=== PATIENT | male | born 1980 | race Caucasian/White ===

== ENCOUNTER 2018-12-12 17:10 | Inpatient (IN) | payer MEDICARE, MEDICAID ==
[2018-12-12] MEDS ORDERED: Lactated Ringers 1,000 ML IV ONE (17:35)
[2018-12-12] MEDS ORDERED: Sodium Chloride 0.9% 10 ML Syringe FLUSH PRN (17:35)
[2018-12-12] MEDS ORDERED: Levofloxacin/Dextrose 5%-Water 750 MG in Premix Bag 1 BAG IV ONE (17:55)
--- NOTE | 2018-12-12 18:02 | EDM.PDOC ---
ED HPI GENERAL MEDICAL PROBLEM - General Chief Complaint: Genitourinary Problem Stated Complaint: FEVER/URINARY PROBLEMS Time Seen by Provider: 12/12/18 17:23 Source of Information: Reports: Patient History Limitations: Reports: Physical Impairment - History of Present Illness INITIAL COMMENTS - FREE TEXT/NARRATIVE: 38-year-old male is brought in by his able case workers. He has a history of cerebral palsy. Currently has a suprapubic urinary catheter that they catheterized him 5 times a day with. Patient is new to able. reportedly the patient was diagnosed with urinary tract infection recently. He is currently on Keflex and ciprofloxacin for this. Just started on ciprofloxacin recently. Was found to have kidney stone. This was all diagnosed at [facility]. Reportedly has not been doing well. He has had fevers. No vomiting, cough or diarrhea. Patient answers questions appropriately. States that he is not feel well. records obtained from the [facility] showed that he had a noncontrast CT which read as 2 tiny nonobstructing left renal parenchymal calculi. No evidence of ureteral calculus given with the limitations of the exam. There is extensive artifact from the call lumbar surgical change. Soft tissue thickening calcifications. The urinary bladder that could be related to prior percutaneous catheter placement in this location. Small amount of air within the urinary bladder that could be related to instrumentation, but correlate with any clinical concern for infection. UA done at [facility] on 12-11 shows 51-200 of white blood cells per high-powered field and few bacteria. Urine culture is growing out greater than 100,000 colony-forming units per mL of Pseudomonas. Treatments CONTACT CENTER TEAM LEAD: Reports: Acetaminophen, NSAIDS - Related Data Allergies Allergy/AdvReac Type Severity Reaction Status Date / Time hydrocodone Allergy Vomiting Verified 12/12/18 19:39 Sulfa (Sulfonamide Allergy Other Verified 12/12/18 19:39 Antibiotics) Home Meds: Home Meds Acetaminophen [Tylenol] 325 mg PO Q4H PRN 12/12/18 [History] Amoxicillin 2,000 mg PO DAILY PRN 12/12/18 [History] Ascorbate Calcium [Vitamin C] 500 mg PO BID 12/12/18 [History] Baclofen 10 mg PO TID PRN 12/12/18 [History] Bifidobacter. Bifidum/B.Longum [Florajen Bifidoblend] 460 mg PO BID 12/12/18 [ History] Calcium Carb/Magnesium Hydrox [PA-Acid DS] 1 each PO Q4HR PRN 12/12/18 [History] Cephalexin [Keflex] 500 mg PO TID 12/12/18 [History] Cholecalciferol (Vitamin D3) [Vitamin D3] 1,000 units PO DAILY 12/12/18 [History ] Ciprofloxacin [Ciprofloxacin HCl] 500 mg PO BID 12/12/18 [History] Cranberry Fruit Extract [Cranberry] 425 mg PO BID 12/12/18 [History] Hydrocortisone [Proctocream-Hc] 30 gm RC BID PRN 12/12/18 [History] Ibuprofen 400 mg PO Q4HR PRN 12/12/18 [History] Methenamine Hippurate 1 gm PO BID 12/12/18 [History] Multivitamins [Tab-A-Berta] 1 each PO DAILY 12/12/18 [History] Mupirocin Cream [Bactroban Crm] 1 applic TOP BID 12/12/18 [History] OXcarbazepine [Oxcarbazepine] 150 mg PO BID 12/12/18 [History] OXcarbazepine [Oxcarbazepine] 300 mg PO BID 12/12/18 [History] Ondansetron [Zofran] 4 mg PO Q4H PRN 12/12/18 [History] Polyethylene Glycol [Polyox Wsr-301] 17 gm MC DAILY 12/12/18 [History] Potassium Citrate [Potassium Citrate ER] 30 meq PO BID 12/12/18 [History] Sennosides/Docusate Sodium [Senna Laxative Tablet] 2 each PO DAILY 12/12/18 [ History] Zinc Oxide 1 applic TOP ASDIRECTED 12/12/18 [History] Past Medical History Genitourinary History: Reports: Neurogenic Bladder Other Musculoskeletal History: Spastic Quadraplegia. Pt has CP. Neurological History: Reports: Cerebral Palsy, Seizure - Infectious Disease History Infectious Disease History: Reports: None - Past Surgical History Other GI Surgeries/Procedures: Pt has baclofen pump to LLQ. Male Surgical History: Reports: Suprapubic Catheter Placement Social & Family History - Tobacco Use Smoking Status *Q: Never Smoker - Caffeine Use Caffeine Use: Reports: None - Recreational Drug Use Recreational Drug Use: No ED ROS GENERAL - Review of Systems Review Of Systems: See Below Constitutional: Reports: Fever Respiratory: Denies: Cough GI/Abdominal: Denies: Abdominal Pain, Diarrhea, Vomiting : Reports: Other (catheterize 5 times a day with the suprapubic catheter.) ED EXAM, RENAL/ - Physical Exam Exam: See Below Exam Limited By: Physical Impairment (paient has cp) General Appearance: Alert, WD/WN, No Apparent Distress, Thin Ears: Normal External Exam Nose: Normal Inspection Throat/Mouth: Normal Inspection, Normal Voice, No Airway Compromise, Other (dry mucus membranes) Respiratory/Chest: No Respiratory Distress, Lungs Clear, Normal Breath Sounds, Chest Non-Tender Cardiovascular: Normal Peripheral Pulses, No Murmur, Tachycardia GI/Abdominal: Normal Bowel Sounds, Soft, Non-Tender, Other (stoma in the umbilicus) Neurological: Alert Psychiatric: Normal Affect, Normal Mood Skin Exam: Warm, Dry, Normal Color Course - Vital Signs Last Recorded V/S: Last Vital Signs Temp 99.1 F 12/12/18 17:18 Pulse 117 H 12/12/18 17:18 Resp 18 12/12/18 17:18 BP 123/87 12/12/18 17:18 Pulse Ox 98 12/12/18 17:18 - Orders/Labs/Meds Orders: Active Orders 24 hr Category Date Time Status Patient Status [ADT] Routine ADT 12/12/18 20:50 Active Peripheral IV Care [RC] . DIRECTED Care 12/12/18 17:35 Active Chest 1V Frontal [CR] Stat Exams 12/12/18 17:55 Taken CULTURE BLOOD [BC] Stat Lab 12/12/18 17:43 Received CULTURE BLOOD [BC] Stat Lab 12/12/18 17:50 Received CULTURE URINE [RM] Stat Lab 12/12/18 17:55 Received METH-RESIST S.AUR,MRSA BY PCR [MOLEC] Routine Lab 12/11/18 21:20 Ordered Sodium Chloride 0.9% [Saline Flush] Med 12/12/18 17:35 Active 10 ml FLUSH ASDIRECTED PRN Blood Culture x2 Reflex Set [OM.PC] Stat Oth 12/12/18 17:35 Ordered Peripheral IV Insertion Adult [OM.PC] Routine Oth 12/12/18 17:35 Ordered Medication Orders Sodium Chloride (Saline Flush) 10 ml FLUSH ASDIRECTED PRN PRN Reason: Keep Vein Open Last Admin: 12/12/18 18:08 Dose: 10 ml Labs: Laboratory Tests 12/12/18 12/12/18 12/12/18 Range/Units 17:43 17:43 17:43 WBC 22.44 H (4.23-9.07) K/mm3 RBC 4.73 (4.63-6.08) M/mm3 Hgb 14.6 (13.7-17.5) gm/L Hct 44.6 (40.1-51.0) % MCV 94.3 H (79.0-92.2) fl MCH 30.9 (25.7-32.2) pg MCHC 32.7 (32.2-35.5) g/dl RDW Std Deviation 51.5 H (35.1-43.9) fL Plt Count 180 (163-337) K/mm3 MPV 9.2 L (9.4-12.3) fl Neutrophils % (Manual) 83 H (40-60) % Band Neutrophils % 1 (0-10) % Lymphocytes % (Manual) 13 L (20-40) % Atypical Lymphs % 0 % Monocytes % (Manual) 3 (2-10) % Eosinophils % (Manual) 0 L (0.8-7.0) % Basophils % (Manual) 0 L (0.2-1.2) Platelet Estimate Adequate RBC Morph Comment Normal Sodium 135 L (136-145) mEq/L Potassium 3.9 (3.5-5.1) mEq/L Chloride 98 (98-107) mEq/L Carbon Dioxide 29 (21-32) mEq/L Anion Gap 11.9 (5-15) BUN 26 H (7-18) mg/dL Creatinine 0.7 (0.7-1.3) mg/dL Est Cr Clr Drug Dosing 83.17 mL/min Estimated GFR (MDRD) > 60 (>60) mL/min BUN/Creatinine Ratio 37.1 H (14-18) Glucose 101 (74-106) mg/dL Lactic Acid 1.3 (0.4-2.0) mmol/L Calcium 9.3 (8.5-10.1) mg/dL Total Bilirubin 0.7 (0.2-1.0) mg/dL AST 75 H (15-37) U/L ALT 101 H (16-63) U/L Alkaline Phosphatase 93 (46-116) U/L C-Reactive Protein 49.4 H* (<1.0) mg/dL Total Protein 6.9 (6.4-8.2) g/dl Albumin 3.2 L (3.4-5.0) g/dl Globulin 3.7 gm/dL Albumin/Globulin Ratio 0.9 L (1-2) Urine Color (Yellow) Urine Appearance (Clear) Urine pH (5.0-8.0) Ur Specific [place] (1.005-1.030) Urine Protein (Negative) Urine Glucose (UA) (Negative) Urine Ketones (Negative) Urine Occult Blood (Negative) Urine Nitrite (Negative) Urine Bilirubin (Negative) Urine Urobilinogen (0.2-1.0) Ur Leukocyte Esterase (Negative) Urine RBC (0-5) /hpf Urine WBC (0-5) /hpf Ur Squamous Epith Cells (0-5) /hpf Urine Bacteria (FEW) /hpf Urine Mucus (FEW) /hpf 12/12/18 Range/Units 17:55 WBC (4.23-9.07) K/mm3 RBC (4.63-6.08) M/mm3 Hgb (13.7-17.5) gm/L Hct (40.1-51.0) % MCV (79.0-92.2) fl MCH (25.7-32.2) pg MCHC (32.2-35.5) g/dl RDW Std Deviation (35.1-43.9) fL Plt Count (163-337) K/mm3 MPV (9.4-12.3) fl Neutrophils % (Manual) (40-60) % Band Neutrophils % (0-10) % Lymphocytes % (Manual) (20-40) % Atypical Lymphs % % Monocytes % (Manual) (2-10) % Eosinophils % (Manual) (0.8-7.0) % Basophils % (Manual) (0.2-1.2) Platelet Estimate RBC Morph Comment Sodium (136-145) mEq/L Potassium (3.5-5.1) mEq/L Chloride (98-107) mEq/L Carbon Dioxide (21-32) mEq/L Anion Gap (5-15) BUN (7-18) mg/dL Creatinine (0.7-1.3) mg/dL Est Cr Clr Drug Dosing mL/min Estimated GFR (MDRD) (>60) mL/min BUN/Creatinine Ratio (14-18) Glucose (74-106) mg/dL Lactic Acid (0.4-2.0) mmol/L Calcium (8.5-10.1) mg/dL Total Bilirubin (0.2-1.0) mg/dL AST (15-37) U/L ALT (16-63) U/L Alkaline Phosphatase (46-116) U/L C-Reactive Protein (<1.0) mg/dL Total Protein (6.4-8.2) g/dl Albumin (3.4-5.0) g/dl Globulin gm/dL Albumin/Globulin Ratio (1-2) Urine Color Dark yellow (Yellow) Urine Appearance Slt cloudy H (Clear) Urine pH 7.5 (5.0-8.0) Ur Specific [place] 1.020 (1.005-1.030) Urine Protein 3+ H (Negative) Urine Glucose (UA) Negative (Negative) Urine Ketones Negative (Negative) Urine Occult Blood Negative (Negative) Urine Nitrite Negative (Negative) Urine Bilirubin Negative (Negative) Urine Urobilinogen 4.0 H (0.2-1.0) Ur Leukocyte Esterase 1+ H (Negative) Urine RBC 5-10 H (0-5) /hpf Urine WBC 50-75 H (0-5) /hpf Ur Squamous Epith Cells 0-5 (0-5) /hpf Urine Bacteria Moderate H (FEW) /hpf Urine Mucus Few (FEW) /hpf Meds: Medications Generic Name Dose Route Start Last Admin Trade Name Freq PRN Reason Stop Dose Admin Sodium Chloride 10 ml 12/12/18 17:35 12/12/18 18:08 Saline Flush FLUSH 10 ml ASDIRECTED PRN Administration Keep Vein Open Discontinued Medications Generic Name Dose Route Start Last Admin Trade Name Freq PRN Reason Stop Dose Admin Lactated Ringer's 1,000 mls @ 999 mls/hr 12/12/18 17:35 12/12/18 18:05 Ringers, Lactated IV 12/12/18 18:35 999 mls/hr .BOLUS ONE Administration Levofloxacin/Dextrose 750 mg/ 150 mls @ 100 mls/hr 12/12/18 17:55 12/12/18 18 :06 Premix IV 12/12/18 19:24 100 mls/hr ONETIME ONE Administration Lactated Ringer's 500 mls @ 999 mls/hr 12/12/18 19:15 12/12/18 20:10 Ringers, Lactated IV 12/12/18 19:45 999 mls/hr .BOLUS ONE Administration - Re-Assessments/Exams Free Text/Narrative Re-Assessment/Exam: 12/12/18 19:[address] Palmer who agrees to the admission. Plan to admit to [facility] for suspected urosepsis. He has received 750 of Levaquin to cover against Pseudomonas. REcieved 1.5L of LR. Blood pressures have remained stable. Urine and blood cultures are pending. Departure - Departure Time of Disposition: 21:43 Disposition: Admitted As Inpatient 66 Condition: Fair Clinical Impression: UTI, Urinary tract infectious disease, Sepsis - Discharge Information *PRESCRIPTION DRUG MONITORING PROGRAM REVIEWED*: No *COPY OF PRESCRIPTION DRUG MONITORING REPORT IN PATIENT NOLVIA: No Referrals: Denver Diamond MD [Primary Care Provider] - Forms: ED Department Discharge Additional Instructions: admitted to Dr. Palmer for suspected urosepsis. - My Orders Last 24 Hours: My Active Orders 12/12/18 17:35 Peripheral IV Care [RC] . DIRECTED Sodium Chloride 0.9% [Saline Flush] 10 ml FLUSH ASDIRECTED PRN Blood Culture x2 Reflex Set [OM.PC] Stat Peripheral IV Insertion Adult [OM.PC] Routine 12/12/18 17:43 CULTURE BLOOD [BC] Stat 12/12/18 17:50 CULTURE BLOOD [BC] Stat 12/12/18 17:55 Chest 1V Frontal [CR] Stat CULTURE URINE [RM] Stat 12/12/18 20:50 Patient Status [ADT] Routine - Assessment/Plan Last 24 Hours: My Active Orders 12/12/18 17:35 Peripheral IV Care [RC] . DIRECTED Sodium Chloride 0.9% [Saline Flush] 10 ml FLUSH ASDIRECTED PRN Blood Culture x2 Reflex Set [OM.PC] Stat Peripheral IV Insertion Adult [OM.PC] Routine 12/12/18 17:43 CULTURE BLOOD [BC] Stat 12/12/18 17:50 CULTURE BLOOD [BC] Stat 12/12/18 17:55 Chest 1V Frontal [CR] Stat CULTURE URINE [RM] Stat 12/12/18 20:50 Patient Status [ADT] Routine
[2018-12-12] MEDS ORDERED: Lactated Ringers 500 ML IV ONE (19:15)
[2018-12-12] MEDS ORDERED: Meropenem 1 GM SDV IVPUSH SCH (21:45)
[2018-12-12] MEDS ORDERED: Ondansetron 4 MG/2 ML SDV IVPUSH PRN (21:52)
[2018-12-12] MEDS ORDERED: Acetaminophen Soln 160 MG/5 ML UD Cup PO PRN (21:53)
[2018-12-12] MEDS ORDERED: Ibuprofen Susp 100 MG/5 ML 5 ML UD Cup PO PRN (21:54)
[2018-12-12] MEDS ORDERED: Lactated Ringers 1,000 ML ONE (21:57)
[2018-12-12] MEDS ORDERED: Lactated Ringers 250 ML IV ONE (22:00)
[2018-12-12] MEDS ORDERED: Meropenem 1 GM in Sodium Chloride 0.9% 100 ML IV SCH (22:00)
[2018-12-12] MEDS ORDERED: Lactated Ringers 1,000 ML IV SCH (22:00)
[2018-12-12] MEDS ORDERED: Ondansetron 4 MG Tab.DIS PO PRN (22:28)
[2018-12-12] MEDS ORDERED: Baclofen 10 MG Tab PO PRN (22:28)
[2018-12-12] MEDS ORDERED: Acetaminophen 325 MG Tab PO PRN (22:28)
[2018-12-12] MEDS ORDERED: Meropenem Premix 500 MG in Premix Bag 1 BAG IV ONE ×2 (22:30→23:00)
--- NOTE | 2018-12-13 06:49 | PCM.HP ---
H&P History of Present Illness - General Date of Service: 12/13/18 Admit Problem/Dx: Admission Diagnosis/Problem Admission Diagnosis/Problem Urosepsis Source of Information: Patient, Old Records, Provider, RN, RN Notes Reviewed History Limitations: Reports: Physical Impairment - History of Present Illness Initial Comments - Free Text/Narative: Edilson Rodrigues is a 38 yo male with a history of cerebral palsy who presented to our ED in the evening of 12/12/18 with problems. His reportedly a new patient able and his caseworkers brought him in. He does have a suprapubic urinary catheter and the catheterized him 5 times a day. His reportedly recently diagnosed with urinary tract infection at [facility] and started on Keflex. He was then changed to Cipro. His reported to have 2 small kidney stones as well. Since that time he has not been doing well and has had fevers. Denies any vomiting, cough, or diarrhea. C/S done at [place] on 12/11/18 shows urine growing out greater than 100,000 CFU's of Pseudomonas. In the ED temperature was 99.1 Fahrenheit. Pulse 117. Respirations 18. Blood pressure 123/87. Pulse ox 98%. Labs are obtained showing a WBC of 22.44. Hemoglobin 14.6. Hematocrit 44.6. He is macrocytic. Platelets are 280,000. Neutrophils are elevated at 83%. There is 1% band neutrophils. Sodium is 135. Potassium 3.9. Chloride 98. Carbon dioxide 29. Anion gap is 11.9. BUN is 26. Creatinine 0.7. EGFR greater than 60. Glucose is 101. Lactic acid 1.3. Calcium 9.3. Bilirubin 0.7. AST 75, ALT 101, alkaline phosphatase 93. CRP is very high at 49.4. Protein is 6.9. Albumin 3.2. UA is noted to be dark yellow and cloudy with 3+ protein, 4.0 urobilinogen, 1+ leuk esterase, 50-75 WBCs, and moderate bacteria. He's given 1.5 L fluid bolus and started on 750 mg Levaquin. Blood cultures have been obtained. He carries a history of neurogenic bladder, spastic quadriplegia, cerebral palsy , seizures he does have a baclofen pump in his left lower quadrant and a suprapubic catheter. He was never a smoker. His PCP is Dr. Diamond. He is a full code. He subsequently admitted to the medical floor for UTI/urosepsis. - Related Data Allergies/Adverse Reactions: Allergies Allergy/AdvReac Type Severity Reaction Status Date / Time hydrocodone Allergy Vomiting Verified 12/12/18 22:23 Sulfa (Sulfonamide Allergy Other Verified 12/12/18 22:23 Antibiotics) Home Medications: Home Meds Acetaminophen [Tylenol] 325 mg PO Q4H PRN 12/12/18 [History] Amoxicillin 2,000 mg PO DAILY PRN 12/12/18 [History] Ascorbate Calcium [Vitamin C] 500 mg PO BID 12/12/18 [History] Baclofen 10 mg PO TID PRN 12/12/18 [History] Bifidobacter. Bifidum/B.Longum [Florajen Bifidoblend] 1 tab PO BID 12/12/18 [ History] Calcium Carb/Magnesium Hydrox [[place]-Acid DS] 1 each PO Q4HR PRN 12/12/18 [History] Cephalexin [Keflex] 500 mg PO TID 12/12/18 [History] Cholecalciferol (Vitamin D3) [Vitamin D3] 1,000 units PO DAILY 12/12/18 [History ] Ciprofloxacin [Ciprofloxacin HCl] 500 mg PO BID 12/12/18 [History] Cranberry Fruit Extract [Cranberry] 425 mg PO BID 12/12/18 [History] Hydrocortisone [Proctocream-Hc] 30 gm RC BID PRN 12/12/18 [History] Ibuprofen 400 mg PO Q4HR PRN 12/12/18 [History] Ketoconazole [Ketoconazole 2%] 1 applic TOP ASDIRECTED 12/12/18 [History] Methenamine Hippurate 1 gm PO BID 12/12/18 [History] Multivitamins [Tab-A-Berta] 1 each PO DAILY 12/12/18 [History] Mupirocin Cream [Bactroban Crm] 1 applic TOP BID 12/12/18 [History] OXcarbazepine [Oxcarbazepine] 150 mg PO BID 12/12/18 [History] OXcarbazepine [Oxcarbazepine] 300 mg PO BID 12/12/18 [History] Ondansetron [Zofran] 4 mg PO Q4H PRN 12/12/18 [History] Polyethylene Glycol [Polyox Wsr-301] 17 gm MC DAILY 12/12/18 [History] Potassium Citrate [Potassium Citrate ER] 30 meq PO BID 12/12/18 [History] Rectal Syringe [Enema Syringe] 1 each MC ASDIRECTED 12/12/18 [History] Sennosides/Docusate Sodium [Senna Laxative Tablet] 2 each PO QPM 12/12/18 [ History] Zinc Oxide 1 applic TOP ASDIRECTED 12/12/18 [History] Carboxymethylcellulose Sodium [Lubricant Eye Drop] 2 drop OP PRN 12/13/18 [ History] Hydrophilic Ointment [Aquaphilic Ointment] 0 gm TOP ASDIRECTED 12/13/18 [History ] Non-Formulary Medication [NF Drug] 0 each PRN 12/13/18 [History] Non-Formulary Medication [NF Drug] 25 mg TOP Q6H PRN 12/13/18 [History] guaiFENesin/D-Methorphan Hb/Pe [Gnp Tussin Cf Max M-S Cold Liq] 10 ml PO PRN [History] Past Medical History Respiratory History: Reports: Pneumonia, Recurrent Gastrointestinal History: Reports: Bowel Obstruction Genitourinary History: Reports: Neurogenic Bladder, Renal Calculus Other Musculoskeletal History: Spastic Quadraplegia, cerebral palsy, botox injections at extremities. Neurological History: Reports: Cerebral Palsy, Seizure Other Neuro History: Seizure disorder Dermatologic History: Reports: Decubitus Ulcer Other Dermatologic History: Sore on scrotum in November 2018, on abx for it. - Infectious Disease History Infectious Disease History: Reports: None - Past Surgical History Other GI Surgeries/Procedures: Pt has baclofen pump to LLQ. Male Surgical History: Reports: Renal Calculus, Suprapubic Catheter Placement Other Male Surgeries/Procedures: Mitrofanoff procedure, insertion point for the catheter at umbilicus November of 2012. Social & Family History - Family History Family Medical History: Noncontributory - Tobacco Use Smoking Status *Q: Unknown Ever Smoked - Caffeine Use Caffeine Use: Reports: None - Recreational Drug Use Recreational Drug Use: No H&P Review of Systems - Review of Systems: Review Of Systems: See Below General: Reports: Fever, Weakness. Denies: Chills, Malaise, Fatigue HEENT: Reports: No Symptoms. Denies: Headaches, Sore Throat Pulmonary: Denies: Shortness of Breath, Wheezing, Cough, Sputum Cardiovascular: Reports: No Symptoms. Denies: Chest Pain, Palpitations, Edema Gastrointestinal: Reports: No Symptoms. Denies: Abdominal Pain, Constipation, Diarrhea, Nausea, Vomiting Genitourinary: Reports: No Symptoms, Other (Suprapubic catheter which is catheterized 5 times a day.). Denies: Pain Musculoskeletal: Reports: No Symptoms Skin: Reports: No Symptoms Psychiatric: Reports: No Symptoms. Denies: Confusion Neurological: Reports: Pre-Existing Deficit, Difficulty Walking, Weakness, Gait Disturbance Hematologic/Lymphatic: Reports: No Symptoms Immunologic: Reports: No Symptoms Exam - Exam Exam: See Below - Vital Signs Vital Signs: Last Vital Signs Temp 97.9 F 12/13/18 04:12 Pulse 76 12/13/18 04:12 Resp 14 12/13/18 04:12 BP 112/75 12/13/18 04:12 Pulse Ox 97 12/13/18 04:12 Weight: 103 lb 14.4 oz - Exam Quality Assessment: Urinary Catheter (Chronic ), DVT Prophylaxis General: Alert, Oriented, Cooperative. No: Mild Distress HEENT: Conjunctiva Clear, EACs Clear, EOMI, Hearing Intact, Mucosa Moist & [place] , Nares Patent, Posterior Pharynx Clear, PERRLA Neck: Supple, Trachea Midline Lungs: Clear to Auscultation, Normal Respiratory Effort Cardiovascular: Regular Rate, Regular Rhythm GI/Abdominal Exam: Normal Bowel Sounds, Soft, Non-Tender, No Distention, No Abnormal Bruit, Other (Stoma in umbilicus ) (Male) Exam: Deferred Rectal (Males) Exam: Deferred Back Exam: Normal Inspection, Decreased Range of Motion Extremities: Normal Inspection, Non-Tender, No Pedal Edema, Normal Capillary Refill, Limited Range of Motion Peripheral Pulses: 2+: Radial (L), Radial (R), Dorsalis Pedis (L), Dorsalis Pedis (R) Skin: Warm, Dry, Intact Neuro Extensive - Mental Status: Alert, Oriented x3 - Patient Data Lab Results Last 24 hrs: Laboratory Results - last 24 hr 12/12/18 12/12/18 12/12/18 Range/Units 17:43 17:43 17:43 WBC 22.44 H (4.23-9.07) K/mm3 RBC 4.73 (4.63-6.08) M/mm3 Hgb 14.6 (13.7-17.5) gm/L Hct 44.6 (40.1-51.0) % MCV 94.3 H (79.0-92.2) fl MCH 30.9 (25.7-32.2) pg MCHC 32.7 (32.2-35.5) g/dl RDW Std Deviation 51.5 H (35.1-43.9) fL Plt Count 180 (163-337) K/mm3 MPV 9.2 L (9.4-12.3) fl Neutrophils % (Manual) 83 H (40-60) % Band Neutrophils % 1 (0-10) % Lymphocytes % (Manual) 13 L (20-40) % Atypical Lymphs % 0 % Monocytes % (Manual) 3 (2-10) % Eosinophils % (Manual) 0 L (0.8-7.0) % Basophils % (Manual) 0 L (0.2-1.2) Platelet Estimate Adequate RBC Morph Comment Normal Sodium 135 L (136-145) mEq/L Potassium 3.9 (3.5-5.1) mEq/L Chloride 98 (98-107) mEq/L Carbon Dioxide 29 (21-32) mEq/L Anion Gap 11.9 (5-15) BUN 26 H (7-18) mg/dL Creatinine 0.7 (0.7-1.3) mg/dL Est Cr Clr Drug Dosing 83.17 mL/min Estimated GFR (MDRD) > 60 (>60) mL/min BUN/Creatinine Ratio 37.1 H (14-18) Glucose 101 (74-106) mg/dL Lactic Acid 1.3 (0.4-2.0) mmol/L Calcium 9.3 (8.5-10.1) mg/dL Total Bilirubin 0.7 (0.2-1.0) mg/dL AST 75 H (15-37) U/L ALT 101 H (16-63) U/L Alkaline Phosphatase 93 (46-116) U/L C-Reactive Protein 49.4 H* (<1.0) mg/dL Total Protein 6.9 (6.4-8.2) g/dl Albumin 3.2 L (3.4-5.0) g/dl Globulin 3.7 gm/dL Albumin/Globulin Ratio 0.9 L (1-2) Urine Color (Yellow) Urine Appearance (Clear) Urine pH (5.0-8.0) Ur Specific [place] (1.005-1.030) Urine Protein (Negative) Urine Glucose (UA) (Negative) Urine Ketones (Negative) Urine Occult Blood (Negative) Urine Nitrite (Negative) Urine Bilirubin (Negative) Urine Urobilinogen (0.2-1.0) Ur Leukocyte Esterase (Negative) Urine RBC (0-5) /hpf Urine WBC (0-5) /hpf Ur Squamous Epith Cells (0-5) /hpf Urine Bacteria (FEW) /hpf Urine Mucus (FEW) /hpf MRSA (PCR) 12/12/18 12/12/18 12/13/18 Range/Units 17:55 21:18 05:35 WBC (4.23-9.07) K/mm3 RBC (4.63-6.08) M/mm3 Hgb (13.7-17.5) gm/L Hct (40.1-51.0) % MCV (79.0-92.2) fl MCH (25.7-32.2) pg MCHC (32.2-35.5) g/dl RDW Std Deviation (35.1-43.9) fL Plt Count (163-337) K/mm3 MPV (9.4-12.3) fl Neutrophils % (Manual) (40-60) % Band Neutrophils % (0-10) % Lymphocytes % (Manual) (20-40) % Atypical Lymphs % % Monocytes % (Manual) (2-10) % Eosinophils % (Manual) (0.8-7.0) % Basophils % (Manual) (0.2-1.2) Platelet Estimate RBC Morph Comment Sodium (136-145) mEq/L Potassium (3.5-5.1) mEq/L Chloride (98-107) mEq/L Carbon Dioxide (21-32) mEq/L Anion Gap (5-15) BUN (7-18) mg/dL Creatinine (0.7-1.3) mg/dL Est Cr Clr Drug Dosing mL/min Estimated GFR (MDRD) (>60) mL/min BUN/Creatinine Ratio (14-18) Glucose (74-106) mg/dL Lactic Acid 0.8 (0.4-2.0) mmol/L Calcium (8.5-10.1) mg/dL Total Bilirubin (0.2-1.0) mg/dL AST (15-37) U/L ALT (16-63) U/L Alkaline Phosphatase (46-116) U/L C-Reactive Protein (<1.0) mg/dL Total Protein (6.4-8.2) g/dl Albumin (3.4-5.0) g/dl Globulin gm/dL Albumin/Globulin Ratio (1-2) Urine Color Dark yellow (Yellow) Urine Appearance Slt cloudy H (Clear) Urine pH 7.5 (5.0-8.0) Ur Specific [place] 1.020 (1.005-1.030) Urine Protein 3+ H (Negative) Urine Glucose (UA) Negative (Negative) Urine Ketones Negative (Negative) Urine Occult Blood Negative (Negative) Urine Nitrite Negative (Negative) Urine Bilirubin Negative (Negative) Urine Urobilinogen 4.0 H (0.2-1.0) Ur Leukocyte Esterase 1+ H (Negative) Urine RBC 5-10 H (0-5) /hpf Urine WBC 50-75 H (0-5) /hpf Ur Squamous Epith Cells 0-5 (0-5) /hpf Urine Bacteria Moderate H (FEW) /hpf Urine Mucus Few (FEW) /hpf MRSA (PCR) Negative Result Diagrams: 12/13/18 05:35 12/13/18 05:35 - Problem List (1) Sepsis SNOMED Code(s): 56768333 ICD Code: A41.9 - SEPSIS, UNSPECIFIED ORGANISM Status: Acute Priority: High Current Visit: Yes Qualifiers: Sepsis type: Pseudomonas Qualified Code(s): A41.52 - Sepsis due to Pseudomonas (2) UTI, Urinary tract infectious disease SNOMED Code(s): 82864541 ICD Code: N39.0 - URINARY TRACT INFECTION, SITE NOT SPECIFIED Status: Acute Priority: High Current Visit: Yes (3) Neurogenic bladder SNOMED Code(s): 697265264 ICD Code: N31.9 - NEUROMUSCULAR DYSFUNCTION OF BLADDER, UNSPECIFIED Status : Chronic Priority: Medium Current Visit: No (4) Spastic quadriplegia SNOMED Code(s): 940955408 ICD Code: G82.50 - QUADRIPLEGIA, UNSPECIFIED Status: Chronic Priority: Medium Current Visit: No (5) Cerebral palsy SNOMED Code(s): 743297044 ICD Code: G80.9 - CEREBRAL PALSY, UNSPECIFIED Status: Chronic Current Visit: No Qualifiers: Cerebral palsy type: spastic quadriplegic Qualified Code(s): G80.0 - Spastic quadriplegic cerebral palsy (6) History of seizures SNOMED Code(s): 876828314 ICD Code: Z87.898 - PERSONAL HISTORY OF OTHER SPECIFIED CONDITIONS Status: Chronic Priority: Medium Current Visit: Yes (7) Presence of suprapubic catheter SNOMED Code(s): 950718030, 581874957 ICD Code: Z93.59 - OTHER CYSTOSTOMY STATUS Status: Chronic Priority: Medium Current Visit: Yes Problem List Initiated/Reviewed/Updated: Yes Orders Last 24hrs: Active Orders 24 hr Category Date Time Status Patient Status [ADT] Routine ADT 12/12/18 20:50 Active Bedrest [RC] QSHIFT Care 12/12/18 21:51 Active Pureed Diet [DIET] Diet 12/13/18 Breakfast Active Chest 1V Frontal [CR] Stat Exams 12/12/18 17:55 Taken CULTURE BLOOD [BC] Stat Lab 12/12/18 17:43 Received CULTURE BLOOD [BC] Stat Lab 12/12/18 17:50 Received CULTURE URINE [RM] Stat Lab 12/12/18 17:55 Received Acetaminophen [Tylenol] Med 12/12/18 22:28 Active 325 mg PO Q4H PRN Baclofen [Lioresal] Med 12/12/18 22:28 Active 10 mg PO TID PRN Ibuprofen [Motrin 100 MG/5 ML Susp] Med 12/12/18 21:54 Active 600 mg PO Q6H PRN Lactated Ringers [Ringers, Lactated] 1,000 ml Med 12/12/18 22:00 Active IV ASDIRECTED Meropenem [Merrem] 1 gm Med 12/13/18 08:00 Active Sodium Chloride 0.9% [Normal Saline] 100 ml IV Q8H OXcarbazepine [Trileptal] Med 12/13/18 09:00 Active 450 mg PO BID Ondansetron [Zofran ODT] Med 12/12/18 22:28 Active 4 mg PO Q4H PRN Ondansetron [Zofran] Med 12/12/18 21:52 Active 4 mg IVPUSH Q6H PRN Sodium Chloride 0.9% [Saline Flush] Med 12/12/18 17:35 Active 10 ml FLUSH ASDIRECTED PRN Blood Culture x2 Reflex Set [OM.PC] Stat Oth 12/12/18 17:35 Ordered Peripheral IV Insertion Adult [OM.PC] Routine Oth 12/12/18 17:35 Ordered Code Status [Resuscitation Status] Routine Resus Stat 12/12/18 21:50 Ordered Medication Orders Acetaminophen (Tylenol) 325 mg PO Q4H PRN PRN Reason: Fever Baclofen (Lioresal) 10 mg PO TID PRN PRN Reason: Muscle Spasm Lactated Ringer's (Ringers, Lactated) 1,000 mls @ 75 mls/hr IV ASDIRECTED MERRICK Meropenem 1 gm/ Sodium (Chloride) 100 mls @ 200 mls/hr IV Q8H MERRICK Ibuprofen (Motrin 100 Mg/5 Ml Susp) 600 mg PO Q6H PRN PRN Reason: Pain/Fever Ondansetron HCl (Zofran) 4 mg IVPUSH Q6H PRN PRN Reason: Nausea/Vomiting Ondansetron HCl (Zofran Odt) 4 mg PO Q4H PRN PRN Reason: Nausea/Vomiting Oxcarbazepine (Trileptal) 450 mg PO BID MERRICK Sodium Chloride (Saline Flush) 10 ml FLUSH ASDIRECTED PRN PRN Reason: Keep Vein Open Last Admin: 12/12/18 18:08 Dose: 10 ml Assessment/Plan Comment:: I/P: Acute: Sepsis 2/2 UTI -Failed outpatient treatment -Fever, Tachycardia, Leukocytosis, Known UTI -UA at [facility] on 12/11/18: 51-200 WBC, 3-10 RBC, Few bacteria -UC at [facility] on 11/1218: >100,000 CFU/mL Pseudomonas species -Risk factors: Suprapubic catheter with 5 times a day catheterization, bedridden 2/2 CP -Has been taking keflex and cipro for UTI -UA here in ED 12/12/18: 3+ protein, 4.0 urobilinogen, 1+ leukocyte esterase, 5-10 RBC, 50-75WBC, Moderate bacteria -Lactic acid 1.3-->0.8 -WBC 22.44-->15.24 -CRP 49.4-->26.4 -Blood cultures pending -Urine cultures pending -750mg Levaquin given in ED -> Discontinue -1.5L fluid bolus in ED -meropenem started on floor -IV fluids as ordered -CT scan abdomen/pelvis from [place] on 11/29/18: * 1. 2 tiny nonobstructing left renal parenchymal calculi * 2. No evidence of ureteral calculus given the limitations of this examination. There is extensive artifact from thoracolumbar surgical changes. * 3. Soft tissue thickening and calcification superior to the ed to prior percutaneous catheter placement in this location. * 4. Small amount of air within the urinary bladder that could be related to instrumentation, but correlate with any clinical concern for infection. -Tylenol for fevers Nonobstructing renal calculi -CT scan as above -PCP to follow Chronic: Neurogenic Bladder Spastic quadriplegia Cerebral palsy Hx/o seizures Baclofen pump in LLQ Suprapubic catheter in place Plan: Admit to medical floor Other orders as indicated above Home medications as ordered Routine AM labs Catheterize as directed Spiritual care consult Dietary consult VTE prophylaxis: VTE score 1 - nothing indicated Code status: Full code; PCP: Dr. Diamond
--- NOTE | 2018-12-13 07:23 | CR ---
Chest: Portable view of the chest was obtained. Comparison: No prior chest imaging. Heart size and mediastinum are normal. Lungs are clear. Spinal fixation rods are present. Bony structures are grossly intact. Impression: 1. Spinal fixation rods. Nothing acute is appreciated on portable chest x-ray. Diagnostic code #1
[2018-12-13] MEDS ORDERED: Meropenem 1 GM in Sodium Chloride 0.9% 100 ML IV SCH (08:00)
[2018-12-13] MEDS: Meropenem Premix 500 MG in Premix Bag 1 BAG IV SCH ×2 (08:23→14:12)
[2018-12-13] MEDS: OXcarbazepine 150 MG Tab PO SCH ×2 (08:24→22:02)
[2018-12-13] MEDS ORDERED: OXcarbazepine 300 MG Tab PO SCH (09:00)
[2018-12-13] MEDS ORDERED: Ibuprofen 600 MG Tab PO PRN (09:23)
[2018-12-13] MEDS ORDERED: Hydrocortisone 1% Crm 30 GM Tube TOP PRN (13:44)
[2018-12-13] MEDS: Mupirocin Oint 22 GM Tube TOP SCH ×2 (14:12→22:03)
--- NOTE | 2018-12-13 15:25 | PCM.SN ---
- Free Text/Narrative Note: Urine sensitivity results were received from [facility]. Pseudomonas sensitive to ciprofloxacin and meropenem. Meropenem will be DC'd and patient will be kept on Levaquin 750 mg daily.
[2018-12-13] MEDS ORDERED: Levofloxacin/Dextrose 5%-Water 750 MG in Premix Bag 1 BAG IV SCH (18:00)
[2018-12-14] MEDS: OXcarbazepine 150 MG Tab PO SCH ×2 (08:34→21:30)
[2018-12-14] MEDS: Mupirocin Oint 22 GM Tube TOP SCH ×2 (08:34→21:29)
--- NOTE | 2018-12-14 09:56 | PCM.PN ---
- General Info Date of Service: 12/14/18 Admission Dx/Problem (Free Text): Admission Diagnosis/Problem Admission Diagnosis/Problem Urosepsis Subjective Update: December 14, 2018 Patient was afebrile overnight and generally doing better. Patient blood pressure is normal and pulse has come down below 100. He continues currently on IV fluids. Pseudomonas growing out of his urine is sensitive to Levaquin and was switched back to Levaquin last night. Meropenem was stopped. Functional Status: Reports: Pain Controlled - Review of Systems General: Reports: No Symptoms. Denies: Fever HEENT: Reports: No Symptoms Pulmonary: Reports: No Symptoms Cardiovascular: Reports: No Symptoms. Denies: Chest Pain, Dyspnea on Exertion Gastrointestinal: Reports: No Symptoms. Denies: Abdominal Pain - Patient Data Vitals - Most Recent: Last Vital Signs Temp 98.4 F 12/14/18 07:36 Pulse 93 12/14/18 07:36 Resp 22 H 12/14/18 07:36 BP 139/78 12/14/18 07:36 Pulse Ox 100 12/14/18 07:36 Weight - Most Recent: 104 lb I&O - Last 24 Hours: Intake & Output 12/13/18 12/14/18 12/14/18 22:59 06:59 14:59 Intake Total 1380 150 Output Total 250 1100 Balance 1130 -950 Lab Results Last 24 Hours: Laboratory Results - last 24 hr 12/14/18 12/14/18 Range/Units 05:30 05:30 WBC 9.68 H (4.23-9.07) K/mm3 RBC 4.46 L (4.63-6.08) M/mm3 Hgb 13.8 (13.7-17.5) gm/L Hct 42.0 (40.1-51.0) % MCV 94.2 H (79.0-92.2) fl MCH 30.9 (25.7-32.2) pg MCHC 32.9 (32.2-35.5) g/dl RDW Std Deviation 49.2 H (35.1-43.9) fL Plt Count 147 L (163-337) K/mm3 MPV 10.0 (9.4-12.3) fl Neut % (Auto) 82.2 H (34.0-67.9) % Lymph % (Auto) 11.6 L (21.8-53.1) % [place] % (Auto) 5.1 L (5.3-12.2) % Eos % (Auto) 0.8 (0.8-7.0) Baso % (Auto) 0.0 L (0.1-1.2) % Neut # (Auto) 7.96 H (1.78-5.38) K/mm3 Lymph # (Auto) 1.12 L (1.32-3.57) K/mm3 [place] # (Auto) 0.49 (0.30-0.82) K/mm3 Eos # (Auto) 0.08 (0.04-0.54) K/mm3 Baso # (Auto) 0.00 L (0.01-0.08) K/mm3 Sodium 138 (136-145) mEq/L Potassium 3.7 (3.5-5.1) mEq/L Chloride 104 (98-107) mEq/L Carbon Dioxide 25 (21-32) mEq/L Anion Gap 12.7 (5-15) BUN 12 (7-18) mg/dL Creatinine 0.5 L (0.7-1.3) mg/dL Est Cr Clr Drug Dosing 133.53 mL/min Estimated GFR (MDRD) > 60 (>60) mL/min BUN/Creatinine Ratio 24.0 H (14-18) Glucose 84 (74-106) mg/dL Calcium 9.0 (8.5-10.1) mg/dL Magnesium 1.8 (1.8-2.4) mg/dl C-Reactive Protein 17.6 H* (<1.0) mg/dL Norbert Results Last 24 Hours: Microbiology 12/12/18 17:43 Aerobic Blood Culture - Preliminary Blood - Venous NO GROWTH AFTER 1 DAY Anaerobic Blood Culture - Preliminary NO GROWTH AFTER 1 DAY 12/12/18 17:50 Aerobic Blood Culture - Preliminary Blood - Venous - Lab Draw NO GROWTH AFTER 1 DAY Anaerobic Blood Culture - Preliminary NO GROWTH AFTER 1 DAY 12/12/18 17:55 Urine Culture - Preliminary Urine, Catheterized NO GROWTH AFTER 1 DAY Med Orders - Current: Current Medications Acetaminophen (Tylenol) 325 mg PO Q4H PRN PRN Reason: Fever Baclofen (Lioresal) 10 mg PO TID PRN PRN Reason: Muscle Spasm Hydrocortisone (Hydrocortisone 1% Crm) 0 gm TOP BID PRN PRN Reason: Itching Levofloxacin/Dextrose 750 mg/ (Premix) 150 mls @ 100 mls/hr IV Q24H [facility] Last Admin: 12/13/18 17:15 Dose: 100 mls/hr Ibuprofen (Motrin) 600 mg PO Q6H PRN PRN Reason: Pain/Fever Last Admin: 12/13/18 14:35 Dose: 600 mg Mupirocin (Bactroban Oint) 0 gm TOP BID [facility] Stop: 12/16/18 21:30 Last Admin: 12/14/18 08:34 Dose: 1 applic Ondansetron HCl (Zofran) 4 mg IVPUSH Q6H PRN PRN Reason: Nausea/Vomiting Ondansetron HCl (Zofran Odt) 4 mg PO Q4H PRN PRN Reason: Nausea/Vomiting Oxcarbazepine (Trileptal) 450 mg PO BID [facility] Last Admin: 12/14/18 08:34 Dose: 450 mg Sodium Chloride (Saline Flush) 10 ml FLUSH ASDIRECTED PRN PRN Reason: Keep Vein Open Last Admin: 12/12/18 18:08 Dose: 10 ml Discontinued Medications Acetaminophen (Tylenol Solution) 650 mg PO Q6H PRN PRN Reason: Pain/Fever Lactated Ringer's (Ringers, Lactated) 1,000 mls @ 999 mls/hr IV .BOLUS ONE Stop: 12/12/18 18:35 Last Admin: 12/12/18 18:05 Dose: 999 mls/hr Levofloxacin/Dextrose 750 mg/ (Premix) 150 mls @ 100 mls/hr IV ONETIME ONE Stop: 12/12/18 19:24 Last Admin: 12/12/18 18:06 Dose: 100 mls/hr Lactated Ringer's (Ringers, Lactated) 500 mls @ 999 mls/hr IV .BOLUS ONE Stop: 12/12/18 19:45 Last Admin: 12/12/18 20:10 Dose: 999 mls/hr Lactated Ringer's (Ringers, Lactated) 250 mls @ 999 mls/hr IV ONETIME ONE Stop: 12/12/18 22:15 Last Admin: 12/12/18 22:10 Dose: 999 mls/hr Lactated Ringer's (Ringers, Lactated) 1,000 mls @ 75 mls/hr IV ASDIRECTED [facility] Last Admin: 12/13/18 09:53 Dose: 75 mls/hr Vancomycin HCl 1 gm/ Sodium (Chloride) 250 mls @ 250 mls/hr IV ONETIME ONE Stop: 12/12/18 23:59 Lactated Ringer's (Ringers, Lactated) Confirm Administered Dose 1,000 mls @ as directed .ROUTE .STK-MED ONE Stop: 12/12/18 21:58 Last Admin: 12/12/18 22:28 Dose: Not Given Meropenem/Sodium Chloride 500 (mg/ Premix) 50 mls @ 200 mls/hr IV ONETIME ONE Stop: 12/12/18 22:44 Last Admin: 12/12/18 22:36 Dose: 200 mls/hr Meropenem/Sodium Chloride 500 (mg/ Premix) 50 mls @ 200 mls/hr IV ONETIME ONE Stop: 12/12/18 23:14 Last Admin: 12/12/18 22:37 Dose: 200 mls/hr Meropenem 1 gm/ Sodium (Chloride) 100 mls @ 200 mls/hr IV Q8H [facility] Meropenem/Sodium Chloride 500 (mg/ Premix) 50 mls @ 100 mls/hr IV Q6H [facility] Last Admin: 12/13/18 14:12 Dose: 100 mls/hr Ibuprofen (Motrin 100 Mg/5 Ml Susp) 600 mg PO Q6H PRN PRN Reason: Pain/Fever Vancomycin HCl (Pharmacy To Dose - Vancomycin) 1 dose .XX ASDIRECTED [facility] - Exam General: Alert, Oriented HEENT: Pupils Equal Neck: Supple Lungs: Clear to Auscultation, Normal Respiratory Effort Cardiovascular: Regular Rate, Regular Rhythm GI/Abdominal Exam: Normal Bowel Sounds, Soft, Non-Tender, No Distention Extremities: Normal Inspection, Normal Range of Motion, Non-Tender, No Pedal Edema Skin: Warm, Dry, Intact Psy/Mental Status: Alert - Problem List & Annotations (1) Sepsis SNOMED Code(s): 65975191 Code(s): A41.9 - SEPSIS, UNSPECIFIED ORGANISM Status: Acute Priority: High Current Visit: Yes Qualifiers: Sepsis type: Pseudomonas Qualified Code(s): A41.52 - Sepsis due to Pseudomonas (2) UTI, Urinary tract infectious disease SNOMED Code(s): 21291558 Code(s): N39.0 - URINARY TRACT INFECTION, SITE NOT SPECIFIED Status: Acute Priority: High Current Visit: Yes (3) Presence of suprapubic catheter SNOMED Code(s): 992613770, 360336079 Code(s): Z93.59 - OTHER CYSTOSTOMY STATUS Status: Chronic Priority: Medium Current Visit: Yes - Problem List Review Problem List Initiated/Reviewed/Updated: Yes - My Orders Last 24 Hours: My Active Orders 12/13/18 09:00 OXcarbazepine [Trileptal] 450 mg PO BID 12/13/18 09:23 Ibuprofen [Motrin] 600 mg PO Q6H PRN 12/13/18 10:39 Urinary Catheter Assessment [RC] 12/13/18 10:45 Insert Urinary Catheter [OM.PC] Q24H 12/13/18 18:00 Levofloxacin/Dextrose 5%-Water [Levaquin in D5W 750 MG/150 ML] 750 mg Premix Bag 1 bag IV Q24H - Plan Plan:: I/P: Acute: Sepsis 2/2 UTI - sepsis resolving -Failed outpatient treatment -Fever, Tachycardia, Leukocytosis, Known UTI -UA at [facility] on 12/11/18: 51-200 WBC, 3-10 RBC, Few bacteria -UC at [facility] on 11/1218: >100,000 CFU/mL Pseudomonas species -Risk factors: Suprapubic catheter with 5 times a day catheterization, bedridden 2/2 CP -Has been taking keflex and cipro for UTI -UA here in ED 12/12/18: 3+ protein, 4.0 urobilinogen, 1+ leukocyte esterase, 5-10 RBC, 50-75WBC, Moderate bacteria -Lactic acid 1.3-->0.8 -WBC 22.44-->15.24-->9.7 -CRP 49.4-->26.4-->17.6 -Blood cultures pending -Urine cultures from [place] demonstrate pseudomonas aeruginosa sensitive to Levaquin -750mg Levaquin continued daily -1.5L fluid bolus in ED -meropenem DC'd due to sensitivities -IV fluids DC -CT scan abdomen/pelvis from [facility] on 11/29/18: * 1. 2 tiny nonobstructing left renal parenchymal calculi * 2. No evidence of ureteral calculus given the limitations of this examination. There is extensive artifact from thoracolumbar surgical changes. * 3. Soft tissue thickening and calcification superior to the ed to prior percutaneous catheter placement in this location. * 4. Small amount of air within the urinary bladder that could be related to instrumentation, but correlate with any clinical concern for infection. -Tylenol for fevers Nonobstructing renal calculi -CT scan as above -PCP to follow Chronic: Neurogenic Bladder Spastic quadriplegia Cerebral palsy Hx/o seizures Baclofen pump in LLQ Suprapubic catheter in place Plan: Admit to medical floor Other orders as indicated above Home medications as ordered Routine AM labs Catheterize as directed Spiritual care consult Dietary consult VTE prophylaxis: VTE score 1 - nothing indicated Code status: Full code; PCP: Dr. Diamond
[2018-12-14] MEDS: Levofloxacin 750 MG Tab PO SCH (18:47)
[2018-12-15] MEDS: Mupirocin Oint 22 GM Tube TOP SCH (09:26)
[2018-12-15] MEDS: OXcarbazepine 150 MG Tab PO SCH (09:26)
--- NOTE | 2018-12-15 11:28 | PCM.DCSUM1 ---
Discharge Summary - Hospital Course HPI Initial Comments: Edilson Rodrigues is a 38 yo male with a history of cerebral palsy who presented to our ED in the evening of 12/12/18 with problems. His reportedly a new patient able and his caseworkers brought him in. He does have a suprapubic urinary catheter and the catheterized him 5 times a day. His reportedly recently diagnosed with urinary tract infection at [facility] and started on Keflex. He was then changed to Cipro. His reported to have 2 small kidney stones as well. Since that time he has not been doing well and has had fevers. Denies any vomiting, cough, or diarrhea. C/S done at [facility] on 12/11/18 shows urine growing out greater than 100,000 CFU's of Pseudomonas. In the ED temperature was 99.1 Fahrenheit. Pulse 117. Respirations 18. Blood pressure 123/87. Pulse ox 98%. Labs are obtained showing a WBC of 22.44. Hemoglobin 14.6. Hematocrit 44.6. He is macrocytic. Platelets are 280,000. Neutrophils are elevated at 83%. There is 1% band neutrophils. Sodium is 135. Potassium 3.9. Chloride 98. Carbon dioxide 29. Anion gap is 11.9. BUN is 26. Creatinine 0.7. EGFR greater than 60. Glucose is 101. Lactic acid 1.3. Calcium 9.3. Bilirubin 0.7. AST 75, ALT 101, alkaline phosphatase 93. CRP is very high at 49.4. Protein is 6.9. Albumin 3.2. UA is noted to be dark yellow and cloudy with 3+ protein, 4.0 urobilinogen, 1+ leuk esterase, 50-75 WBCs, and moderate bacteria. He's given 1.5 L fluid bolus and started on 750 mg Levaquin. Blood cultures have been obtained. He carries a history of neurogenic bladder, spastic quadriplegia, cerebral palsy , seizures he does have a baclofen pump in his left lower quadrant and a suprapubic catheter. He was never a smoker. His PCP is Dr. Diamond. He is a full code. He subsequently admitted to the medical floor for UTI/urosepsis. Brief History: Patient was initially put on meropenem with the levofloxacin. Cultures results did come back with pseudomonas aeruginosa sensitive to ciprofloxacin, so patient was left on levofloxacin and meropenem was stopped. Patient did very well throughout hospitalization and there were no complications. Diagnosis: Stroke: No - Discharge Data Discharge Date: 12/15/18 Discharge Disposition: DC/Tfer to Other 70 Condition: Good - Discharge Diagnosis/Problem(s) (1) Sepsis SNOMED Code(s): 64640787 ICD Code: A41.9 - SEPSIS, UNSPECIFIED ORGANISM Status: Acute Priority: High Current Visit: Yes Qualifiers: Sepsis type: Pseudomonas Qualified Code(s): A41.52 - Sepsis due to Pseudomonas (2) UTI, Urinary tract infectious disease SNOMED Code(s): 76704887 ICD Code: N39.0 - URINARY TRACT INFECTION, SITE NOT SPECIFIED Status: Acute Priority: High Current Visit: Yes (3) Presence of suprapubic catheter SNOMED Code(s): 362157129, 679409106 ICD Code: Z93.59 - OTHER CYSTOSTOMY STATUS Status: Chronic Priority: Medium Current Visit: Yes - Patient Summary/Data Consults: Consultations 12/13/18 07:41 Consult to Case Management/Jailer [CONS] Routine Consult to Senior Portfolio Analyst [CONS] Routine Consult to Spiritual Care [CONS] Routine - Patient Instructions Diet: Usual Diet as Tolerated Activity: As Tolerated Driving: Do Not Drive Showering/Bathing: May Shower Other/Special Instructions: Follow up with Dr. Diamond next week. - Discharge Plan *PRESCRIPTION DRUG MONITORING PROGRAM REVIEWED*: No *COPY OF PRESCRIPTION DRUG MONITORING REPORT IN PATIENT NOLVIA: No Prescriptions/Med Rec: levoFLOXacin [Levaquin] 750 mg PO Q24H #5 tablet Home Medications: Home Meds Acetaminophen [Tylenol] 325 mg PO Q4H PRN 12/12/18 [History] Amoxicillin 2,000 mg PO DAILY PRN 12/12/18 [History] Ascorbate Calcium [Vitamin C] 500 mg PO BID 12/12/18 [History] Baclofen 10 mg PO TID PRN 12/12/18 [History] Bifidobacter. Bifidum/B.Longum [Florajen Bifidoblend] 1 tab PO BID 12/12/18 [ History] Calcium Carb/Magnesium Hydrox [HI-Acid DS] 1 each PO Q4HR PRN 12/12/18 [History] Cholecalciferol (Vitamin D3) [Vitamin D3] 1,000 units PO DAILY 12/12/18 [History ] Cranberry Fruit Extract [Cranberry] 425 mg PO BID 12/12/18 [History] Hydrocortisone [Proctozone-Hc] 30 gm RC BID PRN 12/12/18 [History] Ketoconazole [Nizoral 2% Shampoo] 1 applic TOP ASDIRECTED 12/12/18 [History] Methenamine Hippurate 1 gm PO BID 12/12/18 [History] Multivitamins [Tab-A-Berta] 1 each PO DAILY 12/12/18 [History] Mupirocin Cream [Bactroban Crm] 1 applic TOP BID 12/12/18 [History] OXcarbazepine [Oxcarbazepine] 150 mg PO BID 12/12/18 [History] OXcarbazepine [Oxcarbazepine] 300 mg PO BID 12/12/18 [History] Ondansetron [Zofran] 4 mg PO Q4H PRN 12/12/18 [History] Polyethylene Glycol [Polyox Wsr-301] 17 gm MC DAILY 12/12/18 [History] Potassium Citrate [Potassium Citrate ER] 30 meq PO BID 12/12/18 [History] Rectal Syringe [Enema Syringe] 1 each MC ASDIRECTED 12/12/18 [History] Sennosides/Docusate Sodium [Senna Laxative Tablet] 2 each PO QPM 12/12/18 [ History] Zinc Oxide 1 applic TOP ASDIRECTED 12/12/18 [History] Carboxymethylcellulose Sodium [Lubricant Eye Drop] 2 drop OP PRN 12/13/18 [ History] Hydrophilic Ointment [Aquaphilic Ointment] 0 gm TOP ASDIRECTED 12/13/18 [History ] Non-Formulary Medication [NF Drug] 0 each PRN 12/13/18 [History] Non-Formulary Medication [NF Drug] 25 mg TOP Q6H PRN 12/13/18 [History] guaiFENesin/D-Methorphan Hb/Pe [Gnp Tussin Cf Max M-S Cold Liq] 10 ml PO PRN [History] levoFLOXacin [Levaquin] 750 mg PO Q24H #5 tablet 12/15/18 [Rx] Oxygen Therapy Mode: Room Air Patient Handouts: Urosepsis Forms: ED Department Discharge Referrals: Denvre Diamond MD [Primary Care Provider] - - Discharge Summary/Plan Comment DC Time >30 min.: Yes Discharge Summary/Plan Comment: Patient be discharged on 5 more days of levofloxacin 750 mg daily. He will follow-up with his primary care provider next week. - General Info Date of Service: 12/15/18 Admission Dx/Problem (Free Text: Admission Diagnosis/Problem Admission Diagnosis/Problem Urosepsis Subjective Update: December 14, 2018 Patient was afebrile overnight and generally doing better. Patient blood pressure is normal and pulse has come down below 100. He continues currently on IV fluids. Pseudomonas growing out of his urine is sensitive to Levaquin and was switched back to Levaquin last night. Meropenem was stopped. December 15, 2018 Patient continues to be afebrile and tolerating medication well. Patient is ready for discharge. Functional Status: Reports: Pain Controlled - Review of Systems General: Reports: No Symptoms. Denies: Fever HEENT: Reports: No Symptoms Pulmonary: Reports: No Symptoms. Denies: Shortness of Breath, Cough Cardiovascular: Reports: No Symptoms. Denies: Chest Pain - Patient Data Vitals - Most Recent: Last Vital Signs Temp 99.3 F 12/15/18 08:19 Pulse 100 12/15/18 08:19 Resp 14 12/15/18 08:19 BP 157/99 H 12/15/18 08:19 Pulse Ox 95 12/15/18 08:19 Weight - Most Recent: 104 lb 14.4 oz I&O - Last 24 hours: Intake & Output 12/14/18 12/15/18 12/15/18 22:59 06:59 14:59 Intake Total 870 300 300 Output Total 1200 525 Balance -330 -225 300 Lab Results - Last 24 hrs: Laboratory Results - last 24 hr 12/15/18 12/15/18 Range/Units 04:48 04:48 WBC 9.05 (4.23-9.07) K/mm3 RBC 4.54 L (4.63-6.08) M/mm3 Hgb 14.1 (13.7-17.5) gm/L Hct 42.6 (40.1-51.0) % MCV 93.8 H (79.0-92.2) fl MCH 31.1 (25.7-32.2) pg MCHC 33.1 (32.2-35.5) g/dl RDW Std Deviation 49.4 H (35.1-43.9) fL Plt Count 183 (163-337) K/mm3 MPV 9.7 (9.4-12.3) fl Neut % (Auto) 74.1 H (34.0-67.9) % Lymph % (Auto) 16.1 L (21.8-53.1) % [place] % (Auto) 8.0 (5.3-12.2) % Eos % (Auto) 1.1 (0.8-7.0) Baso % (Auto) 0.1 (0.1-1.2) % Neut # (Auto) 6.71 H (1.78-5.38) K/mm3 Lymph # (Auto) 1.46 (1.32-3.57) K/mm3 [place] # (Auto) 0.72 (0.30-0.82) K/mm3 Eos # (Auto) 0.10 (0.04-0.54) K/mm3 Baso # (Auto) 0.01 (0.01-0.08) K/mm3 Sodium 140 (136-145) mEq/L Potassium 3.7 (3.5-5.1) mEq/L Chloride 103 (98-107) mEq/L Carbon Dioxide 28 (21-32) mEq/L Anion Gap 12.7 (5-15) BUN 15 (7-18) mg/dL Creatinine 0.5 L (0.7-1.3) mg/dL Est Cr Clr Drug Dosing 133.66 mL/min Estimated GFR (MDRD) > 60 (>60) mL/min BUN/Creatinine Ratio 30.0 H (14-18) Glucose 92 (74-106) mg/dL Calcium 9.7 (8.5-10.1) mg/dL Magnesium 2.0 (1.8-2.4) mg/dl C-Reactive Protein 9.4 H* (<1.0) mg/dL ROBERT Results - Last 24 hrs: Microbiology 12/12/18 17:43 Aerobic Blood Culture - Preliminary Blood - Venous NO GROWTH AFTER 2 DAYS Anaerobic Blood Culture - Preliminary NO GROWTH AFTER 2 DAYS 12/12/18 17:50 Aerobic Blood Culture - Preliminary Blood - Venous - Lab Draw NO GROWTH AFTER 2 DAYS Anaerobic Blood Culture - Preliminary NO GROWTH AFTER 2 DAYS 12/12/18 17:55 Urine Culture - Final Urine, Catheterized NO GROWTH AFTER 2 DAYS Med Orders - Current: Current Medications Acetaminophen (Tylenol) 325 mg PO Q4H PRN PRN Reason: Fever Baclofen (Lioresal) 10 mg PO TID PRN PRN Reason: Muscle Spasm Hydrocortisone (Hydrocortisone 1% Crm) 0 gm TOP BID PRN PRN Reason: Itching Ibuprofen (Motrin) 600 mg PO Q6H PRN PRN Reason: Pain/Fever Last Admin: 12/13/18 14:35 Dose: 600 mg Levofloxacin (Levaquin) 750 mg PO Q24H [facility] Last Admin: 12/14/18 18:47 Dose: 750 mg Mupirocin (Bactroban Oint) 0 gm TOP BID [facility] Stop: 12/16/18 21:30 Last Admin: 12/15/18 09:26 Dose: 1 applic Ondansetron HCl (Zofran) 4 mg IVPUSH Q6H PRN PRN Reason: Nausea/Vomiting Ondansetron HCl (Zofran Odt) 4 mg PO Q4H PRN PRN Reason: Nausea/Vomiting Oxcarbazepine (Trileptal) 450 mg PO BID [facility] Last Admin: 12/15/18 09:26 Dose: 450 mg Sodium Chloride (Saline Flush) 10 ml FLUSH ASDIRECTED PRN PRN Reason: Keep Vein Open Last Admin: 12/12/18 18:08 Dose: 10 ml Discontinued Medications Acetaminophen (Tylenol Solution) 650 mg PO Q6H PRN PRN Reason: Pain/Fever Lactated Ringer's (Ringers, Lactated) 1,000 mls @ 999 mls/hr IV .BOLUS ONE Stop: 12/12/18 18:35 Last Admin: 12/12/18 18:05 Dose: 999 mls/hr Levofloxacin/Dextrose 750 mg/ (Premix) 150 mls @ 100 mls/hr IV ONETIME ONE Stop: 12/12/18 19:24 Last Admin: 12/12/18 18:06 Dose: 100 mls/hr Lactated Ringer's (Ringers, Lactated) 500 mls @ 999 mls/hr IV .BOLUS ONE Stop: 12/12/18 19:45 Last Admin: 12/12/18 20:10 Dose: 999 mls/hr Lactated Ringer's (Ringers, Lactated) 250 mls @ 999 mls/hr IV ONETIME ONE Stop: 12/12/18 22:15 Last Admin: 12/12/18 22:10 Dose: 999 mls/hr Lactated Ringer's (Ringers, Lactated) 1,000 mls @ 75 mls/hr IV ASDIRECTED [facility] Last Admin: 12/13/18 09:53 Dose: 75 mls/hr Vancomycin HCl 1 gm/ Sodium (Chloride) 250 mls @ 250 mls/hr IV ONETIME ONE Stop: 12/12/18 23:59 Lactated Ringer's (Ringers, Lactated) Confirm Administered Dose 1,000 mls @ as directed .ROUTE .STK-MED ONE Stop: 12/12/18 21:58 Last Admin: 12/12/18 22:28 Dose: Not Given Meropenem/Sodium Chloride 500 (mg/ Premix) 50 mls @ 200 mls/hr IV ONETIME ONE Stop: 12/12/18 22:44 Last Admin: 12/12/18 22:36 Dose: 200 mls/hr Meropenem/Sodium Chloride 500 (mg/ Premix) 50 mls @ 200 mls/hr IV ONETIME ONE Stop: 12/12/18 23:14 Last Admin: 12/12/18 22:37 Dose: 200 mls/hr Meropenem 1 gm/ Sodium (Chloride) 100 mls @ 200 mls/hr IV Q8H [facility] Meropenem/Sodium Chloride 500 (mg/ Premix) 50 mls @ 100 mls/hr IV Q6H [facility] Last Admin: 12/13/18 14:12 Dose: 100 mls/hr Levofloxacin/Dextrose 750 mg/ (Premix) 150 mls @ 100 mls/hr IV Q24H [facility] Last Admin: 12/13/18 17:15 Dose: 100 mls/hr Ibuprofen (Motrin 100 Mg/5 Ml Susp) 600 mg PO Q6H PRN PRN Reason: Pain/Fever Vancomycin HCl (Pharmacy To Dose - Vancomycin) 1 dose .XX ASDIRECTED [facility] - Exam Quality Assessment: Denies: Supplemental Oxygen General: Reports: Alert, Oriented HEENT: Reports: Pupils Equal, Pupils Reactive Neck: Reports: Supple Lungs: Reports: Clear to Auscultation, Normal Respiratory Effort Cardiovascular: Reports: Regular Rate, Regular Rhythm GI/Abdominal Exam: Normal Bowel Sounds, Soft, Non-Tender, No Distention Back Exam: Reports: Normal Inspection Extremities: Normal Inspection, Normal Range of Motion, Non-Tender, No Pedal Edema Skin: Reports: Warm, Dry, Intact Neurological: Reports: No New Focal Deficit Psy/Mental Status: Reports: Alert, Normal Affect, Normal Mood
[2018-12-15] MEDS: Levofloxacin 750 MG Tab PO SCH (13:20)
== END 2018-12-15 14:20 | disposition other institution (70) | DRG 698 ==
LOC: JD.ED 17:10 → JD.MS 20:50
PROVIDERS: ADMIT Family Medicine; ATTEND Family Medicine
DX: T83.518A Infection and inflammatory reaction due to other urinary catheter, initial encounter (principal); A41.9 Sepsis, unspecified organism; A41.52 Sepsis due to Pseudomonas; G80.9 Cerebral palsy, unspecified; G82.50 Quadriplegia, unspecified; N20.0 Calculus of kidney; Z96.0 Presence of urogenital implants; N39.0 Urinary tract infection, site not specified; N31.9 Neuromuscular dysfunction of bladder, unspecified; Z88.5 Allergy status to narcotic agent; Z88.2 Allergy status to sulfonamides; Z79.899 Other long term (current) drug therapy; R56.9 Unspecified convulsions; Z87.442 Personal history of urinary calculi; Y83.9 Surgical procedure, unspecified as the cause of abnormal reaction of the patient, or of later complication, without mention of misadventure at the time of the procedure
CPT/HCPCS: 36415; 71045; 80053; 81001; 83605; 85007; 85027; 86140; 87040 ×2; 87086; 96361; 96365; 96366; 99284; J1956; J7120 ×2; 51701; 80048; 83735; 85025; 87641; 99283; A9270-GY; J2185

== ENCOUNTER 2019-03-22 09:28 | Inpatient (IN) | payer MEDICARE, MEDICAID ==
[2019-03-22] MEDS ORDERED: Sodium Chloride 0.9% 1,000 ML IV SCH (11:15)
[2019-03-22] MEDS ORDERED: Ondansetron 4 MG/2 ML SDV IVPUSH ONE (11:55)
[2019-03-22] MEDS ORDERED: HYDROmorphone 0.5 MG/0.5 ML Syringe IVPUSH ONE (11:55)
--- NOTE | 2019-03-22 13:51 | EDM.PDOC ---
ED HPI GENERAL MEDICAL PROBLEM - General Chief Complaint: Gastrointestinal Problem Stated Complaint: ABD PAIN Time Seen by Provider: 03/22/19 09:57 Source of Information: Reports: Patient, RN Notes Reviewed, Other (Able nurse) - History of Present Illness INITIAL COMMENTS - FREE TEXT/NARRATIVE: 38-year-old male has been brought to the ED with abdominal pain that started yesterday. He does have fairly severe cerebral palsy. He requires total care and does have his bladder catheterized 6 times a day. Yesterday and today there is been less urine than usual when catheterized. He did not eat and drink as much yesterday afternoon and evening. The drink some breakfast this morning but also not as much his usual. Been having some nonspecific abdominal pain. He did have a fairly good BM yesterday afternoon and then also had a smaller BM about 3 AM this morning. There's been no vomiting. He has not been running fever. To the best of our knowledge she still does have his appendix and gallbladder. Abdominal Pain Score (Numeric/FACES): 10 - Related Data Allergies Allergy/AdvReac Type Severity Reaction Status Date / Time Sulfa (Sulfonamide Allergy Other Verified 03/22/19 09:54 Antibiotics) hydrocodone AdvReac Vomiting Verified 03/22/19 09:54 Home Meds: Home Meds Acetaminophen [Tylenol] 325 mg PO Q4H PRN 12/12/18 [History] Ascorbate Calcium [Vitamin C] 500 mg PO BID 12/12/18 [History] Cholecalciferol (Vitamin D3) [Vitamin D3] 1,000 units PO DAILY 12/12/18 [History ] Cranberry Fruit Extract [Cranberry] 425 mg PO BID 12/12/18 [History] Hydrocortisone [Proctozone-Hc] 30 gm RC BID PRN 12/12/18 [History] Ketoconazole [Nizoral 2% Shampoo] 1 applic TOP ASDIRECTED PRN 12/12/18 [History] Methenamine Hippurate 1 gm PO BID 12/12/18 [History] Multivitamins [Tab-A-Berta] 1 each PO DAILY 12/12/18 [History] Mupirocin Cream [Bactroban Crm] 1 applic TOP BID 12/12/18 [History] OXcarbazepine [Oxcarbazepine] 150 mg PO BID 12/12/18 [History] OXcarbazepine [Oxcarbazepine] 300 mg PO BID 12/12/18 [History] Ondansetron [Zofran] 4 mg PO Q4H PRN 12/12/18 [History] Polyethylene Glycol [Polyox Wsr-301] 17 gm MC DAILY 12/12/18 [History] Potassium Citrate [Potassium Citrate ER] 30 meq PO BID 12/12/18 [History] Rectal Syringe [Enema Syringe] 1 each MC ASDIRECTED 12/12/18 [History] Sennosides/Docusate Sodium [Senna Laxative Tablet] 2 each PO QPM 12/12/18 [ History] Zinc Oxide 1 applic TOP ASDIRECTED 12/12/18 [History] Carboxymethylcellulose Sodium [Lubricant Eye Drop] 2 drop OP BID PRN 12/13/18 [ History] Non-Formulary Medication [NF Drug] 1 applic PO BID PRN 12/13/18 [History] Non-Formulary Medication [NF Drug] 25 mg TOP Q6H PRN 12/13/18 [History] guaiFENesin/D-Methorphan Hb/Pe [Gnp Tussin Cf Max M-S Cold Liq] 10 ml PO Q4HR PRN 12/13/18 [History] Lactobacillus Acidophilus [Acidophilus] 1 tab PO BID 03/22/19 [History] Past Medical History Respiratory History: Reports: Pneumonia, Recurrent Gastrointestinal History: Reports: Bowel Obstruction Genitourinary History: Reports: Neurogenic Bladder, Renal Calculus, Other (See Below) Other Genitourinary History: chronic cath Other Musculoskeletal History: Spastic Quadraplegia, cerebral palsy, botox injections at extremities. Neurological History: Reports: Cerebral Palsy, Seizure Other Neuro History: Seizure disorder Dermatologic History: Reports: Decubitus Ulcer Other Dermatologic History: Sore on scrotum in November 2018, on abx for it. - Infectious Disease History Infectious Disease History: Reports: None - Past Surgical History Other GI Surgeries/Procedures: Pt has baclofen pump to LLQ. Male Surgical History: Reports: Renal Calculus, Suprapubic Catheter Placement Other Male Surgeries/Procedures: Mitrofanoff procedure, insertion point for the catheter at umbilicus November of 2012. Social & Family History - Family History Family Medical History: Noncontributory - Tobacco Use Smoking Status *Q: Never Smoker Second Hand Smoke Exposure: No - Caffeine Use Caffeine Use: Reports: None - Recreational Drug Use Recreational Drug Use: No ED ROS GENERAL - Review of Systems Review Of Systems: See Below Constitutional: Denies: Fever HEENT: Reports: No Symptoms Respiratory: Denies: Shortness of Breath Cardiovascular: Denies: Chest Pain GI/Abdominal: Reports: Abdominal Pain, Decreased Appetite. Denies: Constipation , Diarrhea, Hematochezia, Melena Skin: Reports: No Symptoms (No acute symptoms) Neurological: Reports: No Symptoms (No acute symptoms) ED EXAM, GI/ABD - Physical Exam Exam: See Below Exam Limited By: Other (Patient unable to verbalize so there is challenge to completely understand how he is feeling) General Appearance: Alert, Other (He does make good eye contact) Eyes: Bilateral: Normal Appearance Throat/Mouth: Other Head: Atraumatic (Oral mucosa is moist) Neck: Supple Respiratory/Chest: No Respiratory Distress, Lungs Clear, Normal Breath Sounds Cardiovascular: Tachycardia GI/Abdominal Exam: Distended, Tender (There is mild distention). No: Guarding ( mild diffuse tenderness) Extremities: Other (Muscle wasting, contractures of upper and lower extremities) Skin Exam: Warm, Dry, Normal Color Course - Vital Signs Last Recorded V/S: Last Vital Signs Temp 100.1 F 03/22/19 15:25 Pulse 120 H 03/22/19 09:52 Resp 15 03/22/19 09:52 BP 144/104 H 03/22/19 09:52 Pulse Ox 96 03/22/19 09:52 - Orders/Labs/Meds Orders: Active Orders 24 hr Category Date Time Status Patient Status [ADT] Routine ADT 03/22/19 15:49 Active Abdomen 2V AP Flat Upright [CR] Stat Exams 03/22/19 11:57 Taken CULTURE URINE [RM] Stat Lab 03/22/19 14:05 Received Sodium Chloride 0.9% [Normal Saline] 1,000 ml Med 03/22/19 11:15 Active IV ONETIME Medication Orders Sodium Chloride (Normal Saline) 1,000 mls @ 999 mls/hr IV ONETIME MERRICK Last Admin: 03/22/19 11:21 Dose: 999 mls/hr Labs: Laboratory Tests 03/22/19 03/22/19 03/22/19 Range/Units 11:10 11:10 11:10 WBC 17.43 H (4.23-9.07) K/mm3 RBC 5.64 (4.63-6.08) M/mm3 Hgb 17.6 H D (13.7-17.5) gm/dl Hct 52.8 H (40.1-51.0) % MCV 93.6 H (79.0-92.2) fl MCH 31.2 (25.7-32.2) pg MCHC 33.3 (32.2-35.5) g/dl RDW Std Deviation 48.0 H (35.1-43.9) fL Plt Count 255 (163-337) K/mm3 MPV 9.1 L (9.4-12.3) fl Neut % (Auto) 83.9 H (34.0-67.9) % Lymph % (Auto) 4.8 L (21.8-53.1) % [place] % (Auto) 10.6 (5.3-12.2) % Eos % (Auto) 0.2 L (0.8-7.0) Baso % (Auto) 0.1 (0.1-1.2) % Neut # (Auto) 14.63 H (1.78-5.38) K/mm3 Lymph # (Auto) 0.83 L (1.32-3.57) K/mm3 [place] # (Auto) 1.85 H (0.30-0.82) K/mm3 Eos # (Auto) 0.04 (0.04-0.54) K/mm3 Baso # (Auto) 0.01 (0.01-0.08) K/mm3 Manual Slide Review Abnormal smear Sodium 138 (136-145) mEq/L Potassium 5.3 H D (3.5-5.1) mEq/L Chloride 102 (98-107) mEq/L Carbon Dioxide 30 (21-32) mEq/L Anion Gap 11.3 (5-15) BUN 28 H (7-18) mg/dL Creatinine 1.5 H (0.7-1.3) mg/dL Est Cr Clr Drug Dosing 42.15 mL/min Estimated GFR (MDRD) 52 (>60) mL/min BUN/Creatinine Ratio 18.7 H (14-18) Glucose 108 H (74-106) mg/dL Calcium 9.6 (8.5-10.1) mg/dL Total Bilirubin 0.8 (0.2-1.0) mg/dL AST 18 (15-37) U/L ALT 34 (16-63) U/L Alkaline Phosphatase 94 (46-116) U/L C-Reactive Protein 19.8 H* (<1.0) mg/dL Total Protein 7.6 (6.4-8.2) g/dl Albumin 3.8 (3.4-5.0) g/dl Globulin 3.8 gm/dL Albumin/Globulin Ratio 1.0 (1-2) Urine Color (Yellow) Urine Appearance (Clear) Urine pH (5.0-8.0) Ur Specific [place] (1.005-1.030) Urine Protein (Negative) Urine Glucose (UA) (Negative) Urine Ketones (Negative) Urine Occult Blood (Negative) Urine Nitrite (Negative) Urine Bilirubin (Negative) Urine Urobilinogen (0.2-1.0) Ur Leukocyte Esterase (Negative) Urine RBC (0-5) /hpf Urine WBC (0-5) /hpf Ur Epithelial Cells (0-5) /hpf Urine Bacteria (FEW) /hpf Urine Mucus (FEW) /hpf 03/22/19 Range/Units 14:05 WBC (4.23-9.07) K/mm3 RBC (4.63-6.08) M/mm3 Hgb (13.7-17.5) gm/dl Hct (40.1-51.0) % MCV (79.0-92.2) fl MCH (25.7-32.2) pg MCHC (32.2-35.5) g/dl RDW Std Deviation (35.1-43.9) fL Plt Count (163-337) K/mm3 MPV (9.4-12.3) fl Neut % (Auto) (34.0-67.9) % Lymph % (Auto) (21.8-53.1) % [place] % (Auto) (5.3-12.2) % Eos % (Auto) (0.8-7.0) Baso % (Auto) (0.1-1.2) % Neut # (Auto) (1.78-5.38) K/mm3 Lymph # (Auto) (1.32-3.57) K/mm3 [place] # (Auto) (0.30-0.82) K/mm3 Eos # (Auto) (0.04-0.54) K/mm3 Baso # (Auto) (0.01-0.08) K/mm3 Manual Slide Review Sodium (136-145) mEq/L Potassium (3.5-5.1) mEq/L Chloride (98-107) mEq/L Carbon Dioxide (21-32) mEq/L Anion Gap (5-15) BUN (7-18) mg/dL Creatinine (0.7-1.3) mg/dL Est Cr Clr Drug Dosing mL/min Estimated GFR (MDRD) (>60) mL/min BUN/Creatinine Ratio (14-18) Glucose (74-106) mg/dL Calcium (8.5-10.1) mg/dL Total Bilirubin (0.2-1.0) mg/dL AST (15-37) U/L ALT (16-63) U/L Alkaline Phosphatase (46-116) U/L C-Reactive Protein (<1.0) mg/dL Total Protein (6.4-8.2) g/dl Albumin (3.4-5.0) g/dl Globulin gm/dL Albumin/Globulin Ratio (1-2) Urine Color Yellow (Yellow) Urine Appearance Cloudy H (Clear) Urine pH 7.0 (5.0-8.0) Ur Specific [place] 1.020 (1.005-1.030) Urine Protein 3+ H (Negative) Urine Glucose (UA) Negative (Negative) Urine Ketones Negative (Negative) Urine Occult Blood 3+ H (Negative) Urine Nitrite Negative (Negative) Urine Bilirubin 1+ H (Negative) Urine Urobilinogen 0.2 (0.2-1.0) Ur Leukocyte Esterase 1+ H (Negative) Urine RBC 30-40 H (0-5) /hpf Urine WBC 75-100 H (0-5) /hpf Ur Epithelial Cells 0-5 (0-5) /hpf Urine Bacteria Moderate H (FEW) /hpf Urine Mucus Few (FEW) /hpf Meds: Medications Generic Name Dose Route Start Last Admin Trade Name Freq PRN Reason Stop Dose Admin Sodium Chloride 1,000 mls @ 999 mls/hr 03/22/19 11:15 03/22/19 11:21 Normal Saline IV 999 mls/hr ONETIME MERRICK Administration Discontinued Medications Generic Name Dose Route Start Last Admin Trade Name Zak PRN Reason Stop Dose Admin Acetaminophen 650 mg 03/22/19 15:21 03/22/19 15:25 Tylenol PO 03/22/19 15:22 650 mg NOW ONE Administration Hydromorphone HCl 0.25 mg 03/22/19 11:55 03/22/19 12:03 Dilaudid IVPUSH 03/22/19 11:56 0.25 mg ONETIME ONE Administration Ceftriaxone Sodium 1 gm/ 100 mls @ 200 mls/hr 03/22/19 14:36 03/22/19 14:45 Sodium Chloride IV 03/22/19 15:05 200 mls/hr ONETIME ONE Administration Ondansetron HCl 4 mg 03/22/19 11:55 03/22/19 12:03 Zofran IVPUSH 03/22/19 11:56 4 mg ONETIME ONE Administration - Re-Assessments/Exams Free Text/Narrative Re-Assessment/Exam: 03/22/19 13:51 [facility] staff did have concern about decreased urine output last evening and this morning wondering if there was something wrong with the catheter they were using. However when we did a bladder scan there was less than 100 ml in the bladder shortly after arrival to ED. White blood count did come back elevated at 17,430 CO2 30 anion gap 11.3 128 creatinine 1.5. We did check a flat plate and lateral decub of his abdomen which does show generous gas in the abdomen, mostly: No free air or any evidence for obstruction. He does have hearing 10 type rods in his back so checking a CT is not really a good option at this time. I did put a request in for C reactive protein, will see what that shows. We'll also plan to check a catheter urine 03/22/19 15:40. UA does come back positive for UTI. I had ordered a urine culture and Rocephin 1 g IV. His initial IV had infiltrated and second IV was obtained. I'm informed that after receiving about half of the 1 g dose Rocephin the 2nd IV infiltrated. Nurse guest service representative has been called in to get a better working IV. I am also informed he now has a temp of over 100. He likely does have early pyelonephritis. Have ordered a blood culture and serum lactate. He did not need septic criteria at time of initial evaluation. Patient will be admitted for further treatment, observation status. 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): G80.0 - Spastic quadriplegic cerebral palsy - Discharge Information Referrals: Denver Diamond MD [Primary Care Provider] - Forms: ED Department Discharge ED Communication - Discussed Case With (1) Discussed Case With (1): Admitting Provider (Discussed with Dr Arteaga, decision to admit at about15;45) - My Orders Last 24 Hours: My Active Orders 03/22/19 11:15 Sodium Chloride 0.9% [Normal Saline] 1,000 ml IV ONETIME 03/22/19 11:57 Abdomen 2V AP Flat Upright [CR] Stat 03/22/19 14:05 CULTURE URINE [RM] Stat 03/22/19 15:49 Patient Status [ADT] Routine - Assessment/Plan Last 24 Hours: My Active Orders 03/22/19 11:15 Sodium Chloride 0.9% [Normal Saline] 1,000 ml IV ONETIME 03/22/19 11:57 Abdomen 2V AP Flat Upright [CR] Stat 03/22/19 14:05 CULTURE URINE [RM] Stat 03/22/19 15:49 Patient Status [ADT] Routine
[2019-03-22] MEDS ORDERED: cefTRIAXone 1 GM in Sodium Chloride 0.9% 100 ML IV ONE (14:36)
[2019-03-22] MEDS ORDERED: Acetaminophen 325 MG Tab PO ONE (15:21)
[2019-03-22] MEDS ORDERED: Ondansetron 4 MG Tab.DIS PO PRN (15:50)
[2019-03-22] MEDS ORDERED: Non-Formulary Medication 1 Each (Acetaminophen [Tylenol] 325 MG) PO PRN (15:50)
[2019-03-22] MEDS ORDERED: KETOCONAZOLE TOP PRN (15:50)
[2019-03-22] MEDS ORDERED: D METHORPHAN HB PO PRN (15:50)
[2019-03-22] MEDS ORDERED: [UNRECOGNIZED DRUG - OTHER] TOP PRN (15:50)
[2019-03-22] MEDS ORDERED: GUAIFENESIN PO PRN (15:50)
[2019-03-22] MEDS ORDERED: Non-Formulary Medication 1 Each (Non-Formulary Medication [Nf Drug] 1 APPLIC) PO PRN (15:50)
[2019-03-22] MEDS ORDERED: [UNRECOGNIZED DRUG - OTHER] PO PRN (15:50)
[2019-03-22] MEDS ORDERED: Carboxymethylcellulose Sodium 1% Ophth Gel 15 ML Bottle EYERT PRN (15:50)
[2019-03-22] MEDS ORDERED: Hydrocortisone 1% Crm 30 GM Tube TOP PRN (15:50)
[2019-03-22] MEDS ORDERED: Promethazine 6.25 MG in Sodium Chloride 0.9% 50 ML IV PRN (15:51)
[2019-03-22] MEDS ORDERED: Bisacodyl 5 MG Tab PO PRN (15:51)
[2019-03-22] MEDS ORDERED: Ondansetron 4 MG/2 ML SDV IV PRN (15:51)
[2019-03-22] MEDS ORDERED: Temazepam 7.5 MG Cap PO PRN (15:51)
[2019-03-22] MEDS ORDERED: Docusate Sodium 100 MG Cap PO PRN (15:51)
[2019-03-22] MEDS ORDERED: Albuterol/Ipratropium 3.0-0.5 MG/3 ML Neb Soln NEB PRN (15:51)
[2019-03-22] MEDS ORDERED: HYDROmorphone 0.5 MG/0.5 ML Syringe IVPUSH PRN (15:51)
[2019-03-22] MEDS ORDERED: Polyethylene Glycol 3350 Powder 17 GM Packet PO PRN (15:51)
--- NOTE | 2019-03-22 15:57 | PCM.SN ---
- Free Text/Narrative Note: Called to assist with IV start. 22 gauge IV inserted in right upper arm x1 attempt, per standard technique, transparent dressing applied, flushes well with 10 ml saline, connected to infusion pump per ЮЛИЯ Balbuena. Tolerated procedure well.
[2019-03-22] MEDS ORDERED: [UNRECOGNIZED DRUG - OTHER] MC SCH (16:00)
[2019-03-22] MEDS ORDERED: Lactulose Soln 10 GM/15 ML 30 ML UD Cup PO ONE (16:06)
[2019-03-22] MEDS: Lactated Ringers 1,000 ML IV SCH (17:36)
[2019-03-22] MEDS: Bisacodyl 10 MG Supp RECTAL SCH (18:25)
[2019-03-22] MEDS: Acetaminophen 325 MG Tab PO PRN (18:26)
[2019-03-22] MEDS ORDERED: Magnesium Hydroxide 400 MG/5 ML Susp 30 ML Cup PO PRN (19:44)
[2019-03-22] MEDS ORDERED: [UNRECOGNIZED DRUG - OTHER] TOP PRN (19:44)
[2019-03-22] MEDS ORDERED: Baclofen 10 MG Tab PO PRN (19:44)
[2019-03-22] MEDS ORDERED: MYLANTA PO PRN (19:44)
[2019-03-22] MEDS ORDERED: [UNRECOGNIZED DRUG - OTHER] PO PRN (19:44)
[2019-03-22] MEDS: Levofloxacin/Dextrose 5%-Water 750 MG in Premix Bag 1 BAG IV SCH (19:44)
[2019-03-22] MEDS ORDERED: PROMETHAZINE HCL 25 MG TOP PRN (19:44)
[2019-03-22] MEDS ORDERED: [UNRECOGNIZED DRUG - OTHER] TOP SCH (19:45)
--- NOTE | 2019-03-22 20:52 | PCM.HP.2 ---
H&P History of Present Illness - General Date of Service: 03/22/19 Admit Problem/Dx: Admission Diagnosis/Problem Admission Diagnosis/Problem Urinary tract infection Source of Information: Patient, Provider, RN Notes Reviewed, Other (caregiver) History Limitations: Reports: Language Barrier, Physical Impairment, Other ( Intellectual Disability) - History of Present Illness Initial Comments - Free Text/Narative: This is a 38 yo white male with past medical hx/o Recurrent PNA, Bowel Obstruction, Neurogenic Bladder, Hx/o Renal Stone, Severe Quadraplegia, Cerebral Palsy, Seizure Disorder, Decubitus Ulcer and Intellectual Disability who comes in with complaints of abdominal pain that started yesterday. His symptom is associated with oliguria. He carries a hx/o neurogenic bladder with frequent suprapubic catheterization. His last bowel movement was yesterday afternoon. However he is known to have recurrent bowel obstruction. No reports of nausea, vomiting, fever or chills. His initial work up in ED shows remarkable CBC. His chemistry is significant for K of 5.3, BUN of 28, Cr of 1.5, BS of 108, and CRP of 19.8. His UA shows pyuria and hematuria. His abdominal x-ray reveals scattered gas within small bowel and colon with some stool. Patient is tachycardic and diaphoretic at the time of my examination. He is coming in primarily for treatment of sepsis 2/2 catheter associated urinary tract infection. Abdominal Pain Score (Numeric/FACES): 5 - Related Data Allergies/Adverse Reactions: Allergies Allergy/AdvReac Type Severity Reaction Status Date / Time Sulfa (Sulfonamide Allergy Other Verified 03/22/19 20:42 Antibiotics) hydrocodone AdvReac Vomiting Verified 03/22/19 20:42 Home Medications: Home Meds Acetaminophen [Tylenol] 325 - 650 mg PO Q4H PRN 12/12/18 [History] Ascorbate Calcium [Vitamin C] 500 mg PO BID 12/12/18 [History] Cholecalciferol (Vitamin D3) [Vitamin D3] 1,000 units PO DAILY 12/12/18 [History ] Cranberry Fruit Extract [Cranberry] 425 mg PO BID 12/12/18 [History] Hydrocortisone [Proctozone-Hc] 1 applic RECTAL BID PRN 12/12/18 [History] Ketoconazole [Nizoral 2% Shampoo] 1 applic TOP ASDIRECTED 12/12/18 [History] Methenamine Hippurate 1 gm PO BID 12/12/18 [History] Multivitamins [Tab-A-Berta] 1 tab PO DAILY 12/12/18 [History] OXcarbazepine [Oxcarbazepine] 150 mg PO BID 12/12/18 [History] OXcarbazepine [Oxcarbazepine] 300 mg PO BID 12/12/18 [History] Ondansetron [Zofran] 4 mg PO Q4H PRN 12/12/18 [History] Polyethylene Glycol [Polyox Wsr-301] 17 gm PO DAILY 12/12/18 [History] Potassium Citrate [Potassium Citrate ER] 30 meq PO BID 12/12/18 [History] Zinc Oxide 1 applic TOP BID 12/12/18 [History] Carboxymethylcellulose Sodium [Lubricant Eye Drop] 2 drop EYERT BID PRN [History] guaiFENesin/D-Methorphan Hb/Pe [Gnp Tussin Cf Max M-S Cold Liq] 10 ml PO Q4HR PRN 12/13/18 [History] Aquaphilac Ointment 1 applic TOP ASDIRECTED PRN 03/22/19 [History] Ascorbate Calcium [Vitamin C] 500 mg PO BID 03/22/19 [History] Baclofen 10 mg PO TID PRN 03/22/19 [History] Cepamax D Lip 1 applic TOP ASDIRECTED 03/22/19 [History] Lactobacillus Acidophilus [Acidophilus] 1 cap PO BID 03/22/19 [History] Magnesium Hydroxide [Milk of Magnesia] 2 - 4 tbsp PO DAILY PRN 03/22/19 [History ] Mylanta 2 - 4 tsp PO Q2H PRN 03/22/19 [History] Promethazine HCl [Phenergan] 25 mg TOP Q6H PRN 03/22/19 [History] Sennosides [Senna] 17.2 mg PO BEDTIME 03/22/19 [History] Past Medical History Respiratory History: Reports: Pneumonia, Recurrent Gastrointestinal History: Reports: Bowel Obstruction, Chronic Constipation Genitourinary History: Reports: Neurogenic Bladder, Renal Calculus, Other (See Below) Other Genitourinary History: chronic cath Other Musculoskeletal History: Spastic Quadraplegia, cerebral palsy, botox injections at extremities. Neurological History: Reports: Cerebral Palsy, Seizure Other Neuro History: Seizure disorder Dermatologic History: Reports: Decubitus Ulcer Other Dermatologic History: Sore on scrotum in November 2018. Ulcer to coccyx healed about end of January 2019. - Infectious Disease History Infectious Disease History: Reports: None - Past Surgical History Other GI Surgeries/Procedures: Pt has baclofen pump to LLQ. Male Surgical History: Reports: Renal Calculus, Suprapubic Catheter Placement Other Male Surgeries/Procedures: Mitrofanoff procedure, insertion point for the catheter at umbilicus November of 2012. Social & Family History - Family History Family Medical History: Noncontributory - Tobacco Use Smoking Status *Q: Never Smoker Second Hand Smoke Exposure: No - Caffeine Use Caffeine Use: Reports: None - Recreational Drug Use Recreational Drug Use: No H&P Review of Systems - Review of Systems: Review Of Systems: ROS reveals no pertinent complaints other than HPI. Exam - Exam Exam: See Below - Vital Signs Vital Signs: Last Vital Signs Temp 38.1 C 03/22/19 18:26 Pulse 124 H 03/22/19 18:05 Resp 20 03/22/19 17:04 BP 137/90 03/22/19 18:05 Pulse Ox 96 03/22/19 18:05 Weight: 44.361 kg - Exam General: Alert, Cooperative, Mild Distress HEENT: Conjunctiva Clear, Hearing Intact, Mucosa Moist & [place], Nares Patent, Normal Nasal Septum, Pupils Equal, Pupils Reactive, Other (poor dentition) Neck: Supple Lungs: Normal Respiratory Effort, Decreased Breath Sounds Cardiovascular: Regular Rhythm, Tachycardia GI/Abdominal Exam: Normal Bowel Sounds, Soft, No Organomegaly, No Abnormal Bruit , Tender (lower abdomen), Other (protuberant) (Male) Exam: Other (supra-pubic catheter) Rectal (Males) Exam: Deferred Back Exam: Normal Inspection, Decreased Range of Motion Extremities: Non-Tender, Normal Capillary Refill, Limited Range of Motion, Other (noted contractures on all extremities) Peripheral Pulses: 2+: Dorsalis Pedis (L), Dorsalis Pedis (R) Skin: Warm, Dry, Intact Neuro Extensive - Mental Status: Alert (baseline intellectual disability), Slow Response to Commands, Other Neuro Extensive - Motor, Sensory, Reflexes: CN II-XII Intact, Abnormal Gait, Other (not appropraite wth flaccid b/l lower extremity) Psychiatric: Alert, Normal Mood. No: Normal Affect Physical Exam Comments:: Severe Quadraplegia - Patient Data Lab Results Last 24 hrs: Laboratory Results - last 24 hr 03/22/19 03/22/19 03/22/19 Range/Units 11:10 11:10 11:10 WBC 17.43 H (4.23-9.07) K/mm3 RBC 5.64 (4.63-6.08) M/mm3 Hgb 17.6 H D (13.7-17.5) gm/dl Hct 52.8 H (40.1-51.0) % MCV 93.6 H (79.0-92.2) fl MCH 31.2 (25.7-32.2) pg MCHC 33.3 (32.2-35.5) g/dl RDW Std Deviation 48.0 H (35.1-43.9) fL Plt Count 255 (163-337) K/mm3 MPV 9.1 L (9.4-12.3) fl Neut % (Auto) 83.9 H (34.0-67.9) % Lymph % (Auto) 4.8 L (21.8-53.1) % [place] % (Auto) 10.6 (5.3-12.2) % Eos % (Auto) 0.2 L (0.8-7.0) Baso % (Auto) 0.1 (0.1-1.2) % Neut # (Auto) 14.63 H (1.78-5.38) K/mm3 Lymph # (Auto) 0.83 L (1.32-3.57) K/mm3 [place] # (Auto) 1.85 H (0.30-0.82) K/mm3 Eos # (Auto) 0.04 (0.04-0.54) K/mm3 Baso # (Auto) 0.01 (0.01-0.08) K/mm3 Manual Slide Review Abnormal smear Sodium 138 (136-145) mEq/L Potassium 5.3 H D (3.5-5.1) mEq/L Chloride 102 (98-107) mEq/L Carbon Dioxide 30 (21-32) mEq/L Anion Gap 11.3 (5-15) BUN 28 H (7-18) mg/dL Creatinine 1.5 H (0.7-1.3) mg/dL Est Cr Clr Drug Dosing 42.15 mL/min Estimated GFR (MDRD) 52 (>60) mL/min BUN/Creatinine Ratio 18.7 H (14-18) Glucose 108 H (74-106) mg/dL Lactic Acid (0.4-2.0) mmol/L Calcium 9.6 (8.5-10.1) mg/dL Total Bilirubin 0.8 (0.2-1.0) mg/dL AST 18 (15-37) U/L ALT 34 (16-63) U/L Alkaline Phosphatase 94 (46-116) U/L C-Reactive Protein 19.8 H* (<1.0) mg/dL Total Protein 7.6 (6.4-8.2) g/dl Albumin 3.8 (3.4-5.0) g/dl Globulin 3.8 gm/dL Albumin/Globulin Ratio 1.0 (1-2) Urine Color (Yellow) Urine Appearance (Clear) Urine pH (5.0-8.0) Ur Specific [place] (1.005-1.030) Urine Protein (Negative) Urine Glucose (UA) (Negative) Urine Ketones (Negative) Urine Occult Blood (Negative) Urine Nitrite (Negative) Urine Bilirubin (Negative) Urine Urobilinogen (0.2-1.0) Ur Leukocyte Esterase (Negative) Urine RBC (0-5) /hpf Urine WBC (0-5) /hpf Ur Epithelial Cells (0-5) /hpf Urine Bacteria (FEW) /hpf Urine Mucus (FEW) /hpf MRSA (PCR) 03/22/19 03/22/19 03/22/19 Range/Units 14:05 16:40 17:51 WBC (4.23-9.07) K/mm3 RBC (4.63-6.08) M/mm3 Hgb (13.7-17.5) gm/dl Hct (40.1-51.0) % MCV (79.0-92.2) fl MCH (25.7-32.2) pg MCHC (32.2-35.5) g/dl RDW Std Deviation (35.1-43.9) fL Plt Count (163-337) K/mm3 MPV (9.4-12.3) fl Neut % (Auto) (34.0-67.9) % Lymph % (Auto) (21.8-53.1) % [place] % (Auto) (5.3-12.2) % Eos % (Auto) (0.8-7.0) Baso % (Auto) (0.1-1.2) % Neut # (Auto) (1.78-5.38) K/mm3 Lymph # (Auto) (1.32-3.57) K/mm3 [place] # (Auto) (0.30-0.82) K/mm3 Eos # (Auto) (0.04-0.54) K/mm3 Baso # (Auto) (0.01-0.08) K/mm3 Manual Slide Review Sodium (136-145) mEq/L Potassium (3.5-5.1) mEq/L Chloride (98-107) mEq/L Carbon Dioxide (21-32) mEq/L Anion Gap (5-15) BUN (7-18) mg/dL Creatinine (0.7-1.3) mg/dL Est Cr Clr Drug Dosing mL/min Estimated GFR (MDRD) (>60) mL/min BUN/Creatinine Ratio (14-18) Glucose (74-106) mg/dL Lactic Acid 1.8 (0.4-2.0) mmol/L Calcium (8.5-10.1) mg/dL Total Bilirubin (0.2-1.0) mg/dL AST (15-37) U/L ALT (16-63) U/L Alkaline Phosphatase (46-116) U/L C-Reactive Protein (<1.0) mg/dL Total Protein (6.4-8.2) g/dl Albumin (3.4-5.0) g/dl Globulin gm/dL Albumin/Globulin Ratio (1-2) Urine Color Yellow (Yellow) Urine Appearance Cloudy H (Clear) Urine pH 7.0 (5.0-8.0) Ur Specific [place] 1.020 (1.005-1.030) Urine Protein 3+ H (Negative) Urine Glucose (UA) Negative (Negative) Urine Ketones Negative (Negative) Urine Occult Blood 3+ H (Negative) Urine Nitrite Negative (Negative) Urine Bilirubin 1+ H (Negative) Urine Urobilinogen 0.2 (0.2-1.0) Ur Leukocyte Esterase 1+ H (Negative) Urine RBC 30-40 H (0-5) /hpf Urine WBC 75-100 H (0-5) /hpf Ur Epithelial Cells 0-5 (0-5) /hpf Urine Bacteria Moderate H (FEW) /hpf Urine Mucus Few (FEW) /hpf MRSA (PCR) Negative Result Diagrams: 03/23/19 06:45 03/23/19 19:19 Problem List Initiated/Reviewed/Updated: Yes Orders Last 24hrs: Active Orders 24 hr Category Date Time Status Patient Status [ADT] Routine ADT 03/22/19 20:21 Active Antiembolic Devices [RC] BID Care 03/22/19 15:55 Active Cardiac Monitoring [RC] CONTINUOUS Care 03/22/19 15:52 Active Height and Weight [RC] 04 Care 03/22/19 15:51 Active Intake and Output [RC] 04,16 Care 03/22/19 15:52 Active Oxygen Therapy [RC] PRN Care 03/22/19 15:52 Active RT Aerosol Therapy [RC] ASDIRECTED Care 03/22/19 15:55 Active Up With Assistance [RC] BID Care 03/22/19 15:51 Active Up ad Elizabeth [RC] BID Care 03/22/19 15:51 Active Urinary Catheter Assessment [RC] Q4HR Care 03/22/19 21:00 Active VTE/DVT Education [RC] QSHIFT Care 03/22/19 15:52 Active Vital Signs [RC] Q4HR Care 03/22/19 15:52 Active Consult to Case Management/Veterinarian Helper [CONS] Cons 03/22/19 15:51 Active Routine Consult to [place] Flat Grinder [CONS] Routine Cons 03/22/19 15:51 Active Consult to Spiritual Care [CONS] Routine Cons 03/22/19 15:51 Active Regular Diet [DIET] Diet 03/22/19 Dinner Active Abdomen 2V AP Flat Upright [CR] Stat Exams 03/22/19 11:57 Taken BASIC METABOLIC PANEL,BMP [CHEM] AM Lab 03/23/19 05:11 Ordered BASIC METABOLIC PANEL,BMP [CHEM] AM Lab 03/24/19 05:11 Ordered BASIC METABOLIC PANEL,BMP [CHEM] AM Lab 03/25/19 05:11 Ordered BASIC METABOLIC PANEL,BMP [CHEM] AM Lab 03/26/19 05:11 Ordered BASIC METABOLIC PANEL,BMP [CHEM] AM Lab 03/27/19 05:11 Ordered C-REACTIVE PROTEIN [CHEM] AM Lab 03/23/19 05:11 Ordered C-REACTIVE PROTEIN [CHEM] AM Lab 03/24/19 05:11 Ordered C-REACTIVE PROTEIN [CHEM] AM Lab 03/25/19 05:11 Ordered C-REACTIVE PROTEIN [CHEM] AM Lab 03/26/19 05:11 Ordered C-REACTIVE PROTEIN [CHEM] AM Lab 03/27/19 05:11 Ordered CBC WITH AUTO DIFF [HEME] AM Lab 03/23/19 05:11 Ordered CBC WITH AUTO DIFF [HEME] AM Lab 03/24/19 05:11 Ordered CBC WITH AUTO DIFF [HEME] AM Lab 03/25/19 05:11 Ordered CBC WITH AUTO DIFF [HEME] AM Lab 03/26/19 05:11 Ordered CBC WITH AUTO DIFF [HEME] AM Lab 03/27/19 05:11 Ordered CULTURE BLOOD [BC] Stat Lab 03/22/19 16:25 Received CULTURE BLOOD [BC] Stat Lab 03/22/19 16:33 Received CULTURE URINE [RM] Stat Lab 03/22/19 14:05 Received LACTATE SEPSIS W/ REFLEX [CHEM] Q4H Lab 03/22/19 21:07 Ordered LACTATE SEPSIS W/ REFLEX [CHEM] Q4H Lab 03/23/19 01:07 Ordered LACTATE SEPSIS W/ REFLEX [CHEM] Q4H Lab 03/23/19 05:07 Ordered MAGNESIUM [CHEM] AM Lab 03/23/19 05:11 Ordered MAGNESIUM [CHEM] AM Lab 03/24/19 05:11 Ordered MAGNESIUM [CHEM] AM Lab 03/25/19 05:11 Ordered MAGNESIUM [CHEM] AM Lab 03/26/19 05:11 Ordered MAGNESIUM [CHEM] AM Lab 03/27/19 05:11 Ordered PROCALCITONIN [REF] Stat Lab 03/22/19 17:07 Ordered VANCOMYCIN TROUGH [CHEM] Timed Lab 03/25/19 16:30 Ordered Acetaminophen [Tylenol] Med 03/22/19 15:51 Active 650 mg PO Q4H PRN Albuterol/Ipratropium [DuoNeb 3.0-0.5 MG/3 ML] Med 03/22/19 15:51 Active 3 ml NEB Q4H PRN Antacid Gas Relief Med 03/22/19 19:44 Pending 1 tab PO Q4H PRN Aquaphilac Ointment Med 03/22/19 19:44 Ordered 1 applic TOP ASDIRECTED PRN Ascorbate Calcium [Vitamin C] Med 03/22/19 21:00 Ordered 500 mg PO BID Baclofen [Baclofen] Med 03/22/19 19:44 Ordered 10 mg PO TID PRN Bisacodyl [Dulcolax] Med 03/22/19 16:15 Active 10 mg RECTAL DAILY Bisacodyl [Dulcolax] Med 03/22/19 15:51 Active 5 mg PO DAILY PRN Carboxymethylcellulose Sodium Med 03/22/19 15:50 Ordered 2 drop OP BID PRN Cepamax D Lip Med 03/22/19 19:45 Ordered 1 applic TOP ASDIRECTED Cholecalciferol (Vitamin D3) [Vitamin D3] Med 03/23/19 09:00 Ordered 1,000 units PO DAILY Cranberry Fruit Extract [Cranberry] Med 03/22/19 21:00 Ordered 425 mg PO BID Docusate Sodium [Colace] Med 03/22/19 15:51 Active 100 mg PO BID PRN Docusate Sodium/Sennosides [Senna Plus] Med 03/22/19 15:51 Active 1 tab PO BID PRN HYDROmorphone [Dilaudid] Med 03/22/19 15:51 Active 0.25 mg IVPUSH Q2H PRN Hydrocortisone Med 03/22/19 15:50 Ordered 30 gm RC BID PRN Ketoconazole Med 03/22/19 15:50 Ordered 1 applic TOP ASDIRECTED PRN Lactated Ringers [Ringers, Lactated] 1,000 ml Med 03/22/19 16:15 Active IV ASDIRECTED Lactobacillus Acidophilus [Acidophilus] Med 03/22/19 21:00 Ordered 1 tab PO BID Lactulose [Cephulac] Med 03/23/19 09:00 Active 20 gm PO DAILY Levofloxacin/Dextrose 5%-Water [Levaquin in D5W 750 MG/ Med 03/22/19 17:30 Active 150 ML] 750 mg Premix Bag 1 bag IV Q48H Magnesium Hydroxide [Milk of Magnesia] Med 03/22/19 19:44 Ordered 2 - 4 tbsp PO DAILY PRN Methenamine Hippurate Med 03/22/19 21:00 Ordered 1 gm PO BID Multivitamins Med 03/23/19 09:00 Ordered 1 each PO DAILY Mupirocin Cream Med 03/22/19 21:00 Pending 1 applic TOP BID Mylanta Med 03/22/19 19:44 Ordered 2 - 4 tsp PO Q2H PRN Non-Formulary Medication [NF Drug] Med 03/22/19 15:50 Pending 1 applic PO BID PRN Non-Formulary Medication [NF Drug] Med 03/22/19 15:50 Pending 25 mg TOP Q6H PRN OXcarbazepine [Oxcarbazepine] Med 03/22/19 21:00 Ordered 150 mg PO BID OXcarbazepine [Oxcarbazepine] Med 03/22/19 21:00 Ordered 300 mg PO BID Ondansetron Med 03/22/19 15:50 Ordered 4 mg PO Q4H PRN Ondansetron [Zofran] Med 03/22/19 15:51 Active 4 mg IV Q6H PRN Pharmacy to Dose - Vancomycin Med 03/22/19 16:15 Pending 1 dose .XX ASDIRECTED Polyethylene Glycol 3350 [MiraLAX] Med 03/22/19 15:51 Active 17 gm PO DAILY PRN Polyethylene Glycol [Polyox Wsr-301] Med 03/23/19 09:00 Ordered 17 gm MC DAILY Potassium Citrate [Potassium Citrate ER] Med 03/22/19 21:00 Ordered 30 meq PO BID Promethazine HCl [Phenergan] Med 03/22/19 19:44 Ordered 25 mg TOP Q6H PRN Promethazine [Phenergan] 6.25 mg Med 03/22/19 15:51 Active Sodium Chloride 0.9% [Normal Saline] 50 ml IV Q6H Rectal Syringe [Enema Syringe] Med 03/22/19 16:00 Pending 1 each MC ASDIRECTED Saccharomyces Boulardii [Florastor] Med 03/22/19 21:00 Active 250 mg PO BID Sennosides [Senna] Med 03/22/19 21:00 Ordered 17.2 mg PO BEDTIME Sodium Chloride 0.9% [Normal Saline] 1,000 ml Med 03/22/19 11:15 Active IV ONETIME Temazepam [Restoril] Med 03/22/19 15:51 Active 7.5 mg PO BEDTIME PRN Vancomycin 0.75 gm Med 03/22/19 17:00 Active Sodium Chloride 0.9% [Normal Saline] 250 ml IV Q24H Zinc Oxide [Zinc Oxide] Med 03/22/19 21:00 Ordered 1 applic TOP BID cefTRIAXone [Rocephin] 1 gm Med 03/23/19 14:30 Active Sodium Chloride 0.9% [Normal Saline] 100 ml IV Q24H guaiFENesin/D-Methorphan Hb/Pe [Gnp Tussin Cf Max M-S Med 03/22/19 15:50 Ordered Cold Liq] 10 ml PO Q4HR PRN Blood Culture x2 Reflex Set [OM.PC] Stat Oth 03/22/19 16:00 Ordered Seizure Precautions [OM.PC] Routine Oth 03/22/19 17:06 Ordered Sequential Compression Device [OM.PC] Per Unit Routine Oth 03/22/19 15:53 Ordered Resuscitation Status Routine Resus Stat 03/22/19 20:15 Ordered Medication Orders Acetaminophen (Tylenol) 650 mg PO Q4H PRN PRN Reason: Pain (Mild 1-3)/fever Last Admin: 03/22/19 18:26 Dose: 650 mg Albuterol/Ipratropium (Duoneb 3.0-0.5 Mg/3 Ml) 3 ml NEB Q4H PRN PRN Reason: Shortness Of Breath/wheezing Bisacodyl (Dulcolax) 5 mg PO DAILY PRN PRN Reason: Constipation Bisacodyl (Dulcolax) 10 mg RECTAL DAILY MERRICK Stop: 03/24/19 09:01 Last Admin: 03/22/19 18:25 Dose: 10 mg Docusate Sodium (Colace) 100 mg PO BID PRN PRN Reason: Constipation Hydromorphone HCl (Dilaudid) 0.25 mg IVPUSH Q2H PRN PRN Reason: Pain (severe 7-10) Sodium Chloride (Normal Saline) 1,000 mls @ 999 mls/hr IV ONETIME MERRICK Last Admin: 03/22/19 11:21 Dose: 999 mls/hr Promethazine HCl 6.25 mg/ (Sodium Chloride) 50.25 mls @ 100 mls/hr IV Q6H PRN PRN Reason: Nausea/Vomiting Lactated Ringer's (Ringers, Lactated) 1,000 mls @ 50 mls/hr IV ASDIRECTED MERRICK Last Admin: 03/22/19 17:36 Dose: 50 mls/hr Vancomycin HCl 0.75 gm/ Sodium (Chloride) 250 mls @ 250 mls/hr IV Q24H MERRICK Last Admin: 03/22/19 17:41 Dose: 250 mls/hr Ceftriaxone Sodium 1 gm/ (Sodium Chloride) 100 mls @ 200 mls/hr IV Q24H MERRICK Levofloxacin/Dextrose 750 mg/ (Premix) 150 mls @ 100 mls/hr IV Q48H MERRICK Last Admin: 03/22/19 19:44 Dose: 100 mls/hr Lactulose (Cephulac) 20 gm PO DAILY MERRICK Stop: 03/23/19 09:01 Non-Formulary Medication (Carboxymethylcellulose Sodium) 2 drop OP BID PRN PRN Reason: Dry Eyes Non-Formulary Medication (Cholecalciferol (Vitamin D3) [Vitamin D3]) 1,000 units PO DAILY MERRICK Non-Formulary Medication (Cranberry Fruit Extract [Cranberry]) 425 mg PO BID MERRICK Non-Formulary Medication (Guaifenesin/D-Methorphan Hb/Pe [Gnp Tussin Cf Max M-S Cold Liq]) 10 ml PO Q4HR PRN PRN Reason: cough Non-Formulary Medication (Hydrocortisone) 30 gm RC BID PRN PRN Reason: Itching Non-Formulary Medication (Ketoconazole) 1 applic TOP ASDIRECTED PRN PRN Reason: Other Non-Formulary Medication (Lactobacillus Acidophilus [Acidophilus]) 1 tab PO BID MERRICK Non-Formulary Medication (Methenamine Hippurate) 1 gm PO BID MERRICK Non-Formulary Medication (Multivitamins) 1 each PO DAILY MERRICK Non-Formulary Medication (Mupirocin Cream) 1 applic TOP BID MERRICK Non-Formulary Medication (Non-Formulary Medication [Nf Drug]) 25 mg TOP Q6H PRN PRN Reason: Nausea Non-Formulary Medication (Non-Formulary Medication [Nf Drug]) 1 applic PO BID PRN PRN Reason: Dryness Non-Formulary Medication (Ondansetron) 4 mg PO Q4H PRN PRN Reason: Nausea/Vomiting Non-Formulary Medication (Oxcarbazepine [Oxcarbazepine]) 300 mg PO BID MERRICK Non-Formulary Medication (Oxcarbazepine [Oxcarbazepine]) 150 mg PO BID MERRICK Non-Formulary Medication (Polyethylene Glycol [Polyox Wsr-301]) 17 gm MC DAILY MERRICK Non-Formulary Medication (Potassium Citrate [Potassium Citrate Er]) 30 meq PO BID MERRICK Non-Formulary Medication (Rectal Syringe [Enema Syringe]) 1 each MC ASDIRECTED [facility] Non-Formulary Medication (Antacid Gas Relief) 1 tab PO Q4H PRN PRN Reason: Gas Non-Formulary Medication (Aquaphilac Ointment) 1 applic TOP ASDIRECTED PRN PRN Reason: dry skin Non-Formulary Medication (Ascorbate Calcium [Vitamin C]) 500 mg PO BID MERRICK Non-Formulary Medication (Baclofen [Baclofen]) 10 mg PO TID PRN PRN Reason: Muscle Spasm Non-Formulary Medication (Cepamax D Lip) 1 applic TOP ASDIRECTED [facility] Non-Formulary Medication (Magnesium Hydroxide [Milk Of Magnesia]) 2 - 4 tbsp PO DAILY PRN PRN Reason: Constipation Non-Formulary Medication (Mylanta) 2 - 4 tsp PO Q2H PRN PRN Reason: upset stomach Non-Formulary Medication (Promethazine Hcl [Phenergan]) 25 mg TOP Q6H PRN PRN Reason: Nausea/Vomiting Non-Formulary Medication (Sennosides [Senna]) 17.2 mg PO BEDTIME MERRICK Non-Formulary Medication (Zinc Oxide [Zinc Oxide]) 1 applic TOP BID [facility] Ondansetron HCl (Zofran) 4 mg IV Q6H PRN PRN Reason: Nausea/Vomiting Polyethylene Glycol (Miralax) 17 gm PO DAILY PRN PRN Reason: Constipation Saccharomyces Boulardii (Florastor) 250 mg PO BID MERRICK Senna/Docusate Sodium (Senna Plus) 1 tab PO BID PRN PRN Reason: Constipation Temazepam (Restoril) 7.5 mg PO BEDTIME PRN PRN Reason: Sleep Vancomycin HCl (Pharmacy To Dose - Vancomycin) 1 dose .XX ASDIRECTED [facility] Assessment/Plan Comment:: Assessment: Acute: Sepsis - Meets criteria: WBC of 17.43, CRP of 19.8, HR of 120s - Serial LA; reflex sepsis - Source UTI - Sepsis treatment CAUTI - Has chronic urinary retention with intermittent catheterization - UA is strongly suggestive of UTI: Pyuria and Hematuria - Received IV Rocephin in ED - IV Levaquin and Vancomycin Constipation - Risk factors: Polypharmacy and Bed-bound - Abdominal x-ray shows scattered gas within small bowel and colon with some stool - Bowel prep w/ rectal suppository Leukocytosis - WBC of 17K - 2/2 above - Treat underlying cause Erythrocytosis - Hgb of 17.6 with - Baseline is 13-14 - Likely hemo-concentration - Will monitor Hyperkalemia - K of 5.3 - Has oral supplement plus in GLADIS - Hold supplement for now GLADIS - Likely 2/2 Volume Depletion/Dehydration - Cr if 1.5; baseline of 13-14 - IV hydrations and monitor Is/Os Chronic: Recurrent PNA, Bowel Obstruction, Neurogenic Bladder, hx/o Renal Stone , Severe Quadraplegia, Cerebral Palsy, Seizure Disorder, Decubitus Ulcer and Intellectual Disability Plan: Admit to [facility] with Tele Routine AM Labs Resume Home Meds Sepsis treatment Regular Diet Aspiration/Fall and Seizure Precautions DVT/GI Prophylaxis SW/CM for d/c planning Code status: full Additional orders as above Prognosis seriously ill-guarded
[2019-03-22] MEDS ORDERED: hydrALAZINE 20 MG/ML SDV IVPUSH PRN (20:59)
[2019-03-22] MEDS ORDERED: MUPIROCIN TOP SCH (21:00)
[2019-03-22] MEDS ORDERED: CRANBERRY FRUIT EXTRACT 425 MG PO SCH (21:00)
[2019-03-22] MEDS ORDERED: OXCARBAZEPINE 300 MG PO SCH (21:00)
[2019-03-22] MEDS ORDERED: Non-Formulary Medication 1 Each (Ascorbate Calcium [Vitamin C] 500 MG) PO SCH ×2 (21:00)
[2019-03-22] MEDS ORDERED: SENNOSIDES 17.2 MG PO SCH (21:00)
[2019-03-22] MEDS ORDERED: LACTOBACILLUS ACIDOPHILUS PO SCH (21:00)
[2019-03-22] MEDS ORDERED: ZINC OXIDE TOP SCH (21:00)
[2019-03-22] MEDS ORDERED: OXCARBAZEPINE 150 MG PO SCH (21:00)
[2019-03-22] MEDS ORDERED: METHENAMINE HIPPURATE 1 GM PO SCH (21:00)
[2019-03-22] MEDS: Metoprolol Tartrate 5 MG/5 ML SDV IVPUSH PRN (21:35)
[2019-03-22] MEDS: Saccharomyces Boulardii (Probiotic) 250 MG Cap PO SCH (21:42)
[2019-03-22] MEDS: OXcarbazepine 300 MG Tab PO SCH (22:12)
[2019-03-22] MEDS: CRANBERRY FRUIT EXTRACT 425 MG PO SCH (22:12)
[2019-03-22] MEDS: OXcarbazepine 150 MG Tab PO SCH (22:12)
[2019-03-22] MEDS: METHENAMINE HIPPURATE 1 GM PO SCH (22:12)
[2019-03-22] MEDS: ZINC OXIDE 20% TOP SCH (22:13)
[2019-03-22] MEDS: Sennosides 8.6 MG Tab PO SCH (22:13)
[2019-03-22] MEDS: ASCORBIC ACID 500 MG PO SCH (22:13)
[2019-03-22] MEDS: Metoclopramide 10 MG/2 ML SDV IVPUSH SCH (23:48)
[2019-03-22] MEDS ORDERED: LORazepam 2 MG/ML SDV IVPUSH PRN (23:54)
[2019-03-23] MEDS: Heparin Sodium 5,000 Units/ML Vial SUBCUT SCH ×4 (00:12→22:07)
[2019-03-23] MEDS: Metoprolol Tartrate 5 MG/5 ML SDV IVPUSH PRN ×2 (01:59→06:08)
[2019-03-23] MEDS: Metoclopramide 10 MG/2 ML SDV IVPUSH SCH ×4 (05:20→22:10)
[2019-03-23] MEDS: Acetaminophen 325 MG Tab PO PRN ×2 (06:09→20:41)
--- NOTE | 2019-03-23 07:22 | PCM.PN ---
- General Info Date of Service: 03/23/19 Admission Dx/Problem (Free Text): Admission Diagnosis/Problem Admission Diagnosis/Problem Urinary tract infection Subjective Update: Follow up Functional Status: Reports: Pain Controlled, Tolerating Diet, Urinating. Denies : New Symptoms - Review of Systems General: Denies: Fever, Chills HEENT: Reports: No Symptoms Pulmonary: Denies: Shortness of Breath Cardiovascular: Denies: Chest Pain, Dyspnea on Exertion, Lightheadedness Gastrointestinal: Denies: Abdominal Pain, Nausea, Vomiting Genitourinary: Reports: Retention Musculoskeletal: Reports: No Symptoms Skin: Reports: No Symptoms Neurological: Reports: Difficulty Walking, Weakness, Gait Disturbance Psychiatric: Reports: Confusion (baseline intellctual disability). Denies: Depression, Anxiety, Agitation, Hallucinations Systems Review Comment:: His labs are much worse than last night. His renal function is worse this morning. His has been tachycardic overnight. - Patient Data Vitals - Most Recent: Last Vital Signs Temp 37.4 C 03/23/19 06:09 Pulse 120 H 03/23/19 06:08 Resp 18 03/22/19 21:32 BP 118/67 03/23/19 06:08 Pulse Ox 97 03/23/19 02:08 Weight - Most Recent: 44.361 kg I&O - Last 24 Hours: Intake & Output 03/22/19 03/23/19 03/23/19 22:59 06:59 14:59 Output Total 75 Balance -75 Lab Results Last 24 Hours: Laboratory Results - last 24 hr 03/22/19 03/22/19 03/22/19 Range/Units 11:10 11:10 11:10 WBC 17.43 H (4.23-9.07) K/mm3 RBC 5.64 (4.63-6.08) M/mm3 Hgb 17.6 H D (13.7-17.5) gm/dl Hct 52.8 H (40.1-51.0) % MCV 93.6 H (79.0-92.2) fl MCH 31.2 (25.7-32.2) pg MCHC 33.3 (32.2-35.5) g/dl RDW Std Deviation 48.0 H (35.1-43.9) fL Plt Count 255 (163-337) K/mm3 MPV 9.1 L (9.4-12.3) fl Neut % (Auto) 83.9 H (34.0-67.9) % Lymph % (Auto) 4.8 L (21.8-53.1) % [place] % (Auto) 10.6 (5.3-12.2) % Eos % (Auto) 0.2 L (0.8-7.0) Baso % (Auto) 0.1 (0.1-1.2) % Neut # (Auto) 14.63 H (1.78-5.38) K/mm3 Lymph # (Auto) 0.83 L (1.32-3.57) K/mm3 [place] # (Auto) 1.85 H (0.30-0.82) K/mm3 Eos # (Auto) 0.04 (0.04-0.54) K/mm3 Baso # (Auto) 0.01 (0.01-0.08) K/mm3 Manual Slide Review Abnormal smear Sodium 138 (136-145) mEq/L Potassium 5.3 H D (3.5-5.1) mEq/L Chloride 102 (98-107) mEq/L Carbon Dioxide 30 (21-32) mEq/L Anion Gap 11.3 (5-15) BUN 28 H (7-18) mg/dL Creatinine 1.5 H (0.7-1.3) mg/dL Est Cr Clr Drug Dosing 42.15 mL/min Estimated GFR (MDRD) 52 (>60) mL/min BUN/Creatinine Ratio 18.7 H (14-18) Glucose 108 H (74-106) mg/dL Lactic Acid (0.4-2.0) mmol/L Calcium 9.6 (8.5-10.1) mg/dL Total Bilirubin 0.8 (0.2-1.0) mg/dL AST 18 (15-37) U/L ALT 34 (16-63) U/L Alkaline Phosphatase 94 (46-116) U/L C-Reactive Protein 19.8 H* (<1.0) mg/dL Total Protein 7.6 (6.4-8.2) g/dl Albumin 3.8 (3.4-5.0) g/dl Globulin 3.8 gm/dL Albumin/Globulin Ratio 1.0 (1-2) Urine Color (Yellow) Urine Appearance (Clear) Urine pH (5.0-8.0) Ur Specific [place] (1.005-1.030) Urine Protein (Negative) Urine Glucose (UA) (Negative) Urine Ketones (Negative) Urine Occult Blood (Negative) Urine Nitrite (Negative) Urine Bilirubin (Negative) Urine Urobilinogen (0.2-1.0) Ur Leukocyte Esterase (Negative) Urine RBC (0-5) /hpf Urine WBC (0-5) /hpf Ur Epithelial Cells (0-5) /hpf Urine Bacteria (FEW) /hpf Urine Mucus (FEW) /hpf MRSA (PCR) 03/22/19 03/22/19 03/22/19 Range/Units 14:05 16:40 17:51 WBC (4.23-9.07) K/mm3 RBC (4.63-6.08) M/mm3 Hgb (13.7-17.5) gm/dl Hct (40.1-51.0) % MCV (79.0-92.2) fl MCH (25.7-32.2) pg MCHC (32.2-35.5) g/dl RDW Std Deviation (35.1-43.9) fL Plt Count (163-337) K/mm3 MPV (9.4-12.3) fl Neut % (Auto) (34.0-67.9) % Lymph % (Auto) (21.8-53.1) % [place] % (Auto) (5.3-12.2) % Eos % (Auto) (0.8-7.0) Baso % (Auto) (0.1-1.2) % Neut # (Auto) (1.78-5.38) K/mm3 Lymph # (Auto) (1.32-3.57) K/mm3 [place] # (Auto) (0.30-0.82) K/mm3 Eos # (Auto) (0.04-0.54) K/mm3 Baso # (Auto) (0.01-0.08) K/mm3 Manual Slide Review Sodium (136-145) mEq/L Potassium (3.5-5.1) mEq/L Chloride (98-107) mEq/L Carbon Dioxide (21-32) mEq/L Anion Gap (5-15) BUN (7-18) mg/dL Creatinine (0.7-1.3) mg/dL Est Cr Clr Drug Dosing mL/min Estimated GFR (MDRD) (>60) mL/min BUN/Creatinine Ratio (14-18) Glucose (74-106) mg/dL Lactic Acid 1.8 (0.4-2.0) mmol/L Calcium (8.5-10.1) mg/dL Total Bilirubin (0.2-1.0) mg/dL AST (15-37) U/L ALT (16-63) U/L Alkaline Phosphatase (46-116) U/L C-Reactive Protein (<1.0) mg/dL Total Protein (6.4-8.2) g/dl Albumin (3.4-5.0) g/dl Globulin gm/dL Albumin/Globulin Ratio (1-2) Urine Color Yellow (Yellow) Urine Appearance Cloudy H (Clear) Urine pH 7.0 (5.0-8.0) Ur Specific [place] 1.020 (1.005-1.030) Urine Protein 3+ H (Negative) Urine Glucose (UA) Negative (Negative) Urine Ketones Negative (Negative) Urine Occult Blood 3+ H (Negative) Urine Nitrite Negative (Negative) Urine Bilirubin 1+ H (Negative) Urine Urobilinogen 0.2 (0.2-1.0) Ur Leukocyte Esterase 1+ H (Negative) Urine RBC 30-40 H (0-5) /hpf Urine WBC 75-100 H (0-5) /hpf Ur Epithelial Cells 0-5 (0-5) /hpf Urine Bacteria Moderate H (FEW) /hpf Urine Mucus Few (FEW) /hpf MRSA (PCR) Negative 03/22/19 03/23/19 03/23/19 Range/Units 21:10 01:09 06:45 WBC 19.41 H (4.23-9.07) K/mm3 RBC 4.60 L (4.63-6.08) M/mm3 Hgb 14.4 D (13.7-17.5) gm/dl Hct 43.6 (40.1-51.0) % MCV 94.8 H (79.0-92.2) fl MCH 31.3 (25.7-32.2) pg MCHC 33.0 (32.2-35.5) g/dl RDW Std Deviation 48.0 H (35.1-43.9) fL Plt Count 193 (163-337) K/mm3 MPV 9.3 L (9.4-12.3) fl Neut % (Auto) 86.0 H (34.0-67.9) % Lymph % (Auto) 4.5 L (21.8-53.1) % [place] % (Auto) 9.1 (5.3-12.2) % Eos % (Auto) 0 L (0.8-7.0) Baso % (Auto) 0.1 (0.1-1.2) % Neut # (Auto) 16.69 H (1.78-5.38) K/mm3 Lymph # (Auto) 0.88 L (1.32-3.57) K/mm3 [place] # (Auto) 1.77 H (0.30-0.82) K/mm3 Eos # (Auto) 0.00 L (0.04-0.54) K/mm3 Baso # (Auto) 0.02 (0.01-0.08) K/mm3 Manual Slide Review Sodium (136-145) mEq/L Potassium (3.5-5.1) mEq/L Chloride (98-107) mEq/L Carbon Dioxide (21-32) mEq/L Anion Gap (5-15) BUN (7-18) mg/dL Creatinine (0.7-1.3) mg/dL Est Cr Clr Drug Dosing mL/min Estimated GFR (MDRD) (>60) mL/min BUN/Creatinine Ratio (14-18) Glucose (74-106) mg/dL Lactic Acid 2.3 H 1.0 (0.4-2.0) mmol/L Calcium (8.5-10.1) mg/dL Total Bilirubin (0.2-1.0) mg/dL AST (15-37) U/L ALT (16-63) U/L Alkaline Phosphatase (46-116) U/L C-Reactive Protein (<1.0) mg/dL Total Protein (6.4-8.2) g/dl Albumin (3.4-5.0) g/dl Globulin gm/dL Albumin/Globulin Ratio (1-2) Urine Color (Yellow) Urine Appearance (Clear) Urine pH (5.0-8.0) Ur Specific [place] (1.005-1.030) Urine Protein (Negative) Urine Glucose (UA) (Negative) Urine Ketones (Negative) Urine Occult Blood (Negative) Urine Nitrite (Negative) Urine Bilirubin (Negative) Urine Urobilinogen (0.2-1.0) Ur Leukocyte Esterase (Negative) Urine RBC (0-5) /hpf Urine WBC (0-5) /hpf Ur Epithelial Cells (0-5) /hpf Urine Bacteria (FEW) /hpf Urine Mucus (FEW) /hpf MRSA (PCR) Med Orders - Current: Current Medications Acetaminophen (Tylenol) 650 mg PO Q4H PRN PRN Reason: Pain (Mild 1-3)/fever Last Admin: 03/23/19 06:09 Dose: 650 mg Albuterol/Ipratropium (Duoneb 3.0-0.5 Mg/3 Ml) 3 ml NEB Q4H PRN PRN Reason: Shortness Of Breath/wheezing Ascorbic Acid (Vitamin C) 500 mg PO BID [facility] Last Admin: 03/22/19 22:13 Dose: 500 mg Bisacodyl (Dulcolax) 5 mg PO DAILY PRN PRN Reason: Constipation Bisacodyl (Dulcolax) 10 mg RECTAL DAILY [facility] Stop: 03/24/19 09:01 Last Admin: 03/22/19 18:25 Dose: 10 mg Docusate Sodium (Colace) 100 mg PO BID PRN PRN Reason: Constipation Heparin Sodium (Porcine) (Heparin Sodium) 5,000 units SUBCUT Q8HR [facility] Last Admin: 03/23/19 05:20 Dose: 5,000 units Hydralazine HCl (Apresoline) 20 mg IVPUSH Q4H PRN PRN Reason: Hypertension Hydromorphone HCl (Dilaudid) 0.25 mg IVPUSH Q2H PRN PRN Reason: Pain (severe 7-10) Sodium Chloride (Normal Saline) 1,000 mls @ 999 mls/hr IV ONETIME [facility] Last Admin: 03/22/19 11:21 Dose: 999 mls/hr Promethazine HCl 6.25 mg/ (Sodium Chloride) 50.25 mls @ 100 mls/hr IV Q6H PRN PRN Reason: Nausea/Vomiting Lactated Ringer's (Ringers, Lactated) 1,000 mls @ 50 mls/hr IV ASDIRECTED [facility] Last Admin: 03/22/19 17:36 Dose: 50 mls/hr Vancomycin HCl 0.75 gm/ Sodium (Chloride) 250 mls @ 250 mls/hr IV Q24H [facility] Last Admin: 03/22/19 17:41 Dose: 250 mls/hr Ceftriaxone Sodium 1 gm/ (Sodium Chloride) 100 mls @ 200 mls/hr IV Q24H [facility] Levofloxacin/Dextrose 750 mg/ (Premix) 150 mls @ 100 mls/hr IV Q48H [facility] Last Admin: 03/22/19 19:44 Dose: 100 mls/hr Lactulose (Cephulac) 20 gm PO DAILY [facility] Stop: 03/23/19 09:01 Lorazepam (Ativan) 0.5 mg IVPUSH Q4H PRN PRN Reason: Anxiety Last Admin: 03/23/19 00:03 Dose: 0.5 mg Metoclopramide HCl (Reglan) 10 mg IVPUSH Q6H [facility] Last Admin: 03/23/19 05:20 Dose: 10 mg Metoprolol Tartrate (Lopressor) 5 mg IVPUSH Q4H PRN PRN Reason: Tachycardia Last Admin: 03/23/19 06:08 Dose: 5 mg Metoprolol Tartrate (Lopressor) 25 mg PO Q12H [facility] Multi-Ingred Cream/Lotion/Oil/Oint (Zinc Oxide) 0 gm TOP BID [facility] Last Admin: 03/22/19 22:13 Dose: 1 applic Non-Formulary Medication (Carboxymethylcellulose Sodium) 2 drop OP BID PRN PRN Reason: Dry Eyes Non-Formulary Medication (Cholecalciferol (Vitamin D3) [Vitamin D3]) 1,000 units PO DAILY [facility] Non-Formulary Medication (Guaifenesin/D-Methorphan Hb/Pe [Gnp Tussin Cf Max M-S Cold Liq]) 10 ml PO Q4HR PRN PRN Reason: cough Non-Formulary Medication (Hydrocortisone) 30 gm RC BID PRN PRN Reason: Itching Non-Formulary Medication (Ketoconazole) 1 applic TOP ASDIRECTED PRN PRN Reason: Other Non-Formulary Medication (Multivitamins) 1 each PO DAILY [facility] Non-Formulary Medication (Mupirocin Cream) 1 applic TOP BID [facility] Non-Formulary Medication (Non-Formulary Medication [Nf Drug]) 25 mg TOP Q6H PRN PRN Reason: Nausea Non-Formulary Medication (Non-Formulary Medication [Nf Drug]) 1 applic PO BID PRN PRN Reason: Dryness Non-Formulary Medication (Ondansetron) 4 mg PO Q4H PRN PRN Reason: Nausea/Vomiting Non-Formulary Medication (Polyethylene Glycol [Polyox Wsr-301]) 17 gm MC DAILY [facility] Non-Formulary Medication (Potassium Citrate [Potassium Citrate Er]) 30 meq PO BID [facility] Non-Formulary Medication (Rectal Syringe [Enema Syringe]) 1 each MC ASDIRECTED [facility] Non-Formulary Medication (Antacid Gas Relief) 1 tab PO Q4H PRN PRN Reason: Gas Non-Formulary Medication (Aquaphilac Ointment) 1 applic TOP ASDIRECTED PRN PRN Reason: dry skin Non-Formulary Medication (Baclofen [Baclofen]) 10 mg PO TID PRN PRN Reason: Muscle Spasm Non-Formulary Medication (Cepamax D Lip) 1 applic TOP ASDIRECTED [facility] Non-Formulary Medication (Magnesium Hydroxide [Milk Of Magnesia]) 2 - 4 tbsp PO DAILY PRN PRN Reason: Constipation Non-Formulary Medication (Mylanta) 2 - 4 tsp PO Q2H PRN PRN Reason: upset stomach Non-Formulary Medication (Promethazine Hcl [Phenergan]) 25 mg TOP Q6H PRN PRN Reason: Nausea/Vomiting Methenamine Hippurate 1 Gm Tab Own Med 1 gm PO BID [facility] Last Admin: 03/22/19 22:12 Dose: 1 gm Cranberry Fruit Extract 425 Mg Cap Own Med 0 mg PO BID [facility] Last Admin: 03/22/19 22:12 Dose: 1 mg Ondansetron HCl (Zofran) 4 mg IV Q6H PRN PRN Reason: Nausea/Vomiting Last Admin: 03/22/19 23:36 Dose: 4 mg Oxcarbazepine (Trileptal) 150 mg PO BID [facility] Last Admin: 03/22/19 22:12 Dose: 150 mg Oxcarbazepine (Trileptal) 300 mg PO BID [facility] Last Admin: 03/22/19 22:12 Dose: 300 mg Polyethylene Glycol (Miralax) 17 gm PO DAILY PRN PRN Reason: Constipation Saccharomyces Boulardii (Florastor) 250 mg PO BID [facility] Last Admin: 03/22/19 21:42 Dose: 250 mg Senna (Senna) 17.2 mg PO BEDTIME [facility] Last Admin: 03/22/19 22:13 Dose: 17.2 mg Senna/Docusate Sodium (Senna Plus) 1 tab PO BID PRN PRN Reason: Constipation Temazepam (Restoril) 7.5 mg PO BEDTIME PRN PRN Reason: Sleep Vancomycin HCl (Pharmacy To Dose - Vancomycin) 1 dose .XX ASDIRECTED [facility] Discontinued Medications Acetaminophen (Tylenol) 650 mg PO NOW ONE Stop: 03/22/19 15:22 Last Admin: 03/22/19 15:25 Dose: 650 mg Hydromorphone HCl (Dilaudid) 0.25 mg IVPUSH ONETIME ONE Stop: 03/22/19 11:56 Last Admin: 03/22/19 12:03 Dose: 0.25 mg Ceftriaxone Sodium 1 gm/ (Sodium Chloride) 100 mls @ 200 mls/hr IV ONETIME ONE Stop: 03/22/19 15:05 Last Admin: 03/22/19 14:45 Dose: 200 mls/hr Ceftriaxone Sodium 1 gm/ (Sodium Chloride) 100 mls @ 200 mls/hr IV Q24H [facility] Vancomycin HCl 500 mg/ Sodium (Chloride) 250 mls @ 166.667 mls/hr IV Q12H [facility] Last Admin: 03/22/19 20:48 Dose: Not Given Vancomycin HCl 0.75 gm/ Sodium (Chloride) 250 mls @ 250 mls/hr IV Q24H [facility] Lactulose (Cephulac) 20 gm PO ONETIME ONE Stop: 03/22/19 16:07 Last Admin: 03/22/19 18:25 Dose: 20 gm Non-Formulary Medication (Acetaminophen [Tylenol]) 325 mg PO Q4H PRN PRN Reason: Fever Non-Formulary Medication (Ascorbate Calcium [Vitamin C]) 500 mg PO BID [facility] Non-Formulary Medication (Lactobacillus Acidophilus [Acidophilus]) 1 tab PO BID [facility] Last Admin: 03/23/19 01:34 Dose: Not Given Ondansetron HCl (Zofran) 4 mg IVPUSH ONETIME ONE Stop: 03/22/19 11:56 Last Admin: 03/22/19 12:03 Dose: 4 mg - Exam General: Alert, Oriented, Cooperative HEENT: Pupils Equal, Pupils Reactive, Other (poor dentition) Neck: Supple Lungs: Normal Respiratory Effort, Decreased Breath Sounds Cardiovascular: Tachycardia GI/Abdominal Exam: Soft, No Abnormal Bruit, Distended, Other (midline surgical scar) (Male) Exam: Other (supra-pubic catheter) Back Exam: Decreased Range of Motion, Other (kyphoscolosis) Extremities: Limited Range of Motion, Other (obvious muscle wasting and atonic) . No: Normal Inspection, Non-Tender Peripheral Pulses: 0: Dorsalis Pedis (L), Dorsalis Pedis (R) Skin: Warm, Dry, Intact, Other (chronic pressure ulcers) Neurological: Other (has baseline quadraplegia). No: Normal Gait Psy/Mental Status: Alert, Normal Affect, Normal Mood - Problem List Review Problem List Initiated/Reviewed/Updated: Yes - My Orders Last 24 Hours: My Active Orders 03/22/19 15:50 Carboxymethylcellulose Sodium 2 drop OP BID PRN Hydrocortisone 30 gm RC BID PRN Ketoconazole 1 applic TOP ASDIRECTED PRN Non-Formulary Medication [NF Drug] 1 applic PO BID PRN Non-Formulary Medication [NF Drug] 25 mg TOP Q6H PRN Ondansetron 4 mg PO Q4H PRN guaiFENesin/D-Methorphan Hb/Pe [Gnp Tussin Cf Max M-S Cold Liq] 10 ml PO Q4HR PRN 03/22/19 15:51 Height and Weight [RC] 04 Up With Assistance [RC] BID Up ad Elizabeth [RC] BID Consult to Case Management/Recovery Engineer [CONS] Routine Consult to Garage Attendant [CONS] Routine Consult to Spiritual Care [CONS] Routine Acetaminophen [Tylenol] 650 mg PO Q4H PRN Albuterol/Ipratropium [DuoNeb 3.0-0.5 MG/3 ML] 3 ml NEB Q4H PRN Bisacodyl [Dulcolax] 5 mg PO DAILY PRN Docusate Sodium [Colace] 100 mg PO BID PRN Docusate Sodium/Sennosides [Senna Plus] 1 tab PO BID PRN HYDROmorphone [Dilaudid] 0.25 mg IVPUSH Q2H PRN Ondansetron [Zofran] 4 mg IV Q6H PRN Polyethylene Glycol 3350 [MiraLAX] 17 gm PO DAILY PRN Promethazine [Phenergan] 6.25 mg Sodium Chloride 0.9% [Normal Saline] 50 ml IV Q6H Temazepam [Restoril] 7.5 mg PO BEDTIME PRN 03/22/19 15:52 Cardiac Monitoring [RC] CONTINUOUS Intake and Output [RC] 04,16 Oxygen Therapy [RC] PRN VTE/DVT Education [RC] QSHIFT Vital Signs [RC] Q4HR 03/22/19 15:53 Sequential Compression Device [OM.PC] Per Unit Routine 03/22/19 15:55 Antiembolic Devices [RC] BID RT Aerosol Therapy [RC] ASDIRECTED 03/22/19 16:00 Rectal Syringe [Enema Syringe] 1 each ASDIRECTED Blood Culture x2 Reflex Set [OM.PC] Stat 03/22/19 16:15 Bisacodyl [Dulcolax] 10 mg RECTAL DAILY Lactated Ringers [Ringers, Lactated] 1,000 ml IV ASDIRECTED Pharmacy to Dose - Vancomycin 1 dose .XX ASDIRECTED 03/22/19 16:25 CULTURE BLOOD [BC] Stat 03/22/19 16:33 CULTURE BLOOD [BC] Stat 03/22/19 17:00 Vancomycin 0.75 gm Sodium Chloride 0.9% [Normal Saline] 250 ml IV Q24H 03/22/19 17:06 Seizure Precautions [OM.PC] Routine 03/22/19 17:30 Levofloxacin/Dextrose 5%-Water [Levaquin in D5W 750 MG/150 ML] 750 mg Premix Bag 1 bag IV Q48H 03/22/19 17:51 PROCALCITONIN [REF] Stat 03/22/19 19:44 Antacid Gas Relief 1 tab PO Q4H PRN Aquaphilac Ointment 1 applic TOP ASDIRECTED PRN Baclofen [Baclofen] 10 mg PO TID PRN Magnesium Hydroxide [Milk of Magnesia] 2 - 4 tbsp PO DAILY PRN Mylanta 2 - 4 tsp PO Q2H PRN Promethazine HCl [Phenergan] 25 mg TOP Q6H PRN 03/22/19 19:45 Cepamax D Lip 1 applic TOP ASDIRECTED 03/22/19 20:15 Resuscitation Status Routine 03/22/19 20:21 Patient Status [ADT] Routine 03/22/19 20:59 Metoprolol Tartrate [Lopressor] 5 mg IVPUSH Q4H PRN hydrALAZINE [Apresoline] 20 mg IVPUSH Q4H PRN 03/22/19 21:00 Urinary Catheter Assessment [RC] Q4HR Mupirocin Cream 1 applic TOP BID Potassium Citrate [Potassium Citrate ER] 30 meq PO BID Saccharomyces Boulardii [Florastor] 250 mg PO BID 03/22/19 21:45 Methenamine Hippurate 1 gm PO BID OXcarbazepine [Trileptal] 150 mg PO BID OXcarbazepine [Trileptal] 300 mg PO BID 03/22/19 22:00 Ascorbic Acid [Vitamin C] 500 mg PO BID Cranberry Fruit Extract [Cranberry] 0 mg PO BID Sennosides [Senna] 17.2 mg PO BEDTIME Zinc Oxide 0 gm TOP BID 03/22/19 23:00 Metoclopramide [Reglan] 10 mg IVPUSH Q6H 03/22/19 23:54 LORazepam [Ativan] 0.5 mg IVPUSH Q4H PRN 03/22/19 Dinner Regular Diet [DIET] 03/23/19 00:00 Heparin Sodium 5,000 units SUBCUT Q8HR 03/23/19 05:07 LACTATE SEPSIS W/ REFLEX [CHEM] Q4H 03/23/19 05:11 BASIC METABOLIC PANEL,BMP [CHEM] AM C-REACTIVE PROTEIN [CHEM] AM MAGNESIUM [CHEM] AM 03/23/19 06:45 CBC WITH AUTO DIFF [HEME] AM 03/23/19 07:21 D-DIMER QUANTITATIVE [COAG] Routine 03/23/19 07:30 Metoprolol Tartrate [Lopressor] 25 mg PO Q12H 03/23/19 09:00 Cholecalciferol (Vitamin D3) [Vitamin D3] 1,000 units PO DAILY Lactulose [Cephulac] 20 gm PO DAILY Multivitamins 1 each PO DAILY Polyethylene Glycol [Polyox Wsr-301] 17 gm MC DAILY 03/23/19 14:30 cefTRIAXone [Rocephin] 1 gm Sodium Chloride 0.9% [Normal Saline] 100 ml IV Q24H 03/24/19 05:11 BASIC METABOLIC PANEL,BMP [CHEM] AM C-REACTIVE PROTEIN [CHEM] AM CBC WITH AUTO DIFF [HEME] AM MAGNESIUM [CHEM] AM 03/24/19 07:00 CBC W/O DIFF,HEMOGRAM [HEME] MOTH@0700 03/25/19 05:11 BASIC METABOLIC PANEL,BMP [CHEM] AM C-REACTIVE PROTEIN [CHEM] AM CBC WITH AUTO DIFF [HEME] AM MAGNESIUM [CHEM] AM 03/26/19 05:11 BASIC METABOLIC PANEL,BMP [CHEM] AM C-REACTIVE PROTEIN [CHEM] AM CBC WITH AUTO DIFF [HEME] AM MAGNESIUM [CHEM] AM 03/27/19 05:11 BASIC METABOLIC PANEL,BMP [CHEM] AM C-REACTIVE PROTEIN [CHEM] AM CBC WITH AUTO DIFF [HEME] AM MAGNESIUM [CHEM] AM 03/27/19 07:00 CBC W/O DIFF,HEMOGRAM [HEME] MOTH@0700 03/31/19 07:00 CBC W/O DIFF,HEMOGRAM [HEME] MOTH@0700 04/03/19 07:00 CBC W/O DIFF,HEMOGRAM [HEME] MOTH@0700 04/07/19 07:00 CBC W/O DIFF,HEMOGRAM [HEME] MOTH@0700 04/10/19 07:00 CBC W/O DIFF,HEMOGRAM [HEME] MOTH@0700 - Plan Plan:: Assessment: Acute: Sepsis - Meets criteria: WBC of 17.43, CRP of 19.8, HR of 120s - Serial LA: 1.8-->2.3-->1.0-->0.8 - Source UTI - Sepsis treatment CAUTI 2/2 GNRs - Has chronic urinary retention with intermittent catheterization - UA is strongly suggestive of UTI: Pyuria and Hematuria - Received IV Rocephin in ED - IV Levaquin and Vancomycin Constipation - Risk factors: Polypharmacy and Bed-bound - Abdominal x-ray shows increased colonic stool - Bowel prep w/ rectal suppository - Had a small bowel Leukocytosis - WBC of 17K-->19K - 2/2 above - Treat underlying cause S/p Erythrocytosis - Hgb of 17.6-->14.4 - Baseline is 13-14 - Likely hemo-concentration - Will monitor Hyperkalemia - K of 5.3-same - Has oral supplement plus in GLADIS - Hold supplement for now GLADIS - Likely 2/2 Volume Depletion/Dehydration - Cr if 1.5-->2.3; baseline of 13-14 - IV hydrations and monitor Is/Os - Bolus 500 ml of crystalloids then repeat level this afternoon Chronic: Recurrent PNA, Bowel Obstruction, Neurogenic Bladder, hx/o Renal Stone , Severe Quadraplegia, Cerebral Palsy, Seizure Disorder, Decubitus Ulcer and Intellectual Disability Plan: Transfer to ICU Routine AM Labs Sepsis treatment Regular Diet Aspiration/Fall and Seizure Precautions DVT/GI Prophylaxis SW/CM for d/c planning Code status: full Additional orders as above Prognosis remains seriously ill-guarded Updated family (mother and siblings) at beside about his diagnoses, labs results , and treatment plan.
[2019-03-23] MEDS ORDERED: Sodium Chloride 0.9% 500 ML IV ONE (08:30)
[2019-03-23] MEDS ORDERED: Lactulose Soln 10 GM/15 ML 30 ML UD Cup PO SCH (09:00)
[2019-03-23] MEDS ORDERED: Non-Formulary Medication 1 Each (Polyethylene Glycol [Polyox Wsr-301] 17 GM) MC SCH (09:00)
[2019-03-23] MEDS: Cholecalciferol (Vitamin D3) 25 MCG Tab PO SCH (09:13)
[2019-03-23] MEDS: Saccharomyces Boulardii (Probiotic) 250 MG Cap PO SCH ×2 (09:14→20:26)
[2019-03-23] MEDS: Metoprolol Tartrate 25 MG Tab PO SCH ×2 (09:14→20:02)
[2019-03-23] MEDS: Multivitamins,Therapeutic Tab PO SCH (09:14)
[2019-03-23] MEDS: Bisacodyl 10 MG Supp RECTAL SCH (09:14)
[2019-03-23] MEDS: CRANBERRY FRUIT EXTRACT 425 MG PO SCH ×2 (09:32→20:26)
[2019-03-23] MEDS: METHENAMINE HIPPURATE 1 GM PO SCH ×2 (09:33→20:28)
[2019-03-23] MEDS: OXcarbazepine 300 MG Tab PO SCH ×2 (09:35→20:29)
[2019-03-23] MEDS: ASCORBIC ACID 500 MG PO SCH ×2 (09:35→20:29)
[2019-03-23] MEDS: OXcarbazepine 150 MG Tab PO SCH ×2 (09:35→20:44)
[2019-03-23] MEDS: ZINC OXIDE 20% TOP SCH ×2 (09:36→20:29)
[2019-03-23] MEDS: Lactated Ringers 1,000 ML IV SCH ×2 (11:29→18:11)
--- NOTE | 2019-03-23 13:46 | CR ---
Abdomen: Supine and decubitus views of the abdomen were obtained. Comparison: No prior abdominal x-ray. Scoliosis and fixation rods are seen. Electrostimulating device is also noted. Scattered gas within small bowel and colon is seen which appears within normal limits. No free air is identified. No discrete soft tissue abnormality is seen. No abnormal calcifications are identified. Impression: 1. Nothing acute is seen on two-view abdominal x-ray. Diagnostic code #2 I agree with preliminary report from [facility], finalized on 03/22/19, 2:06 PM Central Time
[2019-03-23] MEDS ORDERED: cefTRIAXone 1 GM in Sodium Chloride 0.9% 100 ML IV SCH ×3 (14:00→14:30)
[2019-03-23] MEDS: Potassium Chloride 10 MEQ Tab.ER PO SCH (20:27)
[2019-03-23] MEDS: Sennosides 8.6 MG Tab PO SCH (20:43)
[2019-03-24] MEDS: Lactated Ringers 1,000 ML IV SCH ×3 (00:51→16:41)
[2019-03-24] MEDS: Metoclopramide 10 MG/2 ML SDV IVPUSH SCH ×3 (04:47→17:52)
[2019-03-24] MEDS: Heparin Sodium 5,000 Units/ML Vial SUBCUT SCH ×2 (05:53→13:02)
--- NOTE | 2019-03-24 07:47 | PCM.PN ---
- General Info Date of Service: 03/24/19 Admission Dx/Problem (Free Text): Admission Diagnosis/Problem Admission Diagnosis/Problem Urinary tract infection Subjective Update: Follow up Functional Status: Reports: Pain Controlled, Tolerating Diet, Urinating. Denies : New Symptoms - Review of Systems General: Denies: Fever, Chills HEENT: Reports: No Symptoms Pulmonary: Denies: Shortness of Breath Cardiovascular: Denies: Chest Pain, Lightheadedness Gastrointestinal: Denies: Abdominal Pain, Nausea, Vomiting Genitourinary: Reports: Retention Musculoskeletal: Reports: No Symptoms Skin: Reports: No Symptoms Neurological: Reports: Weakness, Gait Disturbance Psychiatric: Denies: Depression, Anxiety, Agitation, Hallucinations - Patient Data Vitals - Most Recent: Last Vital Signs Temp 37.2 C 03/24/19 04:00 Pulse 110 H 03/23/19 20:02 Resp 18 03/24/19 04:00 BP 107/67 03/24/19 04:00 Pulse Ox 99 03/24/19 04:00 Weight - Most Recent: 45.722 kg I&O - Last 24 Hours: Intake & Output 03/23/19 03/24/19 03/24/19 22:59 06:59 14:59 Intake Total 1121 2207 Output Total 200 100 Balance 921 2107 Lab Results Last 24 Hours: Laboratory Results - last 24 hr 03/23/19 03/23/19 03/23/19 Range/Units 06:45 07:30 19:19 WBC (4.23-9.07) K/mm3 RBC (4.63-6.08) M/mm3 Hgb (13.7-17.5) gm/dl Hct (40.1-51.0) % MCV (79.0-92.2) fl MCH (25.7-32.2) pg MCHC (32.2-35.5) g/dl RDW Std Deviation (35.1-43.9) fL Plt Count (163-337) K/mm3 MPV (9.4-12.3) fl Neut % (Auto) (34.0-67.9) % Lymph % (Auto) (21.8-53.1) % [place] % (Auto) (5.3-12.2) % Eos % (Auto) (0.8-7.0) Baso % (Auto) (0.1-1.2) % Neut # (Auto) (1.78-5.38) K/mm3 Lymph # (Auto) (1.32-3.57) K/mm3 [place] # (Auto) (0.30-0.82) K/mm3 Eos # (Auto) (0.04-0.54) K/mm3 Baso # (Auto) (0.01-0.08) K/mm3 Manual Slide Review Abnormal smear D-Dimer, Quantitative 1.96 H (0.19-0.50) mg/L Sodium 142 (136-145) mEq/L Potassium 4.5 (3.5-5.1) mEq/L Chloride 108 H (98-107) mEq/L Carbon Dioxide 27 (21-32) mEq/L Anion Gap 11.5 (5-15) BUN 40 H (7-18) mg/dL Creatinine 2.0 H (0.7-1.3) mg/dL Est Cr Clr Drug Dosing 31.42 mL/min Estimated GFR (MDRD) 38 (>60) mL/min BUN/Creatinine Ratio 20.0 H (14-18) Glucose 121 H (74-106) mg/dL Calcium 8.6 (8.5-10.1) mg/dL Magnesium 2.6 H (1.8-2.4) mg/dl Total Bilirubin 0.3 (0.2-1.0) mg/dL AST 10 L (15-37) U/L ALT 26 (16-63) U/L Alkaline Phosphatase 69 (46-116) U/L C-Reactive Protein (<1.0) mg/dL Total Protein 5.5 L (6.4-8.2) g/dl Albumin 2.4 L (3.4-5.0) g/dl Globulin 3.1 gm/dL Albumin/Globulin Ratio 0.8 L (1-2) 03/24/19 03/24/19 Range/Units 05:27 05:27 WBC 11.65 H (4.23-9.07) K/mm3 RBC 3.97 L (4.63-6.08) M/mm3 Hgb 12.1 L D (13.7-17.5) gm/dl Hct 38.4 L (40.1-51.0) % MCV 96.7 H (79.0-92.2) fl MCH 30.5 (25.7-32.2) pg MCHC 31.5 L (32.2-35.5) g/dl RDW Std Deviation 48.6 H (35.1-43.9) fL Plt Count 148 L (163-337) K/mm3 MPV 9.4 (9.4-12.3) fl Neut % (Auto) 79.7 H (34.0-67.9) % Lymph % (Auto) 10.9 L (21.8-53.1) % [place] % (Auto) 8.6 (5.3-12.2) % Eos % (Auto) 0.5 L (0.8-7.0) Baso % (Auto) 0.1 (0.1-1.2) % Neut # (Auto) 9.29 H (1.78-5.38) K/mm3 Lymph # (Auto) 1.27 L (1.32-3.57) K/mm3 [place] # (Auto) 1.00 H (0.30-0.82) K/mm3 Eos # (Auto) 0.06 (0.04-0.54) K/mm3 Baso # (Auto) 0.01 (0.01-0.08) K/mm3 Manual Slide Review D-Dimer, Quantitative (0.19-0.50) mg/L Sodium 143 (136-145) mEq/L Potassium 4.6 (3.5-5.1) mEq/L Chloride 108 H (98-107) mEq/L Carbon Dioxide 26 (21-32) mEq/L Anion Gap 13.6 (5-15) BUN 36 H (7-18) mg/dL Creatinine 1.5 H (0.7-1.3) mg/dL Est Cr Clr Drug Dosing 43.18 mL/min Estimated GFR (MDRD) 52 (>60) mL/min BUN/Creatinine Ratio 24.0 H (14-18) Glucose 94 (74-106) mg/dL Calcium 8.5 (8.5-10.1) mg/dL Magnesium 2.4 (1.8-2.4) mg/dl Total Bilirubin (0.2-1.0) mg/dL AST (15-37) U/L ALT (16-63) U/L Alkaline Phosphatase (46-116) U/L C-Reactive Protein 35.4 H* (<1.0) mg/dL Total Protein (6.4-8.2) g/dl Albumin (3.4-5.0) g/dl Globulin gm/dL Albumin/Globulin Ratio (1-2) Norbert Results Last 24 Hours: Microbiology 03/22/19 16:25 Aerobic Blood Culture - Preliminary Blood - Venous NO GROWTH AFTER 1 DAY Anaerobic Blood Culture - Preliminary NO GROWTH AFTER 1 DAY 03/22/19 16:33 Aerobic Blood Culture - Preliminary Blood - Venous - Lab Draw NO GROWTH AFTER 1 DAY Anaerobic Blood Culture - Preliminary NO GROWTH AFTER 1 DAY 03/22/19 14:05 Urine Culture - Preliminary Urine, Catheterized Gram Negative Rods Med Orders - Current: Current Medications Acetaminophen (Tylenol) 650 mg PO Q4H PRN PRN Reason: Pain (Mild 1-3)/fever Last Admin: 03/23/19 20:41 Dose: 650 mg Albuterol/Ipratropium (Duoneb 3.0-0.5 Mg/3 Ml) 3 ml NEB Q4H PRN PRN Reason: Shortness Of Breath/wheezing Artificial Tears (Refresh Liquigel 1%) 0 ml EYERT BID PRN PRN Reason: Dry Eyes Ascorbic Acid (Vitamin C) 500 mg PO BID [facility] Last Admin: 03/23/19 20:29 Dose: 500 mg Baclofen (Lioresal) 10 mg PO TID PRN PRN Reason: Muscle Spasm Bisacodyl (Dulcolax) 5 mg PO DAILY PRN PRN Reason: Constipation Bisacodyl (Dulcolax) 10 mg RECTAL DAILY [facility] Stop: 03/24/19 09:01 Last Admin: 03/23/19 09:14 Dose: 10 mg Cholecalciferol (Vitamin D3) 25 mcg PO DAILY [facility] Last Admin: 03/23/19 09:13 Dose: 25 mcg Docusate Sodium (Colace) 100 mg PO BID PRN PRN Reason: Constipation Heparin Sodium (Porcine) (Heparin Sodium) 5,000 units SUBCUT Q8HR [facility] Last Admin: 03/24/19 05:53 Dose: 5,000 units Hydralazine HCl (Apresoline) 20 mg IVPUSH Q4H PRN PRN Reason: Hypertension Hydrocortisone (Hydrocortisone 1% Crm) 0 gm TOP BID PRN PRN Reason: Itching Hydromorphone HCl (Dilaudid) 0.25 mg IVPUSH Q2H PRN PRN Reason: Pain (severe 7-10) Sodium Chloride (Normal Saline) 1,000 mls @ 999 mls/hr IV ONETIME [facility] Last Admin: 03/22/19 11:21 Dose: 999 mls/hr Promethazine HCl 6.25 mg/ (Sodium Chloride) 50.25 mls @ 100 mls/hr IV Q6H PRN PRN Reason: Nausea/Vomiting Lactated Ringer's (Ringers, Lactated) 1,000 mls @ 150 mls/hr IV ASDIRECTED [facility] Last Admin: 03/24/19 07:35 Dose: 150 mls/hr Levofloxacin/Dextrose 750 mg/ (Premix) 150 mls @ 100 mls/hr IV Q48H [facility] Last Admin: 03/22/19 19:44 Dose: 100 mls/hr Vancomycin HCl 0.75 gm/ Sodium (Chloride) 250 mls @ 250 mls/hr IV Q36H [facility] Last Admin: 03/24/19 04:50 Dose: 250 mls/hr Ceftriaxone Sodium 1 gm/ (Sodium Chloride) 100 mls @ 200 mls/hr IV Q24H [facility] Last Admin: 03/23/19 14:15 Dose: 200 mls/hr Lorazepam (Ativan) 0.5 mg IVPUSH Q4H PRN PRN Reason: Anxiety Last Admin: 03/23/19 00:03 Dose: 0.5 mg Magnesium Hydroxide (Milk Of Magnesia) 30 ml PO DAILY PRN PRN Reason: Constipation Metoclopramide HCl (Reglan) 10 mg IVPUSH Q6H [facility] Last Admin: 03/24/19 04:47 Dose: 10 mg Metoprolol Tartrate (Lopressor) 5 mg IVPUSH Q4H PRN PRN Reason: Tachycardia Last Admin: 03/23/19 06:08 Dose: 5 mg Metoprolol Tartrate (Lopressor) 25 mg PO Q12H [facility] Last Admin: 03/23/19 20:02 Dose: 25 mg Multi-Ingred Cream/Lotion/Oil/Oint (Zinc Oxide) 0 gm TOP BID [facility] Last Admin: 03/23/19 20:29 Dose: 1 applic Multivitamins (Thera) 1 each PO DAILY [facility] Last Admin: 03/23/19 09:14 Dose: 1 each Methenamine Hippurate 1 Gm Tab Own Med 1 gm PO BID [facility] Last Admin: 03/23/19 20:28 Dose: 1 gm Cranberry Fruit Extract 425 Mg Cap Own Med 0 mg PO BID [facility] Last Admin: 03/23/19 20:26 Dose: 425 mg Ondansetron HCl (Zofran Odt) 4 mg PO Q4H PRN PRN Reason: Nausea/Vomiting Ondansetron HCl (Zofran) 4 mg IV Q6H PRN PRN Reason: Nausea/Vomiting Last Admin: 03/22/19 23:36 Dose: 4 mg Oxcarbazepine (Trileptal) 150 mg PO BID [facility] Last Admin: 03/23/19 20:44 Dose: 150 mg Oxcarbazepine (Trileptal) 300 mg PO BID [facility] Last Admin: 03/23/19 20:29 Dose: 300 mg Ketoconazole 1 (Applic) 1 each TOP ASDIRECTED PRN PRN Reason: Other Promethazine Hcl [ (Phenergan] 25 Mg) 0 each TOP Q6H PRN PRN Reason: Nausea/Vomiting Polyethylene Glycol (Miralax) 17 gm PO DAILY PRN PRN Reason: Constipation Potassium Chloride (Klor-Con 10) 30 meq PO BID [facility] Last Admin: 03/23/19 20:27 Dose: 30 meq Saccharomyces Boulardii (Florastor) 250 mg PO BID [facility] Last Admin: 03/23/19 20:26 Dose: 250 mg Senna (Senna) 17.2 mg PO BEDTIME [facility] Last Admin: 03/23/19 20:43 Dose: 17.2 mg Senna/Docusate Sodium (Senna Plus) 1 tab PO BID PRN PRN Reason: Constipation Temazepam (Restoril) 7.5 mg PO BEDTIME PRN PRN Reason: Sleep Vancomycin HCl (Pharmacy To Dose - Vancomycin) 1 dose .XX ASDIRECTED [facility] Discontinued Medications Acetaminophen (Tylenol) 650 mg PO NOW ONE Stop: 03/22/19 15:22 Last Admin: 03/22/19 15:25 Dose: 650 mg Hydromorphone HCl (Dilaudid) 0.25 mg IVPUSH ONETIME ONE Stop: 03/22/19 11:56 Last Admin: 03/22/19 12:03 Dose: 0.25 mg Ceftriaxone Sodium 1 gm/ (Sodium Chloride) 100 mls @ 200 mls/hr IV ONETIME ONE Stop: 03/22/19 15:05 Last Admin: 03/22/19 14:45 Dose: 200 mls/hr Ceftriaxone Sodium 1 gm/ (Sodium Chloride) 100 mls @ 200 mls/hr IV Q24H [facility] Vancomycin HCl 500 mg/ Sodium (Chloride) 250 mls @ 166.667 mls/hr IV Q12H [facility] Last Admin: 03/22/19 20:48 Dose: Not Given Vancomycin HCl 0.75 gm/ Sodium (Chloride) 250 mls @ 250 mls/hr IV Q24H MERRICK Vancomycin HCl 0.75 gm/ Sodium (Chloride) 250 mls @ 250 mls/hr IV Q24H [facility] Last Admin: 03/22/19 17:41 Dose: 250 mls/hr Sodium Chloride (Normal Saline) 500 mls @ 999 mls/hr IV .BOLUS ONE Stop: 03/23/19 09:00 Last Admin: 03/23/19 09:27 Dose: 999 mls/hr Lactulose (Cephulac) 20 gm PO ONETIME ONE Stop: 03/22/19 16:07 Last Admin: 03/22/19 18:25 Dose: 20 gm Lactulose (Cephulac) 20 gm PO DAILY MERRICK Stop: 03/23/19 09:01 Last Admin: 03/23/19 09:13 Dose: 20 gm Non-Formulary Medication (Acetaminophen [Tylenol]) 325 mg PO Q4H PRN PRN Reason: Fever Non-Formulary Medication (Ascorbate Calcium [Vitamin C]) 500 mg PO BID [facility] Non-Formulary Medication (Guaifenesin/D-Methorphan Hb/Pe [Gnp Tussin Cf Max M-S Cold Liq]) 10 ml PO Q4HR PRN PRN Reason: cough Non-Formulary Medication (Lactobacillus Acidophilus [Acidophilus]) 1 tab PO BID [facility] Last Admin: 03/23/19 01:34 Dose: Not Given Non-Formulary Medication (Mupirocin Cream) 1 applic TOP BID [facility] Last Admin: 03/23/19 11:39 Dose: Not Given Non-Formulary Medication (Non-Formulary Medication [Nf Drug]) 25 mg TOP Q6H PRN PRN Reason: Nausea Non-Formulary Medication (Non-Formulary Medication [Nf Drug]) 1 applic PO BID PRN PRN Reason: Dryness Non-Formulary Medication (Polyethylene Glycol [Polyox Wsr-301]) 17 gm MC DAILY MRERICK Non-Formulary Medication (Rectal Syringe [Enema Syringe]) 1 each MC ASDIRECTED MERRICK Non-Formulary Medication (Antacid Gas Relief) 1 tab PO Q4H PRN PRN Reason: Gas Non-Formulary Medication (Aquaphilac Ointment) 1 applic TOP ASDIRECTED PRN PRN Reason: dry skin Non-Formulary Medication (Cepamax D Lip) 1 applic TOP ASDIRECTED MERRCIK Non-Formulary Medication (Mylanta) 2 - 4 tsp PO Q2H PRN PRN Reason: upset stomach Ondansetron HCl (Zofran) 4 mg IVPUSH ONETIME ONE Stop: 03/22/19 11:56 Last Admin: 03/22/19 12:03 Dose: 4 mg - Exam General: Alert, Cooperative, No Acute Distress, Other (can answer yes or no question and able to talk) HEENT: Pupils Equal, Pupils Reactive, Other (poor dentition). No: Mucous Membr. Moist/[place]oad [place] Neck: Supple Lungs: Normal Respiratory Effort, Decreased Breath Sounds Cardiovascular: Regular Rate, Regular Rhythm GI/Abdominal Exam: Normal Bowel Sounds, Soft, Non-Tender, No Organomegaly, Other (midline abdominal scar). No: Rigid, Rebound (Male) Exam: Other (supra-pubic catheter) Back Exam: Normal Inspection, Other (kypho-scoliosis) Extremities: Limited Range of Motion, Other (b/l leg atropy and contractures on all extremities). No: Normal Inspection, Redness Peripheral Pulses: 1+: Dorsalis Pedis (L), Dorsalis Pedis (R) Skin: Warm, Intact Neurological: Other (baseline quadreplegia). No: Normal Gait Psy/Mental Status: Alert, Normal Mood. No: Normal Affect - Problem List Review Problem List Initiated/Reviewed/Updated: Yes - My Orders Last 24 Hours: My Active Orders 03/23/19 07:30 Metoprolol Tartrate [Lopressor] 25 mg PO Q12H 03/23/19 09:00 Patient Status [ADT] Routine Cholecalciferol (Vitamin D3) [Vitamin D3] 25 mcg PO DAILY Multivitamins,Therapeutic [Thera] 1 each PO DAILY 03/23/19 14:15 cefTRIAXone [Rocephin] 1 gm Sodium Chloride 0.9% [Normal Saline] 100 ml IV Q24H 03/23/19 21:00 Potassium Chloride [Klor-Con 10] 30 meq PO BID 03/24/19 05:00 Vancomycin 0.75 gm Sodium Chloride 0.9% [Normal Saline] 250 ml IV Q36H 03/25/19 05:11 BASIC METABOLIC PANEL,BMP [CHEM] AM C-REACTIVE PROTEIN [CHEM] AM CBC WITH AUTO DIFF [HEME] AM MAGNESIUM [CHEM] AM 03/26/19 05:11 BASIC METABOLIC PANEL,BMP [CHEM] AM C-REACTIVE PROTEIN [CHEM] AM CBC WITH AUTO DIFF [HEME] AM MAGNESIUM [CHEM] AM 03/27/19 05:11 BASIC METABOLIC PANEL,BMP [CHEM] AM C-REACTIVE PROTEIN [CHEM] AM CBC WITH AUTO DIFF [HEME] AM MAGNESIUM [CHEM] AM 03/27/19 07:00 CBC W/O DIFF,HEMOGRAM [HEME] MOTH@0700 03/31/19 07:00 CBC W/O DIFF,HEMOGRAM [HEME] MOTH@0700 04/03/19 07:00 CBC W/O DIFF,HEMOGRAM [HEME] MOTH@0700 04/07/19 07:00 CBC W/O DIFF,HEMOGRAM [HEME] MOTH@0700 04/10/19 07:00 CBC W/O DIFF,HEMOGRAM [HEME] MOTH@0700 - Plan Plan:: Assessment: Acute: Sepsis, Improved - Meets criteria: WBC of 17.43, CRP of 19.8, HR of 120s - Serial LA: 1.8-->2.3-->1.0-->0.8 - Source UTI - Sepsis treatment CAUTI 2/2 Enterobacter Cloacae - Has chronic urinary retention with intermittent catheterization - UA is strongly suggestive of UTI: Pyuria and Hematuria - Received IV Rocephin in ED - IV Levaquin add for sensitivity GLADIS, Improving - Likely 2/2 Volume Depletion/Dehydration - Cr if 1.5-->2.3-->1.5; baseline of 13-14 - IV hydrations and monitor Is/Os Leukocytosis - WBC of 17K-->19K-->11.65 - 2/2 above - Treat underlying cause Elevated D-Dimer - D-Dimer of 1.96 - CTA no able to perform due to GLADIS - He is high risk for DVT due to immobility and bed-bound status - He has been on Heparin SubQ TID--> will changed to Lovenox 25 mg subQ TID - If renal function is better tomorrow consider CTA Resolved: S/p Constipation - Risk factors: Polypharmacy and Bed-bound - Abdominal x-ray shows increased colonic stool - Bowel prep w/ rectal suppository - Had adequate bowel movement yesterday S/p Erythrocytosis - Hgb of 17.6-->14.4 - Baseline is 13-14 - Likely hemo-concentration - Will monitor S/p Hyperkalemia - K of 5.3-same--> 4.6 - Has oral supplement plus in GLADIS - Hold supplement for now Chronic: Recurrent PNA, Bowel Obstruction, Neurogenic Bladder, Hx/o Renal Stone , Severe Quadriplegia, Cerebral Palsy, Seizure Disorder, Decubitus Ulcer and Intellectual Disability Plan: He is much better clinically this morning Routine AM Labs Sepsis treatment Regular Home Diet Aspiration/Fall and Seizure Precautions DVT/GI Prophylaxis SW/CM for d/c planning Code status: full Additional orders as above Prognosis is guarded Updated mother at beside about his diagnoses, labs results, and treatment plan.
[2019-03-24] MEDS: Metoprolol Tartrate 25 MG Tab PO SCH ×2 (08:35→20:30)
[2019-03-24] MEDS: Cholecalciferol (Vitamin D3) 25 MCG Tab PO SCH (08:36)
[2019-03-24] MEDS: Multivitamins,Therapeutic Tab PO SCH (08:36)
[2019-03-24] MEDS: Saccharomyces Boulardii (Probiotic) 250 MG Cap PO SCH ×2 (08:36→20:30)
[2019-03-24] MEDS ORDERED: POTASSIUM CITRATE 30 MEQ PO SCH (09:00)
[2019-03-24] MEDS: CRANBERRY FRUIT EXTRACT 425 MG PO SCH (09:04)
[2019-03-24] MEDS: Potassium Chloride 10 MEQ Tab.ER PO SCH (09:05)
[2019-03-24] MEDS: Bisacodyl 10 MG Supp RECTAL SCH (09:05)
[2019-03-24] MEDS: OXcarbazepine 300 MG Tab PO SCH ×3 (09:06→20:32)
[2019-03-24] MEDS: METHENAMINE HIPPURATE 1 GM PO SCH (09:07)
[2019-03-24] MEDS: ASCORBIC ACID 500 MG PO SCH (09:09)
[2019-03-24] MEDS: ZINC OXIDE 20% TOP SCH ×2 (09:11→20:32)
[2019-03-24] MEDS ORDERED: OXcarbazepine 150 MG Tab PO SCH (09:15)
[2019-03-24] MEDS: OXcarbazepine 150 MG Tab PO SCH ×2 (09:17→20:30)
[2019-03-24] MEDS: Ascorbic Acid 500 MG Tab PO SCH ×2 (10:57→20:30)
[2019-03-24] MEDS: POTASSIUM CITRATE 10 MEQ PO SCH ×2 (11:51→20:31)
[2019-03-24] MEDS: Acetaminophen 325 MG Tab PO PRN ×2 (13:01→18:04)
[2019-03-24] MEDS ORDERED: Lidocaine 1% 10 ML MDV ONE (16:24)
[2019-03-24] MEDS ORDERED: Lidocaine 1% PF 2 ML SDV INJECT ONE (16:32)
[2019-03-24] MEDS ORDERED: Lidocaine 1% 10 ML MDV INJECT ONE (16:37)
[2019-03-24] MEDS: Levofloxacin/Dextrose 5%-Water 750 MG in Premix Bag 1 BAG IV SCH (17:54)
[2019-03-24] MEDS: Sennosides 8.6 MG Tab PO SCH (20:30)
[2019-03-24] MEDS ORDERED: Enoxaparin 30 MG/0.3 ML Syringe SUBCUT SCH (21:00)
[2019-03-24] MEDS: Enoxaparin 30 MG/0.3 ML Syringe SUBCUT SCH (21:18)
[2019-03-24] MEDS: Meropenem Premix 500 MG in Premix Bag 1 BAG IV SCH (21:19)
[2019-03-25] MEDS: Sodium Chloride 0.9% 1,000 ML IV SCH ×3 (00:24→20:49)
[2019-03-25] MEDS: Meropenem Premix 500 MG in Premix Bag 1 BAG IV SCH ×3 (05:06→20:47)
[2019-03-25] MEDS ORDERED: Iopamidol 755 Mg/ML 100 ML Bottle IVPUSH ONE (07:26)
[2019-03-25] MEDS ORDERED: Sodium Chloride 0.9% 100 ML IV SCH (07:30)
[2019-03-25] MEDS: Metoprolol Tartrate 25 MG Tab PO SCH ×2 (08:16→20:41)
[2019-03-25] MEDS: OXcarbazepine 300 MG Tab PO SCH ×2 (08:19→20:57)
[2019-03-25] MEDS: OXcarbazepine 150 MG Tab PO SCH ×2 (08:19→20:53)
[2019-03-25] MEDS: Ascorbic Acid 500 MG Tab PO SCH ×2 (08:20→20:44)
[2019-03-25] MEDS: Cholecalciferol (Vitamin D3) 25 MCG Tab PO SCH (08:20)
[2019-03-25] MEDS: Multivitamins,Therapeutic Tab PO SCH (08:20)
[2019-03-25] MEDS: Saccharomyces Boulardii (Probiotic) 250 MG Cap PO SCH ×2 (08:20→20:42)
[2019-03-25] MEDS: POTASSIUM CITRATE 10 MEQ PO SCH ×2 (08:23→20:46)
[2019-03-25] MEDS: ZINC OXIDE 20% TOP SCH ×2 (08:24→21:10)
--- NOTE | 2019-03-25 08:45 | CT ---
CT chest Technique: Multiple axial sections through the chest were obtained. Intravenous contrast was utilized. Study performed as a pulmonary angiogram protocol. Comparison: No prior CT chest, previous chest x-ray of 12/12/18. Findings: Small left-sided pleural effusion is noted with trace right sided pleural effusion. Pulmonary arteries are well-opacified. No filling defects are seen to indicate pulmonary embolism. Aorta shows no aneurysm. No mediastinal adenopathy is seen. No axillary adenopathy is identified. Very minimal atelectasis are seen adjacent to the pleural effusions. Lungs otherwise are clear with no acute parenchymal change. Impression: 1. No findings of pulmonary embolism. 2. Small left-sided pleural effusion and trace right-sided pleural effusion. Adjacent atelectasis is seen adjacent to the pleural effusions. 3. No additional abnormality is appreciated on CT study of the chest. Diagnostic code #2
--- NOTE | 2019-03-25 08:45 | CR ---
Abdomen: Abdomen: Supine view of the abdomen was obtained. Comparison: Prior abdominal x-ray of 03/22/19. Scattered gas within small bowel and colon is seen. This does not appear to be obstructive. This may represent increased swallowed gas versus a mild ileus. Spinal fixation rods are seen. Electro-stimulating device is seen. No discrete soft tissue finding is seen within the abdomen. Impression: 1. Slight increased gas within small bowel. Gas also noted within the colon. As mentioned above, this does not appear to be obstructive and either increased swallowed gas or represents a mild ileus. 2. Other findings which are believed to be incidental as noted above. Diagnostic code #2
[2019-03-25] MEDS ORDERED: Magnesium Sulfate/Water 4 GM in Premix Bag 1 BAG IV ONE (09:09)
[2019-03-25] MEDS: Enoxaparin 40 MG/0.4 ML Syringe SUBCUT SCH (11:05)
[2019-03-25] MEDS: Enoxaparin 30 MG/0.3 ML Syringe SUBCUT SCH (17:08)
--- NOTE | 2019-03-25 17:31 | PCM.PN ---
<Adonay Ramos - Last Filed: 03/25/19 17:26> - General Info Date of Service: 03/25/19 - Review of Systems General: Reports: No Symptoms HEENT: Reports: No Symptoms Pulmonary: Reports: No Symptoms Cardiovascular: Reports: No Symptoms Gastrointestinal: Reports: Abdominal Pain Genitourinary: Reports: Retention Musculoskeletal: Reports: Other (Bilateral contractures of all extremities) Skin: Reports: No Symptoms Neurological: Reports: Pre-Existing Deficit Psychiatric: Reports: No Symptoms - Patient Data Vitals - Most Recent: Last Vital Signs Temp 100.7 F H 03/25/19 12:00 Pulse 79 03/25/19 08:16 Resp 20 03/25/19 12:00 BP 132/67 03/25/19 12:00 Pulse Ox 93 L 03/25/19 12:00 Weight - Most Recent: 47.083 kg I&O - Last 24 Hours: Intake & Output 03/25/19 03/25/19 03/25/19 06:59 14:59 22:59 Intake Total 1122 180 400 Output Total 165 550 230 Balance 957 -370 170 Lab Results Last 24 Hours: Laboratory Results - last 24 hr 03/22/19 03/24/19 03/25/19 Range/Units 17:51 21:10 07:37 WBC 8.85 (4.23-9.07) K/mm3 RBC 3.83 L (4.63-6.08) M/mm3 Hgb 11.9 L (13.7-17.5) gm/dl Hct 36.6 L (40.1-51.0) % MCV 95.6 H (79.0-92.2) fl MCH 31.1 (25.7-32.2) pg MCHC 32.5 (32.2-35.5) g/dl RDW Std Deviation 46.6 H (35.1-43.9) fL Plt Count 150 L (163-337) K/mm3 MPV 10.0 (9.4-12.3) fl Neut % (Auto) 77.8 H (34.0-67.9) % Lymph % (Auto) 13.0 L (21.8-53.1) % [place] % (Auto) 8.1 (5.3-12.2) % Eos % (Auto) 0.9 (0.8-7.0) Baso % (Auto) 0.0 L (0.1-1.2) % Neut # (Auto) 6.88 H (1.78-5.38) K/mm3 Lymph # (Auto) 1.15 L (1.32-3.57) K/mm3 [place] # (Auto) 0.72 (0.30-0.82) K/mm3 Eos # (Auto) 0.08 (0.04-0.54) K/mm3 Baso # (Auto) 0.00 L (0.01-0.08) K/mm3 Sodium (136-145) mEq/L Potassium (3.5-5.1) mEq/L Chloride (98-107) mEq/L Carbon Dioxide (21-32) mEq/L Anion Gap (5-15) BUN (7-18) mg/dL Creatinine (0.7-1.3) mg/dL Est Cr Clr Drug Dosing mL/min Estimated GFR (MDRD) (>60) mL/min BUN/Creatinine Ratio (14-18) Glucose (74-106) mg/dL Lactic Acid 1.2 (0.4-2.0) mmol/L Calcium (8.5-10.1) mg/dL Magnesium (1.8-2.4) mg/dl C-Reactive Protein (<1.0) mg/dL Procalcitonin 0.21 H (<0.10) ng/mL 03/25/19 Range/Units 07:37 WBC (4.23-9.07) K/mm3 RBC (4.63-6.08) M/mm3 Hgb (13.7-17.5) gm/dl Hct (40.1-51.0) % MCV (79.0-92.2) fl MCH (25.7-32.2) pg MCHC (32.2-35.5) g/dl RDW Std Deviation (35.1-43.9) fL Plt Count (163-337) K/mm3 MPV (9.4-12.3) fl Neut % (Auto) (34.0-67.9) % Lymph % (Auto) (21.8-53.1) % [place] % (Auto) (5.3-12.2) % Eos % (Auto) (0.8-7.0) Baso % (Auto) (0.1-1.2) % Neut # (Auto) (1.78-5.38) K/mm3 Lymph # (Auto) (1.32-3.57) K/mm3 [place] # (Auto) (0.30-0.82) K/mm3 Eos # (Auto) (0.04-0.54) K/mm3 Baso # (Auto) (0.01-0.08) K/mm3 Sodium 146 H (136-145) mEq/L Potassium 3.6 (3.5-5.1) mEq/L Chloride 110 H (98-107) mEq/L Carbon Dioxide 26 (21-32) mEq/L Anion Gap 13.6 (5-15) BUN 15 (7-18) mg/dL Creatinine 0.7 (0.7-1.3) mg/dL Est Cr Clr Drug Dosing 95.29 mL/min Estimated GFR (MDRD) > 60 (>60) mL/min BUN/Creatinine Ratio 21.4 H (14-18) Glucose 91 (74-106) mg/dL Lactic Acid (0.4-2.0) mmol/L Calcium 8.6 (8.5-10.1) mg/dL Magnesium 1.5 L (1.8-2.4) mg/dl C-Reactive Protein 27.6 H* (<1.0) mg/dL Procalcitonin (<0.10) ng/mL Norbert Results Last 24 Hours: Microbiology 03/22/19 16:25 Aerobic Blood Culture - Preliminary Blood - Venous NO GROWTH AFTER 3 DAYS Anaerobic Blood Culture - Preliminary NO GROWTH AFTER 3 DAYS 03/22/19 16:33 Aerobic Blood Culture - Preliminary Blood - Venous - Lab Draw NO GROWTH AFTER 3 DAYS Anaerobic Blood Culture - Preliminary NO GROWTH AFTER 3 DAYS 03/22/19 14:05 Urine Culture - Final Urine, Catheterized Enterobacter Cloacae Med Orders - Current: Current Medications Acetaminophen (Tylenol) 650 mg PO Q4H PRN PRN Reason: Pain (Mild 1-3)/fever Last Admin: 03/24/19 18:04 Dose: 650 mg Albuterol/Ipratropium (Duoneb 3.0-0.5 Mg/3 Ml) 3 ml NEB Q4H PRN PRN Reason: Shortness Of Breath/wheezing Artificial Tears (Refresh Liquigel 1%) 0 ml EYERT BID PRN PRN Reason: Dry Eyes Ascorbic Acid (Vitamin C) 500 mg PO BID [facility] Last Admin: 03/25/19 08:20 Dose: 500 mg Baclofen (Lioresal) 10 mg PO TID PRN PRN Reason: Muscle Spasm Bisacodyl (Dulcolax) 5 mg PO DAILY PRN PRN Reason: Constipation Cholecalciferol (Vitamin D3) 25 mcg PO DAILY [facility] Last Admin: 03/25/19 08:20 Dose: 25 mcg Docusate Sodium (Colace) 100 mg PO BID PRN PRN Reason: Constipation Enoxaparin Sodium (Lovenox) 40 mg SUBCUT DAILY [facility] Last Admin: 03/25/19 11:05 Dose: 40 mg Hydralazine HCl (Apresoline) 20 mg IVPUSH Q4H PRN PRN Reason: Hypertension Hydrocortisone (Hydrocortisone 1% Crm) 0 gm TOP BID PRN PRN Reason: Itching Hydromorphone HCl (Dilaudid) 0.25 mg IVPUSH Q2H PRN PRN Reason: Pain (severe 7-10) Promethazine HCl 6.25 mg/ (Sodium Chloride) 50.25 mls @ 100 mls/hr IV Q6H PRN PRN Reason: Nausea/Vomiting Meropenem/Sodium Chloride 500 (mg/ Premix) 50 mls @ 100 mls/hr IV Q8H [facility] Last Admin: 03/25/19 13:58 Dose: 100 mls/hr Sodium Chloride (Normal Saline) 1,000 mls @ 100 mls/hr IV ASDIRECTED [facility] Last Admin: 03/25/19 12:07 Dose: 100 mls/hr Sodium Chloride (Normal Saline) 100 mls @ 80 mls/hr IV ASDIRECTED [facility] Last Admin: 03/25/19 08:03 Dose: 80 mls/hr Levofloxacin/Dextrose 750 mg/ (Premix) 150 mls @ 100 mls/hr IV Q24H [facility] Lorazepam (Ativan) 0.5 mg IVPUSH Q4H PRN PRN Reason: Anxiety Last Admin: 03/23/19 00:03 Dose: 0.5 mg Magnesium Hydroxide (Milk Of Magnesia) 30 ml PO DAILY PRN PRN Reason: Constipation Metoprolol Tartrate (Lopressor) 5 mg IVPUSH Q4H PRN PRN Reason: Tachycardia Last Admin: 03/23/19 06:08 Dose: 5 mg Metoprolol Tartrate (Lopressor) 25 mg PO Q12H [facility] Last Admin: 03/25/19 08:16 Dose: 25 mg Multi-Ingred Cream/Lotion/Oil/Oint (Zinc Oxide) 0 gm TOP BID [facility] Last Admin: 03/25/19 08:24 Dose: 1 applic Multivitamins (Thera) 1 each PO DAILY [facility] Last Admin: 03/25/19 08:20 Dose: 1 each Ondansetron HCl (Zofran Odt) 4 mg PO Q4H PRN PRN Reason: Nausea/Vomiting Ondansetron HCl (Zofran) 4 mg IV Q6H PRN PRN Reason: Nausea/Vomiting Last Admin: 03/22/19 23:36 Dose: 4 mg Oxcarbazepine (Trileptal) 150 mg PO BID [facility] Last Admin: 03/25/19 08:19 Dose: 150 mg Oxcarbazepine (Trileptal) 300 mg PO BID [facility] Last Admin: 03/25/19 08:19 Dose: 300 mg Ketoconazole 1 (Applic) 1 each TOP ASDIRECTED PRN PRN Reason: Other Promethazine Hcl [ (Phenergan] 25 Mg) 0 each TOP Q6H PRN PRN Reason: Nausea/Vomiting Potassium Citrate 10meq Pt's Own Medication 0 each PO BID [facility] Last Admin: 03/25/19 08:23 Dose: 30 each Polyethylene Glycol (Miralax) 17 gm PO DAILY PRN PRN Reason: Constipation Saccharomyces Boulardii (Florastor) 250 mg PO BID [facility] Last Admin: 03/25/19 08:20 Dose: 250 mg Senna (Senna) 17.2 mg PO BEDTIME [facility] Last Admin: 03/24/19 20:30 Dose: 17.2 mg Senna/Docusate Sodium (Senna Plus) 1 tab PO BID PRN PRN Reason: Constipation Temazepam (Restoril) 7.5 mg PO BEDTIME PRN PRN Reason: Sleep Discontinued Medications Acetaminophen (Tylenol) 650 mg PO NOW ONE Stop: 03/22/19 15:22 Last Admin: 03/22/19 15:25 Dose: 650 mg Ascorbic Acid (Vitamin C) 500 mg PO BID [facility] Last Admin: 03/24/19 09:09 Dose: 500 mg Bisacodyl (Dulcolax) 10 mg RECTAL DAILY [facility] Stop: 03/24/19 09:01 Last Admin: 03/24/19 09:05 Dose: 10 mg Enoxaparin Sodium (Lovenox) 30 mg SUBCUT Q12H [facility] Last Admin: 03/24/19 21:15 Dose: Not Given Enoxaparin Sodium (Lovenox) 25 mg SUBCUT Q12H [facility] Last Admin: 03/25/19 17:08 Dose: Not Given Heparin Sodium (Porcine) (Heparin Sodium) 5,000 units SUBCUT Q8HR [facility] Last Admin: 03/24/19 13:02 Dose: 5,000 units Hydromorphone HCl (Dilaudid) 0.25 mg IVPUSH ONETIME ONE Stop: 03/22/19 11:56 Last Admin: 03/22/19 12:03 Dose: 0.25 mg Sodium Chloride (Normal Saline) 1,000 mls @ 999 mls/hr IV ONETIME [facility] Last Admin: 03/22/19 11:21 Dose: 999 mls/hr Ceftriaxone Sodium 1 gm/ (Sodium Chloride) 100 mls @ 200 mls/hr IV ONETIME ONE Stop: 03/22/19 15:05 Last Admin: 03/22/19 14:45 Dose: 200 mls/hr Ceftriaxone Sodium 1 gm/ (Sodium Chloride) 100 mls @ 200 mls/hr IV Q24H [facility] Vancomycin HCl 500 mg/ Sodium (Chloride) 250 mls @ 166.667 mls/hr IV Q12H [facility] Last Admin: 03/22/19 20:48 Dose: Not Given Lactated Ringer's (Ringers, Lactated) 1,000 mls @ 150 mls/hr IV ASDIRECTED [facility] Last Admin: 03/24/19 16:41 Dose: 150 mls/hr Vancomycin HCl 0.75 gm/ Sodium (Chloride) 250 mls @ 250 mls/hr IV Q24H [facility] Vancomycin HCl 0.75 gm/ Sodium (Chloride) 250 mls @ 250 mls/hr IV Q24H [facility] Last Admin: 03/22/19 17:41 Dose: 250 mls/hr Levofloxacin/Dextrose 750 mg/ (Premix) 150 mls @ 100 mls/hr IV Q48H [facility] Last Admin: 03/24/19 17:54 Dose: 100 mls/hr Sodium Chloride (Normal Saline) 500 mls @ 999 mls/hr IV .BOLUS ONE Stop: 03/23/19 09:00 Last Admin: 03/23/19 09:27 Dose: 999 mls/hr Vancomycin HCl 0.75 gm/ Sodium (Chloride) 250 mls @ 250 mls/hr IV Q36H [facility] Last Admin: 03/24/19 04:50 Dose: 250 mls/hr Ceftriaxone Sodium 1 gm/ (Sodium Chloride) 100 mls @ 200 mls/hr IV Q24H [facility] Last Admin: 03/23/19 14:15 Dose: 200 mls/hr Magnesium Sulfate 4 gm/ Premix 50 mls @ 12.5 mls/hr IV ONETIME ONE Stop: 03/25/19 13:08 Last Admin: 03/25/19 10:56 Dose: 12.5 mls/hr Iopamidol (Isovue-370 (76%)) 100 ml IVPUSH ONETIME ONE Stop: 03/25/19 07:27 Last Admin: 03/25/19 08:03 Dose: 100 ml Lactulose (Cephulac) 20 gm PO ONETIME ONE Stop: 03/22/19 16:07 Last Admin: 03/22/19 18:25 Dose: 20 gm Lactulose (Cephulac) 20 gm PO DAILY [facility] Stop: 03/23/19 09:01 Last Admin: 03/23/19 09:13 Dose: 20 gm Lidocaine HCl (Xylocaine 1%) Confirm Administered Dose 10 ml .ROUTE .STK-MED ONE Stop: 03/24/19 16:25 Last Admin: 03/24/19 17:54 Dose: 10 ml Lidocaine HCl (Xylocaine-Mpf 1%) 1 ml INJECT ONETIME ONE Stop: 03/24/19 16:33 Last Admin: 03/24/19 20:29 Dose: Not Given Lidocaine HCl (Xylocaine 1%) 10 ml INJECT ONETIME ONE Stop: 03/24/19 16:38 Last Admin: 03/24/19 20:28 Dose: Not Given Metoclopramide HCl (Reglan) 10 mg IVPUSH Q6H [facility] Last Admin: 03/24/19 17:52 Dose: 10 mg Non-Formulary Medication (Acetaminophen [Tylenol]) 325 mg PO Q4H PRN PRN Reason: Fever Non-Formulary Medication (Ascorbate Calcium [Vitamin C]) 500 mg PO BID [facility] Non-Formulary Medication (Guaifenesin/D-Methorphan Hb/Pe [Gnp Tussin Cf Max M-S Cold Liq]) 10 ml PO Q4HR PRN PRN Reason: cough Non-Formulary Medication (Lactobacillus Acidophilus [Acidophilus]) 1 tab PO BID [facility] Last Admin: 03/23/19 01:34 Dose: Not Given Non-Formulary Medication (Mupirocin Cream) 1 applic TOP BID [facility] Last Admin: 03/23/19 11:39 Dose: Not Given Non-Formulary Medication (Non-Formulary Medication [Nf Drug]) 25 mg TOP Q6H PRN PRN Reason: Nausea Non-Formulary Medication (Non-Formulary Medication [Nf Drug]) 1 applic PO BID PRN PRN Reason: Dryness Non-Formulary Medication (Polyethylene Glycol [Polyox Wsr-301]) 17 gm MC DAILY [facility] Non-Formulary Medication (Rectal Syringe [Enema Syringe]) 1 each MC ASDIRECTED [facility] Non-Formulary Medication (Antacid Gas Relief) 1 tab PO Q4H PRN PRN Reason: Gas Non-Formulary Medication (Aquaphilac Ointment) 1 applic TOP ASDIRECTED PRN PRN Reason: dry skin Non-Formulary Medication (Cepamax D Lip) 1 applic TOP ASDIRECTED [facility] Non-Formulary Medication (Mylanta) 2 - 4 tsp PO Q2H PRN PRN Reason: upset stomach Methenamine Hippurate 1 Gm Tab Own Med 1 gm PO BID [facility] Last Admin: 03/24/19 09:07 Dose: Not Given Cranberry Fruit Extract 425 Mg Cap Own Med 0 mg PO BID [facility] Last Admin: 03/24/19 09:04 Dose: 425 mg Potassium Citrate 30meq Pt's Own Medication 0 each PO BID [facility] Last Admin: 03/24/19 20:29 Dose: Not Given Ondansetron HCl (Zofran) 4 mg IVPUSH ONETIME ONE Stop: 03/22/19 11:56 Last Admin: 03/22/19 12:03 Dose: 4 mg Oxcarbazepine (Trileptal) 150 mg PO BID [facility] Last Admin: 03/24/19 09:17 Dose: 150 mg Oxcarbazepine (Trileptal) 300 mg PO BID [facility] Last Admin: 03/24/19 09:06 Dose: 300 mg Oxcarbazepine (Trileptal) 150 mg PO BID [facility] Potassium Chloride (Klor-Con 10) 30 meq PO BID [facility] Last Admin: 03/24/19 09:05 Dose: Not Given Senna (Senna) 17.2 mg PO BEDTIME [facility] Last Admin: 03/23/19 20:43 Dose: 17.2 mg Vancomycin HCl (Pharmacy To Dose - Vancomycin) 1 dose .XX ASDIRECTED [facility] Vancomycin HCl (Pharmacy To Dose - Vancomycin) 0 dose .XX ASDIRECTED PRN PRN Reason: RX TO DOSE VANCOMYCIN - Exam General: Alert HEENT: Pupils Equal, Pupils Reactive, EOMI, Mucous Membr. Moist/[place] Neck: Supple, Trachea Midline, No JVD, No Thyromegaly Lungs: Clear to Auscultation, Normal Respiratory Effort Cardiovascular: Regular Rate, Regular Rhythm GI/Abdominal Exam: Normal Bowel Sounds, Soft, Non-Tender, No Organomegaly (Male) Exam: Other (Suprapubic catheter) Back Exam: Normal Inspection Extremities: No Pedal Edema, Normal Capillary Refill, Limited Range of Motion. No: Normal Range of Motion Skin: Warm, Dry, Intact Neurological: No New Focal Deficit Psy/Mental Status: Normal Mood. No: Normal Affect - Problem List Review Problem List Initiated/Reviewed/Updated: Yes - Plan Plan:: Assessment: Acute: Sepsis, Improved - Meets criteria: WBC of 17.43, CRP of 19.8, HR of 120s - Serial LA: 1.8-->2.3-->1.0-->0.8 - Source UTI - Sepsis treatment CAUTI 2/2 Enterobacter Cloacae - Has chronic urinary retention with intermittent catheterization - UA is strongly suggestive of UTI: Pyuria and Hematuria - Received IV Rocephin in ED - IV Levaquin add for sensitivity -Add meropenem 2/2 sulfa allergy GLADIS, Improving - Likely 2/2 Volume Depletion/Dehydration - Cr if 1.5-->2.3-->1.5; baseline of 13-14 - IV hydrations and monitor Is/Os Leukocytosis - WBC of 17K-->19K-->11.65--> 8.85 - 2/2 above - Treat underlying cause Elevated D-Dimer - D-Dimer of 1.96 - CTA shows no evidence of PE - He is high risk for DVT due to immobility and bed-bound status - He has been on Heparin SubQ TID--> will changed to Lovenox 25 mg subQ TID Resolved: S/p Constipation - Risk factors: Polypharmacy and Bed-bound - Abdominal x-ray shows increased colonic stool - Bowel prep w/ rectal suppository - Had adequate bowel movement yesterday S/p Erythrocytosis - Hgb of 17.6-->14.4 - Baseline is 13-14 - Likely hemo-concentration - Will monitor S/p Hyperkalemia - K of 5.3-same--> 4.6 - Has oral supplement plus in GLADIS - Hold supplement for now Chronic: Recurrent PNA, Bowel Obstruction, Neurogenic Bladder, Hx/o Renal Stone , Severe Quadriplegia, Cerebral Palsy, Seizure Disorder, Decubitus Ulcer and Intellectual Disability Plan: He is much better clinically this morning Routine AM Labs Sepsis treatment Regular Home Diet Aspiration/Fall and Seizure Precautions DVT/GI Prophylaxis SW/CM for d/c planning Code status: full Additional orders as above Prognosis is guarded Updated mother at beside about his diagnoses, labs results, and treatment plan. <Aden Arteaga T - Last Filed: 03/25/19 20:51> - General Info Subjective Update: Follow Up Functional Status: Reports: Pain Controlled, Tolerating Diet, Urinating. Denies : New Symptoms - Review of Systems General: Denies: Fever, Chills Pulmonary: Denies: Shortness of Breath Cardiovascular: Denies: Chest Pain, Dyspnea on Exertion, Lightheadedness Gastrointestinal: Denies: Nausea, Vomiting Genitourinary: Reports: Retention Neurological: Reports: Pre-Existing Deficit, Difficulty Walking, Weakness, Gait Disturbance Psychiatric: Denies: Depression, Anxiety, Agitation, Hallucinations - Patient Data Vitals - Most Recent: Last Vital Signs Temp 37.2 C 03/25/19 16:00 Pulse 79 03/25/19 08:16 Resp 22 H 03/25/19 16:00 BP 120/75 03/25/19 16:00 Pulse Ox 93 L 03/25/19 16:00 I&O - Last 24 Hours: Intake & Output 03/25/19 03/25/19 03/25/19 06:59 14:59 22:59 Intake Total 9188 616 6322 Output Total 165 550 230 Balance 957 -370 1406 Lab Results Last 24 Hours: Laboratory Results - last 24 hr 03/22/19 03/24/19 03/25/19 Range/Units 17:51 21:10 07:37 WBC 8.85 (4.23-9.07) K/mm3 RBC 3.83 L (4.63-6.08) M/mm3 Hgb 11.9 L (13.7-17.5) gm/dl Hct 36.6 L (40.1-51.0) % MCV 95.6 H (79.0-92.2) fl MCH 31.1 (25.7-32.2) pg MCHC 32.5 (32.2-35.5) g/dl RDW Std Deviation 46.6 H (35.1-43.9) fL Plt Count 150 L (163-337) K/mm3 MPV 10.0 (9.4-12.3) fl Neut % (Auto) 77.8 H (34.0-67.9) % Lymph % (Auto) 13.0 L (21.8-53.1) % [place] % (Auto) 8.1 (5.3-12.2) % Eos % (Auto) 0.9 (0.8-7.0) Baso % (Auto) 0.0 L (0.1-1.2) % Neut # (Auto) 6.88 H (1.78-5.38) K/mm3 Lymph # (Auto) 1.15 L (1.32-3.57) K/mm3 [place] # (Auto) 0.72 (0.30-0.82) K/mm3 Eos # (Auto) 0.08 (0.04-0.54) K/mm3 Baso # (Auto) 0.00 L (0.01-0.08) K/mm3 Sodium (136-145) mEq/L Potassium (3.5-5.1) mEq/L Chloride (98-107) mEq/L Carbon Dioxide (21-32) mEq/L Anion Gap (5-15) BUN (7-18) mg/dL Creatinine (0.7-1.3) mg/dL Est Cr Clr Drug Dosing mL/min Estimated GFR (MDRD) (>60) mL/min BUN/Creatinine Ratio (14-18) Glucose (74-106) mg/dL Lactic Acid 1.2 (0.4-2.0) mmol/L Calcium (8.5-10.1) mg/dL Magnesium (1.8-2.4) mg/dl C-Reactive Protein (<1.0) mg/dL Procalcitonin 0.21 H (<0.10) ng/mL 03/25/19 Range/Units 07:37 WBC (4.23-9.07) K/mm3 RBC (4.63-6.08) M/mm3 Hgb (13.7-17.5) gm/dl Hct (40.1-51.0) % MCV (79.0-92.2) fl MCH (25.7-32.2) pg MCHC (32.2-35.5) g/dl RDW Std Deviation (35.1-43.9) fL Plt Count (163-337) K/mm3 MPV (9.4-12.3) fl Neut % (Auto) (34.0-67.9) % Lymph % (Auto) (21.8-53.1) % [place] % (Auto) (5.3-12.2) % Eos % (Auto) (0.8-7.0) Baso % (Auto) (0.1-1.2) % Neut # (Auto) (1.78-5.38) K/mm3 Lymph # (Auto) (1.32-3.57) K/mm3 [place] # (Auto) (0.30-0.82) K/mm3 Eos # (Auto) (0.04-0.54) K/mm3 Baso # (Auto) (0.01-0.08) K/mm3 Sodium 146 H (136-145) mEq/L Potassium 3.6 (3.5-5.1) mEq/L Chloride 110 H (98-107) mEq/L Carbon Dioxide 26 (21-32) mEq/L Anion Gap 13.6 (5-15) BUN 15 (7-18) mg/dL Creatinine 0.7 (0.7-1.3) mg/dL Est Cr Clr Drug Dosing 95.29 mL/min Estimated GFR (MDRD) > 60 (>60) mL/min BUN/Creatinine Ratio 21.4 H (14-18) Glucose 91 (74-106) mg/dL Lactic Acid (0.4-2.0) mmol/L Calcium 8.6 (8.5-10.1) mg/dL Magnesium 1.5 L (1.8-2.4) mg/dl C-Reactive Protein 27.6 H* (<1.0) mg/dL Procalcitonin (<0.10) ng/mL Norbert Results Last 24 Hours: Microbiology 03/22/19 16:25 Aerobic Blood Culture - Preliminary Blood - Venous NO GROWTH AFTER 3 DAYS Anaerobic Blood Culture - Preliminary NO GROWTH AFTER 3 DAYS 03/22/19 16:33 Aerobic Blood Culture - Preliminary Blood - Venous - Lab Draw NO GROWTH AFTER 3 DAYS Anaerobic Blood Culture - Preliminary NO GROWTH AFTER 3 DAYS 03/22/19 14:05 Urine Culture - Final Urine, Catheterized Enterobacter Cloacae Med Orders - Current: Current Medications Acetaminophen (Tylenol) 650 mg PO Q4H PRN PRN Reason: Pain (Mild 1-3)/fever Last Admin: 03/24/19 18:04 Dose: 650 mg Albuterol/Ipratropium (Duoneb 3.0-0.5 Mg/3 Ml) 3 ml NEB Q4H PRN PRN Reason: Shortness Of Breath/wheezing Artificial Tears (Refresh Liquigel 1%) 0 ml EYERT BID PRN PRN Reason: Dry Eyes Ascorbic Acid (Vitamin C) 500 mg PO BID [facility] Last Admin: 03/25/19 08:20 Dose: 500 mg Baclofen (Lioresal) 10 mg PO TID PRN PRN Reason: Muscle Spasm Bisacodyl (Dulcolax) 5 mg PO DAILY PRN PRN Reason: Constipation Cholecalciferol (Vitamin D3) 25 mcg PO DAILY [facility] Last Admin: 03/25/19 08:20 Dose: 25 mcg Docusate Sodium (Colace) 100 mg PO BID PRN PRN Reason: Constipation Enoxaparin Sodium (Lovenox) 40 mg SUBCUT DAILY [facility] Last Admin: 03/25/19 11:05 Dose: 40 mg Hydralazine HCl (Apresoline) 20 mg IVPUSH Q4H PRN PRN Reason: Hypertension Hydrocortisone (Hydrocortisone 1% Crm) 0 gm TOP BID PRN PRN Reason: Itching Hydromorphone HCl (Dilaudid) 0.25 mg IVPUSH Q2H PRN PRN Reason: Pain (severe 7-10) Promethazine HCl 6.25 mg/ (Sodium Chloride) 50.25 mls @ 100 mls/hr IV Q6H PRN PRN Reason: Nausea/Vomiting Meropenem/Sodium Chloride 500 (mg/ Premix) 50 mls @ 100 mls/hr IV Q8H [facility] Last Admin: 03/25/19 13:58 Dose: 100 mls/hr Sodium Chloride (Normal Saline) 1,000 mls @ 100 mls/hr IV ASDIRECTED [facility] Last Admin: 03/25/19 12:07 Dose: 100 mls/hr Sodium Chloride (Normal Saline) 100 mls @ 80 mls/hr IV ASDIRECTED [facility] Last Admin: 03/25/19 08:03 Dose: 80 mls/hr Levofloxacin/Dextrose 750 mg/ (Premix) 150 mls @ 100 mls/hr IV Q24H [facility] Last Admin: 03/25/19 17:46 Dose: 100 mls/hr Lorazepam (Ativan) 0.5 mg IVPUSH Q4H PRN PRN Reason: Anxiety Last Admin: 03/23/19 00:03 Dose: 0.5 mg Magnesium Hydroxide (Milk Of Magnesia) 30 ml PO DAILY PRN PRN Reason: Constipation Metoprolol Tartrate (Lopressor) 5 mg IVPUSH Q4H PRN PRN Reason: Tachycardia Last Admin: 03/23/19 06:08 Dose: 5 mg Metoprolol Tartrate (Lopressor) 25 mg PO Q12H [facility] Last Admin: 03/25/19 08:16 Dose: 25 mg Multi-Ingred Cream/Lotion/Oil/Oint (Zinc Oxide) 0 gm TOP BID [facility] Last Admin: 03/25/19 08:24 Dose: 1 applic Multivitamins (Thera) 1 each PO DAILY [facility] Last Admin: 03/25/19 08:20 Dose: 1 each Ondansetron HCl (Zofran Odt) 4 mg PO Q4H PRN PRN Reason: Nausea/Vomiting Ondansetron HCl (Zofran) 4 mg IV Q6H PRN PRN Reason: Nausea/Vomiting Last Admin: 03/22/19 23:36 Dose: 4 mg Oxcarbazepine (Trileptal) 150 mg PO BID [facility] Last Admin: 03/25/19 08:19 Dose: 150 mg Oxcarbazepine (Trileptal) 300 mg PO BID [facility] Last Admin: 03/25/19 08:19 Dose: 300 mg Ketoconazole 1 (Applic) 1 each TOP ASDIRECTED PRN PRN Reason: Other Promethazine Hcl [ (Phenergan] 25 Mg) 0 each TOP Q6H PRN PRN Reason: Nausea/Vomiting Potassium Citrate 10meq Pt's Own Medication 0 each PO BID [facility] Last Admin: 03/25/19 08:23 Dose: 30 each Polyethylene Glycol (Miralax) 17 gm PO DAILY PRN PRN Reason: Constipation Saccharomyces Boulardii (Florastor) 250 mg PO BID [facility] Last Admin: 03/25/19 08:20 Dose: 250 mg Senna (Senna) 17.2 mg PO BEDTIME [facility] Last Admin: 03/24/19 20:30 Dose: 17.2 mg Senna/Docusate Sodium (Senna Plus) 1 tab PO BID PRN PRN Reason: Constipation Temazepam (Restoril) 7.5 mg PO BEDTIME PRN PRN Reason: Sleep Discontinued Medications Acetaminophen (Tylenol) 650 mg PO NOW ONE Stop: 03/22/19 15:22 Last Admin: 03/22/19 15:25 Dose: 650 mg Ascorbic Acid (Vitamin C) 500 mg PO BID [facility] Last Admin: 03/24/19 09:09 Dose: 500 mg Bisacodyl (Dulcolax) 10 mg RECTAL DAILY [facility] Stop: 03/24/19 09:01 Last Admin: 03/24/19 09:05 Dose: 10 mg Enoxaparin Sodium (Lovenox) 30 mg SUBCUT Q12H [facility] Last Admin: 03/24/19 21:15 Dose: Not Given Enoxaparin Sodium (Lovenox) 25 mg SUBCUT Q12H [facility] Last Admin: 03/25/19 17:08 Dose: Not Given Heparin Sodium (Porcine) (Heparin Sodium) 5,000 units SUBCUT Q8HR [facility] Last Admin: 03/24/19 13:02 Dose: 5,000 units Hydromorphone HCl (Dilaudid) 0.25 mg IVPUSH ONETIME ONE Stop: 03/22/19 11:56 Last Admin: 03/22/19 12:03 Dose: 0.25 mg Sodium Chloride (Normal Saline) 1,000 mls @ 999 mls/hr IV ONETIME [facility] Last Admin: 03/22/19 11:21 Dose: 999 mls/hr Ceftriaxone Sodium 1 gm/ (Sodium Chloride) 100 mls @ 200 mls/hr IV ONETIME ONE Stop: 03/22/19 15:05 Last Admin: 03/22/19 14:45 Dose: 200 mls/hr Ceftriaxone Sodium 1 gm/ (Sodium Chloride) 100 mls @ 200 mls/hr IV Q24H [facility] Vancomycin HCl 500 mg/ Sodium (Chloride) 250 mls @ 166.667 mls/hr IV Q12H [facility] Last Admin: 03/22/19 20:48 Dose: Not Given Lactated Ringer's (Ringers, Lactated) 1,000 mls @ 150 mls/hr IV ASDIRECTED [facility] Last Admin: 03/24/19 16:41 Dose: 150 mls/hr Vancomycin HCl 0.75 gm/ Sodium (Chloride) 250 mls @ 250 mls/hr IV Q24H [facility] Vancomycin HCl 0.75 gm/ Sodium (Chloride) 250 mls @ 250 mls/hr IV Q24H [facility] Last Admin: 03/22/19 17:41 Dose: 250 mls/hr Levofloxacin/Dextrose 750 mg/ (Premix) 150 mls @ 100 mls/hr IV Q48H [facility] Last Admin: 03/24/19 17:54 Dose: 100 mls/hr Sodium Chloride (Normal Saline) 500 mls @ 999 mls/hr IV .BOLUS ONE Stop: 03/23/19 09:00 Last Admin: 03/23/19 09:27 Dose: 999 mls/hr Vancomycin HCl 0.75 gm/ Sodium (Chloride) 250 mls @ 250 mls/hr IV Q36H [facility] Last Admin: 03/24/19 04:50 Dose: 250 mls/hr Ceftriaxone Sodium 1 gm/ (Sodium Chloride) 100 mls @ 200 mls/hr IV Q24H [facility] Last Admin: 03/23/19 14:15 Dose: 200 mls/hr Magnesium Sulfate 4 gm/ Premix 50 mls @ 12.5 mls/hr IV ONETIME ONE Stop: 03/25/19 13:08 Last Admin: 03/25/19 10:56 Dose: 12.5 mls/hr Iopamidol (Isovue-370 (76%)) 100 ml IVPUSH ONETIME ONE Stop: 03/25/19 07:27 Last Admin: 03/25/19 08:03 Dose: 100 ml Lactulose (Cephulac) 20 gm PO ONETIME ONE Stop: 03/22/19 16:07 Last Admin: 03/22/19 18:25 Dose: 20 gm Lactulose (Cephulac) 20 gm PO DAILY [facility] Stop: 03/23/19 09:01 Last Admin: 03/23/19 09:13 Dose: 20 gm Lidocaine HCl (Xylocaine 1%) Confirm Administered Dose 10 ml .ROUTE .STK-MED ONE Stop: 03/24/19 16:25 Last Admin: 03/24/19 17:54 Dose: 10 ml Lidocaine HCl (Xylocaine-Mpf 1%) 1 ml INJECT ONETIME ONE Stop: 03/24/19 16:33 Last Admin: 03/24/19 20:29 Dose: Not Given Lidocaine HCl (Xylocaine 1%) 10 ml INJECT ONETIME ONE Stop: 03/24/19 16:38 Last Admin: 03/24/19 20:28 Dose: Not Given Metoclopramide HCl (Reglan) 10 mg IVPUSH Q6H [facility] Last Admin: 03/24/19 17:52 Dose: 10 mg Non-Formulary Medication (Acetaminophen [Tylenol]) 325 mg PO Q4H PRN PRN Reason: Fever Non-Formulary Medication (Ascorbate Calcium [Vitamin C]) 500 mg PO BID [facility] Non-Formulary Medication (Guaifenesin/D-Methorphan Hb/Pe [Gnp Tussin Cf Max M-S Cold Liq]) 10 ml PO Q4HR PRN PRN Reason: cough Non-Formulary Medication (Lactobacillus Acidophilus [Acidophilus]) 1 tab PO BID [facility] Last Admin: 03/23/19 01:34 Dose: Not Given Non-Formulary Medication (Mupirocin Cream) 1 applic TOP BID [facility] Last Admin: 03/23/19 11:39 Dose: Not Given Non-Formulary Medication (Non-Formulary Medication [Nf Drug]) 25 mg TOP Q6H PRN PRN Reason: Nausea Non-Formulary Medication (Non-Formulary Medication [Nf Drug]) 1 applic PO BID PRN PRN Reason: Dryness Non-Formulary Medication (Polyethylene Glycol [Polyox [id number]]) 17 gm MC DAILY [facility] Non-Formulary Medication (Rectal Syringe [Enema Syringe]) 1 each MC ASDIRECTED [facility] Non-Formulary Medication (Antacid Gas Relief) 1 tab PO Q4H PRN PRN Reason: Gas Non-Formulary Medication (Aquaphilac Ointment) 1 applic TOP ASDIRECTED PRN PRN Reason: dry skin Non-Formulary Medication (Cepamax D Lip) 1 applic TOP ASDIRECTED [facility] Non-Formulary Medication (Mylanta) 2 - 4 tsp PO Q2H PRN PRN Reason: upset stomach Methenamine Hippurate 1 Gm Tab Own Med 1 gm PO BID [facility] Last Admin: 03/24/19 09:07 Dose: Not Given Cranberry Fruit Extract 425 Mg Cap Own Med 0 mg PO BID [facility] Last Admin: 03/24/19 09:04 Dose: 425 mg Potassium Citrate 30meq Pt's Own Medication 0 each PO BID [facility] Last Admin: 03/24/19 20:29 Dose: Not Given Ondansetron HCl (Zofran) 4 mg IVPUSH ONETIME ONE Stop: 03/22/19 11:56 Last Admin: 03/22/19 12:03 Dose: 4 mg Oxcarbazepine (Trileptal) 150 mg PO BID [facility] Last Admin: 03/24/19 09:17 Dose: 150 mg Oxcarbazepine (Trileptal) 300 mg PO BID [facility] Last Admin: 03/24/19 09:06 Dose: 300 mg Oxcarbazepine (Trileptal) 150 mg PO BID [facility] Potassium Chloride (Klor-Con 10) 30 meq PO BID [facility] Last Admin: 03/24/19 09:05 Dose: Not Given Senna (Senna) 17.2 mg PO BEDTIME [facility] Last Admin: 03/23/19 20:43 Dose: 17.2 mg Vancomycin HCl (Pharmacy To Dose - Vancomycin) 1 dose .XX ASDIRECTED [facility] Vancomycin HCl (Pharmacy To Dose - Vancomycin) 0 dose .XX ASDIRECTED PRN PRN Reason: RX TO DOSE VANCOMYCIN - Exam General: Alert, Cooperative, No Acute Distress (Male) Exam: Other Extremities: Other (muscle atrophy on b/l lower etxremity) Peripheral Pulses: 1+: Dorsalis Pedis (L), Dorsalis Pedis (R) Neurological: Other (baseline quadraplegia). No: Normal Gait - Problem List Review Problem List Initiated/Reviewed/Updated: Yes - My Orders Last 24 Hours: My Active Orders 03/24/19 21:00 Meropenem Premix [Meropenem] 500 mg Premix Bag 1 bag IV Q8H Sennosides [Senna] 17.2 mg PO BEDTIME 03/24/19 21:30 Sodium Chloride 0.9% [Normal Saline] 1,000 ml IV ASDIRECTED 03/25/19 07:30 Sodium Chloride 0.9% [Normal Saline] 100 ml IV ASDIRECTED 03/25/19 09:00 Enoxaparin [Lovenox] 40 mg SUBCUT DAILY 03/25/19 13:06 Incentive Spirometry [RT Incentive Spirometry] [RC] Q2HWA 03/25/19 17:30 Levofloxacin/Dextrose 5%-Water [Levaquin in D5W 750 MG/150 ML] 750 mg Premix Bag 1 bag IV Q24H 03/26/19 05:11 BASIC METABOLIC PANEL,BMP [CHEM] AM C-REACTIVE PROTEIN [CHEM] AM CBC WITH AUTO DIFF [HEME] AM MAGNESIUM [CHEM] AM 03/26/19 17:00 Overnight Pulse Oximetry [RC] BEDTIME 03/27/19 05:11 BASIC METABOLIC PANEL,BMP [CHEM] AM C-REACTIVE PROTEIN [CHEM] AM CBC WITH AUTO DIFF [HEME] AM MAGNESIUM [CHEM] AM 03/27/19 07:00 CBC W/O DIFF,HEMOGRAM [HEME] MOTH@0700 03/31/19 07:00 CBC W/O DIFF,HEMOGRAM [HEME] MOTH@0700 04/03/19 07:00 CBC W/O DIFF,HEMOGRAM [HEME] MOTH@0700 04/07/19 07:00 CBC W/O DIFF,HEMOGRAM [HEME] MOTH@0700 04/10/19 07:00 CBC W/O DIFF,HEMOGRAM [HEME] MOTH@0700 - Plan Plan:: Assessment: Acute: CAUTI 2/2 Enterobacter Cloacae - Has chronic urinary retention with intermittent catheterization - UA is strongly suggestive of UTI: Pyuria and Hematuria - Received IV Rocephin in ED - Continue IV Levaquin and Meropenem Elevated D-Dimer - D-Dimer of 1.96 - CTA shows no evidence of PE - He is high risk for DVT due to immobility and bed-bound status - Lovenox 40 mg subQ daily B/L Small Pleural Effusions - L>R on CT scan - Has atelectasis to adjacnet pleural effusions - IV Meropenem Q8H plus IS as directed Resolved: S/p Constipation - Risk factors: Polypharmacy and Bed-bound - Abdominal x-ray shows increased colonic stool - Bowel prep w/ rectal suppository - Had adequate bowel movement yesterday S/p Erythrocytosis - Hgb of 17.6-->14.4 - Baseline is 13- - Likely hemo-concentration - Will monitor S/p Hyperkalemia - K of 5.3-same--> 4.6 - Has oral supplement plus in GLADIS - Hold supplement for now S/p GLADIS - Likely 2/2 Volume Depletion/Dehydration - Cr if 1.5-->2.3-->1.5-->0.7; baseline of - - IV hydrations and monitor Is/Os S/p Leukocytosis - WBC of 17K-->19K-->11.65--> 8.85 - 2/2 above - Treat underlying cause S/p Sepsis - Meets criteria: WBC of 17.43-->8.85, CRP of 19.8-->27.6, HR of 120s - Serial LA: 1.8-->2.3-->1.0-->0.8 - Source UTI - Blood Cultures; negative for 3 days - Sepsis treatment Chronic: Recurrent PNA, Bowel Obstruction, Neurogenic Bladder, Hx/o Renal Stone , Severe Quadriplegia, Cerebral Palsy, Seizure Disorder, Decubitus Ulcer and Intellectual Disability Plan: He is clinically and hemodynamically stable. He is more alert and awake this morning. Routine AM Labs Regular Home Diet Aspiration/Fall and Seizure Precautions DVT/GI Prophylaxis SW/CM for d/c planning Code status: full Additional orders as above Prognosis is good Critical time spent: 20mins including face to face Updated mother at beside about his diagnoses, labs results, and treatment plan
[2019-03-25] MEDS: Levofloxacin/Dextrose 5%-Water 750 MG in Premix Bag 1 BAG IV SCH (17:46)
[2019-03-25] MEDS: Sennosides 8.6 MG Tab PO SCH (20:51)
[2019-03-26] MEDS: Meropenem Premix 500 MG in Premix Bag 1 BAG IV SCH (05:07)
[2019-03-26] MEDS: Sodium Chloride 0.9% 1,000 ML IV SCH ×2 (05:33→16:03)
--- NOTE | 2019-03-26 07:50 | PCM.PN ---
- General Info Date of Service: 03/26/19 Admission Dx/Problem (Free Text): Admission Diagnosis/Problem Admission Diagnosis/Problem Urinary tract infection Subjective Update: Follow Up Functional Status: Reports: Pain Controlled, Tolerating Diet, Urinating, Incentive Spirometry. Denies: New Symptoms - Review of Systems General: Denies: Fever, Weakness, Fatigue, Malaise, Chills HEENT: Reports: No Symptoms Pulmonary: Denies: Shortness of Breath Cardiovascular: Denies: Chest Pain, Dyspnea on Exertion, Lightheadedness Gastrointestinal: Denies: Abdominal Pain, Nausea, Vomiting Genitourinary: Reports: Retention Musculoskeletal: Reports: No Symptoms Skin: Reports: No Symptoms Neurological: Reports: Difficulty Walking, Weakness, Gait Disturbance Psychiatric: Denies: Depression, Anxiety, Agitation, Hallucinations Systems Review Comment:: Had an uneventful night. He looks good this morning. Afebrile w/o leukocytosis. His CRP is now down to 17. - Patient Data Vitals - Most Recent: Last Vital Signs Temp 36.6 C 03/26/19 04:00 Pulse 84 03/25/19 20:41 Resp 16 03/26/19 04:00 BP 148/88 H 03/26/19 04:00 Pulse Ox 97 03/26/19 04:00 Weight - Most Recent: 46.584 kg I&O - Last 24 Hours: Intake & Output 03/25/19 03/26/19 03/26/19 22:59 06:59 14:59 Intake Total 1836 1099 Output Total 405 310 Balance 1431 789 Lab Results Last 24 Hours: Laboratory Results - last 24 hr 03/25/19 03/25/19 03/26/19 Range/Units 07:37 07:37 05:50 WBC 8.85 7.17 (4.23-9.07) K/mm3 RBC 3.83 L 3.88 L (4.63-6.08) M/mm3 Hgb 11.9 L 11.9 L (13.7-17.5) gm/dl Hct 36.6 L 36.9 L (40.1-51.0) % MCV 95.6 H 95.1 H (79.0-92.2) fl MCH 31.1 30.7 (25.7-32.2) pg MCHC 32.5 32.2 (32.2-35.5) g/dl RDW Std Deviation 46.6 H 45.6 H (35.1-43.9) fL Plt Count 150 L 186 (163-337) K/mm3 MPV 10.0 9.6 (9.4-12.3) fl Neut % (Auto) 77.8 H 67.7 (34.0-67.9) % Lymph % (Auto) 13.0 L 19.1 L (21.8-53.1) % [place] % (Auto) 8.1 9.5 (5.3-12.2) % Eos % (Auto) 0.9 3.1 (0.8-7.0) Baso % (Auto) 0.0 L 0.3 (0.1-1.2) % Neut # (Auto) 6.88 H 4.86 (1.78-5.38) K/mm3 Lymph # (Auto) 1.15 L 1.37 (1.32-3.57) K/mm3 [place] # (Auto) 0.72 0.68 (0.30-0.82) K/mm3 Eos # (Auto) 0.08 0.22 (0.04-0.54) K/mm3 Baso # (Auto) 0.00 L 0.02 (0.01-0.08) K/mm3 Sodium 146 H (136-145) mEq/L Potassium 3.6 (3.5-5.1) mEq/L Chloride 110 H (98-107) mEq/L Carbon Dioxide 26 (21-32) mEq/L Anion Gap 13.6 (5-15) BUN 15 (7-18) mg/dL Creatinine 0.7 (0.7-1.3) mg/dL Est Cr Clr Drug Dosing 95.29 mL/min Estimated GFR (MDRD) > 60 (>60) mL/min BUN/Creatinine Ratio 21.4 H (14-18) Glucose 91 (74-106) mg/dL Calcium 8.6 (8.5-10.1) mg/dL Magnesium 1.5 L (1.8-2.4) mg/dl C-Reactive Protein 27.6 H* (<1.0) mg/dL 03/26/19 Range/Units 05:50 WBC (4.23-9.07) K/mm3 RBC (4.63-6.08) M/mm3 Hgb (13.7-17.5) gm/dl Hct (40.1-51.0) % MCV (79.0-92.2) fl MCH (25.7-32.2) pg MCHC (32.2-35.5) g/dl RDW Std Deviation (35.1-43.9) fL Plt Count (163-337) K/mm3 MPV (9.4-12.3) fl Neut % (Auto) (34.0-67.9) % Lymph % (Auto) (21.8-53.1) % [place] % (Auto) (5.3-12.2) % Eos % (Auto) (0.8-7.0) Baso % (Auto) (0.1-1.2) % Neut # (Auto) (1.78-5.38) K/mm3 Lymph # (Auto) (1.32-3.57) K/mm3 [place] # (Auto) (0.30-0.82) K/mm3 Eos # (Auto) (0.04-0.54) K/mm3 Baso # (Auto) (0.01-0.08) K/mm3 Sodium 144 (136-145) mEq/L Potassium 3.7 (3.5-5.1) mEq/L Chloride 108 H (98-107) mEq/L Carbon Dioxide 27 (21-32) mEq/L Anion Gap 12.7 (5-15) BUN 12 (7-18) mg/dL Creatinine 0.7 (0.7-1.3) mg/dL Est Cr Clr Drug Dosing 94.28 mL/min Estimated GFR (MDRD) > 60 (>60) mL/min BUN/Creatinine Ratio 17.1 (14-18) Glucose 95 (74-106) mg/dL Calcium 8.7 (8.5-10.1) mg/dL Magnesium 1.6 L (1.8-2.4) mg/dl C-Reactive Protein 17.0 H* (<1.0) mg/dL Norbert Results Last 24 Hours: Microbiology 03/22/19 16:25 Aerobic Blood Culture - Preliminary Blood - Venous NO GROWTH AFTER 3 DAYS Anaerobic Blood Culture - Preliminary NO GROWTH AFTER 3 DAYS 03/22/19 16:33 Aerobic Blood Culture - Preliminary Blood - Venous - Lab Draw NO GROWTH AFTER 3 DAYS Anaerobic Blood Culture - Preliminary NO GROWTH AFTER 3 DAYS 03/22/19 14:05 Urine Culture - Final Urine, Catheterized Enterobacter Cloacae Med Orders - Current: Current Medications Acetaminophen (Tylenol) 650 mg PO Q4H PRN PRN Reason: Pain (Mild 1-3)/fever Last Admin: 03/24/19 18:04 Dose: 650 mg Albuterol/Ipratropium (Duoneb 3.0-0.5 Mg/3 Ml) 3 ml NEB Q4H PRN PRN Reason: Shortness Of Breath/wheezing Artificial Tears (Refresh Liquigel 1%) 0 ml EYERT BID PRN PRN Reason: Dry Eyes Ascorbic Acid (Vitamin C) 500 mg PO BID [facility] Last Admin: 03/25/19 20:44 Dose: 500 mg Baclofen (Lioresal) 10 mg PO TID PRN PRN Reason: Muscle Spasm Bisacodyl (Dulcolax) 5 mg PO DAILY PRN PRN Reason: Constipation Cholecalciferol (Vitamin D3) 25 mcg PO DAILY [facility] Last Admin: 03/25/19 08:20 Dose: 25 mcg Docusate Sodium (Colace) 100 mg PO BID PRN PRN Reason: Constipation Enoxaparin Sodium (Lovenox) 40 mg SUBCUT DAILY [facility] Last Admin: 03/25/19 11:05 Dose: 40 mg Hydralazine HCl (Apresoline) 20 mg IVPUSH Q4H PRN PRN Reason: Hypertension Hydrocortisone (Hydrocortisone 1% Crm) 0 gm TOP BID PRN PRN Reason: Itching Hydromorphone HCl (Dilaudid) 0.25 mg IVPUSH Q2H PRN PRN Reason: Pain (severe 7-10) Promethazine HCl 6.25 mg/ (Sodium Chloride) 50.25 mls @ 100 mls/hr IV Q6H PRN PRN Reason: Nausea/Vomiting Meropenem/Sodium Chloride 500 (mg/ Premix) 50 mls @ 100 mls/hr IV Q8H [facility] Last Admin: 03/26/19 05:07 Dose: 100 mls/hr Sodium Chloride (Normal Saline) 1,000 mls @ 100 mls/hr IV ASDIRECTED [facility] Last Admin: 03/26/19 05:33 Dose: 100 mls/hr Sodium Chloride (Normal Saline) 100 mls @ 80 mls/hr IV ASDIRECTED [facility] Last Admin: 03/25/19 08:03 Dose: 80 mls/hr Levofloxacin/Dextrose 750 mg/ (Premix) 150 mls @ 100 mls/hr IV Q24H [facility] Last Admin: 03/25/19 17:46 Dose: 100 mls/hr Lorazepam (Ativan) 0.5 mg IVPUSH Q4H PRN PRN Reason: Anxiety Last Admin: 03/23/19 00:03 Dose: 0.5 mg Magnesium Hydroxide (Milk Of Magnesia) 30 ml PO DAILY PRN PRN Reason: Constipation Metoprolol Tartrate (Lopressor) 5 mg IVPUSH Q4H PRN PRN Reason: Tachycardia Last Admin: 03/23/19 06:08 Dose: 5 mg Metoprolol Tartrate (Lopressor) 25 mg PO Q12H [facility] Last Admin: 03/25/19 20:41 Dose: 25 mg Multi-Ingred Cream/Lotion/Oil/Oint (Zinc Oxide) 0 gm TOP BID [facility] Last Admin: 03/25/19 21:10 Dose: 1 applic Multivitamins (Thera) 1 each PO DAILY [facility] Last Admin: 03/25/19 08:20 Dose: 1 each Ondansetron HCl (Zofran Odt) 4 mg PO Q4H PRN PRN Reason: Nausea/Vomiting Ondansetron HCl (Zofran) 4 mg IV Q6H PRN PRN Reason: Nausea/Vomiting Last Admin: 03/22/19 23:36 Dose: 4 mg Oxcarbazepine (Trileptal) 150 mg PO BID [facility] Last Admin: 03/25/19 20:53 Dose: 150 mg Oxcarbazepine (Trileptal) 300 mg PO BID [facility] Last Admin: 03/25/19 20:57 Dose: 300 mg Ketoconazole 1 (Applic) 1 each TOP ASDIRECTED PRN PRN Reason: Other Promethazine Hcl [ (Phenergan] 25 Mg) 0 each TOP Q6H PRN PRN Reason: Nausea/Vomiting Potassium Citrate 10meq Pt's Own Medication 0 each PO BID [facility] Last Admin: 03/25/19 20:46 Dose: 30 each Polyethylene Glycol (Miralax) 17 gm PO DAILY PRN PRN Reason: Constipation Saccharomyces Boulardii (Florastor) 250 mg PO BID [facility] Last Admin: 03/25/19 20:42 Dose: 250 mg Senna (Senna) 17.2 mg PO BEDTIME [facility] Last Admin: 03/25/19 20:51 Dose: Not Given Senna/Docusate Sodium (Senna Plus) 1 tab PO BID PRN PRN Reason: Constipation Temazepam (Restoril) 7.5 mg PO BEDTIME PRN PRN Reason: Sleep Discontinued Medications Acetaminophen (Tylenol) 650 mg PO NOW ONE Stop: 03/22/19 15:22 Last Admin: 03/22/19 15:25 Dose: 650 mg Ascorbic Acid (Vitamin C) 500 mg PO BID [facility] Last Admin: 03/24/19 09:09 Dose: 500 mg Bisacodyl (Dulcolax) 10 mg RECTAL DAILY [facility] Stop: 03/24/19 09:01 Last Admin: 03/24/19 09:05 Dose: 10 mg Enoxaparin Sodium (Lovenox) 30 mg SUBCUT Q12H [facility] Last Admin: 03/24/19 21:15 Dose: Not Given Enoxaparin Sodium (Lovenox) 25 mg SUBCUT Q12H [facility] Last Admin: 03/25/19 17:08 Dose: Not Given Heparin Sodium (Porcine) (Heparin Sodium) 5,000 units SUBCUT Q8HR [facility] Last Admin: 03/24/19 13:02 Dose: 5,000 units Hydromorphone HCl (Dilaudid) 0.25 mg IVPUSH ONETIME ONE Stop: 03/22/19 11:56 Last Admin: 03/22/19 12:03 Dose: 0.25 mg Sodium Chloride (Normal Saline) 1,000 mls @ 999 mls/hr IV ONETIME [facility] Last Admin: 03/22/19 11:21 Dose: 999 mls/hr Ceftriaxone Sodium 1 gm/ (Sodium Chloride) 100 mls @ 200 mls/hr IV ONETIME ONE Stop: 03/22/19 15:05 Last Admin: 03/22/19 14:45 Dose: 200 mls/hr Ceftriaxone Sodium 1 gm/ (Sodium Chloride) 100 mls @ 200 mls/hr IV Q24H [facility] Vancomycin HCl 500 mg/ Sodium (Chloride) 250 mls @ 166.667 mls/hr IV Q12H [facility] Last Admin: 03/22/19 20:48 Dose: Not Given Lactated Ringer's (Ringers, Lactated) 1,000 mls @ 150 mls/hr IV ASDIRECTED [facility] Last Admin: 03/24/19 16:41 Dose: 150 mls/hr Vancomycin HCl 0.75 gm/ Sodium (Chloride) 250 mls @ 250 mls/hr IV Q24H [facility] Vancomycin HCl 0.75 gm/ Sodium (Chloride) 250 mls @ 250 mls/hr IV Q24H [facility] Last Admin: 03/22/19 17:41 Dose: 250 mls/hr Levofloxacin/Dextrose 750 mg/ (Premix) 150 mls @ 100 mls/hr IV Q48H [facility] Last Admin: 03/24/19 17:54 Dose: 100 mls/hr Sodium Chloride (Normal Saline) 500 mls @ 999 mls/hr IV .BOLUS ONE Stop: 03/23/19 09:00 Last Admin: 03/23/19 09:27 Dose: 999 mls/hr Vancomycin HCl 0.75 gm/ Sodium (Chloride) 250 mls @ 250 mls/hr IV Q36H [facility] Last Admin: 03/24/19 04:50 Dose: 250 mls/hr Ceftriaxone Sodium 1 gm/ (Sodium Chloride) 100 mls @ 200 mls/hr IV Q24H [facility] Last Admin: 03/23/19 14:15 Dose: 200 mls/hr Magnesium Sulfate 4 gm/ Premix 50 mls @ 12.5 mls/hr IV ONETIME ONE Stop: 03/25/19 13:08 Last Admin: 03/25/19 10:56 Dose: 12.5 mls/hr Iopamidol (Isovue-370 (76%)) 100 ml IVPUSH ONETIME ONE Stop: 03/25/19 07:27 Last Admin: 03/25/19 08:03 Dose: 100 ml Lactulose (Cephulac) 20 gm PO ONETIME ONE Stop: 03/22/19 16:07 Last Admin: 03/22/19 18:25 Dose: 20 gm Lactulose (Cephulac) 20 gm PO DAILY [facility] Stop: 03/23/19 09:01 Last Admin: 03/23/19 09:13 Dose: 20 gm Lidocaine HCl (Xylocaine 1%) Confirm Administered Dose 10 ml .ROUTE .STK-MED ONE Stop: 03/24/19 16:25 Last Admin: 03/24/19 17:54 Dose: 10 ml Lidocaine HCl (Xylocaine-Mpf 1%) 1 ml INJECT ONETIME ONE Stop: 03/24/19 16:33 Last Admin: 03/24/19 20:29 Dose: Not Given Lidocaine HCl (Xylocaine 1%) 10 ml INJECT ONETIME ONE Stop: 03/24/19 16:38 Last Admin: 03/24/19 20:28 Dose: Not Given Metoclopramide HCl (Reglan) 10 mg IVPUSH Q6H [facility] Last Admin: 03/24/19 17:52 Dose: 10 mg Non-Formulary Medication (Acetaminophen [Tylenol]) 325 mg PO Q4H PRN PRN Reason: Fever Non-Formulary Medication (Ascorbate Calcium [Vitamin C]) 500 mg PO BID [facility] Non-Formulary Medication (Guaifenesin/D-Methorphan Hb/Pe [Gnp Tussin Cf Max M-S Cold Liq]) 10 ml PO Q4HR PRN PRN Reason: cough Non-Formulary Medication (Lactobacillus Acidophilus [Acidophilus]) 1 tab PO BID [facility] Last Admin: 03/23/19 01:34 Dose: Not Given Non-Formulary Medication (Mupirocin Cream) 1 applic TOP BID [facility] Last Admin: 03/23/19 11:39 Dose: Not Given Non-Formulary Medication (Non-Formulary Medication [Nf Drug]) 25 mg TOP Q6H PRN PRN Reason: Nausea Non-Formulary Medication (Non-Formulary Medication [Nf Drug]) 1 applic PO BID PRN PRN Reason: Dryness Non-Formulary Medication (Polyethylene Glycol [Polyox Wsr-301]) 17 gm MC DAILY [facility] Non-Formulary Medication (Rectal Syringe [Enema Syringe]) 1 each MC ASDIRECTED [facility] Non-Formulary Medication (Antacid Gas Relief) 1 tab PO Q4H PRN PRN Reason: Gas Non-Formulary Medication (Aquaphilac Ointment) 1 applic TOP ASDIRECTED PRN PRN Reason: dry skin Non-Formulary Medication (Cepamax D Lip) 1 applic TOP ASDIRECTED [facility] Non-Formulary Medication (Mylanta) 2 - 4 tsp PO Q2H PRN PRN Reason: upset stomach Methenamine Hippurate 1 Gm Tab Own Med 1 gm PO BID [facility] Last Admin: 03/24/19 09:07 Dose: Not Given Cranberry Fruit Extract 425 Mg Cap Own Med 0 mg PO BID [facility] Last Admin: 03/24/19 09:04 Dose: 425 mg Potassium Citrate 30meq Pt's Own Medication 0 each PO BID [facility] Last Admin: 03/24/19 20:29 Dose: Not Given Ondansetron HCl (Zofran) 4 mg IVPUSH ONETIME ONE Stop: 03/22/19 11:56 Last Admin: 03/22/19 12:03 Dose: 4 mg Oxcarbazepine (Trileptal) 150 mg PO BID [facility] Last Admin: 03/24/19 09:17 Dose: 150 mg Oxcarbazepine (Trileptal) 300 mg PO BID [facility] Last Admin: 03/24/19 09:06 Dose: 300 mg Oxcarbazepine (Trileptal) 150 mg PO BID [facility] Potassium Chloride (Klor-Con 10) 30 meq PO BID [facility] Last Admin: 03/24/19 09:05 Dose: Not Given Senna (Senna) 17.2 mg PO BEDTIME [facility] Last Admin: 03/23/19 20:43 Dose: 17.2 mg Vancomycin HCl (Pharmacy To Dose - Vancomycin) 1 dose .XX ASDIRECTED [facility] Vancomycin HCl (Pharmacy To Dose - Vancomycin) 0 dose .XX ASDIRECTED PRN PRN Reason: RX TO DOSE VANCOMYCIN - Exam General: Alert, Cooperative HEENT: Pupils Equal, Pupils Reactive. No: Mucous Membr. Moist/[place] Neck: Supple Lungs: Normal Respiratory Effort, Decreased Breath Sounds Cardiovascular: Regular Rate, Regular Rhythm GI/Abdominal Exam: Soft, No Organomegaly, No Mass, Distended (mild), Other ( midline abdominal scar) (Male) Exam: Other (ostomy for suprapubic catheterization) Back Exam: Other (kyphoscoliosis) Extremities: Non-Tender, Normal Capillary Refill, Limited Range of Motion, Other (b/l lower leg atrophy). No: Normal Inspection, Leg Pain, Redness Peripheral Pulses: 1+: Dorsalis Pedis (L), Dorsalis Pedis (R) Skin: Warm, Dry, Intact Neurological: Other (neruo exam not appropriate, has baseline quadriplegia). No : Normal Gait Psy/Mental Status: Alert, Normal Affect, Normal Mood - Problem List Review Problem List Initiated/Reviewed/Updated: Yes - My Orders Last 24 Hours: My Active Orders 03/25/19 07:30 Sodium Chloride 0.9% [Normal Saline] 100 ml IV ASDIRECTED 03/25/19 09:00 Enoxaparin [Lovenox] 40 mg SUBCUT DAILY 03/25/19 13:06 Incentive Spirometry [RT Incentive Spirometry] [RC] Q2HWA 03/25/19 17:30 Levofloxacin/Dextrose 5%-Water [Levaquin in D5W 750 MG/150 ML] 750 mg Premix Bag 1 bag IV Q24H 03/26/19 07:49 Magnesium Sulfate/Water [Magnesium Sulfate in Water Premix] 4 gm Premix Bag 1 bag IV ONETIME 03/26/19 17:00 Overnight Pulse Oximetry [RC] BEDTIME 03/27/19 05:11 BASIC METABOLIC PANEL,BMP [CHEM] AM C-REACTIVE PROTEIN [CHEM] AM CBC WITH AUTO DIFF [HEME] AM MAGNESIUM [CHEM] AM 03/27/19 07:00 CBC W/O DIFF,HEMOGRAM [HEME] MOTH@0700 03/31/19 07:00 CBC W/O DIFF,HEMOGRAM [HEME] MOTH@0700 04/03/19 07:00 CBC W/O DIFF,HEMOGRAM [HEME] MOTH@0700 04/07/19 07:00 CBC W/O DIFF,HEMOGRAM [HEME] MOTH@0700 04/10/19 07:00 CBC W/O DIFF,HEMOGRAM [HEME] MOTH@0700 - Plan Plan:: Assessment: Acute: CAUTI 2/2 Enterobacter Cloacae - Has chronic urinary retention with intermittent catheterization - UA is strongly suggestive of UTI: Pyuria and Hematuria - Received IV Rocephin in ED - Continue IV Levaquin and discontinue Meropenem Elevated D-Dimer - D-Dimer of 1.96 - CTA shows no evidence of PE - He is high risk for DVT due to immobility and bed-bound status - Lovenox 40 mg subQ daily B/L Small Pleural Effusions with Atelectasis vs Pneumonia - L>R on CT scan - Has atelectasis to adjacent pleural effusions - IV Meropenem Q8H plus IS as directed Hypomagnesemia - Mg of 1.6 - 2/2 Inadequate intake - Replete and monitor Resolved: S/p Constipation - Risk factors: Polypharmacy and Bed-bound - Abdominal x-ray shows increased colonic stool - Bowel prep w/ rectal suppository - Had adequate bowel movement yesterday S/p Erythrocytosis - Hgb of 17.6-->14.4 - Baseline is 13-14 - Likely hemo-concentration - Will monitor S/p Hyperkalemia - K of 5.3-same--> 4.6 - Has oral supplement plus in GLADIS - Hold supplement for now S/p GLADIS - Likely 2/2 Volume Depletion/Dehydration - Cr if 1.5-->2.3-->1.5-->0.7; baseline of - - IV hydrations and monitor Is/Os S/p Leukocytosis - WBC of 17K-->19K-->11.65--> 8.85 - 2/2 above - Treat underlying cause S/p Sepsis - Meets criteria: WBC of 17.43-->8.85, CRP of 19.8-->27.6, HR of 120s - Serial LA: 1.8-->2.3-->1.0-->0.8 - Source UTI - Blood Cultures; negative for 3 days - Sepsis treatment Chronic: Recurrent PNA, Bowel Obstruction, Neurogenic Bladder, Hx/o Renal Stone , Severe Quadriplegia, Cerebral Palsy, Seizure Disorder, Decubitus Ulcer and Intellectual Disability Plan: He remains clinically and hemodynamically stable Transfer to [facility] with Tele Routine AM Labs Regular Home Diet Aspiration/Fall and Seizure Precautions DVT/GI Prophylaxis SW/CM for d/c planning Code status: full Additional orders as above Discharge in 2-3 days Critical time spent: 15mins including face to face
[2019-03-26] MEDS ORDERED: Magnesium Sulfate/Water 4 GM in Premix Bag 1 BAG IV ONE (08:00)
[2019-03-26] MEDS: Cholecalciferol (Vitamin D3) 25 MCG Tab PO SCH (09:01)
[2019-03-26] MEDS: Metoprolol Tartrate 25 MG Tab PO SCH ×2 (09:01→19:00)
[2019-03-26] MEDS: OXcarbazepine 150 MG Tab PO SCH ×2 (09:01→20:30)
[2019-03-26] MEDS: Ascorbic Acid 500 MG Tab PO SCH ×2 (09:01→20:30)
[2019-03-26] MEDS: OXcarbazepine 300 MG Tab PO SCH ×2 (09:01→20:30)
[2019-03-26] MEDS: Multivitamins,Therapeutic Tab PO SCH (09:01)
[2019-03-26] MEDS: POTASSIUM CITRATE 10 MEQ PO SCH ×2 (09:02→20:32)
[2019-03-26] MEDS: Enoxaparin 40 MG/0.4 ML Syringe SUBCUT SCH (09:02)
[2019-03-26] MEDS: Saccharomyces Boulardii (Probiotic) 250 MG Cap PO SCH ×2 (09:02→20:30)
[2019-03-26] MEDS: ZINC OXIDE 20% TOP SCH ×2 (09:38→21:24)
[2019-03-26] MEDS: Levofloxacin/Dextrose 5%-Water 750 MG in Premix Bag 1 BAG IV SCH (18:14)
[2019-03-26] MEDS ORDERED: Famotidine 20 MG/2 ML SDV IVPUSH ONE (19:21)
[2019-03-26] MEDS ORDERED: diphenhydrAMINE 50 MG/ML SDV IVPUSH ONE (19:21)
[2019-03-26] MEDS ORDERED: MEDIHONEY TOP SCH (20:15)
[2019-03-26] MEDS: Sennosides 8.6 MG Tab PO SCH (20:30)
[2019-03-26] MEDS: methylPREDNISolone Sodium Succinate 40 MG/1 ML SDV IVPUSH SCH (20:31)
[2019-03-27] MEDS: Sodium Chloride 0.9% 1,000 ML IV SCH ×3 (01:28→20:52)
[2019-03-27] MEDS: Metoprolol Tartrate 25 MG Tab PO SCH ×3 (06:16→18:30)
[2019-03-27] MEDS: methylPREDNISolone Sodium Succinate 40 MG/1 ML SDV IVPUSH SCH ×2 (06:17→06:58)
[2019-03-27] MEDS: ZINC OXIDE 20% TOP SCH ×2 (08:57→20:56)
[2019-03-27] MEDS: OXcarbazepine 300 MG Tab PO SCH ×2 (08:57→20:34)
[2019-03-27] MEDS: OXcarbazepine 150 MG Tab PO SCH ×2 (08:57→20:34)
[2019-03-27] MEDS: Cholecalciferol (Vitamin D3) 25 MCG Tab PO SCH (09:02)
[2019-03-27] MEDS: POTASSIUM CITRATE 10 MEQ PO SCH ×2 (09:03→20:56)
[2019-03-27] MEDS: Multivitamins,Therapeutic Tab PO SCH (09:08)
[2019-03-27] MEDS: Saccharomyces Boulardii (Probiotic) 250 MG Cap PO SCH ×2 (09:08→20:34)
[2019-03-27] MEDS: Ascorbic Acid 500 MG Tab PO SCH ×2 (09:08→20:34)
[2019-03-27] MEDS: Enoxaparin 40 MG/0.4 ML Syringe SUBCUT SCH (09:16)
[2019-03-27] MEDS ORDERED: Magnesium Sulfate/Water 4 GM in Premix Bag 1 BAG IV ONE (09:30)
[2019-03-27] MEDS ORDERED: Levofloxacin 750 MG Tab PO SCH (17:30)
--- NOTE | 2019-03-27 20:01 | PCM.PN ---
- General Info Date of Service: 03/27/19 Admission Dx/Problem (Free Text): Admission Diagnosis/Problem Admission Diagnosis/Problem Urinary tract infection Subjective Update: Patient is doing well. Nurse reports a fine rash on his back but nowhere else. There was question about a rash at the IV site after getting his frequent. No other symptoms. - Review of Systems General: Reports: No Symptoms HEENT: Reports: No Symptoms Pulmonary: Reports: No Symptoms Cardiovascular: Reports: No Symptoms Skin: Reports: No Symptoms - Patient Data Vitals - Most Recent: Last Vital Signs Temp 97.5 F 03/27/19 12:37 Pulse 92 03/27/19 18:30 Resp 20 03/27/19 12:37 BP 148/88 H 03/27/19 18:30 Pulse Ox 97 03/27/19 12:38 Weight - Most Recent: 102 lb 1.6 oz I&O - Last 24 Hours: Intake & Output 03/27/19 03/27/19 03/27/19 06:59 14:59 22:59 Intake Total 1392 240 Output Total 800 Balance 592 240 Lab Results Last 24 Hours: Laboratory Results - last 24 hr 03/27/19 03/27/19 Range/Units 06:25 06:25 WBC 5.65 (4.23-9.07) K/mm3 RBC 4.07 L (4.63-6.08) M/mm3 Hgb 12.6 L (13.7-17.5) gm/dl Hct 38.5 L (40.1-51.0) % MCV 94.6 H (79.0-92.2) fl MCH 31.0 (25.7-32.2) pg MCHC 32.7 (32.2-35.5) g/dl RDW Std Deviation 45.1 H (35.1-43.9) fL Plt Count 193 (163-337) K/mm3 MPV 9.1 L (9.4-12.3) fl Neut % (Auto) 67.4 (34.0-67.9) % Lymph % (Auto) 22.5 (21.8-53.1) % [place] % (Auto) 8.3 (5.3-12.2) % Eos % (Auto) 0.9 (0.8-7.0) Baso % (Auto) 0.2 (0.1-1.2) % Neut # (Auto) 3.81 (1.78-5.38) K/mm3 Lymph # (Auto) 1.27 L (1.32-3.57) K/mm3 [place] # (Auto) 0.47 (0.30-0.82) K/mm3 Eos # (Auto) 0.05 (0.04-0.54) K/mm3 Baso # (Auto) 0.01 (0.01-0.08) K/mm3 Sodium 141 (136-145) mEq/L Potassium 4.5 (3.5-5.1) mEq/L Chloride 108 H (98-107) mEq/L Carbon Dioxide 25 (21-32) mEq/L Anion Gap 12.5 (5-15) BUN 18 (7-18) mg/dL Creatinine 0.6 L (0.7-1.3) mg/dL Est Cr Clr Drug Dosing 109.35 mL/min Estimated GFR (MDRD) > 60 (>60) mL/min BUN/Creatinine Ratio 30.0 H (14-18) Glucose 102 (74-106) mg/dL Calcium 8.9 (8.5-10.1) mg/dL Magnesium 1.5 L (1.8-2.4) mg/dl C-Reactive Protein 10.5 H* (<1.0) mg/dL Norbert Results Last 24 Hours: Microbiology 03/22/19 16:25 Aerobic Blood Culture - Preliminary Blood - Venous NO GROWTH AFTER 5 DAYS Anaerobic Blood Culture - Preliminary NO GROWTH AFTER 5 DAYS 03/22/19 16:33 Aerobic Blood Culture - Preliminary Blood - Venous - Lab Draw NO GROWTH AFTER 5 DAYS Anaerobic Blood Culture - Preliminary NO GROWTH AFTER 5 DAYS Med Orders - Current: Current Medications Acetaminophen (Tylenol) 650 mg PO Q4H PRN PRN Reason: Pain (Mild 1-3)/fever Last Admin: 03/24/19 18:04 Dose: 650 mg Albuterol/Ipratropium (Duoneb 3.0-0.5 Mg/3 Ml) 3 ml NEB Q4H PRN PRN Reason: Shortness Of Breath/wheezing Artificial Tears (Refresh Liquigel 1%) 0 ml EYERT BID PRN PRN Reason: Dry Eyes Ascorbic Acid (Vitamin C) 500 mg PO BID [facility] Last Admin: 03/27/19 09:08 Dose: 500 mg Baclofen (Lioresal) 10 mg PO TID PRN PRN Reason: Muscle Spasm Bisacodyl (Dulcolax) 5 mg PO DAILY PRN PRN Reason: Constipation Cholecalciferol (Vitamin D3) 25 mcg PO DAILY [facility] Last Admin: 03/27/19 09:02 Dose: 25 mcg Docusate Sodium (Colace) 100 mg PO BID PRN PRN Reason: Constipation Enoxaparin Sodium (Lovenox) 40 mg SUBCUT DAILY [facility] Last Admin: 03/27/19 09:16 Dose: 40 mg Hydralazine HCl (Apresoline) 20 mg IVPUSH Q4H PRN PRN Reason: Hypertension Hydrocortisone (Hydrocortisone 1% Crm) 0 gm TOP BID PRN PRN Reason: Itching Hydromorphone HCl (Dilaudid) 0.25 mg IVPUSH Q2H PRN PRN Reason: Pain (severe 7-10) Promethazine HCl 6.25 mg/ (Sodium Chloride) 50.25 mls @ 100 mls/hr IV Q6H PRN PRN Reason: Nausea/Vomiting Sodium Chloride (Normal Saline) 1,000 mls @ 100 mls/hr IV ASDIRECTED [facility] Last Admin: 03/27/19 11:41 Dose: 100 mls/hr Levofloxacin (Levaquin) 750 mg PO Q24H [facility] Stop: 03/28/19 17:31 Last Admin: 03/27/19 18:29 Dose: 750 mg Lorazepam (Ativan) 0.5 mg IVPUSH Q4H PRN PRN Reason: Anxiety Last Admin: 03/23/19 00:03 Dose: 0.5 mg Magnesium Hydroxide (Milk Of Magnesia) 30 ml PO DAILY PRN PRN Reason: Constipation Metoprolol Tartrate (Lopressor) 5 mg IVPUSH Q4H PRN PRN Reason: Tachycardia Last Admin: 03/23/19 06:08 Dose: 5 mg Metoprolol Tartrate (Lopressor) 25 mg PO Q12H [facility] Last Admin: 03/27/19 18:30 Dose: 25 mg Multi-Ingred Cream/Lotion/Oil/Oint (Zinc Oxide) 0 gm TOP BID [facility] Last Admin: 03/27/19 08:57 Dose: Not Given Multivitamins (Thera) 1 each PO DAILY [facility] Last Admin: 03/27/19 09:08 Dose: 1 each MedihoneyOwn Med 1 each TOP ASDIRECTED [facility] Ondansetron HCl (Zofran Odt) 4 mg PO Q4H PRN PRN Reason: Nausea/Vomiting Ondansetron HCl (Zofran) 4 mg IV Q6H PRN PRN Reason: Nausea/Vomiting Last Admin: 03/22/19 23:36 Dose: 4 mg Oxcarbazepine (Trileptal) 150 mg PO BID [facility] Last Admin: 03/27/19 08:57 Dose: 150 mg Oxcarbazepine (Trileptal) 300 mg PO BID [facility] Last Admin: 03/27/19 08:57 Dose: 300 mg Ketoconazole 1 (Applic) 1 each TOP ASDIRECTED PRN PRN Reason: Other Promethazine Hcl [ (Phenergan] 25 Mg) 0 each TOP Q6H PRN PRN Reason: Nausea/Vomiting Potassium Citrate 10meq Pt's Own Medication 0 each PO BID [facility] Last Admin: 03/27/19 09:03 Dose: 30 each Polyethylene Glycol (Miralax) 17 gm PO DAILY PRN PRN Reason: Constipation Saccharomyces Boulardii (Florastor) 250 mg PO BID [facility] Last Admin: 03/27/19 09:08 Dose: 250 mg Senna (Senna) 17.2 mg PO BEDTIME [facility] Last Admin: 03/26/19 20:30 Dose: 17.2 mg Senna/Docusate Sodium (Senna Plus) 1 tab PO BID PRN PRN Reason: Constipation Temazepam (Restoril) 7.5 mg PO BEDTIME PRN PRN Reason: Sleep Discontinued Medications Acetaminophen (Tylenol) 650 mg PO NOW ONE Stop: 03/22/19 15:22 Last Admin: 03/22/19 15:25 Dose: 650 mg Ascorbic Acid (Vitamin C) 500 mg PO BID [facility] Last Admin: 03/24/19 09:09 Dose: 500 mg Bisacodyl (Dulcolax) 10 mg RECTAL DAILY [facility] Stop: 03/24/19 09:01 Last Admin: 03/24/19 09:05 Dose: 10 mg Diphenhydramine HCl (Benadryl) 25 mg IVPUSH ONETIME ONE Stop: 03/26/19 19:22 Last Admin: 03/26/19 20:30 Dose: 25 mg Enoxaparin Sodium (Lovenox) 30 mg SUBCUT Q12H [facility] Last Admin: 03/24/19 21:15 Dose: Not Given Enoxaparin Sodium (Lovenox) 25 mg SUBCUT Q12H [facility] Last Admin: 03/25/19 17:08 Dose: Not Given Famotidine (Pepcid) 20 mg IVPUSH ONETIME ONE Stop: 03/26/19 19:22 Last Admin: 03/26/19 20:31 Dose: 20 mg Heparin Sodium (Porcine) (Heparin Sodium) 5,000 units SUBCUT Q8HR [facility] Last Admin: 03/24/19 13:02 Dose: 5,000 units Hydromorphone HCl (Dilaudid) 0.25 mg IVPUSH ONETIME ONE Stop: 03/22/19 11:56 Last Admin: 03/22/19 12:03 Dose: 0.25 mg Sodium Chloride (Normal Saline) 1,000 mls @ 999 mls/hr IV ONETIME [facility] Last Admin: 03/22/19 11:21 Dose: 999 mls/hr Ceftriaxone Sodium 1 gm/ (Sodium Chloride) 100 mls @ 200 mls/hr IV ONETIME ONE Stop: 03/22/19 15:05 Last Admin: 03/22/19 14:45 Dose: 200 mls/hr Ceftriaxone Sodium 1 gm/ (Sodium Chloride) 100 mls @ 200 mls/hr IV Q24H [facility] Vancomycin HCl 500 mg/ Sodium (Chloride) 250 mls @ 166.667 mls/hr IV Q12H [facility] Last Admin: 03/22/19 20:48 Dose: Not Given Lactated Ringer's (Ringers, Lactated) 1,000 mls @ 150 mls/hr IV ASDIRECTED [facility] Last Admin: 03/24/19 16:41 Dose: 150 mls/hr Vancomycin HCl 0.75 gm/ Sodium (Chloride) 250 mls @ 250 mls/hr IV Q24H [facility] Vancomycin HCl 0.75 gm/ Sodium (Chloride) 250 mls @ 250 mls/hr IV Q24H [facility] Last Admin: 03/22/19 17:41 Dose: 250 mls/hr Levofloxacin/Dextrose 750 mg/ (Premix) 150 mls @ 100 mls/hr IV Q48H [facility] Last Admin: 03/24/19 17:54 Dose: 100 mls/hr Sodium Chloride (Normal Saline) 500 mls @ 999 mls/hr IV .BOLUS ONE Stop: 03/23/19 09:00 Last Admin: 03/23/19 09:27 Dose: 999 mls/hr Vancomycin HCl 0.75 gm/ Sodium (Chloride) 250 mls @ 250 mls/hr IV Q36H [facility] Last Admin: 03/24/19 04:50 Dose: 250 mls/hr Ceftriaxone Sodium 1 gm/ (Sodium Chloride) 100 mls @ 200 mls/hr IV Q24H [facility] Last Admin: 03/23/19 14:15 Dose: 200 mls/hr Meropenem/Sodium Chloride 500 (mg/ Premix) 50 mls @ 100 mls/hr IV Q8H [facility] Last Admin: 03/26/19 05:07 Dose: 100 mls/hr Sodium Chloride (Normal Saline) 100 mls @ 80 mls/hr IV ASDIRECTED [facility] Last Admin: 03/25/19 08:03 Dose: 80 mls/hr Magnesium Sulfate 4 gm/ Premix 50 mls @ 12.5 mls/hr IV ONETIME ONE Stop: 03/25/19 13:08 Last Admin: 03/25/19 10:56 Dose: 12.5 mls/hr Levofloxacin/Dextrose 750 mg/ (Premix) 150 mls @ 100 mls/hr IV Q24H [facility] Last Admin: 03/26/19 18:14 Dose: 100 mls/hr Magnesium Sulfate 4 gm/ Premix 50 mls @ 12.5 mls/hr IV ONETIME ONE Stop: 03/26/19 11:59 Last Admin: 03/26/19 08:51 Dose: 12.5 mls/hr Magnesium Sulfate 4 gm/ Premix 50 mls @ 12.5 mls/hr IV ONETIME ONE Stop: 03/27/19 13:29 Last Admin: 03/27/19 10:27 Dose: 12.5 mls/hr Iopamidol (Isovue-370 (76%)) 100 ml IVPUSH ONETIME ONE Stop: 03/25/19 07:27 Last Admin: 03/25/19 08:03 Dose: 100 ml Lactulose (Cephulac) 20 gm PO ONETIME ONE Stop: 03/22/19 16:07 Last Admin: 03/22/19 18:25 Dose: 20 gm Lactulose (Cephulac) 20 gm PO DAILY [facility] Stop: 03/23/19 09:01 Last Admin: 03/23/19 09:13 Dose: 20 gm Lidocaine HCl (Xylocaine 1%) Confirm Administered Dose 10 ml .ROUTE .STK-MED ONE Stop: 03/24/19 16:25 Last Admin: 03/24/19 17:54 Dose: 10 ml Lidocaine HCl (Xylocaine-Mpf 1%) 1 ml INJECT ONETIME ONE Stop: 03/24/19 16:33 Last Admin: 03/24/19 20:29 Dose: Not Given Lidocaine HCl (Xylocaine 1%) 10 ml INJECT ONETIME ONE Stop: 03/24/19 16:38 Last Admin: 03/24/19 20:28 Dose: Not Given Methylprednisolone Sodium Succinate (Solu-Medrol) 40 mg IVPUSH Q12H [facility] Stop: 03/27/19 07:31 Last Admin: 03/27/19 06:58 Dose: Not Given Metoclopramide HCl (Reglan) 10 mg IVPUSH Q6H [facility] Last Admin: 03/24/19 17:52 Dose: 10 mg Non-Formulary Medication (Acetaminophen [Tylenol]) 325 mg PO Q4H PRN PRN Reason: Fever Non-Formulary Medication (Ascorbate Calcium [Vitamin C]) 500 mg PO BID [facility] Non-Formulary Medication (Guaifenesin/D-Methorphan Hb/Pe [Gnp Tussin Cf Max M-S Cold Liq]) 10 ml PO Q4HR PRN PRN Reason: cough Non-Formulary Medication (Lactobacillus Acidophilus [Acidophilus]) 1 tab PO BID [facility] Last Admin: 03/23/19 01:34 Dose: Not Given Non-Formulary Medication (Mupirocin Cream) 1 applic TOP BID [facility] Last Admin: 03/23/19 11:39 Dose: Not Given Non-Formulary Medication (Non-Formulary Medication [Nf Drug]) 25 mg TOP Q6H PRN PRN Reason: Nausea Non-Formulary Medication (Non-Formulary Medication [Nf Drug]) 1 applic PO BID PRN PRN Reason: Dryness Non-Formulary Medication (Polyethylene Glycol [Polyox Wsr-301]) 17 gm MC DAILY [facility] Non-Formulary Medication (Rectal Syringe [Enema Syringe]) 1 each ASDIRECTED [facility] Non-Formulary Medication (Antacid Gas Relief) 1 tab PO Q4H PRN PRN Reason: Gas Non-Formulary Medication (Aquaphilac Ointment) 1 applic TOP ASDIRECTED PRN PRN Reason: dry skin Non-Formulary Medication (Cepamax D Lip) 1 applic TOP ASDIRECTED [facility] Non-Formulary Medication (Mylanta) 2 - 4 tsp PO Q2H PRN PRN Reason: upset stomach Methenamine Hippurate 1 Gm Tab Own Med 1 gm PO BID [facility] Last Admin: 03/24/19 09:07 Dose: Not Given Cranberry Fruit Extract 425 Mg Cap Own Med 0 mg PO BID [facility] Last Admin: 03/24/19 09:04 Dose: 425 mg Potassium Citrate 30meq Pt's Own Medication 0 each PO BID [facility] Last Admin: 03/24/19 20:29 Dose: Not Given Ondansetron HCl (Zofran) 4 mg IVPUSH ONETIME ONE Stop: 03/22/19 11:56 Last Admin: 03/22/19 12:03 Dose: 4 mg Oxcarbazepine (Trileptal) 150 mg PO BID [facility] Last Admin: 03/24/19 09:17 Dose: 150 mg Oxcarbazepine (Trileptal) 300 mg PO BID [facility] Last Admin: 03/24/19 09:06 Dose: 300 mg Oxcarbazepine (Trileptal) 150 mg PO BID [facility] Potassium Chloride (Klor-Con 10) 30 meq PO BID [facility] Last Admin: 03/24/19 09:05 Dose: Not Given Senna (Senna) 17.2 mg PO BEDTIME [facility] Last Admin: 03/23/19 20:43 Dose: 17.2 mg Vancomycin HCl (Pharmacy To Dose - Vancomycin) 1 dose .XX ASDIRECTED [facility] Vancomycin HCl (Pharmacy To Dose - Vancomycin) 0 dose .XX ASDIRECTED PRN PRN Reason: RX TO DOSE VANCOMYCIN - Exam Quality Assessment: No: Supplemental Oxygen General: Alert, Oriented HEENT: Pupils Equal, Pupils Reactive, EOMI, Mucous Membr. Moist/[place] Neck: Supple Lungs: Clear to Auscultation, Normal Respiratory Effort Cardiovascular: Regular Rate, Regular Rhythm GI/Abdominal Exam: Normal Bowel Sounds, Soft, Non-Tender, No Distention Skin: Warm, Dry, Intact. No: Rash - Problem List Review Problem List Initiated/Reviewed/Updated: Yes - My Orders Last 24 Hours: My Active Orders 03/27/19 17:30 levoFLOXacin [Levaquin] 750 mg PO Q24H - Plan Plan:: Assessment: Acute: CAUTI 2/2 Enterobacter Cloacae - Has chronic urinary retention with intermittent catheterization - UA is strongly suggestive of UTI: Pyuria and Hematuria - Received IV Rocephin in ED - Continue IV Levaquin and discontinue Meropenem - Total antibiotic treatment for 7 days with Levaquin. Elevated D-Dimer - D-Dimer of 1.96 - CTA shows no evidence of PE - He is high risk for DVT due to immobility and bed-bound status - Lovenox 40 mg subQ daily B/L Small Pleural Effusions with Atelectasis vs Pneumonia - L>R on CT scan - Has atelectasis to adjacent pleural effusions - IV Meropenem Q8H plus IS as directed Hypomagnesemia - Mg of 1.6 - 2/2 Inadequate intake - Replete and monitor Resolved: S/p Constipation - Risk factors: Polypharmacy and Bed-bound - Abdominal x-ray shows increased colonic stool - Bowel prep w/ rectal suppository - Had adequate bowel movement yesterday S/p Erythrocytosis - Hgb of 17.6-->14.4-->12.6 - Baseline is 13-14 - Likely hemo-concentration - Will monitor S/p Hyperkalemia - K of 5.3-same--> 4.6-->4.5 - Has oral supplement plus in GLADIS - Hold supplement for now S/p GLADIS - Likely 2/2 Volume Depletion/Dehydration - Cr if 1.5-->2.3-->1.5-->0.7-->0.6; baseline of 13-14 - IV hydrations and monitor Is/Os S/p Leukocytosis - WBC of 17K-->19K-->11.65--> 8.85-->5.6 - 2/2 above - Treat underlying cause S/p Sepsis - Meets criteria: WBC of 17.43-->8.85-->5.6, CRP of 19.8-->27.6, HR of 120s - Serial LA: 1.8-->2.3-->1.0-->0.8 - Source UTI - Blood Cultures; negative for 3 days - Sepsis treatment Chronic: Recurrent PNA, Bowel Obstruction, Neurogenic Bladder, Hx/o Renal Stone , Severe Quadriplegia, Cerebral Palsy, Seizure Disorder, Decubitus Ulcer and Intellectual Disability Plan: He remains clinically and hemodynamically stable Transfer to [facility] with Tele Routine AM Labs Regular Home Diet Aspiration/Fall and Seizure Precautions DVT/GI Prophylaxis SW/CM for d/c planning Code status: full Additional orders as above Discharge in 2-3 days Critical time spent: 15mins including face to face
[2019-03-27] MEDS: Sennosides 8.6 MG Tab PO SCH (20:34)
[2019-03-28] MEDS: Metoprolol Tartrate 25 MG Tab PO SCH (06:29)
[2019-03-28] MEDS: OXcarbazepine 300 MG Tab PO SCH (08:04)
[2019-03-28] MEDS: Cholecalciferol (Vitamin D3) 25 MCG Tab PO SCH (08:04)
[2019-03-28] MEDS: Enoxaparin 40 MG/0.4 ML Syringe SUBCUT SCH (08:04)
[2019-03-28] MEDS: Saccharomyces Boulardii (Probiotic) 250 MG Cap PO SCH (08:04)
[2019-03-28] MEDS: Ascorbic Acid 500 MG Tab PO SCH (08:04)
[2019-03-28] MEDS: Multivitamins,Therapeutic Tab PO SCH (08:04)
[2019-03-28] MEDS: OXcarbazepine 150 MG Tab PO SCH (08:04)
[2019-03-28] MEDS: POTASSIUM CITRATE 10 MEQ PO SCH (08:07)
[2019-03-28] MEDS: ZINC OXIDE 20% TOP SCH (09:00)
[2019-03-28] MEDS: Sodium Chloride 0.9% 1,000 ML IV SCH (09:22)
--- NOTE | 2019-03-28 12:14 | PCM.DCSUM1 ---
Discharge Summary - Hospital Course HPI Initial Comments: This is a 38 yo white male with past medical hx/o Recurrent PNA, Bowel Obstruction, Neurogenic Bladder, Hx/o Renal Stone, Severe Quadraplegia, Cerebral Palsy, Seizure Disorder, Decubitus Ulcer and Intellectual Disability who comes in with complaints of abdominal pain that started yesterday. His symptom is associated with oliguria. He carries a hx/o neurogenic bladder with frequent suprapubic catheterization. His last bowel movement was yesterday afternoon. However he is known to have recurrent bowel obstruction. No reports of nausea, vomiting, fever or chills. His initial work up in ED shows remarkable CBC. His chemistry is significant for K of 5.3, BUN of 28, Cr of 1.5, BS of 108, and CRP of 19.8. His UA shows pyuria and hematuria. His abdominal x-ray reveals scattered gas within small bowel and colon with some stool. Patient is tachycardic and diaphoretic at the time of my examination. He is coming in primarily for treatment of sepsis 2/2 catheter associated urinary tract infection. Diagnosis: Stroke: No - Discharge Data Discharge Date: 03/28/19 Discharge Disposition: Home, Self-Care 01 Condition: Good - Referral to Home Health Primary Care Physician: Denver Diamond MD - Patient Summary/Data Consults: Consultations 03/22/19 15:51 Consult to Case Management/Hi Lo Driver [CONS] Routine Consult to Smokehouse Operator [CONS] Routine Consult to Spiritual Care [CONS] Routine Hospital Course: patient was admitted and started on IV antibiotics. He grew out Enterobacter cloacae which was sensitive to Levaquin. He had total dose of 7 days of Levaquin for complicated UTI. During the hospitalization it was noted that his ostomy site for his urostomy leaked and required an ostomy supplies. Patient will be discharged with urostomy orders for bags secondary to leaking. - Patient Instructions Diet: Usual Diet as Tolerated Activity: As Tolerated Driving: Do Not Drive - Discharge Plan *PRESCRIPTION DRUG MONITORING PROGRAM REVIEWED*: No *COPY OF PRESCRIPTION DRUG MONITORING REPORT IN PATIENT NOLVIA: No Home Medications: Home Meds Acetaminophen [Tylenol] 325 - 650 mg PO Q4H PRN 12/12/18 [History] Ascorbate Calcium [Vitamin C] 500 mg PO BID 12/12/18 [History] Cholecalciferol (Vitamin D3) [Vitamin D3] 1,000 units PO DAILY 12/12/18 [History ] Cranberry Fruit Extract [Cranberry] 425 mg PO BID 12/12/18 [History] Hydrocortisone [Proctozone-Hc] 1 applic RECTAL BID PRN 12/12/18 [History] Ketoconazole [Nizoral 2% Shampoo] 1 applic TOP ASDIRECTED 12/12/18 [History] Methenamine Hippurate 1 gm PO BID 12/12/18 [History] Multivitamins [Tab-A-Berta] 1 tab PO DAILY 12/12/18 [History] OXcarbazepine [Oxcarbazepine] 150 mg PO BID 12/12/18 [History] OXcarbazepine [Oxcarbazepine] 300 mg PO BID 12/12/18 [History] Ondansetron [Zofran] 4 mg PO Q4H PRN 12/12/18 [History] Polyethylene Glycol [Polyox Wsr-301] 17 gm PO DAILY 12/12/18 [History] Potassium Citrate [Potassium Citrate ER] 30 meq PO BID 12/12/18 [History] Zinc Oxide 1 applic TOP BID 12/12/18 [History] Carboxymethylcellulose Sodium [Lubricant Eye Drop] 2 drop EYERT BID PRN [History] guaiFENesin/D-Methorphan Hb/Pe [Gnp Tussin Cf Max M-S Cold Liq] 10 ml PO Q4HR PRN 12/13/18 [History] Aquaphilac Ointment 1 applic TOP ASDIRECTED PRN 03/22/19 [History] Ascorbate Calcium [Vitamin C] 500 mg PO BID 03/22/19 [History] Baclofen 10 mg PO TID PRN 03/22/19 [History] Cepamax D Lip 1 applic TOP ASDIRECTED 03/22/19 [History] Lactobacillus Acidophilus [Acidophilus] 1 cap PO BID 03/22/19 [History] Magnesium Hydroxide [Milk of Magnesia] 2 - 4 tbsp PO DAILY PRN 03/22/19 [History ] Mylanta 2 - 4 tsp PO Q2H PRN 03/22/19 [History] Promethazine HCl [Phenergan] 25 mg TOP Q6H PRN 03/22/19 [History] Sennosides [Senna] 17.2 mg PO BEDTIME 03/22/19 [History] Oxygen Therapy Mode: Room Air Patient Handouts: Sepsis, Adult, Urostomy Home Guide Forms: ED Department Discharge Referrals: Saud Bettencourt MD [Consulting Physician] - 04/21/19 9:35 am (Please follow-up with your urologist on sundayapril 21 at 0935am. ) Denver Diamond MD [Primary Care Provider] - 04/10/19 1:00 pm (Please follow-up with your primary care provider on april 10 at 1pm. ) - Discharge Summary/Plan Comment DC Time >30 min.: Yes Discharge Summary/Plan Comment: patient will follow up with primary care. He has finished his antibiotic regimen. Routine care at home. discharge home with urostomy supplies and bags secondary to his urostomy leaking. his will help prevent skin breakdown. Patient does have skin breakdown at the bottom of his coccyx. This is new since admit. - General Info Date of Service: 03/28/19 Admission Dx/Problem (Free Text: Admission Diagnosis/Problem Admission Diagnosis/Problem Urinary tract infection Subjective Update: patient is doing well without any complications. Functional Status: Reports: Pain Controlled - Review of Systems General: Reports: No Symptoms HEENT: Reports: No Symptoms Pulmonary: Reports: No Symptoms Cardiovascular: Reports: No Symptoms Gastrointestinal: Reports: No Symptoms - Patient Data Vitals - Most Recent: Last Vital Signs Temp 97.5 F 03/28/19 10:59 Pulse 87 03/28/19 11:00 Resp 16 03/28/19 10:59 BP 106/61 03/28/19 11:00 Pulse Ox 97 03/28/19 11:00 Weight - Most Recent: 105 lb 3.2 oz I&O - Last 24 hours: Intake & Output 03/27/19 03/28/19 03/28/19 22:59 06:59 14:59 Intake Total 1451 1200 210 Output Total 875 800 550 Balance 576 400 -340 Lab Results - Last 24 hrs: Laboratory Results - last 24 hr 03/28/19 Range/Units 09:00 Sodium 140 (136-145) mEq/L Potassium 4.7 (3.5-5.1) mEq/L Chloride 107 (98-107) mEq/L Carbon Dioxide 26 (21-32) mEq/L Anion Gap 11.7 (5-15) BUN 14 (7-18) mg/dL Creatinine 0.5 L (0.7-1.3) mg/dL Est Cr Clr Drug Dosing 135.20 mL/min Estimated GFR (MDRD) > 60 (>60) mL/min BUN/Creatinine Ratio 28.0 H (14-18) Glucose 86 (74-106) mg/dL Calcium 9.0 (8.5-10.1) mg/dL Magnesium 1.6 L (1.8-2.4) mg/dl ROBERT Results - Last 24 hrs: Microbiology 03/22/19 16:25 Aerobic Blood Culture - Preliminary Blood - Venous NO GROWTH AFTER 5 DAYS Anaerobic Blood Culture - Preliminary NO GROWTH AFTER 5 DAYS 03/22/19 16:33 Aerobic Blood Culture - Preliminary Blood - Venous - Lab Draw NO GROWTH AFTER 5 DAYS Anaerobic Blood Culture - Preliminary NO GROWTH AFTER 5 DAYS Med Orders - Current: Current Medications Acetaminophen (Tylenol) 650 mg PO Q4H PRN PRN Reason: Pain (Mild 1-3)/fever Last Admin: 03/24/19 18:04 Dose: 650 mg Albuterol/Ipratropium (Duoneb 3.0-0.5 Mg/3 Ml) 3 ml NEB Q4H PRN PRN Reason: Shortness Of Breath/wheezing Artificial Tears (Refresh Liquigel 1%) 0 ml EYERT BID PRN PRN Reason: Dry Eyes Ascorbic Acid (Vitamin C) 500 mg PO BID [facility] Last Admin: 03/28/19 08:04 Dose: 500 mg Baclofen (Lioresal) 10 mg PO TID PRN PRN Reason: Muscle Spasm Bisacodyl (Dulcolax) 5 mg PO DAILY PRN PRN Reason: Constipation Cholecalciferol (Vitamin D3) 25 mcg PO DAILY [facility] Last Admin: 03/28/19 08:04 Dose: 25 mcg Docusate Sodium (Colace) 100 mg PO BID PRN PRN Reason: Constipation Enoxaparin Sodium (Lovenox) 40 mg SUBCUT DAILY [facility] Last Admin: 03/28/19 08:04 Dose: 40 mg Hydralazine HCl (Apresoline) 20 mg IVPUSH Q4H PRN PRN Reason: Hypertension Hydrocortisone (Hydrocortisone 1% Crm) 0 gm TOP BID PRN PRN Reason: Itching Hydromorphone HCl (Dilaudid) 0.25 mg IVPUSH Q2H PRN PRN Reason: Pain (severe 7-10) Promethazine HCl 6.25 mg/ (Sodium Chloride) 50.25 mls @ 100 mls/hr IV Q6H PRN PRN Reason: Nausea/Vomiting Sodium Chloride (Normal Saline) 1,000 mls @ 100 mls/hr IV ASDIRECTED [facility] Last Admin: 03/28/19 09:22 Dose: 100 mls/hr Levofloxacin (Levaquin) 750 mg PO Q24H [facility] Stop: 03/28/19 13:01 Lorazepam (Ativan) 0.5 mg IVPUSH Q4H PRN PRN Reason: Anxiety Last Admin: 03/23/19 00:03 Dose: 0.5 mg Magnesium Hydroxide (Milk Of Magnesia) 30 ml PO DAILY PRN PRN Reason: Constipation Metoprolol Tartrate (Lopressor) 5 mg IVPUSH Q4H PRN PRN Reason: Tachycardia Last Admin: 03/23/19 06:08 Dose: 5 mg Metoprolol Tartrate (Lopressor) 25 mg PO Q12H [facility] Last Admin: 03/28/19 06:29 Dose: 25 mg Multi-Ingred Cream/Lotion/Oil/Oint (Zinc Oxide) 0 gm TOP BID [facility] Last Admin: 03/27/19 20:56 Dose: Not Given Multivitamins (Thera) 1 each PO DAILY [facility] Last Admin: 03/28/19 08:04 Dose: 1 each MedihoneyOwn Med 1 each TOP ASDIRECTED [facility] Ondansetron HCl (Zofran Odt) 4 mg PO Q4H PRN PRN Reason: Nausea/Vomiting Ondansetron HCl (Zofran) 4 mg IV Q6H PRN PRN Reason: Nausea/Vomiting Last Admin: 03/22/19 23:36 Dose: 4 mg Oxcarbazepine (Trileptal) 150 mg PO BID [facility] Last Admin: 03/28/19 08:04 Dose: 150 mg Oxcarbazepine (Trileptal) 300 mg PO BID [facility] Last Admin: 03/28/19 08:04 Dose: 300 mg Ketoconazole 1 (Applic) 1 each TOP ASDIRECTED PRN PRN Reason: Other Promethazine Hcl [ (Phenergan] 25 Mg) 0 each TOP Q6H PRN PRN Reason: Nausea/Vomiting Potassium Citrate 10meq Pt's Own Medication 0 each PO BID [facility] Last Admin: 03/28/19 08:07 Dose: 30 each Polyethylene Glycol (Miralax) 17 gm PO DAILY PRN PRN Reason: Constipation Saccharomyces Boulardii (Florastor) 250 mg PO BID [facility] Last Admin: 03/28/19 08:04 Dose: 250 mg Senna (Senna) 17.2 mg PO BEDTIME [facility] Last Admin: 03/27/19 20:34 Dose: 17.2 mg Senna/Docusate Sodium (Senna Plus) 1 tab PO BID PRN PRN Reason: Constipation Temazepam (Restoril) 7.5 mg PO BEDTIME PRN PRN Reason: Sleep Discontinued Medications Acetaminophen (Tylenol) 650 mg PO NOW ONE Stop: 03/22/19 15:22 Last Admin: 03/22/19 15:25 Dose: 650 mg Ascorbic Acid (Vitamin C) 500 mg PO BID [facility] Last Admin: 03/24/19 09:09 Dose: 500 mg Bisacodyl (Dulcolax) 10 mg RECTAL DAILY [facility] Stop: 03/24/19 09:01 Last Admin: 03/24/19 09:05 Dose: 10 mg Diphenhydramine HCl (Benadryl) 25 mg IVPUSH ONETIME ONE Stop: 03/26/19 19:22 Last Admin: 03/26/19 20:30 Dose: 25 mg Enoxaparin Sodium (Lovenox) 30 mg SUBCUT Q12H [facility] Last Admin: 03/24/19 21:15 Dose: Not Given Enoxaparin Sodium (Lovenox) 25 mg SUBCUT Q12H [facility] Last Admin: 03/25/19 17:08 Dose: Not Given Famotidine (Pepcid) 20 mg IVPUSH ONETIME ONE Stop: 03/26/19 19:22 Last Admin: 03/26/19 20:31 Dose: 20 mg Heparin Sodium (Porcine) (Heparin Sodium) 5,000 units SUBCUT Q8HR [facility] Last Admin: 03/24/19 13:02 Dose: 5,000 units Hydromorphone HCl (Dilaudid) 0.25 mg IVPUSH ONETIME ONE Stop: 03/22/19 11:56 Last Admin: 03/22/19 12:03 Dose: 0.25 mg Sodium Chloride (Normal Saline) 1,000 mls @ 999 mls/hr IV ONETIME [facility] Last Admin: 03/22/19 11:21 Dose: 999 mls/hr Ceftriaxone Sodium 1 gm/ (Sodium Chloride) 100 mls @ 200 mls/hr IV ONETIME ONE Stop: 03/22/19 15:05 Last Admin: 03/22/19 14:45 Dose: 200 mls/hr Ceftriaxone Sodium 1 gm/ (Sodium Chloride) 100 mls @ 200 mls/hr IV Q24H [facility] Vancomycin HCl 500 mg/ Sodium (Chloride) 250 mls @ 166.667 mls/hr IV Q12H [facility] Last Admin: 03/22/19 20:48 Dose: Not Given Lactated Ringer's (Ringers, Lactated) 1,000 mls @ 150 mls/hr IV ASDIRECTED [facility] Last Admin: 03/24/19 16:41 Dose: 150 mls/hr Vancomycin HCl 0.75 gm/ Sodium (Chloride) 250 mls @ 250 mls/hr IV Q24H [facility] Vancomycin HCl 0.75 gm/ Sodium (Chloride) 250 mls @ 250 mls/hr IV Q24H [facility] Last Admin: 03/22/19 17:41 Dose: 250 mls/hr Levofloxacin/Dextrose 750 mg/ (Premix) 150 mls @ 100 mls/hr IV Q48H [facility] Last Admin: 03/24/19 17:54 Dose: 100 mls/hr Sodium Chloride (Normal Saline) 500 mls @ 999 mls/hr IV .BOLUS ONE Stop: 03/23/19 09:00 Last Admin: 03/23/19 09:27 Dose: 999 mls/hr Vancomycin HCl 0.75 gm/ Sodium (Chloride) 250 mls @ 250 mls/hr IV Q36H [facility] Last Admin: 03/24/19 04:50 Dose: 250 mls/hr Ceftriaxone Sodium 1 gm/ (Sodium Chloride) 100 mls @ 200 mls/hr IV Q24H [facility] Last Admin: 03/23/19 14:15 Dose: 200 mls/hr Meropenem/Sodium Chloride 500 (mg/ Premix) 50 mls @ 100 mls/hr IV Q8H [facility] Last Admin: 03/26/19 05:07 Dose: 100 mls/hr Sodium Chloride (Normal Saline) 100 mls @ 80 mls/hr IV ASDIRECTED [facility] Last Admin: 03/25/19 08:03 Dose: 80 mls/hr Magnesium Sulfate 4 gm/ Premix 50 mls @ 12.5 mls/hr IV ONETIME ONE Stop: 03/25/19 13:08 Last Admin: 03/25/19 10:56 Dose: 12.5 mls/hr Levofloxacin/Dextrose 750 mg/ (Premix) 150 mls @ 100 mls/hr IV Q24H [facility] Last Admin: 03/26/19 18:14 Dose: 100 mls/hr Magnesium Sulfate 4 gm/ Premix 50 mls @ 12.5 mls/hr IV ONETIME ONE Stop: 03/26/19 11:59 Last Admin: 03/26/19 08:51 Dose: 12.5 mls/hr Magnesium Sulfate 4 gm/ Premix 50 mls @ 12.5 mls/hr IV ONETIME ONE Stop: 03/27/19 13:29 Last Admin: 03/27/19 10:27 Dose: 12.5 mls/hr Iopamidol (Isovue-370 (76%)) 100 ml IVPUSH ONETIME ONE Stop: 03/25/19 07:27 Last Admin: 03/25/19 08:03 Dose: 100 ml Lactulose (Cephulac) 20 gm PO ONETIME ONE Stop: 03/22/19 16:07 Last Admin: 03/22/19 18:25 Dose: 20 gm Lactulose (Cephulac) 20 gm PO DAILY [facility] Stop: 03/23/19 09:01 Last Admin: 03/23/19 09:13 Dose: 20 gm Levofloxacin (Levaquin) 750 mg PO Q24H [facility] Stop: 03/28/19 17:31 Last Admin: 03/27/19 18:29 Dose: 750 mg Lidocaine HCl (Xylocaine 1%) Confirm Administered Dose 10 ml .ROUTE .STK-MED ONE Stop: 03/24/19 16:25 Last Admin: 03/24/19 17:54 Dose: 10 ml Lidocaine HCl (Xylocaine-Mpf 1%) 1 ml INJECT ONETIME ONE Stop: 03/24/19 16:33 Last Admin: 03/24/19 20:29 Dose: Not Given Lidocaine HCl (Xylocaine 1%) 10 ml INJECT ONETIME ONE Stop: 03/24/19 16:38 Last Admin: 03/24/19 20:28 Dose: Not Given Methylprednisolone Sodium Succinate (Solu-Medrol) 40 mg IVPUSH Q12H [facility] Stop: 03/27/19 07:31 Last Admin: 03/27/19 06:58 Dose: Not Given Metoclopramide HCl (Reglan) 10 mg IVPUSH Q6H [facility] Last Admin: 03/24/19 17:52 Dose: 10 mg Non-Formulary Medication (Acetaminophen [Tylenol]) 325 mg PO Q4H PRN PRN Reason: Fever Non-Formulary Medication (Ascorbate Calcium [Vitamin C]) 500 mg PO BID [facility] Non-Formulary Medication (Guaifenesin/D-Methorphan Hb/Pe [Gnp Tussin Cf Max M-S Cold Liq]) 10 ml PO Q4HR PRN PRN Reason: cough Non-Formulary Medication (Lactobacillus Acidophilus [Acidophilus]) 1 tab PO BID [facility] Last Admin: 03/23/19 01:34 Dose: Not Given Non-Formulary Medication (Mupirocin Cream) 1 applic TOP BID [facility] Last Admin: 03/23/19 11:39 Dose: Not Given Non-Formulary Medication (Non-Formulary Medication [Nf Drug]) 25 mg TOP Q6H PRN PRN Reason: Nausea Non-Formulary Medication (Non-Formulary Medication [Nf Drug]) 1 applic PO BID PRN PRN Reason: Dryness Non-Formulary Medication (Polyethylene Glycol [Polyox Wsr-301]) 17 gm MC DAILY [facility] Non-Formulary Medication (Rectal Syringe [Enema Syringe]) 1 each MC ASDIRECTED [facility] Non-Formulary Medication (Antacid Gas Relief) 1 tab PO Q4H PRN PRN Reason: Gas Non-Formulary Medication (Aquaphilac Ointment) 1 applic TOP ASDIRECTED PRN PRN Reason: dry skin Non-Formulary Medication (Cepamax D Lip) 1 applic TOP ASDIRECTED [facility] Non-Formulary Medication (Mylanta) 2 - 4 tsp PO Q2H PRN PRN Reason: upset stomach Methenamine Hippurate 1 Gm Tab Own Med 1 gm PO BID [facility] Last Admin: 03/24/19 09:07 Dose: Not Given Cranberry Fruit Extract 425 Mg Cap Own Med 0 mg PO BID [facility] Last Admin: 03/24/19 09:04 Dose: 425 mg Potassium Citrate 30meq Pt's Own Medication 0 each PO BID [facility] Last Admin: 03/24/19 20:29 Dose: Not Given Ondansetron HCl (Zofran) 4 mg IVPUSH ONETIME ONE Stop: 03/22/19 11:56 Last Admin: 03/22/19 12:03 Dose: 4 mg Oxcarbazepine (Trileptal) 150 mg PO BID [facility] Last Admin: 03/24/19 09:17 Dose: 150 mg Oxcarbazepine (Trileptal) 300 mg PO BID [facility] Last Admin: 03/24/19 09:06 Dose: 300 mg Oxcarbazepine (Trileptal) 150 mg PO BID [facility] Potassium Chloride (Klor-Con 10) 30 meq PO BID [facility] Last Admin: 03/24/19 09:05 Dose: Not Given Senna (Senna) 17.2 mg PO BEDTIME [facility] Last Admin: 03/23/19 20:43 Dose: 17.2 mg Vancomycin HCl (Pharmacy To Dose - Vancomycin) 1 dose .XX ASDIRECTED [facility] Vancomycin HCl (Pharmacy To Dose - Vancomycin) 0 dose .XX ASDIRECTED PRN PRN Reason: RX TO DOSE VANCOMYCIN - Exam General: Reports: Alert HEENT: Reports: Pupils Equal, Pupils Reactive, EOMI, Mucous Membr. Moist/[place]: Reports: Supple Lungs: Reports: Clear to Auscultation, Normal Respiratory Effort Cardiovascular: Reports: Regular Rate, Regular Rhythm GI/Abdominal Exam: Normal Bowel Sounds, Soft, Non-Tender, No Organomegaly, No Distention, No Abnormal Bruit, No Mass Wound/Incisions: Reports: Healing Well Neurological: Reports: No New Focal Deficit
[2019-03-28] MEDS ORDERED: Levofloxacin 750 MG Tab PO SCH (13:00)
== END 2019-03-28 15:39 | disposition home or self-care (01) | DRG 698 ==
LOC: JD.ED 09:28 → JD.MS 15:49 → OBSVTOIN 03-23 09:00 → JD.ICU 03-23 09:01 → JD.MS 03-26 13:28
PROVIDERS: ADMIT Internal Medicine; ATTEND Internal Medicine
DX: T83.518A Infection and inflammatory reaction due to other urinary catheter, initial encounter (principal); R10.9 Unspecified abdominal pain; A41.9 Sepsis, unspecified organism; G80.0 Spastic quadriplegic cerebral palsy; N17.9 Acute kidney failure, unspecified; J90 Pleural effusion, not elsewhere classified; Z97.8 Presence of other specified devices; N39.0 Urinary tract infection, site not specified; K59.00 Constipation, unspecified; E87.5 Hyperkalemia; G40.909 Epilepsy, unspecified, not intractable, without status epilepticus; G80.9 Cerebral palsy, unspecified; F79 Unspecified intellectual disabilities; N31.9 Neuromuscular dysfunction of bladder, unspecified; E83.42 Hypomagnesemia; D75.1 Secondary polycythemia; B96.89 Other specified bacterial agents as the cause of diseases classified elsewhere; R79.1 Abnormal coagulation profile; L89.90 Pressure ulcer of unspecified site, unspecified stage; R31.9 Hematuria, unspecified; Z87.01 Personal history of pneumonia (recurrent); Z87.442 Personal history of urinary calculi; Z88.2 Allergy status to sulfonamides; Z88.5 Allergy status to narcotic agent; Z79.899 Other long term (current) drug therapy; Z16.39 Resistance to other specified antimicrobial drug
CPT/HCPCS: 36415 ×2; 51701 ×4; 74019; 80048; 80053; 81001; 83605 ×4; 83735; 84145; 85025 ×2; 85379; 86140 ×2; 87040 ×2; 87086; 87088; 87186 ×2; 87641; 96365; 96375; 99285; A9270 ×12; J0696; J1170; J1644; J1956; J2060; J2405 ×2; J2765 ×2; J3370; J3490 ×3; J7030; J7040; J7050; J7120; 51702; 51703; 71275; 71275-26; 74018; 74018-26; 96361; 96367; 96372; 96376; 99284; G0378; J1200; J1650; J2001; J2185; J2920; J3475; Q9967

== ENCOUNTER 2019-03-30 13:36 | Emergency (ER) | payer MEDICARE, MEDICAID ==
[2019-03-30] MEDS ORDERED: Sodium Chloride 0.9% 10 ML Syringe FLUSH PRN (14:13)
[2019-03-30] MEDS ORDERED: Sodium Chloride 0.9% 1,000 ML IV STA (14:13)
--- NOTE | 2019-03-30 15:21 | CT ---
CT abdomen and pelvis Technique: Multiple axial sections were obtained from above the dome of the diaphragm inferiorly through the pubic symphysis. Intravenous and oral contrast was not utilized. Comparison: Prior abdominal x-ray of 03/25/19 is available. Limitations: Extensive artifact is noted from spinal fixation rods, pelvic hardware as well as large electrostimulating device within the left pelvis. Findings: Within the limitations caused by the metal, no gross abnormality is seen within the liver or spleen. Kidneys show right-sided hydronephrosis. Right ureter appears dilated down to the bladder. Bladder shows diffuse wall thickening. Air is noted within the bladder. Calcification is noted in the approximate area of the prostatic urethra which shows a small amount of surrounding air. This could represent a ureteral stone that is passing as an etiology for the dilatation of the right ureter. This calcification measures 4.6 mm. Pancreas not well seen with no gross abnormality in the area of the pancreas. Aorta shows no aneurysm. Adrenal glands are poorly seen. Gallbladder contains no calcified gallstones. No retroperitoneal adenopathy or mesenteric abnormalities are seen. Increased stool is noted within the rectum as well as lesser areas of increased stool within the colon. Surgical anastomotic sutures are noted at the base of the cecum. Appendix is not visualized with certainty. No bowel dilatation is appreciated. Impression: 1. Extensive artifact from hardware within the spine, pelvis as well as electrostimulating device within the left side of the pelvis. 2. Dilated right ureter with no ureteral stone being definitely appreciated. There is a 4.6 mm stone within the region of the prostatic urethra possibly due to ureteral stone that is passing. Please correlate with the patient's symptoms. 3. Air within the bladder, please correlate if there has been recent instrumentation. 4. Diffusely thickened wall within the bladder. 5. Increased stool within the rectum as well as lesser areas of increased stool within other portions of the colon. Diagnostic code #3
[2019-03-30] MEDS ORDERED: Meropenem 1 GM in Sodium Chloride 0.9% 100 ML IV ONE (15:28)
--- NOTE | 2019-03-30 15:49 | EDM.PDOC ---
ED HPI GENERAL MEDICAL PROBLEM - General Chief Complaint: Abdominal Pain Stated Complaint: INCREASE ABDOMINAL PAIN Time Seen by Provider: 03/30/19 13:53 Source of Information: Reports: Patient, Other ([employer]) History Limitations: Reports: No Limitations - History of Present Illness INITIAL COMMENTS - FREE TEXT/NARRATIVE: The patient presents with abdominal pain. 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 He has cerebral palsy with developmental delay and he is wheelchair bound. He has a mitrofanoff procedure or an appendicovesicostomy where the appendix is used to drain the bladder through the umbilicus. He has generalized abdominal pain. He has decreased appetite. He is more bloated. He does have a history bowel obstructions. He was admitted to the hospital here on 03/23/19 for urosepsis. His urine was growing out enterobacter cloacae. He was on IV levaquin and his WBC was normal and CRP was coming down. He had 7 days of levaquin and was discharged home. He returns today with more pain. Onset: Gradual Duration: Day(s): (2) Location: Reports: Abdomen Severity: Moderate Improves with: Reports: None Worsens with: Reports: None Associated Symptoms: Denies: Chest Pain, Cough, Fever/Chills, Headaches, Shortness of Breath Abdomen Pain Score (Numeric/FACES): 4 - Related Data Allergies Allergy/AdvReac Type Severity Reaction Status Date / Time Sulfa (Sulfonamide Allergy Other Verified 03/30/19 13:54 Antibiotics) hydrocodone AdvReac Vomiting Verified 03/30/19 13:54 Home Meds: Home Meds Acetaminophen [Tylenol] 325 - 650 mg PO Q4H PRN 12/12/18 [History] Ascorbate Calcium [Vitamin C] 500 mg PO BID 12/12/18 [History] Cholecalciferol (Vitamin D3) [Vitamin D3] 1,000 units PO DAILY 12/12/18 [History ] Cranberry Fruit Extract [Cranberry] 425 mg PO BID 12/12/18 [History] Hydrocortisone [Proctozone-Hc] 1 applic RECTAL BID PRN 12/12/18 [History] Ketoconazole [Nizoral 2% Shampoo] 1 applic TOP ASDIRECTED 12/12/18 [History] Methenamine Hippurate 1 gm PO BID 12/12/18 [History] Multivitamins [Tab-A-Berta] 1 tab PO DAILY 12/12/18 [History] OXcarbazepine [Oxcarbazepine] 150 mg PO BID 12/12/18 [History] OXcarbazepine [Oxcarbazepine] 300 mg PO BID 12/12/18 [History] Ondansetron [Zofran] 4 mg PO Q4H PRN 12/12/18 [History] Polyethylene Glycol [Polyox Wsr-301] 17 gm PO DAILY 12/12/18 [History] Potassium Citrate [Potassium Citrate ER] 30 meq PO BID 12/12/18 [History] Zinc Oxide 1 applic TOP BID 12/12/18 [History] Carboxymethylcellulose Sodium [Lubricant Eye Drop] 2 drop EYERT BID PRN [History] guaiFENesin/D-Methorphan Hb/Pe [Gnp Tussin Cf Max M-S Cold Liq] 10 ml PO Q4HR PRN 12/13/18 [History] Aquaphilac Ointment 1 applic TOP ASDIRECTED PRN 03/22/19 [History] Ascorbate Calcium [Vitamin C] 500 mg PO BID 03/22/19 [History] Baclofen 10 mg PO TID PRN 03/22/19 [History] Cepamax D Lip 1 applic TOP ASDIRECTED 03/22/19 [History] Lactobacillus Acidophilus [Acidophilus] 1 cap PO BID 03/22/19 [History] Magnesium Hydroxide [Milk of Magnesia] 2 - 4 tbsp PO DAILY PRN 03/22/19 [History ] Mylanta 2 - 4 tsp PO Q2H PRN 03/22/19 [History] Promethazine HCl [Phenergan] 25 mg TOP Q6H PRN 03/22/19 [History] Sennosides [Senna] 17.2 mg PO BEDTIME 03/22/19 [History] Past Medical History Respiratory History: Reports: Pneumonia, Recurrent Gastrointestinal History: Reports: Bowel Obstruction, Chronic Constipation Genitourinary History: Reports: Neurogenic Bladder, Renal Calculus, Other (See Below) Other Genitourinary History: chronic cath Other Musculoskeletal History: Spastic Quadraplegia, cerebral palsy, botox injections at extremities. Neurological History: Reports: Cerebral Palsy, Seizure Other Neuro History: Seizure disorder Dermatologic History: Reports: Decubitus Ulcer Other Dermatologic History: Sore on scrotum in November 2018. Ulcer to coccyx healed about end of January 2019. - Infectious Disease History Infectious Disease History: Reports: None - Past Surgical History Other GI Surgeries/Procedures: Pt has baclofen pump to LLQ. Male Surgical History: Reports: Renal Calculus, Suprapubic Catheter Placement Other Male Surgeries/Procedures: Mitrofanoff procedure, insertion point for the catheter at umbilicus November of 2012. Social & Family History - Family History Family Medical History: Noncontributory - Tobacco Use Smoking Status *Q: Never Smoker - Caffeine Use Caffeine Use: Reports: None - Recreational Drug Use Recreational Drug Use: No ED ROS GENERAL - Review of Systems Review Of Systems: See Below Constitutional: Reports: No Symptoms HEENT: Reports: No Symptoms Respiratory: Reports: No Symptoms Cardiovascular: Reports: No Symptoms Endocrine: Reports: No Symptoms GI/Abdominal: Reports: Abdominal Pain, Decreased Appetite Musculoskeletal: Reports: No Symptoms ED EXAM, GI/ABD - Physical Exam Exam: See Below Exam Limited By: No Limitations General Appearance: Alert, No Apparent Distress Ears: Normal External Exam Nose: Normal Inspection Head: Atraumatic, Normocephalic Neck: Normal Inspection Respiratory/Chest: No Respiratory Distress, Lungs Clear, Normal Breath Sounds Cardiovascular: Regular Rate, Rhythm, No Edema, No Murmur GI/Abdominal Exam: Soft, No Organomegaly, No Mass, Tender (Mild to moderate generalized tenderness. Ostomy in the umbilicus) Course - Vital Signs Last Recorded V/S: Last Vital Signs Temp 97.4 F 03/30/19 13:51 Pulse 119 H 03/30/19 13:51 Resp 19 03/30/19 13:51 BP 126/83 03/30/19 13:51 Pulse Ox 92 L 03/30/19 13:51 - Orders/Labs/Meds Orders: Active Orders 24 hr Category Date Time Status Peripheral IV Care [RC] . DIRECTED Care 03/30/19 14:14 Active CULTURE BLOOD [BC] Stat Lab 03/30/19 14:30 Received CULTURE BLOOD [BC] Stat Lab 03/30/19 14:43 Received CULTURE URINE [RM] Stat Lab 03/30/19 14:15 Received Sodium Chloride 0.9% [Saline Flush] Med 03/30/19 14:13 Active 10 ml FLUSH ASDIRECTED PRN Blood Culture x2 Reflex Set [OM.PC] Stat Oth 03/30/19 14:15 Ordered Peripheral IV Insertion Adult [OM.PC] Stat Oth 03/30/19 14:13 Ordered Medication Orders Sodium Chloride (Saline Flush) 10 ml FLUSH ASDIRECTED PRN PRN Reason: Keep Vein Open Last Admin: 03/30/19 14:35 Dose: 10 ml Labs: Laboratory Tests 03/30/19 03/30/19 03/30/19 Range/Units 14:30 14:30 14:43 WBC 13.48 H (4.23-9.07) K/mm3 RBC 5.00 (4.63-6.08) M/mm3 Hgb 15.4 D (13.7-17.5) gm/dl Hct 46.6 (40.1-51.0) % MCV 93.2 H (79.0-92.2) fl MCH 30.8 (25.7-32.2) pg MCHC 33.0 (32.2-35.5) g/dl RDW Std Deviation 46.8 H (35.1-43.9) fL Plt Count 379 H D (163-337) K/mm3 MPV 8.7 L (9.4-12.3) fl Neut % (Auto) 71.0 H (34.0-67.9) % Lymph % (Auto) 11.0 L (21.8-53.1) % Hinds % (Auto) 15.4 H (5.3-12.2) % Eos % (Auto) 1.4 (0.8-7.0) Baso % (Auto) 0.1 (0.1-1.2) % Neut # (Auto) 9.57 H (1.78-5.38) K/mm3 Lymph # (Auto) 1.48 (1.32-3.57) K/mm3 Hinds # (Auto) 2.07 H (0.30-0.82) K/mm3 Eos # (Auto) 0.19 (0.04-0.54) K/mm3 Baso # (Auto) 0.02 (0.01-0.08) K/mm3 Manual Slide Review Normal smear Sodium 144 (136-145) mEq/L Potassium 4.7 (3.5-5.1) mEq/L Chloride 104 (98-107) mEq/L Carbon Dioxide 29 (21-32) mEq/L Anion Gap 15.7 H (5-15) BUN 39 H D (7-18) mg/dL Creatinine 1.2 (0.7-1.3) mg/dL Est Cr Clr Drug Dosing TNP Estimated GFR (MDRD) > 60 (>60) mL/min BUN/Creatinine Ratio 32.5 H (14-18) Glucose 109 H (74-106) mg/dL Lactic Acid 1.7 (0.4-2.0) mmol/L Calcium 9.5 (8.5-10.1) mg/dL Total Bilirubin 0.3 (0.2-1.0) mg/dL AST 28 (15-37) U/L ALT 77 H (16-63) U/L Alkaline Phosphatase 105 (46-116) U/L Total Protein 7.3 (6.4-8.2) g/dl Albumin 3.2 L (3.4-5.0) g/dl Globulin 4.1 gm/dL Albumin/Globulin Ratio 0.8 L (1-2) Lipase 797 H (73-393) U/L Urine Color (Yellow) Urine Appearance (Clear) Urine pH (5.0-8.0) Ur Specific [place] (1.005-1.030) Urine Protein (Negative) Urine Glucose (UA) (Negative) Urine Ketones (Negative) Urine Occult Blood (Negative) Urine Nitrite (Negative) Urine Bilirubin (Negative) Urine Urobilinogen (0.2-1.0) Ur Leukocyte Esterase (Negative) Urine RBC (0-5) /hpf Urine WBC (0-5) /hpf Ur Squamous Epith Cells (0-5) /hpf Urine Bacteria (FEW) /hpf Urine Mucus (FEW) /hpf 03/30/19 Range/Units 14:50 WBC (4.23-9.07) K/mm3 RBC (4.63-6.08) M/mm3 Hgb (13.7-17.5) gm/dl Hct (40.1-51.0) % MCV (79.0-92.2) fl MCH (25.7-32.2) pg MCHC (32.2-35.5) g/dl RDW Std Deviation (35.1-43.9) fL Plt Count (163-337) K/mm3 MPV (9.4-12.3) fl Neut % (Auto) (34.0-67.9) % Lymph % (Auto) (21.8-53.1) % Hinds % (Auto) (5.3-12.2) % Eos % (Auto) (0.8-7.0) Baso % (Auto) (0.1-1.2) % Neut # (Auto) (1.78-5.38) K/mm3 Lymph # (Auto) (1.32-3.57) K/mm3 Hinds # (Auto) (0.30-0.82) K/mm3 Eos # (Auto) (0.04-0.54) K/mm3 Baso # (Auto) (0.01-0.08) K/mm3 Manual Slide Review Sodium (136-145) mEq/L Potassium (3.5-5.1) mEq/L Chloride (98-107) mEq/L Carbon Dioxide (21-32) mEq/L Anion Gap (5-15) BUN (7-18) mg/dL Creatinine (0.7-1.3) mg/dL Est Cr Clr Drug Dosing Estimated GFR (MDRD) (>60) mL/min BUN/Creatinine Ratio (14-18) Glucose (74-106) mg/dL Lactic Acid (0.4-2.0) mmol/L Calcium (8.5-10.1) mg/dL Total Bilirubin (0.2-1.0) mg/dL AST (15-37) U/L ALT (16-63) U/L Alkaline Phosphatase (46-116) U/L Total Protein (6.4-8.2) g/dl Albumin (3.4-5.0) g/dl Globulin gm/dL Albumin/Globulin Ratio (1-2) Lipase (73-393) U/L Urine Color Yellow (Yellow) Urine Appearance Cloudy H (Clear) Urine pH 7.0 (5.0-8.0) Ur Specific [place] 1.025 (1.005-1.030) Urine Protein 3+ H (Negative) Urine Glucose (UA) Negative (Negative) Urine Ketones Negative (Negative) Urine Occult Blood 2+ H (Negative) Urine Nitrite Negative (Negative) Urine Bilirubin Negative (Negative) Urine Urobilinogen 0.2 (0.2-1.0) Ur Leukocyte Esterase 2+ H (Negative) Urine RBC 10-20 H (0-5) /hpf Urine WBC >100 H (0-5) /hpf Ur Squamous Epith Cells 0-5 (0-5) /hpf Urine Bacteria Moderate H (FEW) /hpf Urine Mucus Not seen (FEW) /hpf Meds: Medications Generic Name Dose Route Start Last Admin Trade Name Freq PRN Reason Stop Dose Admin Sodium Chloride 10 ml 03/30/19 14:13 03/30/19 14:35 Saline Flush FLUSH 10 ml ASDIRECTED PRN Administration Keep Vein Open Discontinued Medications Generic Name Dose Route Start Last Admin Trade Name Freq PRN Reason Stop Dose Admin Hydromorphone HCl 0.5 mg 03/30/19 16:20 03/30/19 16:27 Dilaudid IVPUSH 03/30/19 16:21 0.5 mg ONETIME ONE Administration Sodium Chloride 1,000 mls @ 1,000 mls/hr 03/30/19 14:13 03/30/19 14:42 Normal Saline IV 03/30/19 15:12 1,000 mls/hr .BOLUS STA Administration Meropenem 1 gm/ Sodium 100 mls @ 200 mls/hr 03/30/19 15:28 03/30/19 16:04 Chloride IV 03/30/19 15:57 200 mls/hr ONETIME ONE Administration - Re-Assessments/Exams Free Text/Narrative Re-Assessment/Exam: 03/30/19 16:40 I ordered an IV NS, labs, blood cultures, cath UA and a CT of his abdomen and pelvis without contrast. His WBC is elevated at 13.48. His anion gap is elevated at 15.7. His lactic acid is normal at 1.7. His lipase is elevated at 797. His urine shows a UTI. I have ordered a urine culture and blood cultures. His last urine culture was growing out Enterobacter Cloacae. It was susceptible to the levaquin but it did not clear it up so I chose merapenum. His CT shows extensive artifact from hardware within the spine, pelvis as well as electrostimulating device within the left side of the pelvis. Dilated right ureter with no ureteral stone being definitely appreciated. There is a 4.6mm stone within the region of the prostatic urethra possibly due to ureteral stone that is passing. Please correlate with the patient's symptoms. Air within the bladder, please correlate if there has been recent instrumentation. Diffusely thickened wall within the bladder. Increased stool within the rectum as well as lesser areas of increased stool within other portions of the colon. I called Dr Cordova our hospitalist and he felt the patient may be better served in [place]. He is not sure if he would have done anything different and the patient has returned within 48 hours. I called [facility] in [place] and talked with Dr Graham the urologist. He only suggested to cath him and keep the bladder drained. I also talked to the hospitalist Dr Pham and he accepted the patient. Departure - Departure Time of Disposition: 16:50 Disposition: DC/Tfer to Acute Hospital 02 Condition: Fair Clinical Impression: Neurogenic bladder, UTI, Urinary tract infectious disease, Spastic quadriplegia - Discharge Information Referrals: Denver Diamond MD [Primary Care Provider] - Forms: ED Department Discharge - My Orders Last 24 Hours: My Active Orders 03/30/19 14:13 Sodium Chloride 0.9% [Saline Flush] 10 ml FLUSH ASDIRECTED PRN Peripheral IV Insertion Adult [OM.PC] Stat 03/30/19 14:14 Peripheral IV Care [RC] . DIRECTED 03/30/19 14:15 CULTURE URINE [RM] Stat Blood Culture x2 Reflex Set [OM.PC] Stat 03/30/19 14:30 CULTURE BLOOD [BC] Stat 03/30/19 14:43 CULTURE BLOOD [BC] Stat - Assessment/Plan Last 24 Hours: My Active Orders 03/30/19 14:13 Sodium Chloride 0.9% [Saline Flush] 10 ml FLUSH ASDIRECTED PRN Peripheral IV Insertion Adult [OM.PC] Stat 03/30/19 14:14 Peripheral IV Care [RC] . DIRECTED 03/30/19 14:15 CULTURE URINE [RM] Stat Blood Culture x2 Reflex Set [OM.PC] Stat 03/30/19 14:30 CULTURE BLOOD [BC] Stat 03/30/19 14:43 CULTURE BLOOD [BC] Stat
[2019-03-30] MEDS ORDERED: HYDROmorphone 0.5 MG/0.5 ML Syringe IVPUSH ONE (16:20)
== END 2019-03-30 17:27 ==
LOC: JD.ED 13:36
DX: N31.9 Neuromuscular dysfunction of bladder, unspecified (principal); N39.0 Urinary tract infection, site not specified; G82.50 Quadriplegia, unspecified; Z88.5 Allergy status to narcotic agent; Z88.2 Allergy status to sulfonamides
CPT/HCPCS: 36415; 51702; 74176; 80053; 81001; 83605; 83690; 85025; 87040; 87086; 96361; 96365; 96375; 99284; J1170; J2185; J7030; J7040

== ENCOUNTER 2019-04-19 11:58 | Observation (INO) | payer MEDICARE, MEDICAID ==
[2019-04-19] MEDS ORDERED: Sodium Chloride 0.9% 1,000 ML IV ONE (12:26)
--- NOTE | 2019-04-19 12:34 | EDM.PDOC ---
ED HPI GENERAL MEDICAL PROBLEM - General Chief Complaint: Abdominal Pain Stated Complaint: ABDOMINAL PAIN SENT BY HIS UROLOGIST Time Seen by Provider: 04/19/19 12:11 Source of Information: Reports: Patient, Other (ABLE caregiver) History Limitations: Reports: Physical Impairment (expressive aphasia) - History of Present Illness INITIAL COMMENTS - FREE TEXT/NARRATIVE: Mr. Rodrigues is a very pleasant 39-year-old man with a past medical history significant for cerebral palsy with intellectual disability, expressive aphasia , and spastic quadriplegia, for which he is wheelchair-bound. He has a history of neurogenic bladder, and is status post a Mitrofanoff procedure via his umbilicus. He also has a history of recurrent small bowel obstructions. He was seen in this ED on 03/30/2019, and found to have pyelonephritis. He was transferred to , where he remained until 04/15/2019. He was discharged home with a prescription for Levaquin, which he finished yesterday. The patient now returns to the ED after complaining of generalized abdominal pain this morning. He is unable to characterize the pain, but the patient's caregiver believes that it is similar to abdominal pain that he suffered a few weeks ago, and on 03/30/2019. The patient has not had a recent fever, nausea, vomiting, or watery diarrhea. His urine output is less then his usual, although is still reasonably good. The patient's PCP is Dr. Denver Diamond. His Urologist is Dr. Bettencourt. His Psychiatrist is Dr. Tricia Ozuna. Bilateral Abdomen Pain Score (Numeric/FACES): 8 - Related Data Allergies Allergy/AdvReac Type Severity Reaction Status Date / Time Sulfa (Sulfonamide Allergy Other Verified 04/19/19 12:15 Antibiotics) hydrocodone AdvReac Vomiting Verified 04/19/19 12:15 Home Meds: Home Meds Acetaminophen [Tylenol] 325 - 650 mg PO Q4H PRN 12/12/18 [History] Cholecalciferol (Vitamin D3) [Vitamin D3] 1,000 units PO DAILY 12/12/18 [History ] Cranberry Fruit Extract [Cranberry] 425 mg PO BID 12/12/18 [History] Hydrocortisone [Proctozone-Hc] 1 applic RECTAL BID PRN 12/12/18 [History] Ketoconazole [Nizoral 2% Shampoo] 1 applic TOP ASDIRECTED 12/12/18 [History] Methenamine Hippurate 1 gm PO BID 12/12/18 [History] Multivitamins [Tab-A-Berta] 1 tab PO DAILY 12/12/18 [History] OXcarbazepine [Oxcarbazepine] 150 mg PO BID 12/12/18 [History] OXcarbazepine [Oxcarbazepine] 300 mg PO BID 12/12/18 [History] Ondansetron [Zofran] 4 mg PO Q4H PRN 12/12/18 [History] Polyethylene Glycol [Polyox Wsr-301] 17 gm PO DAILY 12/12/18 [History] Zinc Oxide 1 applic TOP BID 12/12/18 [History] Carboxymethylcellulose Sodium [Lubricant Eye Drop] 2 drop EYERT BID PRN [History] guaiFENesin/D-Methorphan Hb/Pe [Gnp Tussin Cf Max M-S Cold Liq] 10 ml PO Q4HR PRN 12/13/18 [History] Aquaphilac Ointment 1 applic TOP ASDIRECTED PRN 03/22/19 [History] Ascorbate Calcium [Vitamin C] 500 mg PO BID 03/22/19 [History] Baclofen 10 mg PO TID PRN 03/22/19 [History] Cepamax D Lip 1 applic TOP ASDIRECTED 03/22/19 [History] Lactobacillus Acidophilus [Acidophilus] 1 cap PO BID 03/22/19 [History] Mylanta 2 - 4 tsp PO Q2H PRN 03/22/19 [History] Promethazine HCl [Phenergan] 25 mg TOP Q6H PRN 03/22/19 [History] Sennosides [Senna] 17.2 mg PO BEDTIME 03/22/19 [History] Amoxicillin 2,000 mg PO ASDIRECTED 04/19/19 [History] Mirabegron [Myrbetriq] 50 mg PO DAILY 04/19/19 [History] Past Medical History Gastrointestinal History: Reports: Bowel Obstruction (recurrent) Genitourinary History: Reports: Neurogenic Bladder, Renal Calculus Neurological History: Reports: Cerebral Palsy (Intellectual disability), Seizure , Other (See Below) (Spastic quadriplegia, wheelchair bound) Dermatologic History: Reports: Decubitus Ulcer (sacral) - Past Surgical History GI Surgical History: Reports: Other (See Below) (Baclofen pump LLQ) Male Surgical History: Reports: Other (See Below) (Mitrofanoff ( appendicovesicostomy) via umbilicus Nov 2012) Social & Family History - Family History Family Medical History: Noncontributory - Tobacco Use Smoking Status *Q: Never Smoker Second Hand Smoke Exposure: No - Caffeine Use Caffeine Use: Reports: None - Alcohol Use Alcohol Use History: No - Recreational Drug Use Recreational Drug Use: No - Living Situation & Occupation Living situation: Reports: Single, Other (ABLE) Occupation: Disabled ED ROS GENERAL - Review of Systems Review Of Systems: ROS reveals no pertinent complaints other than HPI. GI/Abdominal: Reports: Constipation (chronic) ED EXAM, GI/ABD - Physical Exam Exam: See Below Exam Limited By: Physical Impairment (Spastic paralysis) General Appearance: Alert, No Apparent Distress, Thin Eyes: Bilateral: Normal Appearance, EOMI Ears: Normal External Exam, Hearing Grossly Normal Nose: Normal Inspection Throat/Mouth: Normal Inspection, Normal Lips, Normal Voice, No Airway Compromise Head: Atraumatic, Normocephalic Neck: Normal Inspection, Full Range of Motion Respiratory/Chest: No Respiratory Distress, Lungs Clear, Normal Breath Sounds, No Accessory Muscle Use Cardiovascular: Normal Peripheral Pulses, Regular Rate, Rhythm, No Edema, No Gallop, No JVD, No Murmur, No Rub GI/Abdominal Exam: Normal Bowel Sounds, Soft, No Organomegaly, No Distention, No Abnormal Bruit, No Mass, Tender (Uncertain, but likely generalized, non-focal ), Other (Mitrofanoff to the umbilicus with a urostomy bag) (Male) Exam: Deferred Rectal (Males) Exam: Deferred Back Exam: Normal Inspection, Full Range of Motion, NT Extremities: Normal Range of Motion, No Pedal Edema, Normal Capillary Refill, Other (Flexed upper and lower extremities) Neurological: Alert, Other (Spastic quadriplegia) Skin Exam: Warm, Dry, Intact, Normal Color, No Rash Course - Vital Signs Last Recorded V/S: Last Vital Signs Temp 36.4 C 04/19/19 12:11 Pulse 107 H 04/19/19 12:11 Resp 19 04/19/19 12:11 BP 139/82 04/19/19 12:11 Pulse Ox 98 04/19/19 12:11 - Orders/Labs/Meds Orders: Active Orders 24 hr Category Date Time Status CULTURE BLOOD [BC] Stat Lab 04/19/19 12:43 Received CULTURE BLOOD [BC] Stat Lab 04/19/19 12:49 Received CULTURE URINE [RM] Stat Lab 04/19/19 13:44 Received Blood Culture x2 Reflex Set [OM.PC] Stat Oth 04/19/19 12:27 Ordered Labs: Laboratory Tests 04/19/19 04/19/19 04/19/19 Range/Units 12:43 12:43 12:43 WBC 15.05 H (4.23-9.07) K/mm3 RBC 4.41 L (4.63-6.08) M/mm3 Hgb 13.5 L D (13.7-17.5) gm/dl Hct 40.7 (40.1-51.0) % MCV 92.3 H (79.0-92.2) fl MCH 30.6 (25.7-32.2) pg MCHC 33.2 (32.2-35.5) g/dl RDW Std Deviation 46.8 H (35.1-43.9) fL Plt Count 226 D (163-337) K/mm3 MPV 9.2 L (9.4-12.3) fl Neutrophils % (Manual) 91 H (40-60) % Band Neutrophils % 0 (0-10) % Lymphocytes % (Manual) 7 L (20-40) % Atypical Lymphs % 0 % Monocytes % (Manual) 1 L (2-10) % Eosinophils % (Manual) 1 (0.8-7.0) % Basophils % (Manual) 0 L (0.2-1.2) Platelet Estimate Adequate RBC Morph Comment Normal Sodium 140 (136-145) mEq/L Potassium 4.2 (3.5-5.1) mEq/L Chloride 105 (98-107) mEq/L Carbon Dioxide 30 (21-32) mEq/L Anion Gap 9.2 (5-15) BUN 24 H (7-18) mg/dL Creatinine 0.7 (0.7-1.3) mg/dL Est Cr Clr Drug Dosing TNP Estimated GFR (MDRD) > 60 (>60) mL/min BUN/Creatinine Ratio 34.3 H (14-18) Glucose 101 (74-106) mg/dL Lactic Acid 0.9 (0.4-2.0) mmol/L Calcium 9.4 (8.5-10.1) mg/dL Magnesium 1.8 (1.8-2.4) mg/dl Total Bilirubin 0.7 (0.2-1.0) mg/dL AST 10 L (15-37) U/L ALT 24 (16-63) U/L Alkaline Phosphatase 107 (46-116) U/L Total Protein 6.8 (6.4-8.2) g/dl Albumin 3.2 L (3.4-5.0) g/dl Globulin 3.6 gm/dL Albumin/Globulin Ratio 0.9 L (1-2) Lipase 95 (73-393) U/L Meds: Medications Discontinued Medications Generic Name Dose Route Start Last Admin Trade Name Freq PRN Reason Stop Dose Admin Sodium Chloride 1,000 mls @ 999 mls/hr 04/19/19 12:26 04/19/19 12:41 Normal Saline IV 04/19/19 13:26 999 mls/hr ONETIME ONE Administration - Re-Assessments/Exams Free Text/Narrative Re-Assessment/Exam: 04/19/19 12:28 On examination, the patient's abdomen is soft with normoactive bowel sounds, however, he is mildly tachycardic, and his urine output, while still good, is less than his usual. I have ordered a workup that includes blood work, 2 sets of blood cultures, and a urinalysis, to be collected by catheter, however, I would like to discuss his case with his Urologist before ordering a CT scan. I have put in a call for Dr. Bettencourt or his cover. 04/19/19 12:[address] Bettencourt at 12:30. He stated that a prior CT scan demonstrated hydronephrosis, and they were planning to perform urodynamics. He feels that if the patient's WBC count is not elevated, and the patient's creatinine is normal, a CT scan should not be necessary, however, if the patient 's WBC count is elevated, or if his creatinine is elevated, a CT scan may in fact be indicated. He suggested that if we have difficulty catheterizing the patient, that the catheter could be left in. He wanted to make sure that we sent a urine culture, noting that with the Mitrofanoff procedure, all urinalyses will be abnormal, and the only way to determine if the patient has a UTI is based on urine culture results. 04/19/19 13:23 I have canceled the urinalysis, but ordered a urine culture. 04/19/19 14:09 The patient's CBC is remarkable for a WBC count elevated at 15.05, but with 0% bandemia and 91% neutrophilia. His hemoglobin is slightly depressed at 13.5, with a normal hematocrit. The remainder of his CBC is unremarkable. His CMP is remarkable for BUN mildly elevated at 24, with a normal creatinine. His bicarbonate is within normal limits. His albumin is mildly depressed at 3.2. The remainder of his CMP is unremarkable. His magnesium level is within normal limits at 1.8. His lactic acid level is within normal limits at 0.9. His lipase level is within normal limits at 95. While the patient's WBC count is modestly elevated, there is no left shift, and the patient's renal function is within normal limits. In accordance with Dr. Bettencourt's recommendations, therefore I am not going to order a CT of his abdomen and pelvis. Sandra REDMAN was able to catheterize the patient's Mitrofanoff stoma without difficulty. A urine culture has been sent. 04/19/19 14:15 Test results discussed with the patient and her caregiver. I am recommending placement into observation, to monitor his abdominal pain. The patient's caregiver is agreeable. 04/19/19 14:[address] Toscano at 14:16. She agreed to place the patient into observation. She will come by the ED to evaluate him. Departure - Departure Time of Disposition: 14:19 Disposition: Refer to Observation Condition: Good Clinical Impression: Abdominal pain of unknown etiology, Leukocytosis - Discharge Information *PRESCRIPTION DRUG MONITORING PROGRAM REVIEWED*: Not Applicable *COPY OF PRESCRIPTION DRUG MONITORING REPORT IN PATIENT NOLVIA: Not Applicable Referrals: Denver Diamond MD [Primary Care Provider] - Saud Bettencourt MD [Consulting Physician] - Tricia Ozuna MD [Resident] - Forms: ED Department Discharge - My Orders Last 24 Hours: My Active Orders 04/19/19 12:27 Blood Culture x2 Reflex Set [OM.PC] Stat 04/19/19 12:43 CULTURE BLOOD [BC] Stat 04/19/19 12:49 CULTURE BLOOD [BC] Stat 04/19/19 13:44 CULTURE URINE [RM] Stat - Assessment/Plan Last 24 Hours: My Active Orders 04/19/19 12:27 Blood Culture x2 Reflex Set [OM.PC] Stat 04/19/19 12:43 CULTURE BLOOD [BC] Stat 04/19/19 12:49 CULTURE BLOOD [BC] Stat 04/19/19 13:44 CULTURE URINE [RM] Stat
[2019-04-19] MEDS ORDERED: D METHORPHAN HB PO PRN (15:16)
[2019-04-19] MEDS ORDERED: Baclofen 10 MG Tab PO PRN (15:16)
[2019-04-19] MEDS ORDERED: [UNRECOGNIZED DRUG - OTHER] TOP PRN (15:16)
[2019-04-19] MEDS ORDERED: GUAIFENESIN PO PRN (15:16)
[2019-04-19] MEDS ORDERED: Carboxymethylcellulose Sodium 1% Ophth Gel 15 ML Bottle EYERT PRN (15:16)
[2019-04-19] MEDS ORDERED: HYDROCORTISONE RECTAL PRN (15:16)
[2019-04-19] MEDS ORDERED: [UNRECOGNIZED DRUG - OTHER] PO PRN (15:16)
[2019-04-19] MEDS ORDERED: Ondansetron 4 MG Tab.DIS PO PRN (15:16)
[2019-04-19] MEDS ORDERED: PROMETHAZINE HCL 25 MG TOP PRN (15:16)
--- NOTE | 2019-04-19 15:19 | PCM.HP.2 ---
H&P History of Present Illness - General Date of Service: 04/19/19 Admit Problem/Dx: Admission Diagnosis/Problem Admission Diagnosis/Problem Abdominal pain - History of Present Illness Initial Comments - Free Text/Narative: history obtained from ED MD, caregiver and patient (one worded answers) This is a 39-year-old man with a past medical history of cerebral palsy, neurogenic bladder, recurrent small bowel obstructions who was brought to the ED by nurse navigator for acutely worsening abdominal pain today. Caregiver endorses this is similar to recent abdominal pain episode where he was found to have a UTI and was admitted for 2 weeks, discharged 4 days ago and completed Levaquin yesterday Associated with chills No recent fever, nausea, vomiting, diarrhea, indigestion. ED MD discussed case with patient's urologist: - Previous CT with hydronephrosis - Pending urodynamic studies - Recommendation: If WBC or creatinine worsen--> CT If catheterizing urine is hard the catheter can be left in Culture urine Bilateral Abdomen Pain Score (Numeric/FACES): 8 - Related Data Allergies/Adverse Reactions: Allergies Allergy/AdvReac Type Severity Reaction Status Date / Time Sulfa (Sulfonamide Allergy Other Verified 04/19/19 12:15 Antibiotics) hydrocodone AdvReac Vomiting Verified 04/19/19 12:15 Home Medications: Home Meds Acetaminophen [Tylenol] 325 - 650 mg PO Q4H PRN 12/12/18 [History] Cholecalciferol (Vitamin D3) [Vitamin D3] 1,000 units PO DAILY 12/12/18 [History ] Cranberry Fruit Extract [Cranberry] 425 mg PO BID 12/12/18 [History] Hydrocortisone [Proctozone-Hc] 1 applic RECTAL BID PRN 12/12/18 [History] Ketoconazole [Nizoral 2% Shampoo] 1 applic TOP ASDIRECTED 12/12/18 [History] Methenamine Hippurate 1 gm PO BID 12/12/18 [History] Multivitamins [Tab-A-Berta] 1 tab PO DAILY 12/12/18 [History] OXcarbazepine [Oxcarbazepine] 150 mg PO BID 12/12/18 [History] OXcarbazepine [Oxcarbazepine] 300 mg PO BID 12/12/18 [History] Ondansetron [Zofran] 4 mg PO Q4H PRN 12/12/18 [History] Polyethylene Glycol [Polyox Wsr-301] 17 gm PO DAILY 12/12/18 [History] Zinc Oxide 1 applic TOP BID 12/12/18 [History] Carboxymethylcellulose Sodium [Lubricant Eye Drop] 2 drop EYERT BID PRN [History] guaiFENesin/D-Methorphan Hb/Pe [Gnp Tussin Cf Max M-S Cold Liq] 10 ml PO Q4HR PRN 12/13/18 [History] Aquaphilac Ointment 1 applic TOP ASDIRECTED PRN 03/22/19 [History] Ascorbate Calcium [Vitamin C] 500 mg PO BID 03/22/19 [History] Baclofen 10 mg PO TID PRN 03/22/19 [History] Cepamax D Lip 1 applic TOP ASDIRECTED 03/22/19 [History] Lactobacillus Acidophilus [Acidophilus] 1 cap PO BID 03/22/19 [History] Mylanta 2 - 4 tsp PO Q2H PRN 03/22/19 [History] Promethazine HCl [Phenergan] 25 mg TOP Q6H PRN 03/22/19 [History] Sennosides [Senna] 17.2 mg PO BEDTIME 03/22/19 [History] Amoxicillin 2,000 mg PO ASDIRECTED 04/19/19 [History] Mirabegron [Myrbetriq] 50 mg PO DAILY 04/19/19 [History] Past Medical History Respiratory History: Reports: Pneumonia, Recurrent Gastrointestinal History: Reports: Bowel Obstruction (recurrent) Genitourinary History: Reports: Neurogenic Bladder, Renal Calculus Other Genitourinary History: chronic cath Other Musculoskeletal History: Spastic Quadraplegia, cerebral palsy, botox injections at extremities. Neurological History: Reports: Cerebral Palsy (Intellectual disability), Seizure , Other (See Below) (Spastic quadriplegia, wheelchair bound) Other Neuro History: Seizure disorder Dermatologic History: Reports: Decubitus Ulcer (sacral) Other Dermatologic History: Scrotom sore healed and coccyx bed sore - Infectious Disease History Infectious Disease History: Reports: None - Past Surgical History GI Surgical History: Reports: Other (See Below) (Baclofen pump LLQ) Male Surgical History: Reports: Other (See Below) (Mitrofanoff ( appendicovesicostomy) via umbilicus Nov 2012) Social & Family History - Family History Family Medical History: Noncontributory - Tobacco Use Smoking Status *Q: Never Smoker Second Hand Smoke Exposure: No - Caffeine Use Caffeine Use: Reports: None - Recreational Drug Use Recreational Drug Use: No - Living Situation & Occupation Living situation: Reports: Single, Other (ABLE) Occupation: Disabled H&P Review of Systems - Review of Systems: Review Of Systems: Unable To Obtain Exam - Exam Exam: See Below - Vital Signs Vital Signs: Last Vital Signs Temp 36.4 C 04/19/19 12:11 Pulse 107 H 04/19/19 12:11 Resp 19 04/19/19 12:11 BP 139/82 04/19/19 12:11 Pulse Ox 98 04/19/19 12:11 Weight: 36.287 kg - Exam General: Alert, Cooperative, Moderate Distress HEENT: Conjunctiva Clear, Other (oral mucosa is dry) Neck: No: Lymphadenopathy, Carotid Bruit Lungs: Clear to Auscultation, Normal Respiratory Effort, Decreased Breath Sounds. No: Crackles, Rales, Rhonchi, Wheezing Cardiovascular: Regular Rhythm, Tachycardia. No: Rubs, Gallop/S3, Gallop/S4 GI/Abdominal Exam: Distended, Tender (generalized tenderness to ), Other ( Baclofen pump on LLQ, ostomy bag around umbilicus drainingclear raman colored urine). No: Guarding, Rigid Rectal (Males) Exam: Other (stage 4 pressure ulcer on sacral prominence 1x1cm with purulent drainage and foul smell with surrounding erythema) Extremities: Limited Range of Motion, Other (all 4 extremities are contracted) Skin: Warm - Patient Data Lab Results Last 24 hrs: Laboratory Results - last 24 hr 04/19/19 04/19/19 04/19/19 Range/Units 12:43 12:43 12:43 WBC 15.05 H (4.23-9.07) K/mm3 RBC 4.41 L (4.63-6.08) M/mm3 Hgb 13.5 L D (13.7-17.5) gm/dl Hct 40.7 (40.1-51.0) % MCV 92.3 H (79.0-92.2) fl MCH 30.6 (25.7-32.2) pg MCHC 33.2 (32.2-35.5) g/dl RDW Std Deviation 46.8 H (35.1-43.9) fL Plt Count 226 D (163-337) K/mm3 MPV 9.2 L (9.4-12.3) fl Neutrophils % (Manual) 91 H (40-60) % Band Neutrophils % 0 (0-10) % Lymphocytes % (Manual) 7 L (20-40) % Atypical Lymphs % 0 % Monocytes % (Manual) 1 L (2-10) % Eosinophils % (Manual) 1 (0.8-7.0) % Basophils % (Manual) 0 L (0.2-1.2) Platelet Estimate Adequate RBC Morph Comment Normal Sodium 140 (136-145) mEq/L Potassium 4.2 (3.5-5.1) mEq/L Chloride 105 (98-107) mEq/L Carbon Dioxide 30 (21-32) mEq/L Anion Gap 9.2 (5-15) BUN 24 H (7-18) mg/dL Creatinine 0.7 (0.7-1.3) mg/dL Est Cr Clr Drug Dosing TNP Estimated GFR (MDRD) > 60 (>60) mL/min BUN/Creatinine Ratio 34.3 H (14-18) Glucose 101 (74-106) mg/dL Lactic Acid 0.9 (0.4-2.0) mmol/L Calcium 9.4 (8.5-10.1) mg/dL Magnesium 1.8 (1.8-2.4) mg/dl Total Bilirubin 0.7 (0.2-1.0) mg/dL AST 10 L (15-37) U/L ALT 24 (16-63) U/L Alkaline Phosphatase 107 (46-116) U/L Total Protein 6.8 (6.4-8.2) g/dl Albumin 3.2 L (3.4-5.0) g/dl Globulin 3.6 gm/dL Albumin/Globulin Ratio 0.9 L (1-2) Lipase 95 (73-393) U/L Result Diagrams: 04/19/19 12:43 04/19/19 12:43 - Problem List (1) Abdominal pain of unknown etiology SNOMED Code(s): 819289175 ICD Code: R10.9 - UNSPECIFIED ABDOMINAL PAIN Status: Acute Current Visit : Yes (2) Recurrent urinary tract infection SNOMED Code(s): 176475895 ICD Code: N39.0 - URINARY TRACT INFECTION, SITE NOT SPECIFIED Status: Acute Current Visit: Yes (3) Leukocytosis, unspecified SNOMED Code(s): 555988025, 846345052 ICD Code: D72.829 - ELEVATED WHITE BLOOD CELL COUNT, UNSPECIFIED Status: Acute Current Visit: Yes (4) Joint contracture SNOMED Code(s): 3218825 ICD Code: M24.50 - CONTRACTURE, UNSPECIFIED JOINT Status: Acute Current Visit: Yes (5) Presence of implanted infusion pump SNOMED Code(s): 266019931, 468752631 ICD Code: Z95.828 - PRESENCE OF OTHER VASCULAR IMPLANTS AND GRAFTS Status: Acute Current Visit: Yes (6) Cerebral palsy SNOMED Code(s): 836344939 ICD Code: G80.9 - CEREBRAL PALSY, UNSPECIFIED Status: Chronic Current Visit: No Qualifiers: Cerebral palsy type: spastic quadriplegic Qualified Code(s): G80.0 - Spastic quadriplegic cerebral palsy (7) History of seizures SNOMED Code(s): 333390023 ICD Code: Z87.898 - PERSONAL HISTORY OF OTHER SPECIFIED CONDITIONS Status: Chronic Priority: Medium Current Visit: No (8) Neurogenic bladder SNOMED Code(s): 179854707 ICD Code: N31.9 - NEUROMUSCULAR DYSFUNCTION OF BLADDER, UNSPECIFIED Status : Chronic Priority: Medium Current Visit: No (9) Presence of suprapubic catheter SNOMED Code(s): 424247219, 173429387 ICD Code: Z93.59 - OTHER CYSTOSTOMY STATUS Status: Chronic Priority: Medium Current Visit: No (10) Spastic quadriplegia SNOMED Code(s): 978436508 ICD Code: G82.50 - QUADRIPLEGIA, UNSPECIFIED Status: Chronic Priority: Medium Current Visit: No Problem List Initiated/Reviewed/Updated: Yes Assessment/Plan Comment:: Acute onset abdominal pain, unknown etiology Concern for new UTI or urinary issue--> monitor --> if worsening--> CT abdomen will be performed No signs of acute abdomen at this point PLAN - Culture urine - Morphine for pain - Monitor for BMs, continue home bowel regimen - Will start famotidine Stage 4 decubitus sacral ulcer with signs of infection PLAN - Wound culture performed by dc - Start vancomycin and Zosyn - Procalcitonin ordered - Wound care by nursing staff - Scheduled bed rotation by nursing staff - Trend temperature - Panculture if febrile Seizure disorder PLAN - Continue home oxcarbazepine Cerebral palsy with spastic quadriplegia PLAN - Continue chronic management Neurogenic bladder s/p Mitrofanoff stoma PLAN - Straight cath by nursing staff every 4 hours - If problems reinserting catheter, leave catheter in - Care of ostomy by nursing staff PROPHYLAXIS DVT: Lovenox GI: Famotidine CODE STATUS: FULL CODE DISPOSITION: Patient will be admitted under observation to medical floor for monitorization of his abdominal pain and f/u on urine culture results.
[2019-04-19] MEDS ORDERED: KETOCONAZOLE TOP SCH (15:30)
[2019-04-19] MEDS ORDERED: [UNRECOGNIZED DRUG - OTHER] TOP SCH (15:30)
[2019-04-19] MEDS ORDERED: Piperacillin/Tazobactam 4.5 GM in Sodium Chloride 0.9% 100 ML IV ONE (15:45)
[2019-04-19] MEDS ORDERED: Piperacillin/Tazobactam 4.5 GM in Sodium Chloride 0.9% 100 ML IV SCH (15:45)
[2019-04-19] MEDS: Lactated Ringers 1,000 ML IV SCH ×2 (16:07→20:31)
[2019-04-19] MEDS: Famotidine 20 MG/2 ML SDV IVPUSH SCH (18:03)
[2019-04-19] MEDS: CRANBERRY FRUIT EXTRACT 425 MG PO SCH (20:42)
[2019-04-19] MEDS: SENNOSIDES 8.6 MG PO SCH (20:43)
[2019-04-19] MEDS: OXCARBAZEPINE 150 MG PO SCH (20:43)
[2019-04-19] MEDS: FLORAJEN PO SCH (20:43)
[2019-04-19] MEDS: METHENAMINE HIPPURATE 1 GM PO SCH (20:43)
[2019-04-19] MEDS: ASCORBIC ACID 500 MG PO SCH (20:44)
[2019-04-19] MEDS: OXCARBAZEPINE 300 MG PO SCH (20:44)
[2019-04-19] MEDS: Morphine 2 MG/ML Syringe IVPUSH PRN (20:52)
[2019-04-19] MEDS ORDERED: CRANBERRY FRUIT EXTRACT 425 MG PO SCH (21:00)
[2019-04-19] MEDS ORDERED: OXcarbazepine 300 MG Tab PO SCH (21:00)
[2019-04-19] MEDS ORDERED: OXcarbazepine 150 MG Tab PO SCH (21:00)
[2019-04-19] MEDS ORDERED: Sennosides 8.6 MG Tab PO SCH (21:00)
[2019-04-19] MEDS ORDERED: METHENAMINE HIPPURATE 1 GM PO SCH (21:00)
[2019-04-19] MEDS ORDERED: LACTOBACILLUS ACIDOPHILUS PO SCH (21:00)
[2019-04-20] MEDS: Piperacillin/Tazobactam 4.5 GM in Sodium Chloride 0.9% 100 ML IV SCH ×3 (00:11→16:28)
[2019-04-20] MEDS: Lactated Ringers 1,000 ML IV SCH ×3 (00:21→22:36)
[2019-04-20] MEDS: Morphine 2 MG/ML Syringe IVPUSH PRN ×2 (06:33→10:49)
--- NOTE | 2019-04-20 08:41 | PCM.PN ---
- Patient Data Vitals - Most Recent: Last Vital Signs Temp 36.8 C 04/20/19 06:37 Pulse 94 04/20/19 06:37 Resp 18 04/20/19 06:37 BP 99/58 L 04/20/19 06:37 Pulse Ox 97 04/20/19 06:37 Weight - Most Recent: 45.994 kg I&O - Last 24 Hours: Intake & Output 04/19/19 04/20/19 04/20/19 22:59 06:59 14:59 Intake Total 360 2994 Output Total 150 600 Balance 210 2394 Lab Results Last 24 Hours: Laboratory Results - last 24 hr 04/19/19 04/19/19 04/19/19 Range/Units 12:43 12:43 12:43 WBC 15.05 H (4.23-9.07) K/mm3 RBC 4.41 L (4.63-6.08) M/mm3 Hgb 13.5 L D (13.7-17.5) gm/dl Hct 40.7 (40.1-51.0) % MCV 92.3 H (79.0-92.2) fl MCH 30.6 (25.7-32.2) pg MCHC 33.2 (32.2-35.5) g/dl RDW Std Deviation 46.8 H (35.1-43.9) fL Plt Count 226 D (163-337) K/mm3 MPV 9.2 L (9.4-12.3) fl Neut % (Auto) (34.0-67.9) % Lymph % (Auto) (21.8-53.1) % Tift % (Auto) (5.3-12.2) % Eos % (Auto) (0.8-7.0) Baso % (Auto) (0.1-1.2) % Neut # (Auto) (1.78-5.38) K/mm3 Lymph # (Auto) (1.32-3.57) K/mm3 Tift # (Auto) (0.30-0.82) K/mm3 Eos # (Auto) (0.04-0.54) K/mm3 Baso # (Auto) (0.01-0.08) K/mm3 Neutrophils % (Manual) 91 H (40-60) % Band Neutrophils % 0 (0-10) % Lymphocytes % (Manual) 7 L (20-40) % Atypical Lymphs % 0 % Monocytes % (Manual) 1 L (2-10) % Eosinophils % (Manual) 1 (0.8-7.0) % Basophils % (Manual) 0 L (0.2-1.2) Platelet Estimate Adequate RBC Morph Comment Normal Sodium 140 (136-145) mEq/L Potassium 4.2 (3.5-5.1) mEq/L Chloride 105 (98-107) mEq/L Carbon Dioxide 30 (21-32) mEq/L Anion Gap 9.2 (5-15) BUN 24 H (7-18) mg/dL Creatinine 0.7 (0.7-1.3) mg/dL Est Cr Clr Drug Dosing TNP Estimated GFR (MDRD) > 60 (>60) mL/min BUN/Creatinine Ratio 34.3 H (14-18) Glucose 101 (74-106) mg/dL Lactic Acid 0.9 (0.4-2.0) mmol/L Calcium 9.4 (8.5-10.1) mg/dL Phosphorus (2.6-4.7) mg/dL Magnesium 1.8 (1.8-2.4) mg/dl Total Bilirubin 0.7 (0.2-1.0) mg/dL AST 10 L (15-37) U/L ALT 24 (16-63) U/L Alkaline Phosphatase 107 (46-116) U/L Total Protein 6.8 (6.4-8.2) g/dl Albumin 3.2 L (3.4-5.0) g/dl Globulin 3.6 gm/dL Albumin/Globulin Ratio 0.9 L (1-2) Lipase 95 (73-393) U/L MRSA (PCR) 04/19/19 04/20/19 04/20/19 Range/Units 16:00 06:35 06:35 WBC 6.63 (4.23-9.07) K/mm3 RBC 3.39 L (4.63-6.08) M/mm3 Hgb 10.2 L D (13.7-17.5) gm/dl Hct 31.9 L (40.1-51.0) % MCV 94.1 H (79.0-92.2) fl MCH 30.1 (25.7-32.2) pg MCHC 32.0 L (32.2-35.5) g/dl RDW Std Deviation 46.4 H (35.1-43.9) fL Plt Count 185 (163-337) K/mm3 MPV 9.0 L (9.4-12.3) fl Neut % (Auto) 59.6 (34.0-67.9) % Lymph % (Auto) 26.2 (21.8-53.1) % Tift % (Auto) 7.2 (5.3-12.2) % Eos % (Auto) 6.6 (0.8-7.0) Baso % (Auto) 0.2 (0.1-1.2) % Neut # (Auto) 3.95 (1.78-5.38) K/mm3 Lymph # (Auto) 1.74 (1.32-3.57) K/mm3 Tift # (Auto) 0.48 (0.30-0.82) K/mm3 Eos # (Auto) 0.44 (0.04-0.54) K/mm3 Baso # (Auto) 0.01 (0.01-0.08) K/mm3 Neutrophils % (Manual) (40-60) % Band Neutrophils % (0-10) % Lymphocytes % (Manual) (20-40) % Atypical Lymphs % % Monocytes % (Manual) (2-10) % Eosinophils % (Manual) (0.8-7.0) % Basophils % (Manual) (0.2-1.2) Platelet Estimate RBC Morph Comment Sodium 143 (136-145) mEq/L Potassium 3.6 (3.5-5.1) mEq/L Chloride 109 H (98-107) mEq/L Carbon Dioxide 26 (21-32) mEq/L Anion Gap 11.6 (5-15) BUN 20 H (7-18) mg/dL Creatinine 0.6 L (0.7-1.3) mg/dL Est Cr Clr Drug Dosing 107.53 Estimated GFR (MDRD) > 60 (>60) mL/min BUN/Creatinine Ratio 33.3 H (14-18) Glucose 86 (74-106) mg/dL Lactic Acid (0.4-2.0) mmol/L Calcium 8.6 (8.5-10.1) mg/dL Phosphorus 3.9 (2.6-4.7) mg/dL Magnesium 1.6 L (1.8-2.4) mg/dl Total Bilirubin (0.2-1.0) mg/dL AST (15-37) U/L ALT (16-63) U/L Alkaline Phosphatase (46-116) U/L Total Protein (6.4-8.2) g/dl Albumin (3.4-5.0) g/dl Globulin gm/dL Albumin/Globulin Ratio (1-2) Lipase (73-393) U/L MRSA (PCR) Negative Med Orders - Current: Current Medications Ascorbic Acid (Vitamin C) 500 mg PO BID [facility] Last Admin: 04/19/19 20:44 Dose: 500 mg Baclofen (Lioresal) 10 mg PO TID PRN PRN Reason: Muscle Spasm Cholecalciferol (Vitamin D3) mcg PO DAILY [facility] Enoxaparin Sodium (Lovenox) 40 mg SUBCUT DAILY [facility] Famotidine (Pepcid) 20 mg IVPUSH DAILY [facility] Last Admin: 04/19/19 18:03 Dose: 20 mg Piperacillin Sod/Tazobactam (Sod 4.5 gm/ Sodium Chloride) 100 mls @ 25 mls/hr IV Q8H [facility] Last Admin: 04/20/19 00:11 Dose: 25 mls/hr Vancomycin HCl 500 mg/ Sodium (Chloride) 250 mls @ 166.667 mls/hr IV Q8H [facility] Last Admin: 04/20/19 00:10 Dose: 166.667 mls/hr Lactated Ringer's (Ringers, Lactated) 1,000 mls @ 100 mls/hr IV ASDIRECTED [facility] Last Admin: 04/20/19 00:21 Dose: 100 mls/hr Morphine Sulfate (Morphine) 1 mg IVPUSH Q4H PRN PRN Reason: Pain Last Admin: 04/20/19 06:33 Dose: 1 mg Multi-Ingred Cream/Lotion/Oil/Oint (Zinc Oxide) gm TOP BID [facility] Non-Formulary Medication (Aquaphilac Ointment) 1 applic TOP ASDIRECTED PRN PRN Reason: dry skin Non-Formulary Medication (Carboxymethylcellulose Sodium) 2 drop EYERT BID PRN PRN Reason: Dry Eyes Non-Formulary Medication (Cepamax D Lip) 1 applic TOP ASDIRECTED [facility] Non-Formulary Medication (Guaifenesin/D-Methorphan Hb/Pe [Gnp Tussin Cf Max M-S Cold Liq]) 10 ml PO Q4HR PRN PRN Reason: cough Non-Formulary Medication (Hydrocortisone) 1 applic RECTAL BID PRN PRN Reason: Itching Non-Formulary Medication (Ketoconazole) 1 applic TOP ASDIRECTED [facility] Non-Formulary Medication (Mirabegron [Myrbetriq]) 50 mg PO DAILY [facility] Non-Formulary Medication (Multivitamins) 1 tab PO DAILY [facility] Non-Formulary Medication (Ondansetron) 4 mg PO Q4H PRN PRN Reason: Nausea/Vomiting Non-Formulary Medication (Polyethylene Glycol [Polyox Wsr-301]) 17 gm PO DAILY [facility] Non-Formulary Medication (Promethazine Hcl [Phenergan]) 25 mg TOP Q6H PRN PRN Reason: Nausea/Vomiting Cranberry Fruit Extract 425 Mg Caps* *Own Med 425 mg PO BID [facility] Last Admin: 04/19/19 20:42 Dose: 425 mg Methenamine Hippurate 1 Gm Tab Own Med 1 gm PO BID [facility] Last Admin: 04/19/19 20:43 Dose: 1 gm Florajen ( Lactobacillus Acidophilus) Cap Own Med 1 cap PO BID [facility] Last Admin: 04/19/19 20:43 Dose: 1 cap Oxcarbazepine (Trileptal) 300 mg PO BID [facility] Last Admin: 04/19/19 20:44 Dose: 300 mg Oxcarbazepine (Trileptal) 150 mg PO BID [facility] Last Admin: 04/19/19 20:43 Dose: 150 mg Senna (Senna) 17.2 mg PO BEDTIME [facility] Last Admin: 04/19/19 20:43 Dose: 17.2 mg Vancomycin HCl (Pharmacy To Dose - Vancomycin) 1 dose .XX ASDIRECTED [facility] Discontinued Medications Sodium Chloride (Normal Saline) 1,000 mls @ 999 mls/hr IV ONETIME ONE Stop: 04/19/19 13:26 Last Admin: 04/19/19 12:41 Dose: 999 mls/hr Lactated Ringer's (Ringers, Lactated) 1,000 mls @ 250 mls/hr IV ASDIRECTED [facility] Stop: 04/20/19 19:14 Last Admin: 04/19/19 20:31 Dose: 250 mls/hr Piperacillin Sod/Tazobactam (Sod 4.5 gm/ Sodium Chloride) 100 mls @ 200 mls/hr IV ONETIME ONE Stop: 04/19/19 16:14 Last Admin: 04/19/19 16:51 Dose: 200 mls/hr - Problem List & Annotations (1) Abdominal pain of unknown etiology SNOMED Code(s): 837292921 Code(s): R10.9 - UNSPECIFIED ABDOMINAL PAIN Status: Acute Current Visit: Yes (2) Recurrent urinary tract infection SNOMED Code(s): 314753792 Code(s): N39.0 - URINARY TRACT INFECTION, SITE NOT SPECIFIED Status: Acute Current Visit: Yes (3) Leukocytosis, unspecified SNOMED Code(s): 733374953, 445673407 Code(s): D72.829 - ELEVATED WHITE BLOOD CELL COUNT, UNSPECIFIED Status: Acute Current Visit: Yes (4) Joint contracture SNOMED Code(s): 4016124 Code(s): M24.50 - CONTRACTURE, UNSPECIFIED JOINT Status: Acute Current Visit: Yes (5) Presence of implanted infusion pump SNOMED Code(s): 369669670, 261164635 Code(s): Z95.828 - PRESENCE OF OTHER VASCULAR IMPLANTS AND GRAFTS Status: Acute Current Visit: Yes (6) Cerebral palsy SNOMED Code(s): 943918175 Code(s): G80.9 - CEREBRAL PALSY, UNSPECIFIED Status: Chronic Current Visit: No Qualifiers: Cerebral palsy type: spastic quadriplegic Qualified Code(s): G80.0 - Spastic quadriplegic cerebral palsy (7) History of seizures SNOMED Code(s): 824125058 Code(s): Z87.898 - PERSONAL HISTORY OF OTHER SPECIFIED CONDITIONS Status: Chronic Priority: Medium Current Visit: No (8) Neurogenic bladder SNOMED Code(s): 725850029 Code(s): N31.9 - NEUROMUSCULAR DYSFUNCTION OF BLADDER, UNSPECIFIED Status: Chronic Priority: Medium Current Visit: No (9) Presence of suprapubic catheter SNOMED Code(s): 302942511, 403822974 Code(s): Z93.59 - OTHER CYSTOSTOMY STATUS Status: Chronic Priority: Medium Current Visit: No (10) Spastic quadriplegia SNOMED Code(s): 267865285 Code(s): G82.50 - QUADRIPLEGIA, UNSPECIFIED Status: Chronic Priority: Medium Current Visit: No - My Orders Last 24 Hours: My Active Orders 04/19/19 12:43 PROCALCITONIN [REF] Stat 04/19/19 14:50 CULTURE ANAEROBIC + SMEAR [RM] Routine 04/19/19 15:14 Oxygen Therapy [RC] PRN VTE/DVT Education [RC] DAILY Vital Signs [RC] Q4HR Resuscitation Status Routine 04/19/19 15:16 Aquaphilac Ointment 1 applic TOP ASDIRECTED PRN Baclofen [Lioresal] 10 mg PO TID PRN Carboxymethylcellulose Sodium 2 drop EYERT BID PRN Hydrocortisone 1 applic RECTAL BID PRN Ondansetron 4 mg PO Q4H PRN Promethazine HCl [Phenergan] 25 mg TOP Q6H PRN guaiFENesin/D-Methorphan Hb/Pe [Gnp Tussin Cf Max M-S Cold Liq] 10 ml PO Q4HR PRN 04/19/19 15:30 Cepamax D Lip 1 applic TOP ASDIRECTED Ketoconazole 1 applic TOP ASDIRECTED 04/19/19 15:45 Pharmacy to Dose - Vancomycin 1 dose .XX ASDIRECTED 04/19/19 16:00 Vancomycin 500 mg Sodium Chloride 0.9% [Normal Saline] 250 ml IV Q8H 04/19/19 16:44 Umbilical Catheter Insertion [OM.PC] QID 04/19/19 16:45 Famotidine [Pepcid] 20 mg IVPUSH DAILY 04/19/19 19:04 Up to Chair [RC] QSHIFT 04/19/19 20:29 Morphine 1 mg IVPUSH Q4H PRN 04/19/19 21:00 Ascorbic Acid [Vitamin C] 500 mg PO BID Cranberry Fruit Extract [Cranberry] 425 mg PO BID Lactobacillus Acidophilus [Acidophilus] 1 cap PO BID Methenamine Hippurate 1 gm PO BID OXcarbazepine [Trileptal] 150 mg PO BID OXcarbazepine [Trileptal] 300 mg PO BID Sennosides [Senna] 17.2 mg PO BEDTIME Zinc Oxide DOSE gm TOP BID 04/19/19 22:00 Communication Order [RC] ROUTINE 04/19/19 23:45 Lactated Ringers [Ringers, Lactated] 1,000 ml IV ASDIRECTED 04/20/19 00:00 Piperacillin/Tazobactam [Piperacil-Tazobact] 4.5 gm Sodium Chloride 0.9% [ Normal Saline] 100 ml IV Q8H 04/20/19 09:00 Cholecalciferol (Vitamin D3) [Vitamin D3] DOSE mcg PO DAILY Enoxaparin [Lovenox] 40 mg SUBCUT DAILY Mirabegron [Myrbetriq] 50 mg PO DAILY Multivitamins 1 tab PO DAILY Polyethylene Glycol [Polyox Wsr-301] 17 gm PO DAILY 04/20/19 Breakfast NPO [Nothing Per Oral Diet] [DIET] - Plan Plan:: Acute onset abdominal pain, unknown etiology Concern for new UTI or urinary issue--> monitor --> if worsening--> CT abdomen will be performed No signs of acute abdomen at this point PLAN - Culture urine - Morphine for pain - Monitor for BMs, continue home bowel regimen - Will start famotidine Stage 4 decubitus sacral ulcer with signs of infection PLAN - Wound culture performed by nj - Start vancomycin and Zosyn - Procalcitonin ordered - Wound care by nursing staff - Scheduled bed rotation by nursing staff - Trend temperature - Panculture if febrile Seizure disorder PLAN - Continue home oxcarbazepine Cerebral palsy with spastic quadriplegia PLAN - Continue chronic management Neurogenic bladder s/p Mitrofanoff stoma PLAN - Straight cath by nursing staff every 4 hours - If problems reinserting catheter, leave catheter in - Care of ostomy by nursing staff PROPHYLAXIS DVT: Lovenox GI: Famotidine CODE STATUS: FULL CODE DISPOSITION: Patient will be admitted under observation to medical floor for monitorization of his abdominal pain and f/u on urine culture results.
[2019-04-20] MEDS: Enoxaparin 40 MG/0.4 ML Syringe SUBCUT SCH (09:00)
[2019-04-20] MEDS ORDERED: Cholecalciferol (Vitamin D3) 25 MCG Tab PO SCH (09:00)
[2019-04-20] MEDS: Famotidine 20 MG/2 ML SDV IVPUSH SCH (09:00)
[2019-04-20] MEDS: FLORAJEN PO SCH ×2 (09:04→21:39)
[2019-04-20] MEDS: CRANBERRY FRUIT EXTRACT 425 MG PO SCH ×2 (09:04→21:39)
[2019-04-20] MEDS: OXCARBAZEPINE 300 MG PO SCH ×2 (09:05→21:41)
[2019-04-20] MEDS: OXCARBAZEPINE 150 MG PO SCH ×2 (09:05→21:41)
[2019-04-20] MEDS: METHENAMINE HIPPURATE 1 GM PO SCH ×2 (09:05→21:41)
[2019-04-20] MEDS: ASCORBIC ACID 500 MG PO SCH ×2 (09:06→21:39)
[2019-04-20] MEDS ORDERED: Diatrizoate Meglumine/Diatrizoate Sodium 37% 120 ML Bottle PO ONE (09:19)
[2019-04-20] MEDS ORDERED: Iopamidol 612 MG/ML 100 ML Bottle IVPUSH ONE (09:19)
--- NOTE | 2019-04-20 12:11 | CT ---
CT abdomen and pelvis Technique: Multiple axial sections were obtained from above the dome of the diaphragm inferiorly through the pubic symphysis. Intravenous and oral contrast was utilized. Comparison: Prior noncontrast CT study of the abdomen and pelvis dated 03/30/19. Findings: Visualized lung bases show nothing acute. Liver shows a small low density finding within the right lobe measuring 7 mm. Finding does not have Hounsfield unit measurements of a cyst but is likely a benign lesion. This finding is felt to be present on previous exam. No additional abnormality is seen within the liver. Spleen appears within normal limits. Pancreas is within normal limits. Adrenal glands show no nodule. Mildly dilated ureters are seen on both sides. No finding of obstructing ureteral stone is seen. Bladder is diffusely thick walled. Small amount of air noted within the bladder. Calcification is seen within the prostate gland which is stable from previous study. No bowel dilatation is seen. Artifact is noted from orthopedic hardware within the spine as well as artifact from electrostimulating device within the left side of the pelvis. Appendix not visualized with certainty with anastomotic sutures being seen within the tip of the cecum. Aorta shows no aneurysm. No discrete pelvic adenopathy is appreciated. Impression: 1. Dilated ureters with no evidence of obstructing stone. Diffuse bladder wall thickening is seen. These findings appear to be chronic. 2. Air within the bladder. 3. Prostate calcification which is stable from prior CT exam. 4. Artifact from orthopedic hardware and electrostimulating device. 5. Other findings as noted above believed to be incidental. Nothing acute is appreciated. Diagnostic code #3
[2019-04-20] MEDS: POLYETHYLENE GLYCOL PO SCH (16:18)
[2019-04-20] MEDS: MULTIVITAMIN PO SCH (16:18)
[2019-04-20] MEDS: MIRABEGRON 50 MG PO SCH (16:27)
[2019-04-20] MEDS: SENNOSIDES 8.6 MG PO SCH (21:42)
[2019-04-21] MEDS: Piperacillin/Tazobactam 4.5 GM in Sodium Chloride 0.9% 100 ML IV SCH ×3 (00:38→15:08)
[2019-04-21] MEDS: Lactated Ringers 1,000 ML IV SCH (08:15)
[2019-04-21] MEDS: Famotidine 20 MG/2 ML SDV IVPUSH SCH (08:20)
[2019-04-21] MEDS: Enoxaparin 40 MG/0.4 ML Syringe SUBCUT SCH (08:22)
[2019-04-21] MEDS: CRANBERRY FRUIT EXTRACT 425 MG PO SCH ×2 (08:29→21:53)
[2019-04-21] MEDS: METHENAMINE HIPPURATE 1 GM PO SCH ×2 (08:30→21:53)
[2019-04-21] MEDS: FLORAJEN PO SCH ×2 (08:30→21:53)
[2019-04-21] MEDS: MIRABEGRON 50 MG PO SCH (08:31)
[2019-04-21] MEDS: POLYETHYLENE GLYCOL PO SCH (08:32)
[2019-04-21] MEDS: MULTIVITAMIN PO SCH (08:32)
[2019-04-21] MEDS: OXCARBAZEPINE 300 MG PO SCH ×2 (08:33→21:54)
[2019-04-21] MEDS: ASCORBIC ACID 500 MG PO SCH ×2 (08:33→22:00)
[2019-04-21] MEDS: OXCARBAZEPINE 150 MG PO SCH ×2 (08:33→21:54)
[2019-04-21] MEDS: Cholecalciferol (Vitamin D3) 25 MCG Tab **OWN MED PO SCH (08:33)
[2019-04-21] MEDS ORDERED: Lactated Ringers 1,000 ML IV SCH (09:30)
[2019-04-21] MEDS ORDERED: Magnesium Sulfate/Water 4 GM in Premix Bag 1 BAG IV ONE (09:48)
--- NOTE | 2019-04-21 09:50 | PCM.PN ---
- General Info Date of Service: 04/21/19 Admission Dx/Problem (Free Text): Admission Diagnosis/Problem Admission Diagnosis/Problem Abdominal pain Functional Status: Reports: Pain Controlled, Tolerating Diet, Urinating. Denies : Ambulating, New Symptoms - Review of Systems General: Reports: No Symptoms. Denies: Fever, Chills HEENT: Reports: No Symptoms. Denies: Headaches Pulmonary: Reports: No Symptoms. Denies: Shortness of Breath, Cough, Wheezing Cardiovascular: Reports: No Symptoms. Denies: Chest Pain Gastrointestinal: Reports: No Symptoms. Denies: Abdominal Pain, Diarrhea, Vomiting Genitourinary: Reports: No Symptoms. Denies: Pain Musculoskeletal: Reports: No Symptoms Skin: Reports: No Symptoms Neurological: Reports: Pre-Existing Deficit Psychiatric: Reports: No Symptoms - Patient Data Vitals - Most Recent: Last Vital Signs Temp 97.3 F 04/21/19 05:31 Pulse 73 04/21/19 05:31 Resp 16 04/21/19 05:31 BP 129/84 04/21/19 05:31 Pulse Ox 98 04/21/19 05:31 Weight - Most Recent: 103 lb I&O - Last 24 Hours: Intake & Output 04/20/19 04/21/19 04/21/19 22:59 06:59 14:59 Intake Total 2230 1320 550 Output Total 500 925 Balance 1730 395 550 Lab Results Last 24 Hours: Laboratory Results - last 24 hr 04/20/19 04/21/19 04/21/19 Range/Units 15:29 08:27 08:27 WBC 5.51 (4.23-9.07) K/mm3 RBC 3.84 L (4.63-6.08) M/mm3 Hgb 11.7 L D (13.7-17.5) gm/dl Hct 35.3 L (40.1-51.0) % MCV 91.9 (79.0-92.2) fl MCH 30.5 (25.7-32.2) pg MCHC 33.1 (32.2-35.5) g/dl RDW Std Deviation 45.2 H (35.1-43.9) fL Plt Count 210 (163-337) K/mm3 MPV 8.8 L (9.4-12.3) fl Neut % (Auto) 51.5 (34.0-67.9) % Lymph % (Auto) 32.5 (21.8-53.1) % Edgar % (Auto) 6.5 (5.3-12.2) % Eos % (Auto) 8.9 H (0.8-7.0) Baso % (Auto) 0.2 (0.1-1.2) % Neut # (Auto) 2.84 (1.78-5.38) K/mm3 Lymph # (Auto) 1.79 (1.32-3.57) K/mm3 Edgar # (Auto) 0.36 (0.30-0.82) K/mm3 Eos # (Auto) 0.49 (0.04-0.54) K/mm3 Baso # (Auto) 0.01 (0.01-0.08) K/mm3 Sodium 141 (136-145) mEq/L Potassium 3.3 L (3.5-5.1) mEq/L Chloride 104 (98-107) mEq/L Carbon Dioxide 29 (21-32) mEq/L Anion Gap 11.3 (5-15) BUN 8 (7-18) mg/dL Creatinine 0.6 L (0.7-1.3) mg/dL Est Cr Clr Drug Dosing 109.23 mL/min Estimated GFR (MDRD) > 60 (>60) mL/min BUN/Creatinine Ratio 13.3 L (14-18) Glucose 82 (74-106) mg/dL Calcium 9.0 (8.5-10.1) mg/dL Phosphorus 2.9 (2.6-4.7) mg/dL Magnesium 1.4 L (1.8-2.4) mg/dl Vancomycin Trough 11.5 (10.0-20.0) Norbert Results Last 24 Hours: Microbiology 04/19/19 13:44 Urine Culture - Final Urine, Catheterized NO GROWTH AFTER 2 DAYS 04/19/19 14:50 Gram Stain - Final Sacrum Anaerobic Culture - Preliminary 04/19/19 12:49 Aerobic Blood Culture - Preliminary Blood - Venous - Lab Draw NO GROWTH AFTER 1 DAY Anaerobic Blood Culture - Preliminary NO GROWTH AFTER 1 DAY 04/19/19 12:43 Aerobic Blood Culture - Preliminary Blood - Venous NO GROWTH AFTER 1 DAY Anaerobic Blood Culture - Preliminary NO GROWTH AFTER 1 DAY Med Orders - Current: Current Medications Ascorbic Acid (Vitamin C) 500 mg PO BID [facility] Last Admin: 04/21/19 08:33 Dose: 500 mg Baclofen (Lioresal) 10 mg PO TID PRN PRN Reason: Muscle Spasm Cholecalciferol (Vitamin D3) 25 mcg PO DAILY [facility] Last Admin: 04/21/19 08:33 Dose: 25 mcg Enoxaparin Sodium (Lovenox) 40 mg SUBCUT DAILY [facility] Last Admin: 04/21/19 08:22 Dose: 40 mg Famotidine (Pepcid) 20 mg IVPUSH DAILY [facility] Last Admin: 04/21/19 08:20 Dose: 20 mg Piperacillin Sod/Tazobactam (Sod 4.5 gm/ Sodium Chloride) 100 mls @ 25 mls/hr IV Q8H [facility] Last Admin: 04/21/19 08:19 Dose: 25 mls/hr Vancomycin HCl 500 mg/ Sodium (Chloride) 250 mls @ 166.667 mls/hr IV Q8H [facility] Last Admin: 04/21/19 08:16 Dose: 166.667 mls/hr Lactated Ringer's (Ringers, Lactated) 1,000 mls @ 50 mls/hr IV ASDIRECTED [facility] Magnesium Sulfate 4 gm/ Premix 50 mls @ 12.5 mls/hr IV ONETIME ONE Stop: 04/21/19 13:47 Morphine Sulfate (Morphine) 1 mg IVPUSH Q4H PRN PRN Reason: Pain Last Admin: 04/20/19 10:49 Dose: 1 mg Multi-Ingred Cream/Lotion/Oil/Oint (Zinc Oxide) gm TOP BID [facility] Non-Formulary Medication (Aquaphilac Ointment) 1 applic TOP ASDIRECTED PRN PRN Reason: dry skin Non-Formulary Medication (Carboxymethylcellulose Sodium) 2 drop EYERT BID PRN PRN Reason: Dry Eyes Non-Formulary Medication (Cepamax D Lip) 1 applic TOP ASDIRECTED [facility] Non-Formulary Medication (Guaifenesin/D-Methorphan Hb/Pe [Gnp Tussin Cf Max M-S Cold Liq]) 10 ml PO Q4HR PRN PRN Reason: cough Non-Formulary Medication (Hydrocortisone) 1 applic RECTAL BID PRN PRN Reason: Itching Non-Formulary Medication (Ketoconazole) 1 applic TOP ASDIRECTED [facility] Mirabegron ( Myrbetriq) 50 Mg Tab Own Med 0 mg PO DAILY [facility] Last Admin: 04/21/19 08:31 Dose: 50 mg Multivitamin Tabs (Own Med) 1 tab PO DAILY [facility] Last Admin: 04/21/19 08:32 Dose: Not Given Polyethylene Glycol (Powder Own Med) 0 gm PO DAILY [facility] Last Admin: 04/21/19 08:32 Dose: 17 gm Non-Formulary Medication (Promethazine Hcl [Phenergan]) 25 mg TOP Q6H PRN PRN Reason: Nausea/Vomiting Cranberry Fruit Extract 425 Mg Caps* *Own Med 425 mg PO BID [facility] Last Admin: 04/21/19 08:29 Dose: 425 mg Methenamine Hippurate 1 Gm Tab Own Med 1 gm PO BID [facility] Last Admin: 04/21/19 08:30 Dose: 1 gm Florajen ( Lactobacillus Acidophilus) Cap Own Med 1 cap PO BID [facility] Last Admin: 04/21/19 08:30 Dose: 1 cap Ondansetron HCl (Zofran Odt) 4 mg PO Q4H PRN PRN Reason: Nausea/Vomiting Oxcarbazepine (Trileptal) 300 mg PO BID [facility] Last Admin: 04/21/19 08:33 Dose: 300 mg Oxcarbazepine (Trileptal) 150 mg PO BID [facility] Last Admin: 04/21/19 08:33 Dose: 150 mg Senna (Senna) 17.2 mg PO BEDTIME [facility] Last Admin: 04/20/19 21:42 Dose: 17.2 mg Vancomycin HCl (Pharmacy To Dose - Vancomycin) 1 dose .XX ASDIRECTED [facility] Discontinued Medications Cholecalciferol (Vitamin D3) mcg PO DAILY [facility] Diatrizoate Meglum/Diatrizoate Sod (Gastrografin 37%) 60 ml PO ONETIME ONE Stop: 04/20/19 09:20 Last Admin: 04/20/19 11:28 Dose: 60 ml Sodium Chloride (Normal Saline) 1,000 mls @ 999 mls/hr IV ONETIME ONE Stop: 04/19/19 13:26 Last Admin: 04/19/19 12:41 Dose: 999 mls/hr Lactated Ringer's (Ringers, Lactated) 1,000 mls @ 250 mls/hr IV ASDIRECTED [facility] Stop: 04/20/19 19:14 Last Admin: 04/19/19 20:31 Dose: 250 mls/hr Piperacillin Sod/Tazobactam (Sod 4.5 gm/ Sodium Chloride) 100 mls @ 200 mls/hr IV ONETIME ONE Stop: 04/19/19 16:14 Last Admin: 04/19/19 16:51 Dose: 200 mls/hr Lactated Ringer's (Ringers, Lactated) 1,000 mls @ 100 mls/hr IV ASDIRECTED [facility] Last Admin: 04/21/19 08:15 Dose: 100 mls/hr Iopamidol (Isovue-300 (61%)) 100 ml IVPUSH ONETIME ONE Stop: 04/20/19 09:20 Last Admin: 04/20/19 11:28 Dose: 100 ml - Exam Quality Assessment: DVT Prophylaxis General: Alert, Cooperative, No Acute Distress HEENT: Pupils Equal, Pupils Reactive, EOMI Lungs: Clear to Auscultation, Normal Respiratory Effort Cardiovascular: Regular Rate, Regular Rhythm GI/Abdominal Exam: Normal Bowel Sounds, Soft, Non-Tender, No Distention (Male) Exam: Deferred Extremities: Non-Tender, No Pedal Edema, Limited Range of Motion (contractures ) Peripheral Pulses: 3+: Radial (L), Radial (R), Dorsalis Pedis (L), Dorsalis Pedis (R) Skin: Warm, Dry, Intact Neurological: No New Focal Deficit Psy/Mental Status: Alert - Problem List & Annotations (1) Abdominal pain of unknown etiology SNOMED Code(s): 868043899 Code(s): R10.9 - UNSPECIFIED ABDOMINAL PAIN Status: Acute Priority: High Current Visit: Yes (2) Joint contracture SNOMED Code(s): 5780582 Code(s): M24.50 - CONTRACTURE, UNSPECIFIED JOINT Status: Chronic Priority : Medium Current Visit: No (3) Leukocytosis SNOMED Code(s): 402457486, 146868734 Code(s): D72.829 - ELEVATED WHITE BLOOD CELL COUNT, UNSPECIFIED Status: Resolved Priority: High Current Visit: Yes Qualifiers: Leukocytosis type: unspecified Qualified Code(s): D72.829 - Elevated white blood cell count, unspecified (4) Presence of implanted infusion pump SNOMED Code(s): 465313721, 321462812 Code(s): Z95.828 - PRESENCE OF OTHER VASCULAR IMPLANTS AND GRAFTS Status: Chronic Priority: Low Current Visit: No (5) Cerebral palsy SNOMED Code(s): 532396558 Code(s): G80.9 - CEREBRAL PALSY, UNSPECIFIED Status: Chronic Priority: Medium Current Visit: No Qualifiers: Cerebral palsy type: spastic quadriplegic Qualified Code(s): G80.0 - Spastic quadriplegic cerebral palsy (6) History of seizures SNOMED Code(s): 328904522 Code(s): Z87.898 - PERSONAL HISTORY OF OTHER SPECIFIED CONDITIONS Status: Chronic Priority: Medium Current Visit: No (7) Neurogenic bladder SNOMED Code(s): 211880429 Code(s): N31.9 - NEUROMUSCULAR DYSFUNCTION OF BLADDER, UNSPECIFIED Status: Chronic Priority: Medium Current Visit: No (8) Presence of suprapubic catheter SNOMED Code(s): 928907076, 346747085 Code(s): Z93.59 - OTHER CYSTOSTOMY STATUS Status: Chronic Priority: Medium Current Visit: No (9) Sacral decubitus ulcer, stage IV SNOMED Code(s): 883251654, 693346462 Code(s): L89.154 - PRESSURE ULCER OF SACRAL REGION, STAGE 4 Status: Acute Priority: High Current Visit: Yes (10) Hypokalemia SNOMED Code(s): 40043563 Code(s): E87.6 - HYPOKALEMIA Status: Acute Priority: High Current Visit : Yes (11) Hypomagnesemia SNOMED Code(s): 276472378 Code(s): E83.42 - HYPOMAGNESEMIA Status: Acute Priority: High Current Visit: Yes - Problem List Review Problem List Initiated/Reviewed/Updated: Yes - My Orders Last 24 Hours: My Active Orders 04/21/19 09:48 Magnesium Sulfate/Water [Magnesium Sulfate in Water Premix] 4 gm Premix Bag 1 bag IV ONETIME - Plan Plan:: Acute onset abdominal pain, unknown etiology Concern for new UTI or urinary issue--> monitor --> if worsening--> CT abdomen will be performed No signs of acute abdomen at this point PLAN - Culture urine -> no growth after 2 days - Morphine for pain - Monitor for BMs, continue home bowel regimen - Will start famotidine Stage 4 decubitus sacral ulcer with signs of infection PLAN - Wound culture performed by md - Start vancomycin and Zosyn - Procalcitonin ordered - Wound care by nursing staff - Scheduled bed rotation by nursing staff - Trend temperature -> stable - Panculture if febrile Seizure disorder PLAN - Continue home oxcarbazepine Cerebral palsy with spastic quadriplegia PLAN - Continue chronic management Neurogenic bladder s/p Mitrofanoff stoma PLAN - Straight cath by nursing staff every 4 hours - If problems reinserting catheter, leave catheter in - Care of ostomy by nursing staff Hypokalemia PLAN - Potassium 3.3 - Supplement Hypomagnesemia PLAN - Magnesium 1.4 - Supplement PROPHYLAXIS DVT: Lovenox GI: Famotidine CODE STATUS: FULL CODE DISPOSITION: Patient will be admitted under observation to medical floor for monitorization of his abdominal pain and f/u on urine culture results.
[2019-04-21] MEDS: Lactulose Soln 10 GM/15 ML 30 ML UD Cup PO SCH ×2 (14:57→18:22)
[2019-04-21] MEDS: Potassium Chloride 20 MEQ Tab.ER PO SCH ×2 (14:57→17:41)
[2019-04-21] MEDS: SENNOSIDES 8.6 MG PO SCH (21:54)
[2019-04-22] MEDS: Piperacillin/Tazobactam 4.5 GM in Sodium Chloride 0.9% 100 ML IV SCH ×2 (00:48→09:50)
[2019-04-22] MEDS: Lactulose Soln 10 GM/15 ML 30 ML UD Cup PO SCH ×2 (00:48→06:16)
[2019-04-22] MEDS ORDERED: Sodium Chloride 0.9% 100 ML ONE (09:44)
[2019-04-22] MEDS: Enoxaparin 40 MG/0.4 ML Syringe SUBCUT SCH (09:56)
[2019-04-22] MEDS: Famotidine 20 MG/2 ML SDV IVPUSH SCH (09:56)
[2019-04-22] MEDS: FLORAJEN PO SCH (09:58)
[2019-04-22] MEDS: METHENAMINE HIPPURATE 1 GM PO SCH (10:00)
[2019-04-22] MEDS: MIRABEGRON 50 MG PO SCH (10:00)
[2019-04-22] MEDS: MULTIVITAMIN PO SCH (10:01)
[2019-04-22] MEDS: POLYETHYLENE GLYCOL PO SCH (10:01)
[2019-04-22] MEDS: OXCARBAZEPINE 300 MG PO SCH (10:02)
[2019-04-22] MEDS: OXCARBAZEPINE 150 MG PO SCH (10:02)
[2019-04-22] MEDS: ASCORBIC ACID 500 MG PO SCH (10:03)
[2019-04-22] MEDS: Cholecalciferol (Vitamin D3) 25 MCG Tab **OWN MED PO SCH (10:03)
[2019-04-22] MEDS: CRANBERRY FRUIT EXTRACT 425 MG PO SCH (10:03)
[2019-04-22] MEDS ORDERED: Nystatin Topical Powder 15 GM Bottle TOP PRN (11:38)
--- NOTE | 2019-04-22 13:05 | PCM.DCSUM1 ---
Discharge Summary - Hospital Course Diagnosis: Stroke: No - Discharge Data Discharge Date: 04/22/19 (Admit date: 04/19/19) Discharge Disposition: DC/Tfer to Other 70 Condition: Good - Referral to Home Health Primary Care Physician: Denver Diamond MD - Discharge Diagnosis/Problem(s) (1) Abdominal pain of unknown etiology SNOMED Code(s): 146385904 ICD Code: R10.9 - UNSPECIFIED ABDOMINAL PAIN Status: Acute Priority: High (2) Joint contracture SNOMED Code(s): 1295059 ICD Code: M24.50 - CONTRACTURE, UNSPECIFIED JOINT Status: Chronic Priority: Medium (3) Leukocytosis SNOMED Code(s): 015381126, 871069243 ICD Code: D72.829 - ELEVATED WHITE BLOOD CELL COUNT, UNSPECIFIED Status: Resolved Priority: High Qualifiers: Leukocytosis type: unspecified Qualified Code(s): D72.829 - Elevated white blood cell count, unspecified (4) Presence of implanted infusion pump SNOMED Code(s): 262997066, 680272493 ICD Code: Z95.828 - PRESENCE OF OTHER VASCULAR IMPLANTS AND GRAFTS Status: Chronic Priority: Low (5) Cerebral palsy SNOMED Code(s): 762110394 ICD Code: G80.9 - CEREBRAL PALSY, UNSPECIFIED Status: Chronic Priority: Medium Qualifiers: Cerebral palsy type: spastic quadriplegic Qualified Code(s): G80.0 - Spastic quadriplegic cerebral palsy (6) History of seizures SNOMED Code(s): 521411995 ICD Code: Z87.898 - PERSONAL HISTORY OF OTHER SPECIFIED CONDITIONS Status: Chronic Priority: Medium (7) Neurogenic bladder SNOMED Code(s): 547574702 ICD Code: N31.9 - NEUROMUSCULAR DYSFUNCTION OF BLADDER, UNSPECIFIED Status : Chronic Priority: Medium (8) Presence of suprapubic catheter SNOMED Code(s): 735101576, 931584040 ICD Code: Z93.59 - OTHER CYSTOSTOMY STATUS Status: Chronic Priority: Medium (9) Sacral decubitus ulcer, stage IV SNOMED Code(s): 305208022, 484318984 ICD Code: L89.154 - PRESSURE ULCER OF SACRAL REGION, STAGE 4 Status: Acute Priority: High (10) Hypokalemia SNOMED Code(s): 02413936 ICD Code: E87.6 - HYPOKALEMIA Status: Acute Priority: High (11) Hypomagnesemia SNOMED Code(s): 675964118 ICD Code: E83.42 - HYPOMAGNESEMIA Status: Acute Priority: High (12) Constipation SNOMED Code(s): 49485625 ICD Code: K59.00 - CONSTIPATION, UNSPECIFIED Status: Acute Priority: High Qualifiers: Constipation type: unspecified constipation type Qualified Code(s): K59.00 - Constipation, unspecified - Patient Summary/Data Labs Pending at D/C: None Recommended Follow-up Testing/Procedures: Follow-up with PCP within 5-7 days of discharge, sooner if needed. Hospital Course: Edilson was admitted to the hospital floor due to abdominal pain. His caregiver believes this pain is similar to what he was experiencing prior to which he was hospitalized in [place] with pyelonephritis. He finished his antibiotic to Levaquin, the day before coming to our ED. No recent fever, nausea, vomiting, or watery diarrhea. 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 He also has a baclofen pump in his left lower quadrant and underwent a Mitrofanoff procedure in 2012. Because of this procedure UAs low 80s be falsely irregular and urine cultures are required. He was started on Zosyn and vancomycin due to his pain and concerns over infection. CT scan was obtained and showed dilated ureters with no evidence of obstructing stone. There was also diffuse bladder wall thickening seen which was noted to be chronic. There was noted within the bladder as well as a stable prostate calcification. Artifact was noted from his orthopedic hardware and electrostimulation device. Other findings were noted and believed to be incidental. Nothing acute was appreciated. He was noted to have some leukocytosis and there is also some concern that his stage IV sacral ulcer may be infected. As noted he never did have a temperature and after his initial admission his white count did return normal. This leukocytosis may have been a stress reaction from his abdominal pain. He was noted to have quite a bit of stool in his rectal vault and was given lactulose with multiple large bowel movements thereafter. It is felt this may be the cause of some of his pain. Due to resolution of symptoms antibiotics were stopped. Nursing did continue to provide catheterization through his umbilicus with good urine output. Urine culture and blood cultures were both negative. Wound culture was obtained on the sacrum and did grow out Mara albicans. Because of this patient was prescribed nystatin powder which will be continued on discharge. His magnesium and potassium were low and were supplemented. He was discharged on 4 days worth of 400 mg by mouth twice a day magnesium as well. All home medications were continued and as noted the patient had recently finished his Levaquin dose. Amoxicillin was accidentally discontinued and reordered as this is apparently a chronic medication. He was instructed to follow-up with his primary care provider within 5-7 days of discharge. PCP should recheck CBC, BMP, and magnesium at that time. Patient does utilize services of [facility]. He was discharged to their care today. - Patient Instructions Diet: Usual Diet as Tolerated Activity: As Tolerated Driving: Do Not Drive Notify Provider of: Fever, Increased Pain, Nausea and/or Vomiting Other/Special Instructions: Follow-up with primary care provider within 5-7 days of discharge. Follow-up with wound care outpatient as scheduled. Resume home medications as directed with no changes. Nystatin powder as ordered for sacral wound. Magnesium was low here and 4 days of PO magnesium was prescribed. Should symptoms return or worsen, contact primary care provider or return to the Emergency Department. - Discharge Plan *PRESCRIPTION DRUG MONITORING PROGRAM REVIEWED*: Not Applicable *COPY OF PRESCRIPTION DRUG MONITORING REPORT IN PATIENT NOLVIA: Not Applicable Prescriptions/Med Rec: Amoxicillin 2,000 mg PO ASDIRECTED #1 capsule Magnesium Oxide [Magnesium] 400 mg PO BID #8 capsule Nystatin [Nystop] 0 gm TOP TID PRN #1 bottle PRN Reason: Sacral area wound shelter Medications: Home Meds Cholecalciferol (Vitamin D3) [Vitamin D3] 1,000 units PO DAILY 12/12/18 [History ] Cranberry Fruit Extract [Cranberry] 425 mg PO BID 12/12/18 [History] Ketoconazole [Nizoral 2% Shampoo] 1 applic TOP ASDIRECTED 12/12/18 [History] Methenamine Hippurate 1 gm PO BID 12/12/18 [History] Multivitamins [Tab-A-Berta] 1 tab PO DAILY 12/12/18 [History] OXcarbazepine [Oxcarbazepine] 150 mg PO BID 12/12/18 [History] OXcarbazepine [Oxcarbazepine] 300 mg PO BID 12/12/18 [History] Ondansetron [Zofran] 4 mg PO Q4H PRN 12/12/18 [History] Polyethylene Glycol [Polyox Wsr-301] 17 gm PO DAILY 12/12/18 [History] Zinc Oxide 1 applic TOP BID 12/12/18 [History] Carboxymethylcellulose Sodium [Lubricant Eye Drop] 2 drop EYERT BID PRN [History] guaiFENesin/D-Methorphan Hb/Pe [Gnp Tussin Cf Max M-S Cold Liq] 10 ml PO Q4HR PRN 12/13/18 [History] Aquaphilac Ointment 1 applic TOP ASDIRECTED PRN 03/22/19 [History] Ascorbate Calcium [Vitamin C] 500 mg PO BID 03/22/19 [History] Baclofen 5 - 10 mg PO TID PRN 03/22/19 [History] Cepamax D Lip 1 applic TOP ASDIRECTED 03/22/19 [History] Lactobacillus Acidophilus [Acidophilus] 1 cap PO BID 03/22/19 [History] Sennosides [Senna] 17.2 mg PO BEDTIME 03/22/19 [History] Hydrocortisone [Proctozone-HC 2.5% Crm] 1 applic RECTAL BID PRN 04/19/19 [ History] Ibuprofen 400 mg PO Q4HR PRN 04/19/19 [History] Mirabegron [Myrbetriq] 50 mg PO DAILY 04/19/19 [History] Non-Formulary Medication [NF Drug] 1 each PO DAILY 04/19/19 [History] Potassium Citrate [Urocit-K] 30 meq PO BID 04/19/19 [History] Simethicone [Gas Relief] 80 mg PO Q4HR PRN 04/19/19 [History] Amoxicillin 2,000 mg PO ASDIRECTED #1 capsule 04/22/19 [Rx] Magnesium Oxide [Magnesium] 400 mg PO BID #8 capsule 04/22/19 [Rx] Nystatin [Nystop] 0 gm TOP TID PRN #1 bottle 04/22/19 [Rx] Oxygen Therapy Mode: Room Air Patient Handouts: Hypomagnesemia, Constipation, Adult, [id number] Referrals: Tricia Ozuna MD [Resident] - (Follow-up as normal.) Saud Bettencourt MD [Consulting Physician] - (Follow-up as normal.) Denver Diamond MD [Primary Care Provider] - 04/28/19 3:30 pm - Discharge Summary/Plan Comment DC Time >30 min.: Yes (45 mins) - General Info Date of Service: 04/22/19 Admission Dx/Problem (Free Text: Admission Diagnosis/Problem Admission Diagnosis/Problem Abdominal pain Functional Status: Reports: Pain Controlled, Tolerating Diet, Urinating. Denies : Ambulating, New Symptoms - Review of Systems General: Reports: No Symptoms. Denies: Fever, Weakness, Fatigue, Malaise, Chills HEENT: Reports: No Symptoms. Denies: Headaches, Sore Throat Pulmonary: Reports: No Symptoms. Denies: Shortness of Breath, Cough, Sputum, Wheezing Cardiovascular: Reports: No Symptoms. Denies: Chest Pain, Palpitations Gastrointestinal: Reports: No Symptoms. Denies: Abdominal Pain, Constipation, Diarrhea, Nausea, Vomiting Genitourinary: Reports: No Symptoms. Denies: Pain Musculoskeletal: Reports: No Symptoms Skin: Reports: No Symptoms Neurological: Reports: Pre-Existing Deficit, Difficulty Walking Psychiatric: Reports: No Symptoms - Patient Data Vitals - Most Recent: Last Vital Signs Temp 98.1 F 04/22/19 08:08 Pulse 93 04/22/19 08:08 Resp 14 04/22/19 08:08 BP 132/77 04/22/19 08:08 Pulse Ox 99 04/22/19 08:08 Weight - Most Recent: 94 lb 12.8 oz I&O - Last 24 hours: Intake & Output 04/21/19 04/22/19 04/22/19 22:59 06:59 14:59 Intake Total 1480 939 240 Output Total 4100 925 Balance -2620 14 240 Lab Results - Last 24 hrs: Laboratory Results - last 24 hr 04/19/19 04/22/19 04/22/19 Range/Units 12:43 07:38 07:38 Sodium 141 (136-145) mEq/L Potassium 4.1 (3.5-5.1) mEq/L Chloride 105 (98-107) mEq/L Carbon Dioxide 29 (21-32) mEq/L Anion Gap 11.1 (5-15) BUN 5 L (7-18) mg/dL Creatinine 0.6 L (0.7-1.3) mg/dL Est Cr Clr Drug Dosing 100.53 mL/min Estimated GFR (MDRD) > 60 (>60) mL/min BUN/Creatinine Ratio 8.3 L (14-18) Glucose 82 (74-106) mg/dL Calcium 9.4 (8.5-10.1) mg/dL Magnesium 1.7 L (1.8-2.4) mg/dl Procalcitonin <0.05 (<0.10) ng/mL Vancomycin Trough 12.2 (10.0-20.0) ROBERT Results - Last 24 hrs: Microbiology 04/19/19 12:49 Aerobic Blood Culture - Preliminary Blood - Venous - Lab Draw NO GROWTH AFTER 3 DAYS Anaerobic Blood Culture - Preliminary NO GROWTH AFTER 3 DAYS 04/19/19 12:43 Aerobic Blood Culture - Preliminary Blood - Venous NO GROWTH AFTER 3 DAYS Anaerobic Blood Culture - Preliminary NO GROWTH AFTER 3 DAYS 04/19/19 14:50 Gram Stain - Final Sacrum Anaerobic Culture - Preliminary Mara Albicans Med Orders - Current: Current Medications Artificial Tears (Refresh Liquigel 1%) 0 ml EYERT BID PRN PRN Reason: Dry Eyes Ascorbic Acid (Vitamin C) 500 mg PO BID [facility] Last Admin: 04/22/19 10:03 Dose: 500 mg Baclofen (Lioresal) 10 mg PO TID PRN PRN Reason: Muscle Spasm Cholecalciferol (Vitamin D3) 25 mcg PO DAILY [facility] Last Admin: 04/22/19 10:03 Dose: 25 mcg Enoxaparin Sodium (Lovenox) 40 mg SUBCUT DAILY [facility] Last Admin: 04/22/19 09:56 Dose: 40 mg Famotidine (Pepcid) 20 mg IVPUSH DAILY [facility] Last Admin: 04/22/19 09:56 Dose: 20 mg Lactated Ringer's (Ringers, Lactated) 1,000 mls @ 50 mls/hr IV ASDIRECTED [facility] Last Admin: 04/22/19 05:08 Dose: 50 mls/hr Morphine Sulfate (Morphine) 1 mg IVPUSH Q4H PRN PRN Reason: Pain Last Admin: 04/20/19 10:49 Dose: 1 mg Mirabegron ( Myrbetriq) 50 Mg Tab Own Med 0 mg PO DAILY [facility] Last Admin: 04/22/19 10:00 Dose: 50 mg Multivitamin Tabs (Own Med) 1 tab PO DAILY [facility] Last Admin: 04/22/19 10:01 Dose: 1 tab Polyethylene Glycol (Powder Own Med) 0 gm PO DAILY [facility] Last Admin: 04/22/19 10:01 Dose: 17 gm Cranberry Fruit Extract 425 Mg Caps* *Own Med 425 mg PO BID [facility] Last Admin: 04/22/19 10:03 Dose: 425 mg Methenamine Hippurate 1 Gm Tab Own Med 1 gm PO BID [facility] Last Admin: 04/22/19 10:00 Dose: 1 gm Florajen ( Lactobacillus Acidophilus) Cap Own Med 1 cap PO BID [facility] Last Admin: 04/22/19 09:58 Dose: 1 cap Nystatin (Nystop) 0 gm TOP TID PRN PRN Reason: WOUND CARE Ondansetron HCl (Zofran Odt) 4 mg PO Q4H PRN PRN Reason: Nausea/Vomiting Oxcarbazepine (Trileptal) 300 mg PO BID [facility] Last Admin: 04/22/19 10:02 Dose: 300 mg Oxcarbazepine (Trileptal) 150 mg PO BID [facility] Last Admin: 04/22/19 10:02 Dose: 150 mg Senna (Senna) 17.2 mg PO BEDTIME [facility] Last Admin: 04/21/19 21:54 Dose: 17.2 mg Discontinued Medications Cholecalciferol (Vitamin D3) mcg PO DAILY [facility] Diatrizoate Meglum/Diatrizoate Sod (Gastrografin 37%) 60 ml PO ONETIME ONE Stop: 04/20/19 09:20 Last Admin: 04/20/19 11:28 Dose: 60 ml Sodium Chloride (Normal Saline) 1,000 mls @ 999 mls/hr IV ONETIME ONE Stop: 04/19/19 13:26 Last Admin: 04/19/19 12:41 Dose: 999 mls/hr Lactated Ringer's (Ringers, Lactated) 1,000 mls @ 250 mls/hr IV ASDIRECTED [facility] Stop: 04/20/19 19:14 Last Admin: 04/19/19 20:31 Dose: 250 mls/hr Piperacillin Sod/Tazobactam (Sod 4.5 gm/ Sodium Chloride) 100 mls @ 200 mls/hr IV ONETIME ONE Stop: 04/19/19 16:14 Last Admin: 04/19/19 16:51 Dose: 200 mls/hr Piperacillin Sod/Tazobactam (Sod 4.5 gm/ Sodium Chloride) 100 mls @ 25 mls/hr IV Q8H [facility] Last Admin: 04/22/19 09:50 Dose: 25 mls/hr Vancomycin HCl 500 mg/ Sodium (Chloride) 250 mls @ 166.667 mls/hr IV Q8H [facility] Last Admin: 04/22/19 09:49 Dose: 166.667 mls/hr Lactated Ringer's (Ringers, Lactated) 1,000 mls @ 100 mls/hr IV ASDIRECTED [facility] Last Admin: 04/21/19 08:15 Dose: 100 mls/hr Magnesium Sulfate 4 gm/ Premix 50 mls @ 12.5 mls/hr IV ONETIME ONE Stop: 04/21/19 13:47 Last Admin: 04/21/19 10:59 Dose: 12.5 mls/hr Sodium Chloride (Normal Saline) Confirm Administered Dose 100 mls @ as directed .ROUTE .STK-MED ONE Stop: 04/22/19 09:45 Last Admin: 04/22/19 10:03 Dose: Not Given Iopamidol (Isovue-300 (61%)) 100 ml IVPUSH ONETIME ONE Stop: 04/20/19 09:20 Last Admin: 04/20/19 11:28 Dose: 100 ml Lactulose (Cephulac) 10 gm PO Q6H [facility] Last Admin: 04/22/19 06:16 Dose: 10 gm Multi-Ingred Cream/Lotion/Oil/Oint (Zinc Oxide) gm TOP BID [facility] Non-Formulary Medication (Aquaphilac Ointment) 1 applic TOP ASDIRECTED PRN PRN Reason: dry skin Non-Formulary Medication (Cepamax D Lip) 1 applic TOP ASDIRECTED [facility] Non-Formulary Medication (Guaifenesin/D-Methorphan Hb/Pe [Gnp Tussin Cf Max M-S Cold Liq]) 10 ml PO Q4HR PRN PRN Reason: cough Non-Formulary Medication (Hydrocortisone) 1 applic RECTAL BID PRN PRN Reason: Itching Non-Formulary Medication (Ketoconazole) 1 applic TOP ASDIRECTED [facility] Non-Formulary Medication (Promethazine Hcl [Phenergan]) 25 mg TOP Q6H PRN PRN Reason: Nausea/Vomiting Potassium Chloride (Klor-Con M20) 40 meq PO Q4H [facility] Stop: 04/21/19 18:16 Last Admin: 04/21/19 17:41 Dose: 40 meq Vancomycin HCl (Pharmacy To Dose - Vancomycin) 1 dose .XX ASDIRECTED [facility] - Exam Quality Assessment: Reports: DVT Prophylaxis General: Reports: Alert, Cooperative, No Acute Distress HEENT: Reports: Pupils Equal, Pupils Reactive Neck: Reports: Supple, Trachea Midline Lungs: Reports: Clear to Auscultation, Normal Respiratory Effort Cardiovascular: Reports: Regular Rate, Regular Rhythm GI/Abdominal Exam: Normal Bowel Sounds, Soft, Non-Tender, No Distention, No Abnormal Bruit (Male) Exam: Deferred Rectal (Males) Exam: Deferred Back Exam: Reports: Decreased Range of Motion Extremities: Non-Tender, No Pedal Edema, Normal Capillary Refill, Limited Range of Motion, Other (contractures) Skin: Reports: Warm, Dry, Intact Wound/Incisions: Reports: Dressing Dry and Intact Neurological: Reports: No New Focal Deficit Psy/Mental Status: Reports: Alert
== END 2019-04-22 15:05 | disposition other institution (70) ==
LOC: JD.ED 11:58 → JD.MS 15:01
PROVIDERS: ADMIT Internal Medicine; ATTEND Internal Medicine
DX: R10.9 Unspecified abdominal pain (principal); M24.50 Contracture, unspecified joint; D72.829 Elevated white blood cell count, unspecified; G80.0 Spastic quadriplegic cerebral palsy; N31.9 Neuromuscular dysfunction of bladder, unspecified; L89.154 Pressure ulcer of sacral region, stage 4; E87.6 Hypokalemia; E83.42 Hypomagnesemia; K59.00 Constipation, unspecified; Z95.828 Presence of other vascular implants and grafts; Z87.898 Personal history of other specified conditions; Z93.59 Other cystostomy status; Z88.2 Allergy status to sulfonamides; Z88.5 Allergy status to narcotic agent; Z79.899 Other long term (current) drug therapy; Z93.6 Other artificial openings of urinary tract status
CPT/HCPCS: 36415; 51703; 74177; 80048; 80053; 80202; 83605; 83690; 83735; 84100; 84145; 85007; 85025; 85027; 87040; 87075; 87086; 87106; 87205; 87641; 96361; 96365; 96366; 96367; 96368; 96372; 96375; 96376; 99284; A9270; G0378; J1650; J2270; J2543; J3370; J3475; J3490; J7030; J7040; J7050; J7120; Q9963; Q9967; 96360; 99285

== ENCOUNTER 2019-04-25 14:44 | Emergency (ER) | payer MEDICARE, MEDICAID ==
[2019-04-25] MEDS ORDERED: Sodium Chloride 0.9% 10 ML Syringe FLUSH PRN (15:48)
--- NOTE | 2019-04-25 16:07 | EDM.PDOC ---
ED HPI GENERAL MEDICAL PROBLEM - General Chief Complaint: Abdominal Pain Stated Complaint: ABDOMINAL PAIN Time Seen by Provider: 04/25/19 15:20 Source of Information: Reports: RN Notes Reviewed, Other - History of Present Illness INITIAL COMMENTS - FREE TEXT/NARRATIVE: 39-year-old male comes in with abdominal pain. He does have history of quite severe cerebral palsy so not able to give personal meaningful history. He does have history of neurogenic bladder is status post Mitrofanaoff procedure, gets catheterized 4 times daily through the opening at his umbilicus. He has been having a rough month with admission the end of March for pyelonephritis. He was admitted here, transferred to [facility] and finally discharged April 15 about 10 days ago. He then was readmitted to this hospital 6 days ago with abdominal discomfort, discharged home 3 days ago. Details of that admission not totally known at this time. He does have hx of intermitent constipation. Hd did Have a BM yesterday and also had one this morning. His caregiver states that when they did catheterize him a short time ago it was only about 75 male of urine and it was "bloody. He has not been running fever yesterday or today but was found to have very low-grade fever of 99 on arrival to ED at this time. Treatments [employer]URAL RESOURCES ENGINEER: Reports: Other (see below) Other Treatments NATURAL RESOURCES ENGINEER: tylenol this morning - Related Data Allergies Allergy/AdvReac Type Severity Reaction Status Date / Time Sulfa (Sulfonamide Allergy Other Verified 04/19/19 12:15 Antibiotics) hydrocodone AdvReac Vomiting Verified 04/19/19 12:15 Home Meds: Home Meds Cholecalciferol (Vitamin D3) [Vitamin D3] 1,000 units PO DAILY 12/12/18 [History ] Cranberry Fruit Extract [Cranberry] 425 mg PO BID 12/12/18 [History] Ketoconazole [Nizoral 2% Shampoo] 1 applic TOP ASDIRECTED 12/12/18 [History] Methenamine Hippurate 1 gm PO BID 12/12/18 [History] Multivitamins [Tab-A-Berta] 1 tab PO DAILY 12/12/18 [History] OXcarbazepine [Oxcarbazepine] 150 mg PO BID 12/12/18 [History] OXcarbazepine [Oxcarbazepine] 300 mg PO BID 12/12/18 [History] Ondansetron [Zofran] 4 mg PO Q4H PRN 12/12/18 [History] Polyethylene Glycol [Polyox Wsr-301] 17 gm PO DAILY 12/12/18 [History] Zinc Oxide 1 applic TOP BID 12/12/18 [History] Carboxymethylcellulose Sodium [Lubricant Eye Drop] 2 drop EYERT BID PRN [History] guaiFENesin/D-Methorphan Hb/Pe [Gnp Tussin Cf Max M-S Cold Liq] 10 ml PO Q4HR PRN 12/13/18 [History] Aquaphilac Ointment 1 applic TOP ASDIRECTED PRN 03/22/19 [History] Ascorbate Calcium [Vitamin C] 500 mg PO BID 03/22/19 [History] Baclofen 5 - 10 mg PO TID PRN 03/22/19 [History] Cepamax D Lip 1 applic TOP ASDIRECTED 03/22/19 [History] Lactobacillus Acidophilus [Acidophilus] 1 cap PO BID 03/22/19 [History] Sennosides [Senna] 2 tab PO BEDTIME 03/22/19 [History] Hydrocortisone [Proctozone-HC 2.5% Crm] 1 applic RECTAL BID PRN 04/19/19 [ History] Ibuprofen 400 mg PO Q4HR PRN 04/19/19 [History] Mirabegron [Myrbetriq] 50 mg PO DAILY 04/19/19 [History] Non-Formulary Medication [NF Drug] 1 each PO DAILY 04/19/19 [History] Potassium Citrate [Urocit-K] 30 meq PO BID 04/19/19 [History] Simethicone [Gas Relief] 80 mg PO Q4HR PRN 04/19/19 [History] Amoxicillin 2,000 mg PO ASDIRECTED #1 capsule 04/22/19 [Rx] Magnesium Oxide [Magnesium] 400 mg PO BID #8 capsule 04/22/19 [Rx] Nystatin [Nystop] 0 gm TOP TID PRN #1 bottle 04/22/19 [Rx] Promethazine HCl 25 mg TOP Q6HR PRN 04/25/19 [History] Past Medical History Respiratory History: Reports: Pneumonia, Recurrent Gastrointestinal History: Reports: Bowel Obstruction Genitourinary History: Reports: Neurogenic Bladder, Renal Calculus Other Genitourinary History: chronic cath Other Musculoskeletal History: Spastic Quadraplegia, cerebral palsy, botox injections at extremities. Neurological History: Reports: Cerebral Palsy, Seizure, Other (See Below) Other Neuro History: Seizure disorder Dermatologic History: Reports: Decubitus Ulcer Other Dermatologic History: Scrotom sore healed and coccyx bed sore - Infectious Disease History Infectious Disease History: Reports: None - Past Surgical History GI Surgical History: Reports: Other (See Below) Male Surgical History: Reports: Other (See Below) Social & Family History - Family History Family Medical History: Noncontributory - Tobacco Use Smoking Status *Q: Never Smoker - Caffeine Use Caffeine Use: Reports: None - Recreational Drug Use Recreational Drug Use: No - Living Situation & Occupation Living situation: Reports: Single, Other (ABLE) Occupation: Disabled ED ROS GENERAL - Review of Systems Review Of Systems: See Below Constitutional: Reports: Fever (Temp 99 on arrival to ED today) HEENT: Reports: No Symptoms Respiratory: Denies: Shortness of Breath, Cough Cardiovascular: Denies: Chest Pain GI/Abdominal: Reports: Abdominal Pain (Possible, has been somewhat more restless than usual), Constipation. Denies: Diarrhea : Reports: Hematuria (There was some blood noted when his last catheterization was done sometime in the last several hours) Skin: Denies: Rash ED EXAM, GI/ABD - Physical Exam Exam: See Below General Appearance: Alert, No Apparent Distress Eyes: Bilateral: Normal Appearance Throat/Mouth: Other (Oral mucosa is mildly dry) Head: Atraumatic. No: Facial Swelling Neck: Supple Respiratory/Chest: Lungs Clear Cardiovascular: Regular Rate, Rhythm GI/Abdominal Exam: Soft, Non-Tender (No obvious focal tenderness at time of exam ) Neurological: Alert, Other (There is some spasticity noted of upper and lower extremities) Skin Exam: Warm, Dry, Normal Color Course - Vital Signs Last Recorded V/S: Last Vital Signs Temp 99.0 F 04/25/19 15:22 Pulse 94 04/25/19 15:22 Resp 20 04/25/19 15:22 BP 121/79 04/25/19 15:22 Pulse Ox 95 04/25/19 15:22 - Orders/Labs/Meds Orders: Active Orders 24 hr Category Date Time Status Peripheral IV Care [RC] . DIRECTED Care 04/25/19 15:50 Active CULTURE BLOOD [BC] Stat Lab 04/25/19 16:00 Received CULTURE URINE [RM] Stat Lab 04/25/19 16:18 Received Peripheral IV Insertion Adult [OM.PC] Stat Oth 04/25/19 15:49 Ordered Labs: Laboratory Tests 04/25/19 04/25/19 04/25/19 Range/Units 16:00 16:00 16:07 WBC 9.51 H (4.23-9.07) K/mm3 RBC 4.36 L (4.63-6.08) M/mm3 Hgb 13.2 L D (13.7-17.5) gm/dl Hct 40.3 (40.1-51.0) % MCV 92.4 H (79.0-92.2) fl MCH 30.3 (25.7-32.2) pg MCHC 32.8 (32.2-35.5) g/dl RDW Std Deviation 47.6 H (35.1-43.9) fL Plt Count 225 (163-337) K/mm3 MPV 9.1 L (9.4-12.3) fl Neutrophils % (Manual) 74 H (40-60) % Band Neutrophils % 0 (0-10) % Lymphocytes % (Manual) 17 L (20-40) % Atypical Lymphs % 0 % Monocytes % (Manual) 4 (2-10) % Eosinophils % (Manual) 4 (0.8-7.0) % Basophils % (Manual) 1 (0.2-1.2) Platelet Estimate Adequate RBC Morph Comment Normal Sodium 140 (136-145) mEq/L Potassium 4.1 (3.5-5.1) mEq/L Chloride 104 (98-107) mEq/L Carbon Dioxide 31 (21-32) mEq/L Anion Gap 9.1 (5-15) BUN 17 (7-18) mg/dL Creatinine 0.5 L (0.7-1.3) mg/dL Est Cr Clr Drug Dosing 122.17 mL/min Estimated GFR (MDRD) > 60 (>60) mL/min BUN/Creatinine Ratio 34.0 H (14-18) Glucose 86 (74-106) mg/dL Lactic Acid 0.5 (0.4-2.0) mmol/L Calcium 9.0 (8.5-10.1) mg/dL Total Bilirubin 0.4 (0.2-1.0) mg/dL AST 13 L (15-37) U/L ALT 27 (16-63) U/L Alkaline Phosphatase 81 (46-116) U/L C-Reactive Protein 2.8 H* (<1.0) mg/dL Total Protein 6.7 (6.4-8.2) g/dl Albumin 3.3 L (3.4-5.0) g/dl Globulin 3.4 gm/dL Albumin/Globulin Ratio 1.0 (1-2) Urine Color (Yellow) Urine Appearance (Clear) Urine pH (5.0-8.0) Ur Specific [place] (1.005-1.030) Urine Protein (Negative) Urine Glucose (UA) (Negative) Urine Ketones (Negative) Urine Occult Blood (Negative) Urine Nitrite (Negative) Urine Bilirubin (Negative) Urine Urobilinogen (0.2-1.0) Ur Leukocyte Esterase (Negative) Urine RBC (0-5) /hpf Urine WBC (0-5) /hpf Ur Squamous Epith Cells (0-5) /hpf Urine Bacteria (FEW) /hpf Urine Mucus (FEW) /hpf 04/25/ Range/Units 16:18 WBC (4.23-9.07) K/mm3 RBC (4.63-6.08) M/mm3 Hgb (13.7-17.5) gm/dl Hct (40.1-51.0) % MCV (79.0-92.2) fl MCH (25.7-32.2) pg MCHC (32.2-35.5) g/dl RDW Std Deviation (35.1-43.9) fL Plt Count (163-337) K/mm3 MPV (9.4-12.3) fl Neutrophils % (Manual) (40-60) % Band Neutrophils % (0-10) % Lymphocytes % (Manual) (20-40) % Atypical Lymphs % % Monocytes % (Manual) (2-10) % Eosinophils % (Manual) (0.8-7.0) % Basophils % (Manual) (0.2-1.2) Platelet Estimate RBC Morph Comment Sodium (136-145) mEq/L Potassium (3.5-5.1) mEq/L Chloride (98-107) mEq/L Carbon Dioxide (21-32) mEq/L Anion Gap (5-15) BUN (7-18) mg/dL Creatinine (0.7-1.3) mg/dL Est Cr Clr Drug Dosing mL/min Estimated GFR (MDRD) (>60) mL/min BUN/Creatinine Ratio (14-18) Glucose (74-106) mg/dL Lactic Acid (0.4-2.0) mmol/L Calcium (8.5-10.1) mg/dL Total Bilirubin (0.2-1.0) mg/dL AST (15-37) U/L ALT (16-63) U/L Alkaline Phosphatase (46-116) U/L C-Reactive Protein (<1.0) mg/dL Total Protein (6.4-8.2) g/dl Albumin (3.4-5.0) g/dl Globulin gm/dL Albumin/Globulin Ratio (1-2) Urine Color Yellow (Yellow) Urine Appearance Clear (Clear) Urine pH 8.5 H (5.0-8.0) Ur Specific [place] 1.020 (1.005-1.030) Urine Protein 3+ H (Negative) Urine Glucose (UA) Negative (Negative) Urine Ketones Negative (Negative) Urine Occult Blood 2+ H (Negative) Urine Nitrite Negative (Negative) Urine Bilirubin Negative (Negative) Urine Urobilinogen 0.2 (0.2-1.0) Ur Leukocyte Esterase 1+ H (Negative) Urine RBC 10-20 H (0-5) /hpf Urine WBC 5-10 H (0-5) /hpf Ur Squamous Epith Cells 0-5 (0-5) /hpf Urine Bacteria Rare (FEW) /hpf Urine Mucus Not seen (FEW) /hpf Meds: Medications Discontinued Medications Generic Name Dose Route Start Last Admin Trade Name Freq PRN Reason Stop Dose Admin Lactated Ringer's 1,000 mls @ 999 mls/hr 04/25/19 17:45 04/25/19 18:03 Ringers, Lactated IV 04/25/19 18:45 999 mls/hr .BOLUS ONE Administration Sodium Chloride 10 ml 04/25/19 15:48 04/25/19 16:25 Saline Flush FLUSH 10 ml ASDIRECTED PRN Administration Keep Vein Open - Re-Assessments/Exams Free Text/Narrative Re-Assessment/Exam: 04/26/19 07:48 I reviewed the record of his admission [address] Saha at that time did consult with his urologist as stated diagnosis of UTI for him would be difficult to make based on UA, urine culture would provide definitive information. Urine culture of 6 days ago did not grow out anything bacterial. His white blood count today and chemistries were normal. We did hydrate him with the 600 ml bolus normal saline prior to departure. We'll monitor urine culture report. [facility] staff will bring him back if symptoms worsening in any way. Departure - Departure Time of Disposition: 18:38 Disposition: Home, Self-Care 01 Condition: Fair Clinical Impression: Abdominal pain Qualifiers: Abdominal location: generalized Qualified Code(s): R10.84 - Generalized abdominal pain - Discharge Information Instructions: Abdominal Pain, Adult, [id number] Referrals: Denver Diamond MD [Primary Care Provider] - Forms: ED Department Discharge Additional Instructions: Continue current care and current medications. WBC today was 9500, chemistries were normal. Urine culture has been ordered. I will plan to check on that around noon tomorrow. Call ED at [phone] about 1 PM tomorrow for results if available. Return to ED if symptoms worsening in any way. - My Orders Last 24 Hours: My Active Orders 04/25/19 15:49 Peripheral IV Insertion Adult [OM.PC] Stat 04/25/19 15:50 Peripheral IV Care [RC] . DIRECTED 04/25/19 16:00 CULTURE BLOOD [BC] Stat 04/25/19 16:18 CULTURE URINE [RM] Stat - Assessment/Plan Last 24 Hours: My Active Orders 04/25/19 15:49 Peripheral IV Insertion Adult [OM.PC] Stat 04/25/19 15:50 Peripheral IV Care [RC] . DIRECTED 04/25/19 16:00 CULTURE BLOOD [BC] Stat 04/25/19 16:18 CULTURE URINE [RM] Stat
[2019-04-25] MEDS ORDERED: Lactated Ringers 1,000 ML IV ONE (17:45)
== END 2019-04-25 19:05 | disposition home or self-care (01) ==
LOC: JD.ED 14:44
DX: R10.84 Generalized abdominal pain (principal); G80.9 Cerebral palsy, unspecified; G40.909 Epilepsy, unspecified, not intractable, without status epilepticus; Z88.2 Allergy status to sulfonamides; Z88.6 Allergy status to analgesic agent; Z79.899 Other long term (current) drug therapy
CPT/HCPCS: 36415; 80053; 81001; 83605; 85007; 85027; 86140; 87040; 87086; 96360; 99284; J7120

== ENCOUNTER 2019-06-14 21:08 | Emergency (ER) | payer MEDICARE, MEDICAID ==
--- NOTE | 2019-06-14 21:48 | EDM.PDOC ---
ED HPI GENERAL MEDICAL PROBLEM - General Chief Complaint: Genitourinary Problem Stated Complaint: UTI VOMITING HIGH BLOOD PRESSURE Time Seen by Provider: 06/14/19 21:47 - History of Present Illness INITIAL COMMENTS - FREE TEXT/NARRATIVE: 39-year-old male brought in by his caregivers with what appears to be a urinary tract infection that is not getting better. Patient was treated with several days ago for urinary tract infection started on Keflex. He is not getting better and is probably getting worse he is now complaining of abdominal discomfort. He's had multiple recurrent urinary tract infections in the past. Patient suffers from cerebral palsy. - Related Data Allergies Allergy/AdvReac Type Severity Reaction Status Date / Time Sulfa (Sulfonamide Allergy Other Verified 06/14/19 21:12 Antibiotics) hydrocodone AdvReac Vomiting Verified 06/14/19 21:12 Home Meds: Home Meds Cholecalciferol (Vitamin D3) [Vitamin D3] 1,000 units PO DAILY 12/12/18 [History ] Cranberry Fruit Extract [Cranberry] 425 mg PO BID 12/12/18 [History] Ketoconazole [Nizoral 2% Shampoo] 1 applic TOP ASDIRECTED 12/12/18 [History] Methenamine Hippurate 1 gm PO BID 12/12/18 [History] Multivitamins [Tab-A-Berta] 1 tab PO DAILY 12/12/18 [History] OXcarbazepine [Oxcarbazepine] 150 mg PO BID 12/12/18 [History] OXcarbazepine [Oxcarbazepine] 300 mg PO BID 12/12/18 [History] Ondansetron [Zofran] 4 mg PO Q4H PRN 12/12/18 [History] Polyethylene Glycol [Polyox Wsr-301] 17 gm PO DAILY 12/12/18 [History] Zinc Oxide 1 applic TOP BID 12/12/18 [History] Carboxymethylcellulose Sodium [Lubricant Eye Drop] 2 drop EYERT BID PRN [History] guaiFENesin/D-Methorphan Hb/Pe [Gnp Tussin Cf Max M-S Cold Liq] 10 ml PO Q4HR PRN 12/13/18 [History] Aquaphilac Ointment 1 applic TOP ASDIRECTED PRN 03/22/19 [History] Ascorbate Calcium [Vitamin C] 500 mg PO BID 03/22/19 [History] Baclofen 5 - 10 mg PO TID PRN 03/22/19 [History] Cepamax D Lip 1 applic TOP ASDIRECTED 03/22/19 [History] Lactobacillus Acidophilus [Acidophilus] 1 cap PO BID 03/22/19 [History] Sennosides [Senna] 2 tab PO BEDTIME 03/22/19 [History] Hydrocortisone [Proctozone-HC 2.5% Crm] 1 applic RECTAL BID PRN 04/19/19 [ History] Ibuprofen 400 mg PO Q4HR PRN 04/19/19 [History] Mirabegron [Myrbetriq] 50 mg PO DAILY 04/19/19 [History] Non-Formulary Medication [NF Drug] 1 each PO DAILY 04/19/19 [History] Potassium Citrate [Urocit-K] 30 meq PO BID 04/19/19 [History] Simethicone [Gas Relief] 80 mg PO Q4HR PRN 04/19/19 [History] Amoxicillin 2,000 mg PO ASDIRECTED #1 capsule 04/22/19 [Rx] Magnesium Oxide [Magnesium] 400 mg PO BID #8 capsule 04/22/19 [Rx] Nystatin [Nystop] 0 gm TOP TID PRN #1 bottle 04/22/19 [Rx] Promethazine HCl 25 mg TOP Q6HR PRN 04/25/19 [History] Past Medical History Respiratory History: Reports: Pneumonia, Recurrent Gastrointestinal History: Reports: Bowel Obstruction Genitourinary History: Reports: Neurogenic Bladder, Renal Calculus Other Genitourinary History: chronic cath Other Musculoskeletal History: Spastic Quadraplegia, cerebral palsy, botox injections at extremities. Neurological History: Reports: Cerebral Palsy, Seizure, Other (See Below) Other Neuro History: Seizure disorder Dermatologic History: Reports: Decubitus Ulcer Other Dermatologic History: Scrotom sore healed and coccyx bed sore - Infectious Disease History Infectious Disease History: Reports: None - Past Surgical History GI Surgical History: Reports: Other (See Below) Male Surgical History: Reports: Other (See Below) Social & Family History - Family History Family Medical History: Noncontributory - Tobacco Use Smoking Status *Q: Never Smoker - Caffeine Use Caffeine Use: Reports: None - Living Situation & Occupation Living situation: Reports: Single, Other (ABLE) Occupation: Disabled ED ROS GENERAL - Review of Systems Review Of Systems: See Below Constitutional: Reports: Malaise, Other (He is just not himself). Denies: No Symptoms HEENT: Reports: No Symptoms Respiratory: Reports: No Symptoms Cardiovascular: Reports: No Symptoms GI/Abdominal: Reports: Abdominal Pain, Nausea : Reports: Other (Lots problems he has an umbilical access to his bladder that is cathed routinely) Musculoskeletal: Reports: No Symptoms Skin: Reports: No Symptoms ED EXAM, GI/ABD - Physical Exam Exam: See Below Exam Limited By: No Limitations General Appearance: Alert, No Apparent Distress Eyes: Bilateral: Normal Appearance Ears: Normal External Exam, Normal Canal, Hearing Grossly Normal, Normal TMs Nose: Normal Inspection, Normal Mucosa, No Blood Throat/Mouth: Normal Inspection, Normal Lips, Normal Teeth, Normal Gums, Normal Oropharynx, Normal Voice, No Airway Compromise Head: Atraumatic, Normocephalic Neck: Normal Inspection, Supple, Non-Tender, Full Range of Motion Respiratory/Chest: No Respiratory Distress, Lungs Clear, Normal Breath Sounds Cardiovascular: Normal Peripheral Pulses, Regular Rate, Rhythm, No Edema GI/Abdominal Exam: Normal Bowel Sounds, Other (Generalized tenderness hard to really sort out no rebound or guarding). No: Non-Tender Extremities: Other (Contracted due to his CP) Course - Vital Signs Last Recorded V/S: Last Vital Signs Temp 37.0 C 06/14/19 21:13 Pulse 112 H 06/14/19 21:13 Resp BP 144/103 H 06/14/19 21:13 Pulse Ox 93 L 06/14/19 21:13 - Orders/Labs/Meds Orders: Active Orders 24 hr Category Date Time Status Lactated Ringers [Ringers, Lactated] 1,000 ml Med 06/14/19 22:30 Active IV ASDIRECTED Medication Orders Lactated Ringer's (Ringers, Lactated) 1,000 mls @ 150 mls/hr IV ASDIRECTED MERRICK Labs: Laboratory Tests 06/14/19 06/14/19 06/14/19 Range/Units 22:33 22:45 22:45 WBC 10.65 H (4.23-9.07) K/mm3 RBC 5.14 (4.63-6.08) M/mm3 Hgb 15.9 D (13.7-17.5) gm/dl Hct 49.9 (40.1-51.0) % MCV 97.1 H D (79.0-92.2) fl MCH 30.9 (25.7-32.2) pg MCHC 31.9 L (32.2-35.5) g/dl RDW Std Deviation 50.8 H (35.1-43.9) fL Plt Count 284 (163-337) K/mm3 MPV 9.3 L (9.4-12.3) fl Neutrophils % (Manual) 69 H (40-60) % Band Neutrophils % 0 (0-10) % Lymphocytes % (Manual) 25 (20-40) % Atypical Lymphs % 0 % Monocytes % (Manual) 5 (2-10) % Eosinophils % (Manual) 1 (0.8-7.0) % Basophils % (Manual) 0 L (0.2-1.2) Platelet Estimate Adequate RBC Morph Comment Normal Sodium 147 H (136-145) mEq/L Potassium 4.1 (3.5-5.1) mEq/L Chloride 111 H (98-107) mEq/L Carbon Dioxide 27 (21-32) mEq/L Anion Gap 13.1 (5-15) BUN 47 H D (7-18) mg/dL Creatinine 0.9 (0.7-1.3) mg/dL Est Cr Clr Drug Dosing TNP Estimated GFR (MDRD) > 60 (>60) mL/min BUN/Creatinine Ratio 52.2 H (14-18) Glucose 94 (74-106) mg/dL Lactic Acid (0.4-2.0) mmol/L Calcium 9.5 (8.5-10.1) mg/dL Total Bilirubin 0.4 (0.2-1.0) mg/dL AST 24 (15-37) U/L ALT 46 (16-63) U/L Alkaline Phosphatase 114 (46-116) U/L Total Protein 8.1 (6.4-8.2) g/dl Albumin 3.8 (3.4-5.0) g/dl Globulin 4.3 gm/dL Albumin/Globulin Ratio 0.9 L (1-2) Urine Color Yellow (Yellow) Urine Appearance Cloudy H (Clear) Urine pH 7.0 (5.0-8.0) Ur Specific [place] > or = 1.030 (1.005-1.030) Urine Protein 3+ H (Negative) Urine Glucose (UA) Negative (Negative) Urine Ketones Negative (Negative) Urine Occult Blood 2+ H (Negative) Urine Nitrite Negative (Negative) Urine Bilirubin Negative (Negative) Urine Urobilinogen 0.2 (0.2-1.0) Ur Leukocyte Esterase 2+ H (Negative) Urine RBC 5-10 H (0-5) /hpf Urine WBC >100 H (0-5) /hpf Ur Squamous Epith Cells 0-5 (0-5) /hpf Urine Bacteria Few (FEW) /hpf Urine Mucus Few (FEW) /hpf 06/14/19 Range/Units 22:45 WBC (4.23-9.07) K/mm3 RBC (4.63-6.08) M/mm3 Hgb (13.7-17.5) gm/dl Hct (40.1-51.0) % MCV (79.0-92.2) fl MCH (25.7-32.2) pg MCHC (32.2-35.5) g/dl RDW Std Deviation (35.1-43.9) fL Plt Count (163-337) K/mm3 MPV (9.4-12.3) fl Neutrophils % (Manual) (40-60) % Band Neutrophils % (0-10) % Lymphocytes % (Manual) (20-40) % Atypical Lymphs % % Monocytes % (Manual) (2-10) % Eosinophils % (Manual) (0.8-7.0) % Basophils % (Manual) (0.2-1.2) Platelet Estimate RBC Morph Comment Sodium (136-145) mEq/L Potassium (3.5-5.1) mEq/L Chloride (98-107) mEq/L Carbon Dioxide (21-32) mEq/L Anion Gap (5-15) BUN (7-18) mg/dL Creatinine (0.7-1.3) mg/dL Est Cr Clr Drug Dosing Estimated GFR (MDRD) (>60) mL/min BUN/Creatinine Ratio (14-18) Glucose (74-106) mg/dL Lactic Acid 0.7 (0.4-2.0) mmol/L Calcium (8.5-10.1) mg/dL Total Bilirubin (0.2-1.0) mg/dL AST (15-37) U/L ALT (16-63) U/L Alkaline Phosphatase (46-116) U/L Total Protein (6.4-8.2) g/dl Albumin (3.4-5.0) g/dl Globulin gm/dL Albumin/Globulin Ratio (1-2) Urine Color (Yellow) Urine Appearance (Clear) Urine pH (5.0-8.0) Ur Specific [place] (1.005-1.030) Urine Protein (Negative) Urine Glucose (UA) (Negative) Urine Ketones (Negative) Urine Occult Blood (Negative) Urine Nitrite (Negative) Urine Bilirubin (Negative) Urine Urobilinogen (0.2-1.0) Ur Leukocyte Esterase (Negative) Urine RBC (0-5) /hpf Urine WBC (0-5) /hpf Ur Squamous Epith Cells (0-5) /hpf Urine Bacteria (FEW) /hpf Urine Mucus (FEW) /hpf Meds: Medications Generic Name Dose Route Start Last Admin Trade Name Freq PRN Reason Stop Dose Admin Lactated Ringer's 1,000 mls @ 150 mls/hr 06/14/19 22:30 Ringers, Lactated IV ASDIRECTED MERRICK Discontinued Medications Generic Name Dose Route Start Last Admin Trade Name Freq PRN Reason Stop Dose Admin Lactated Ringer's 500 mls @ 999 mls/hr 06/14/19 22:31 06/14/19 23:08 Ringers, Lactated IV 06/14/19 23:01 999 mls/hr .BOLUS ONE Administration Ceftriaxone Sodium 1 gm/ 100 mls @ 200 mls/hr 06/15/19 00:24 06/15/19 00:31 Sodium Chloride IV 06/15/19 00:53 200 mls/hr ONETIME ONE Administration Ondansetron HCl 4 mg 06/14/19 22:30 06/14/19 23:08 Zofran IVPUSH 06/14/19 22:31 4 mg ONETIME ONE Administration - Re-Assessments/Exams Free Text/Narrative Re-Assessment/Exam: 06/15/19 00:38 We attempted to see if his urinalysis and hopefully a culture was brought here but we cannot find that. We will give him a shot of Rocephin to hopefully improve his overall situation. His white count is minimally elevated his urine is suggestive of a urinary tract infection leukocyte positive nitrate negative. Family and the home health nurses to follow-up on the urine culture with Dr. Diamond tomorrow. We will give a dose of Rocephin now. Departure - Departure Time of Disposition: 01:42 Disposition: Home, Self-Care 01 Clinical Impression: Urinary tract infection - Discharge Information Referrals: Denver Diamond MD [Primary Care Provider] - Forms: ED Department Discharge Additional Instructions: Return to the emergency room with any questions problems or worsening symptoms. Follow-up with Dr. Diamond tomorrow to check that his urine culture and sensitivity agree with the current course of treatment. Continue his current antibiotics unless instructed to change them. Sepsis Event Note - Evaluation Sepsis Screening Result: No Definite Risk - Focused Exam Vital Signs: Vital Signs Temp Pulse BP Pulse Ox 06/14/19 21:13 37.0 C 112 H 144/103 H 93 L Date Exam was Performed: 06/15/19 Time Exam was Performed: 01:41 - My Orders Last 24 Hours: My Active Orders 06/14/19 22:30 Lactated Ringers [Ringers, Lactated] 1,000 ml IV ASDIRECTED - Assessment/Plan Last 24 Hours: My Active Orders 06/14/19 22:30 Lactated Ringers [Ringers, Lactated] 1,000 ml IV ASDIRECTED
[2019-06-14] MEDS ORDERED: Lactated Ringers 1,000 ML IV SCH (22:30)
[2019-06-14] MEDS ORDERED: Ondansetron 4 MG/2 ML SDV IVPUSH ONE (22:30)
[2019-06-14] MEDS ORDERED: Lactated Ringers 500 ML IV ONE (22:31)
[2019-06-15] MEDS ORDERED: cefTRIAXone 1 GM in Sodium Chloride 0.9% 100 ML IV ONE (00:24)
== END 2019-06-15 01:46 | disposition home or self-care (01) ==
LOC: JD.ED 21:08
DX: N39.0 Urinary tract infection, site not specified (principal); B96.20 Unspecified Escherichia coli [E. coli] as the cause of diseases classified elsewhere; Z88.2 Allergy status to sulfonamides; Z88.5 Allergy status to narcotic agent; Z79.899 Other long term (current) drug therapy
CPT/HCPCS: 36415; 80053; 81001; 83605; 85007; 85027; 96361; 96365; 96375; 99284; J0696; J2405; J7050; J7120; 99282

== ENCOUNTER 2019-06-25 11:51 | Emergency (ER) | payer MEDICARE, MEDICAID ==
[2019-06-25] MEDS ORDERED: Sodium Chloride 0.9% 10 ML Syringe FLUSH PRN (12:33)
--- NOTE | 2019-06-25 12:39 | EDM.PDOC ---
ED HPI GENERAL MEDICAL PROBLEM - General Chief Complaint: Fever Stated Complaint: FEVER,AND HIGH BLOOD PRESSURE Time Seen by Provider: 06/25/19 12:15 Source of Information: Reports: RN Notes Reviewed, Other (Able caregiver) - History of Present Illness INITIAL COMMENTS - FREE TEXT/NARRATIVE: 39-year-old male is brought in by able caregiver sternum for possible UTI, possible infection. He does have history of fairly severe cerebral palsy. He was just hospitalized of the [facility] about 10 days ago for a UTI. He had IV antibiotics for about 4 days and then was discharged back home on oral Omnicef for an additional 4 days with last dosage 2 days ago. Today he had very low-grade temp of around 99 this morning, elevated blood pressure decreased energy from normal. That was concerned about possible reoccurrence of infection. He has not been coughing. No vomiting or diarrhea. No obvious pain. He does wear a depends-type diaper. They do catheterized his bladder about every 4 hours. With his last catheterization a few hours ago staff member states there was blood and then some foul type discharge noted after the catheterization. - Related Data Allergies Allergy/AdvReac Type Severity Reaction Status Date / Time Sulfa (Sulfonamide Allergy Other Verified 06/14/19 21:12 Antibiotics) hydrocodone AdvReac Vomiting Verified 06/14/19 21:12 Home Meds: Home Meds Cholecalciferol (Vitamin D3) [Vitamin D3] 1,000 units PO DAILY 12/12/18 [History ] Cranberry Fruit Extract [Cranberry] 425 mg PO BID 12/12/18 [History] Ketoconazole [Nizoral 2% Shampoo] 1 applic TOP ASDIRECTED 12/12/18 [History] Methenamine Hippurate 1 gm PO BID 12/12/18 [History] Multivitamins [Tab-A-Berta] 1 tab PO DAILY 12/12/18 [History] OXcarbazepine [Oxcarbazepine] 150 mg PO BID 12/12/18 [History] OXcarbazepine [Oxcarbazepine] 300 mg PO BID 12/12/18 [History] Ondansetron [Zofran] 4 mg PO Q4H PRN 12/12/18 [History] Polyethylene Glycol [Polyox Wsr-301] 17 gm PO DAILY 12/12/18 [History] Zinc Oxide 1 applic TOP BID 12/12/18 [History] Carboxymethylcellulose Sodium [Lubricant Eye Drop] 2 drop EYERT BID PRN [History] guaiFENesin/D-Methorphan Hb/Pe [Gnp Tussin Cf Max M-S Cold Liq] 10 ml PO Q4HR PRN 12/13/18 [History] Aquaphilac Ointment 1 applic TOP ASDIRECTED PRN 03/22/19 [History] Ascorbate Calcium [Vitamin C] 500 mg PO BID 03/22/19 [History] Baclofen 5 - 10 mg PO TID PRN 03/22/19 [History] Cepamax D Lip 1 applic TOP ASDIRECTED 03/22/19 [History] Lactobacillus Acidophilus [Acidophilus] 1 cap PO BID 03/22/19 [History] Sennosides [Senna] 2 tab PO BEDTIME 03/22/19 [History] Hydrocortisone [Proctozone-HC 2.5% Crm] 1 applic RECTAL BID PRN 04/19/19 [ History] Ibuprofen 400 mg PO Q4HR PRN 04/19/19 [History] Mirabegron [Myrbetriq] 50 mg PO DAILY 04/19/19 [History] Non-Formulary Medication [NF Drug] 1 each PO DAILY 04/19/19 [History] Simethicone [Gas Relief] 80 mg PO Q4HR PRN 04/19/19 [History] Amoxicillin 2,000 mg PO ASDIRECTED #1 capsule 04/22/19 [Rx] Magnesium Oxide [Magnesium] 400 mg PO BID #8 capsule 04/22/19 [Rx] Nystatin [Nystop] 0 gm TOP TID PRN #1 bottle 04/22/19 [Rx] Promethazine HCl 25 mg TOP Q6HR PRN 04/25/19 [History] Past Medical History Respiratory History: Reports: Pneumonia, Recurrent Gastrointestinal History: Reports: Bowel Obstruction Genitourinary History: Reports: Neurogenic Bladder, Renal Calculus Other Genitourinary History: chronic cath-straight cath Other Musculoskeletal History: Spastic Quadraplegia, cerebral palsy, botox injections at extremities. Neurological History: Reports: Cerebral Palsy, Seizure, Other (See Below) Other Neuro History: Seizure disorder Dermatologic History: Reports: Decubitus Ulcer Other Dermatologic History: Scrotom sore healed and coccyx bed sore;almost healed sore to coccyx area - Infectious Disease History Infectious Disease History: Reports: None - Past Surgical History GI Surgical History: Reports: Other (See Below) Male Surgical History: Reports: Other (See Below) Social & Family History - Family History Family Medical History: Noncontributory - Tobacco Use Smoking Status *Q: Never Smoker - Caffeine Use Caffeine Use: Reports: None - Recreational Drug Use Recreational Drug Use: No - Living Situation & Occupation Living situation: Reports: Single, Other (ABLE) Occupation: Disabled ED ROS GENERAL - Review of Systems Review Of Systems: See Below Constitutional: Reports: Fever (Possible low-grade temp was around 99 this morning, 98.5 on arrival to ED) HEENT: Reports: No Symptoms, Other Respiratory: Denies: Shortness of Breath (Oral mucosa very mildly dry), Wheezing , Cough Cardiovascular: Denies: Chest Pain GI/Abdominal: Denies: Abdominal Pain, Diarrhea, Vomiting Musculoskeletal: Reports: Other (Chronic contractures associated with history of CP) Skin: Reports: No Symptoms ED EXAM, GENERAL - Physical Exam Exam: See Below General Appearance: Alert, No Apparent Distress Course - Vital Signs Last Recorded V/S: Last Vital Signs Temp 98.5 F 06/25/19 15:00 Pulse 99 06/25/19 12:05 Resp 16 06/25/19 12:05 BP 154/111 H 06/25/19 12:05 Pulse Ox 94 L 06/25/19 12:05 - Orders/Labs/Meds Labs: Laboratory Tests 06/25/19 06/25/19 06/25/19 Range/Units 13:00 13:00 13:00 WBC 9.39 H (4.23-9.07) K/mm3 RBC 4.39 L (4.63-6.08) M/mm3 Hgb 13.6 L D (13.7-17.5) gm/dl Hct 42.3 (40.1-51.0) % MCV 96.4 H (79.0-92.2) fl MCH 31.0 (25.7-32.2) pg MCHC 32.2 (32.2-35.5) g/dl RDW Std Deviation 48.1 H (35.1-43.9) fL Plt Count 282 (163-337) K/mm3 MPV 9.3 L (9.4-12.3) fl Neut % (Auto) 69.3 H (34.0-67.9) % Lymph % (Auto) 19.0 L (21.8-53.1) % [place] % (Auto) 8.7 (5.3-12.2) % Eos % (Auto) 2.7 (0.8-7.0) Baso % (Auto) 0.1 (0.1-1.2) % Neut # (Auto) 6.51 H (1.78-5.38) K/mm3 Lymph # (Auto) 1.78 (1.32-3.57) K/mm3 [place] # (Auto) 0.82 (0.30-0.82) K/mm3 Eos # (Auto) 0.25 (0.04-0.54) K/mm3 Baso # (Auto) 0.01 (0.01-0.08) K/mm3 Sodium 150 H (136-145) mEq/L Potassium 4.3 (3.5-5.1) mEq/L Chloride 111 H (98-107) mEq/L Carbon Dioxide 29 (21-32) mEq/L Anion Gap 14.3 (5-15) BUN 38 H (7-18) mg/dL Creatinine 0.8 (0.7-1.3) mg/dL Est Cr Clr Drug Dosing 77.15 mL/min Estimated GFR (MDRD) > 60 (>60) mL/min BUN/Creatinine Ratio 47.5 H (14-18) Glucose 92 (74-106) mg/dL Calcium 9.0 (8.5-10.1) mg/dL Total Bilirubin 0.2 (0.2-1.0) mg/dL AST 13 L (15-37) U/L ALT 35 (16-63) U/L Alkaline Phosphatase 98 (46-116) U/L C-Reactive Protein 5.9 H* (<1.0) mg/dL Total Protein 7.2 (6.4-8.2) g/dl Albumin 3.4 (3.4-5.0) g/dl Globulin 3.8 gm/dL Albumin/Globulin Ratio 0.9 L (1-2) Urine Color (Yellow) Urine Appearance (Clear) Urine pH (5.0-8.0) Ur Specific [place] (1.005-1.030) Urine Protein (Negative) Urine Glucose (UA) (Negative) Urine Ketones (Negative) Urine Occult Blood (Negative) Urine Nitrite (Negative) Urine Bilirubin (Negative) Urine Urobilinogen (0.2-1.0) Ur Leukocyte Esterase (Negative) Urine RBC (0-5) /hpf Urine WBC (0-5) /hpf Ur Squamous Epith Cells (0-5) /hpf Amorphous Sediment (NOT SEEN) /hpf Urine Bacteria (FEW) /hpf Urine Mucus (FEW) /hpf 06/25/19 Range/Units 13:50 WBC (4.23-9.07) K/mm3 RBC (4.63-6.08) M/mm3 Hgb (13.7-17.5) gm/dl Hct (40.1-51.0) % MCV (79.0-92.2) fl MCH (25.7-32.2) pg MCHC (32.2-35.5) g/dl RDW Std Deviation (35.1-43.9) fL Plt Count (163-337) K/mm3 MPV (9.4-12.3) fl Neut % (Auto) (34.0-67.9) % Lymph % (Auto) (21.8-53.1) % [place] % (Auto) (5.3-12.2) % Eos % (Auto) (0.8-7.0) Baso % (Auto) (0.1-1.2) % Neut # (Auto) (1.78-5.38) K/mm3 Lymph # (Auto) (1.32-3.57) K/mm3 [place] # (Auto) (0.30-0.82) K/mm3 Eos # (Auto) (0.04-0.54) K/mm3 Baso # (Auto) (0.01-0.08) K/mm3 Sodium (136-145) mEq/L Potassium (3.5-5.1) mEq/L Chloride (98-107) mEq/L Carbon Dioxide (21-32) mEq/L Anion Gap (5-15) BUN (7-18) mg/dL Creatinine (0.7-1.3) mg/dL Est Cr Clr Drug Dosing mL/min Estimated GFR (MDRD) (>60) mL/min BUN/Creatinine Ratio (14-18) Glucose (74-106) mg/dL Calcium (8.5-10.1) mg/dL Total Bilirubin (0.2-1.0) mg/dL AST (15-37) U/L ALT (16-63) U/L Alkaline Phosphatase (46-116) U/L C-Reactive Protein (<1.0) mg/dL Total Protein (6.4-8.2) g/dl Albumin (3.4-5.0) g/dl Globulin gm/dL Albumin/Globulin Ratio (1-2) Urine Color Light yellow (Yellow) Urine Appearance Turbid H (Clear) Urine pH 6.5 (5.0-8.0) Ur Specific [place] 1.025 (1.005-1.030) Urine Protein 3+ H (Negative) Urine Glucose (UA) Negative (Negative) Urine Ketones Negative (Negative) Urine Occult Blood 3+ H (Negative) Urine Nitrite Negative (Negative) Urine Bilirubin Negative (Negative) Urine Urobilinogen 0.2 (0.2-1.0) Ur Leukocyte Esterase 1+ H (Negative) Urine RBC 10-20 H (0-5) /hpf Urine WBC >100 H (0-5) /hpf Ur Squamous Epith Cells 5-10 H (0-5) /hpf Amorphous Sediment Moderate H (NOT SEEN) /hpf Urine Bacteria Moderate H (FEW) /hpf Urine Mucus Not seen (FEW) /hpf Meds: Medications Discontinued Medications Generic Name Dose Route Start Last Admin Trade Name Freq PRN Reason Stop Dose Admin Sodium Chloride 1,000 mls @ 999 mls/hr 06/25/19 12:45 06/25/19 12:59 Normal Saline IV 999 mls/hr ONETIME MERRICK Administration Sodium Chloride 1,000 mls @ 500 mls/hr 06/25/19 13:45 06/25/19 13:48 Sodium Chloride 0.45% IV 500 mls/hr ASDIRECTED MERRICK Administration Sodium Chloride 10 ml 06/25/19 12:33 06/25/19 13:00 Saline Flush FLUSH 10 ml ASDIRECTED PRN Administration Keep Vein Open Departure - Departure Time of Disposition: 15:45 Disposition: Home, Self-Care 01 Condition: Fair Clinical Impression: Hypernatremia - Discharge Information Instructions: Hypernatremia, [id number]-[id number] Referrals: Denver Diamond MD [Primary Care Provider] - Forms: ED Department Discharge Additional Instructions: There was some bacteria and WBCs in the Urine today. Urine culture has been done. When we checked rectal temp is temp was 98.5 rectally. Becuase he just went off antibiotics 2 days ago will not admit for further IV antibiotics today. We have given 500 ml NS and about 900 ml half NS through the IV to help improve hydration and which will at least partially correct Edilson's hypernatremia. See Dr Diamond tomorrow as planned. Return to ED as needed. Sepsis Event Note - Evaluation Sepsis Screening Result: No Definite Risk - Focused Exam Date Exam was Performed: 06/28/19 Time Exam was Performed: 08:54
[2019-06-25] MEDS ORDERED: Sodium Chloride 0.9% 1,000 ML IV SCH (12:45)
[2019-06-25] MEDS ORDERED: Sodium Chloride 0.45% 1,000 ML IV SCH (13:45)
== END 2019-06-25 16:03 ==
LOC: JD.ED 11:51
DX: E87.0 Hyperosmolality and hypernatremia (principal); N39.0 Urinary tract infection, site not specified; B96.5 Pseudomonas (aeruginosa) (mallei) (pseudomallei) as the cause of diseases classified elsewhere; Z79.899 Other long term (current) drug therapy; Z88.6 Allergy status to analgesic agent; Z88.2 Allergy status to sulfonamides
CPT/HCPCS: 36415; 80053; 81001; 85025; 86140; 87075; 87077; 87086; 87186; 87205; 96360; 96361; 99283; J7030

== ENCOUNTER 2020-03-22 16:19 | Emergency (ER) | payer MEDICARE, MEDICAID ==
[2020-03-22] MEDS ORDERED: Sodium Chloride 0.9% 10 ML Syringe FLUSH PRN ×2 (17:27→18:51)
[2020-03-22] MEDS ORDERED: Sodium Chloride 0.9% 1,000 ML IV STA (18:15)
--- NOTE | 2020-03-22 18:29 | CR ---
Chest: Portable view of the chest was obtained in supine projection. Comparison: Prior chest x-ray of 12/12/18. Scoliosis and fixation rods are seen. Heart size and mediastinum are normal. Lungs are clear with no acute parenchymal change. Impression: 1. Nothing acute is seen on portable supine chest x-ray. Diagnostic code #2 This report was dictated in MDT
[2020-03-22] MEDS ORDERED: Diatrizoate Meglumine/Diatrizoate Sodium 37% 120 ML Bottle PO ONE (18:51)
[2020-03-22] MEDS ORDERED: Iopamidol 612 MG/ML 100 ML Bottle IVPUSH ONE (18:51)
--- NOTE | 2020-03-22 19:01 | EDM.PDOC ---
ED HPI GENERAL MEDICAL PROBLEM - General Chief Complaint: Abdominal Pain Stated Complaint: ELEVATED WHITE BLOOD CELL(REFERED BY DR DIAMOND) Time Seen by Provider: 03/22/20 17:15 Source of Information: Reports: Patient History Limitations: Reports: No Limitations - History of Present Illness INITIAL COMMENTS - FREE TEXT/NARRATIVE: Patient is a 39-year-old male presenting to the emergency department after being sent here from his primary care provider Dr. Shepard. Patient has a history of cerebral palsy and was seen in the clinic today for intermittent fevers over the last few days, as well as intermittent abdominal pain and distention. CBC was completed in the clinic and found he was found to have an elevated white count of 19.7, therefore he was sent to the emergency department for further evaluation. He also had a temperature of 101. [facility] caregiver who was in the room with the patient reports that he has been complaining of abdominal pain intermittently off and on over the last few days. He is also had intermittent fevers over the last few days. She states that when the nurses at [facility] would evaluate him, the abdominal pain was gone, however they wanted to have him checked today to be sure there is not something else going on. She does state that his abdomen is normally distended at baseline. He has not had any vomiting or diarrhea. He has had no known COVID exposures. A coronavirus test was completed at [facility], however those results will not be available for couple days. Patient is essentially nonverbal but can answer yes or no questions. - Related Data Allergies Allergy/AdvReac Type Severity Reaction Status Date / Time Sulfa (Sulfonamide Allergy Other Verified 03/22/20 16:55 Antibiotics) hydrocodone AdvReac Vomiting Verified 03/22/20 16:55 Home Meds: Home Meds Ketoconazole [Nizoral 2% Shampoo] 1 applic TOP ASDIRECTED 12/12/18 [History] Multivitamins [Tab-A-Berta] 1 tab PO DAILY 12/12/18 [History] OXcarbazepine [Oxcarbazepine] 150 mg PO BID 12/12/18 [History] OXcarbazepine [Oxcarbazepine] 300 mg PO BID 12/12/18 [History] Aquaphilac Ointment 1 applic TOP ASDIRECTED PRN 03/22/19 [History] Lactobacillus Acidophilus [Acidophilus] 1 cap PO BID 03/22/19 [History] Sennosides [Senna] 17.2 mg PO BEDTIME 03/22/19 [History] Ibuprofen 400 mg PO Q4HR PRN 04/19/19 [History] Mirabegron [Myrbetriq] 50 mg PO DAILY 04/19/19 [History] Amoxicillin 2,000 mg PO ASDIRECTED #1 capsule 04/22/19 [Rx] Acetaminophen [Tylenol] 325 mg PO Q4HR PRN 03/22/20 [History] Ascorbic Acid [Vitamin C] 500 mg PO BID 03/22/20 [History] Baclofen 10 mg PO TID 03/22/20 [History] Baclofen [Lioresal Intrathecal] 1 dose INJECT DAILY 03/22/20 [History] Bisacodyl [Gentle Laxative] 1 dose RECTAL DAILY PRN 03/22/20 [History] Carboxymethylcellulos/Glycerin [Refresh Optive] 1 drop TOP ASDIRECTED 03/22/20 [History] Cefdinir [Omnicef] 300 mg PO BID #14 cap 03/22/20 [Rx] Cholecalciferol (Vitamin D3) [Vitamin D3] 1,000 mg PO DAILY 03/22/20 [History] Losartan [Cozaar] 100 mg PO DAILY 03/22/20 [History] Meloxicam [Mobic] 7.5 mg PO DAILY 03/22/20 [History] Methenamine Hippurate [Hiprex] 1 gram PO Q12HR 03/22/20 [History] Metoprolol Succinate [Toprol XL] 25 mg PO DAILY 03/22/20 [History] Multivitamin with Minerals [Multiple Vitamin] 1 tab PO DAILY 03/22/20 [History] Nystatin 1 applic TOP ASDIRECTED PRN 03/22/20 [History] Pseudoephedrine HCl [Sudafed] 30 mg PO Q4HR PRN 03/22/20 [History] amLODIPine [Norvasc] 5 mg PO DAILY 03/22/20 [History] polyethylene glycoL 3350 [MiraLAX] 1 packet PO DAILY 03/22/20 [History] Past Medical History Other HEENT History: dysphagia Respiratory History: Reports: Pneumonia, Recurrent Gastrointestinal History: Reports: Bowel Obstruction, Pancreatitis Genitourinary History: Reports: Neurogenic Bladder, Renal Calculus Other Genitourinary History: chronic cath-straight cath Other Musculoskeletal History: Spastic Quadraplegia, cerebral palsy, botox injections at extremities. Neurological History: Reports: Cerebral Palsy, Seizure, Other (See Below) Other Neuro History: Seizure disorder Dermatologic History: Reports: Decubitus Ulcer Other Dermatologic History: Scrotom sore healed and coccyx bed sore;almost healed sore to coccyx area - Infectious Disease History Infectious Disease History: Reports: None - Past Surgical History Male Surgical History: Reports: Renal Calculus Neurological Surgical History: Reports: Scoliosis Social & Family History - Family History Family Medical History: Noncontributory - Tobacco Use Smoking Status *Q: Never Smoker - Caffeine Use Caffeine Use: Reports: None - Recreational Drug Use Recreational Drug Use: No - Living Situation & Occupation Living situation: Reports: Single, Other (ABLE) Occupation: Disabled ED ROS GENERAL - Review of Systems Review Of Systems: See Below Constitutional: Reports: Fever HEENT: Reports: No Symptoms Respiratory: Reports: No Symptoms Cardiovascular: Reports: No Symptoms Endocrine: Reports: No Symptoms GI/Abdominal: Reports: Abdominal Pain. Denies: Diarrhea, Vomiting : Reports: No Symptoms Musculoskeletal: Reports: No Symptoms Skin: Reports: No Symptoms Neurological: Reports: No Symptoms Psychiatric: Reports: No Symptoms Hematologic/Lymphatic: Reports: No Symptoms Immunologic: Reports: No Symptoms ED EXAM, GI/ABD - Physical Exam Exam: See Below General Appearance: Alert, WD/WN, No Apparent Distress Respiratory/Chest: No Respiratory Distress, Lungs Clear, Normal Breath Sounds, No Accessory Muscle Use, Chest Non-Tender Cardiovascular: Normal Peripheral Pulses, Regular Rate, Rhythm, No Edema, No Gallop, No JVD, No Murmur, No Rub GI/Abdominal Exam: Normal Bowel Sounds, Soft, No Organomegaly, No Distention, No Abnormal Bruit, No Mass, Pelvis Stable, Tender (generalized tenderness thro ughout the abdomen) Neurological: Alert, Oriented, CN II-XII Intact, Normal Cognition, Normal Gait, Normal Reflexes, No Motor/Sensory Deficits Psychiatric: Normal Affect, Normal Mood Skin Exam: Warm, Dry, Intact, Normal Color, No Rash Course - Vital Signs Last Recorded V/S: Last Vital Signs Temp 100.6 F 03/22/20 16:49 Pulse 109 H 03/22/20 16:49 Resp 16 03/22/20 16:49 BP 148/86 H 03/22/20 16:49 Pulse Ox 98 03/22/20 16:49 - Orders/Labs/Meds Labs: Laboratory Tests 03/22/20 03/22/20 03/22/20 Range/Units 17:18 17:18 17:18 WBC 19.71 H (4.23-9.07) K/mm3 RBC 4.58 L (4.63-6.08) M/mm3 Hgb 13.8 (13.7-17.5) gm/dl Hct 42.7 (40.1-51.0) % MCV 93.2 H D (79.0-92.2) fl MCH 30.1 (25.7-32.2) pg MCHC 32.3 (32.2-35.5) g/dl RDW Std Deviation 46.5 H (35.1-43.9) fL Plt Count 239 (163-337) K/mm3 MPV 9.1 L (9.4-12.3) fl Neut % (Auto) 86.6 H (34.0-67.9) % Lymph % (Auto) 4.9 L (21.8-53.1) % Garfield % (Auto) 7.9 (5.3-12.2) % Eos % (Auto) 0 L (0.8-7.0) Baso % (Auto) 0.1 (0.1-1.2) % Neut # (Auto) 17.07 H (1.78-5.38) K/mm3 Lymph # (Auto) 0.97 L (1.32-3.57) K/mm3 Garfield # (Auto) 1.56 H (0.30-0.82) K/mm3 Eos # (Auto) 0.00 L (0.04-0.54) K/mm3 Baso # (Auto) 0.02 (0.01-0.08) K/mm3 Manual Slide Review Abnormal smear Sodium 133 L D (136-145) mEq/L Potassium 4.2 (3.5-5.1) mEq/L Chloride 97 L D (98-107) mEq/L Carbon Dioxide 24 (21-32) mEq/L Anion Gap 16.2 H (5-15) BUN 14 (7-18) mg/dL Creatinine 0.6 L (0.7-1.3) mg/dL Est Cr Clr Drug Dosing TNP Estimated GFR (MDRD) > 60 (>60) mL/min BUN/Creatinine Ratio 23.3 H (14-18) Glucose 104 (74-106) mg/dL Lactic Acid (0.4-2.0) mmol/L Calcium 9.7 (8.5-10.1) mg/dL Total Bilirubin 0.7 (0.2-1.0) mg/dL AST 27 (15-37) U/L ALT 48 (16-63) U/L Alkaline Phosphatase 104 (46-116) U/L C-Reactive Protein 18.6 H* (<1.0) mg/dL Total Protein 7.9 (6.4-8.2) g/dl Albumin 4.0 (3.4-5.0) g/dl Globulin 3.9 gm/dL Albumin/Globulin Ratio 1.0 (1-2) Lipase 58 L (73-393) U/L Urine Color (Yellow) Urine Appearance (Clear) Urine pH (5.0-8.0) Ur Specific [place] (1.005-1.030) Urine Protein (Negative) Urine Glucose (UA) (Negative) Urine Ketones (Negative) Urine Occult Blood (Negative) Urine Nitrite (Negative) Urine Bilirubin (Negative) Urine Urobilinogen (0.2-1.0) Ur Leukocyte Esterase (Negative) Urine RBC (0-5) /hpf Urine WBC (0-5) /hpf Ur Squamous Epith Cells (0-5) /hpf Urine Bacteria (FEW) /hpf Urine Mucus (FEW) /hpf SARS-CoV-2 RNA (HERMANN) (NEGATIVE) 03/22/20 03/22/20 03/22/20 Range/Units 17:37 18:40 20:06 WBC (4.23-9.07) K/mm3 RBC (4.63-6.08) M/mm3 Hgb (13.7-17.5) gm/dl Hct (40.1-51.0) % MCV (79.0-92.2) fl MCH (25.7-32.2) pg MCHC (32.2-35.5) g/dl RDW Std Deviation (35.1-43.9) fL Plt Count (163-337) K/mm3 MPV (9.4-12.3) fl Neut % (Auto) (34.0-67.9) % Lymph % (Auto) (21.8-53.1) % Garfield % (Auto) (5.3-12.2) % Eos % (Auto) (0.8-7.0) Baso % (Auto) (0.1-1.2) % Neut # (Auto) (1.78-5.38) K/mm3 Lymph # (Auto) (1.32-3.57) K/mm3 Garfield # (Auto) (0.30-0.82) K/mm3 Eos # (Auto) (0.04-0.54) K/mm3 Baso # (Auto) (0.01-0.08) K/mm3 Manual Slide Review Sodium (136-145) mEq/L Potassium (3.5-5.1) mEq/L Chloride (98-107) mEq/L Carbon Dioxide (21-32) mEq/L Anion Gap (5-15) BUN (7-18) mg/dL Creatinine (0.7-1.3) mg/dL Est Cr Clr Drug Dosing Estimated GFR (MDRD) (>60) mL/min BUN/Creatinine Ratio (14-18) Glucose (74-106) mg/dL Lactic Acid 0.8 (0.4-2.0) mmol/L Calcium (8.5-10.1) mg/dL Total Bilirubin (0.2-1.0) mg/dL AST (15-37) U/L ALT (16-63) U/L Alkaline Phosphatase (46-116) U/L C-Reactive Protein (<1.0) mg/dL Total Protein (6.4-8.2) g/dl Albumin (3.4-5.0) g/dl Globulin gm/dL Albumin/Globulin Ratio (1-2) Lipase (73-393) U/L Urine Color Yellow (Yellow) Urine Appearance Clear (Clear) Urine pH 7.0 (5.0-8.0) Ur Specific [place] 1.015 (1.005-1.030) Urine Protein Trace H (Negative) Urine Glucose (UA) Negative (Negative) Urine Ketones Negative (Negative) Urine Occult Blood Trace-intact H (Negative) Urine Nitrite Negative (Negative) Urine Bilirubin Negative (Negative) Urine Urobilinogen 0.2 (0.2-1.0) Ur Leukocyte Esterase 2+ H (Negative) Urine RBC 0-5 (0-5) /hpf Urine WBC 10-20 H (0-5) /hpf Ur Squamous Epith Cells 0-5 (0-5) /hpf Urine Bacteria Few (FEW) /hpf Urine Mucus Not seen (FEW) /hpf SARS-CoV-2 RNA (HERMANN) Negative (NEGATIVE) Meds: Medications Discontinued Medications Generic Name Dose Route Start Last Admin Trade Name Freq PRN Reason Stop Dose Admin Diatrizoate Meglum/Diatrizoate Sod 90 ml 03/22/20 18:51 03/22/20 19:28 Gastrografin 37% PO 03/22/20 18:52 30 ml ONETIME ONE Administration Sodium Chloride 1,000 mls @ 150 mls/hr 03/22/20 18:15 03/22/20 18:44 Normal Saline IV 03/23/20 00:54 150 mls/hr NOW STA Administration Ceftriaxone Sodium 2 gm/ 100 mls @ 200 mls/hr 03/22/20 19:45 03/22/20 20:25 Sodium Chloride IV 200 mls/hr Q24H MERRICK Administration Iopamidol 100 ml 03/22/20 18:51 03/22/20 19:28 Isovue-300 (61%) IVPUSH 03/22/20 18:52 100 ml ONETIME ONE Administration Sodium Chloride 10 ml 03/22/20 17:27 03/22/20 17:40 Saline Flush FLUSH 10 ml ASDIRECTED PRN Administration Keep Vein Open Sodium Chloride 10 ml 03/22/20 18:51 03/22/20 19:28 Saline Flush FLUSH 10 ml ONETIME PRN Administration Keep Vein Open - Re-Assessments/Exams Free Text/Narrative Re-Assessment/Exam: 03/22/20 20:02 Hematology was significant cannot for a WBC elevated at 19.71, sodium 133, chloride 97, anion gap 16.2, CRP 18.6, cath urine shows trace protein, trace intact occult blood, 2+ leukocyte esterase, and 10-20 WBCs. COVID screen was negative. Lactic acid and blood cultures are pending. Results of CT scan of the abdomen pelvis is also pending. I have ordered Rocephin 2 g IV to be started once blood cultures are complete. 03/22/202044 CT scan of the abdomen pelvis showed slight increase stool within the rectosigmoid region and right colon, as well as artifact from his scoliosis fixation rods. There were no infectious processes visualized intra-abdominal he. I have ordered a soapsuds enema to help alleviate the constipation. Patient's lactic acid was normal at 0.8. 03/22/20 22:41 I was notified by nursing staff that patient had good results from a soapsuds enema. He did move a large amount of stool. Lactic acid was normal, therefore we will treat as an outpatient with Omnicef for the treatment of a urinary tract infection with the possibility of pyelonephritis based on his elevated temperatures. Prescriptions will be sent to [facility] and he may b egin taking them tomorrow as he did receive 2 g of IV Rocephin in the ER. Recommend follow-up with his primary care physician for adjustments of his bowel regimen as needed. Discharge instructions as documented. Departure - Departure Time of Disposition: 22:42 Disposition: Home, Self-Care 01 Condition: Good Clinical Impression: UTI, Urinary tract infectious disease Constipation Qualifiers: Constipation type: unspecified constipation type Qualified Code(s): K59.00 - Constipation, unspecified - Discharge Information *PRESCRIPTION DRUG MONITORING PROGRAM REVIEWED*: No *COPY OF PRESCRIPTION DRUG MONITORING REPORT IN PATIENT NOLVIA: No Prescriptions: Cefdinir [Omnicef] 300 mg PO BID #14 cap Instructions: Constipation, Adult, Urinary Tract Infection, Adult Referrals: Denver Diamond MD [Primary Care Provider] - Forms: ED Department Discharge Additional Instructions: Edilson was seen in the emergency department today for intermittent abdominal pain and fever. His work-up included blood work, urinalysis, chest x-ray, a CT scan of his abdomen and pelvis, and a coronavirus test. Results of his work-up show that he does have active infection which has been deemed to be a urinary tract infection. CT scan of the abdomen pelvis did show increased stool in his lower colon which would explain the abdominal discomfort he has been having intermittently. His coronavirus test was negative. While in the ER, he received a soapsuds enema which did allow him to pass a large amount of stool. He also received his first dose of antibiotics through the IV. A prescription for Omnicef which is an antibiotic has been sent to [facility]. Pick this up and he should begin taking it tomorrow as prescribed. Recommend follow- up with his primary care provider to discuss adjustment of his bowel regimen if needed. If you should experience any worsening symptoms such as continuous high-grade fevers, decreased appetite, increased lethargy, or any other symptoms of concern, please do not hesitate to return him to the emergency department for reevaluation. Sepsis Event Note (ED) - Evaluation Sepsis Screening Result: Possible Sepsis Risk
[2020-03-22] MEDS ORDERED: cefTRIAXone 2 GM in Sodium Chloride 0.9% 100 ML IV SCH (19:45)
--- NOTE | 2020-03-22 20:06 | CT ---
CT abdomen and pelvis Technique: Multiple axial sections were obtained from above the dome of the diaphragm inferiorly through the pubic symphysis. Intravenous contrast was utilized. Oral contrast is seen which remains mostly within the stomach and proximal small bowel. Reconstructed coronal and sagittal images were obtained. Delayed images were also obtained through the bladder. Comparison: Previous CT abdomen and pelvis study of 04/20/19. Limitations: Artifact is noted from scoliosis fixation rods as well as an electrostimulating device within the left side of the pelvis. Findings: Visualized lung bases show nothing acute. Small low density finding is noted within the mid right lobe of the liver measuring about 9 mm. This finding is felt to be present on prior exam. No additional liver abnormality is appreciated. Spleen appears within normal limits. No discrete adrenal nodule is seen. Kidneys show symmetric contrast enhancement without hydronephrosis or mass. Pancreas shows no discrete abnormality. Gallbladder contains no calcified gallstones. Aorta shows no aneurysm. No retroperitoneal adenopathy or mesenteric abnormalities are seen. Surgical material is seen around the tip of the cecum. Appendix is not definitely visualized. Mild increased stool noted within the rectosigmoid region. Lesser stool within the descending and right colon. Delayed images shows contrast within the distal ureters which show no dilatation. Contrast is noted within the bladder. Impression: 1. Slight increased stool within the rectosigmoid region and right colon. 2. Artifact as noted above. 3. Nothing acute is definitely appreciated. Diagnostic code #2 This report was dictated in MDT
== END 2020-03-22 23:23 | disposition home or self-care (01) ==
LOC: JD.ED 16:19
DX: K59.00 Constipation, unspecified (principal); N39.0 Urinary tract infection, site not specified; D72.829 Elevated white blood cell count, unspecified; Z88.2 Allergy status to sulfonamides; Z88.5 Allergy status to narcotic agent; Z20.828 Contact with and (suspected) exposure to other viral communicable diseases; R14.0 Abdominal distension (gaseous)
CPT/HCPCS: 36415; 71045; 74177; 80053; 81001; 83605; 83690; 85025; 86140; 87040; 96361; 96365; 99284; J0696; J7030; J7050; Q9963; Q9967; U0002; 99283

== ENCOUNTER 2024-03-28 12:34 | Emergency (ER) | payer MEDICARE, MEDICAID | END 2024-03-28 15:20 | disposition home or self-care (01) | LOC: JD.ED 12:34 | DX: S50.311A Abrasion of right elbow, initial encounter (principal); S90.411A Abrasion, right great toe, initial encounter; Z88.5 Allergy status to narcotic agent; Z88.2 Allergy status to sulfonamides; W19.XXXA Unspecified fall, initial encounter; M48.02 Spinal stenosis, cervical region | CPT/HCPCS: 70450; 70450-26; 72125; 72125-26; 73080-26-RT; 73080-RT; 73660-26-T5; 73660-T5; 93010; 99283; 99284 ==

== ENCOUNTER 2025-05-14 11:25 | Emergency (ER) | payer MEDICARE, MEDICAID | END 2025-05-14 12:44 | disposition home or self-care (01) | LOC: JD.ED 11:25 | DX: L02.31 Cutaneous abscess of buttock (principal); Z88.2 Allergy status to sulfonamides; Z88.5 Allergy status to narcotic agent; Z79.899 Other long term (current) drug therapy | CPT/HCPCS: 99283 ==